=== PATIENT | male | born 1960 | race Caucasian/White ===

== ENCOUNTER 2016-03-07 23:49 | Emergency (ER) | payer MEDICAID ==
[~2016-03-07] VITALS: Ht 167.6 cm; Wt 76.2 kg
[~2016-03-07 23:49] MED LIST: ADULT LOW DOSE81 MG PO; ALPRAZOLAM1 MG PO; CARVEDILOL3.125 MG PO; IMDUR 30MG. TAB30 MG PO; INSULIN GL100 UNITS/ SC; LEVOTHYROXINE0.05 MG PO; LIPITOR40 MG PO; METFORMIN1000 MG PO; OMEPRAZOLE20 MG PO
[2016-03-08] MEDS ORDERED: RANITIDINE 150150 MG PO (00:05)
--- NOTE | 2016-03-08 00:31 | Emergency Room Report ---
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 PT HARD TO UNDERSTAND. STATES DRINKING VODKA AND BACARDI. PT NOT GOOD HISTORIAN AT THIS TIME. STATES HE SHAKES FROM THE INSIDE. STATES HE HAS BEEN SICK FOR THREE OR FOUR DAYS. DENIES NEW PAIN AT THIS TIME. HARD TO KEEP PT FOCUSED FOR ASSESSMENT. 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 N Clinical Suspician of Infection? N Mental Status: 2 - Mildly Altered Sepsis Risk:Low Sepsis Risk Have you (or family members/close friends) recently traveled outside the [place]? N If Yes, where/when: Have you had exposure to infectious disease within the past month? N TB? Other? Specify: Source patient, RN notes reviewed, EMS, old records Exam Limitations intoxication Comment pt reports drinking and not feeling well -pt w/o trauma Cardiac Chest Pain Chest pain indicative of cardiac No Timing/Duration this evening Severity moderate ALLERGIES Coded Allergies: No Known Allergies (11/21/15) Home Medications Active Scripts Carvedilol (Carvedilol 3.125MG) 6.25 MG PO BID #60 TAB Ref 2 Prov: 05/18/15 ISOSORBIDE MONONITRATE (IMDUR 30MG) 30 MG PO DAILY #30 TAB Ref 2 Prov: 05/18/15 Aspirin (Adult Low Dose Aspirin EC) 81 MG PO DAILY #30 TAB Ref 3 Prov: 05/18/15 Reported Medications Levothyroxine Sodium (Levothyroxine) 0.05 MG PO DAILY ALPRAZOLAM (Alprazolam 1MG) 1 MG PO TID Atorvastatin Calcium (Atorvastatin) 10 MG PO QHS INSULIN GLARGINE (Lantus 3ML Solostar Pen) 20 UNITS SC BID METFORMIN HCL (Metformin) 1,000 MG PO BID Omeprazole (Omeprazole 20MG) 20 MG PO DAILY RANITIDINE HCL (Ranitidine HCl) 150 MG PO BID #60 History Medical History General CAD? Yes Angina: Yes [place]: No Hypertension? No Hyperlipidemia? Yes CHF? No DVT? No PE? No COPD? No Asthma? No Anemia? No GERD? Yes Gastric ulcers? No GI Bleed? No Hernia? Yes Thyroid Problems? Yes Hypothyroidism? Yes CVA? No Seizures? No Diabetes? Yes Insulin Dependent: Yes Insulin Pump: No Home FSBS? Yes Renal Insuffiency? No End Stage Renal Disease? No UTI? No Stones? No BPH? No GB Disease: Yes Nephritic Syndrome? No Asplenia? No Hepatitis? No Sickle Cell Disease? No Arthritis? No Migraines? No Cataracts? No Glaucoma? No MRSA? No HIV? No TB? No Anxiety? Yes Depression? Yes Cancer? No More? No Immunization Hx DT/Tetanus 1-4 Years Ago Pneumonia Received In Past Surgical Hx Previous Surgery?Y OPEN HEART BYPASS GALLBLADDER Family History Family Hx Diabetes Yes CAD Yes Hypertension No Hyperlipidemia Yes Cancer No TB No Social History Smoking Hx Smoker: Current Every Day Smoker Tobacco: Yes Type Cigarettes Packs/day < 1 Pack Alcohol Alcohol: Yes Drugs none Review of Systems All Other Systems Reviewed and Negative Constitutional see HPI, denies fever, other Eyes denies foreign body sensation ENT denies: ear discharge, epistaxis, throat pain, throat swelling. Respiratory denies cough, denies shortness of breath, denies wheezing Cardiovascular denies chest pain, denies syncope Gastrointestinal denies abdominal pain, denies diarrhea, denies vomiting Genitourinary denies: dysuria, frequency, hesitancy, hematuria. Musculoskeletal denies back pain, joint pain, denies neck pain Skin denies rash Psychiatric/Neurological denies headache, denies seizure Physical Exam Vital Signs Vital Signs Date Time Temp Pulse Resp B/P Pulse O2 O2 Flow FiO2 Ox Delivery Rate 03/08 0517 71 18 103/63 97 03/08 0416 72 18 111/65 98 03/08 0318 76 18 119/73 93 03/08 0221 74 18 127/77 98 03/08 0139 77 18 133/81 98 03/07 2351 97.7 71 20 100/71 99 - WBC >12,000 or <4,000 or 10% bands? 2 or more SIRS Criteria Met? B/P:103/ MAP:80 Creatinine >2.0? UA output<0.5ml/kg/hr for 2 hrs? Platelet count >100,000? Lactate >2.0mmol/1? INR >1.2 or PTT > than 60 sec? Evidence of Organ Dysfunction? Provider documented clinical suspician of infection? N Sepsis Criteria Count: 1 Sepsis Risk: Low Sepsis Risk General Appearance no apparent distress Eye Exam - bilateral eye PERRL, bilateral eye EOMI Comment no icterus Ear, Nose, Throat normal ENT inspection Neck non-tender Respiratory Status No: respiratory distress. Lung Sounds bilateral: lungs clear. 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 No Results/Orders Laboratory Tests 03/08/16 0055: Sodium 138, Potassium 4.1, Chloride 102, Carbon Dioxide 24, BUN 7, Creatinine 0.9, Estimated Creat Clear 99, Estimated GFR (MDRD) 87, Glucose 307 H, Calcium 8.9, Total Bilirubin 0.8, AST 81 H, ALT 75, Alkaline Phosphatase 86, Creatine Kinase 79, CK-MB (CK-2) Rel Index 1.0, CK and CKMB Interp 0.8, Troponin I < 0.02 , Total Protein 7.8, Albumin 3.5, Globulin 4.3 H, Albumin/Globulin Ratio 0.8 L , WBC 4.4 L, RBC 5.32, Hgb 15.6, Hct 46.8, MCV 88.0, RDW 15.4, Plt Count 83 L, MPV 9.1, Gran % 47.2, Gran # 2.1, Lymphocytes % 44.7, Monocytes % 5.0, Eosinophils % 2.0, Basophils % 1.1, Lymphocytes # 2.0, Monocytes # 0.2, Eosinophils # 0.1, Basophils # 0.1, PUBS MCHC 33.4, MCH 29.4, Salicylates 2.3 L , Acetaminophen 0 L, Alcohols 245 H Current Medication Orders Sig/Wallace Start time Last Medication Dose Route Stop Time Status Admin Sodium Chloride 1,000 ML .STK-MED ONE 03/08 0053 DC IV Sodium Chloride 1,000 ML .Q1H1M 03/08 0045 DC 03/08 IV 03/08 0145 0055 Sodium Chloride 10 ML PRN PRN 03/08 0045 AC IV 03/09 0039 Sodium Chloride 10 ML PRN PRN 03/07 2345 AC IV 03/08 2356 Orders Procedure Date/time Status 12 LEAD EKG-VIJAY (INITIAL) 03/08 UNK Active ELECTROCARDIOGRAM REQUEST 03/07 2355 Active IV SALINE LOCK 03/07 2355 Active URINALYSIS/COMPLETE 03/07 235 Active SALICYLATE 03/07 235 Complete DRUG ABUSE SCREEN (TRIAGE) 03/07 235 Active COMPLETE METABOLIC PANEL 03/07 235 Complete CBC WITH AUTO DIFF 03/07 2355 Complete CARDIAC ENZYMES 03/07 2355 Complete ALCOHOL 03/07 2355 Complete Acetaminophen 03/07 2355 Complete 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 ST/Twave chgs Progress ED Progress Notes Date 03/08/16 Time 0558 Comment doing better awake/ambulatory Departure Departure Time of Disposition 0202 Disposition DC Home or Self Care(routine) Clinical Impression Primary Impression: Alcohol intoxication Qualifiers: Complication of substance-induced condition: uncomplicated Qualified Code: F10.120 - Alcohol abuse with intoxication, uncomplicated Secondary Impressions: Diabetes mellitus Qualifiers: Diabetes mellitus type: type 1 Diabetes mellitus complication status: with unspecified complications Qualified Code: E10.8 - Type 1 diabetes mellitus with unspecified complications Condition STABLE Referrals Duncan Bauer (Family) Patient Instructions DI for Alcohol Abuse Additional Instructions see your pcp today and discuss diabetes and etoh abuse Discharge Counseling Counseled pt/family regarding diagnosis, test results, follow up needs ED Critical Care Critical Care No at 0602
[2016-03-08 01:09] LABS: LYMPH % 44.7 % (10-50)
[2016-03-08 01:13] LABS: HEMOGLOBIN 15.6 g/dL (14.1-18.0)
[2016-03-08 01:33] LABS: BUN 7 mg/dL (7-18); GFR (ESTIMATED) 87 ML/MIN (>60)
[2016-03-08 06:09] LABS: URINE BILIRUBIN - DIPSTICK NEGATIVE (NEG); URINE BLOOD TRACE-INTACT (NEG)
[2016-03-08 06:17] LABS: AMPHETAMINES/METAMPHETAMINES NEGATIVE ng/mL (<1000)
[2016-03-08 06:36] VITALS: BP 103/63
== END 2016-03-08 06:36 | disposition home or self-care (01) ==
LOC: ER 23:49
PROVIDERS: Emergency Medicine
DX: F10.120 Alcohol abuse with intoxication, uncomplicated (principal); E10.8 Type 1 diabetes mellitus with unspecified complications; F41.8 Other specified anxiety disorders; I25.10 Atherosclerotic heart disease of native coronary artery without angina pectoris; K21.9 Gastro-esophageal reflux disease without esophagitis; Z72.0 Tobacco use
CPT/HCPCS: G6040

== ENCOUNTER 2016-06-08 16:30 | Emergency (ER) | payer MEDICAID ==
[~2016-06-08] VITALS: Ht 167.6 cm; Wt 74.8 kg
[~2016-06-08 16:30] MED LIST changes: +RANITIDINE 150150 MG PO
[2016-06-08] MEDS ORDERED: COLY-MYCIN S OT10 ML OT (17:25)
--- NOTE | 2016-06-08 17:26 | Emergency Room Report ---
History of Present Illness Time Seen by [id number] Presenting Problem in Triage Pt arrived:Walked Presenting Problem:PT REPORTS SUAD EAR ACHES THAT BEGAN YESTERDAY. 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 N Clinical Suspician of Infection? N Mental Status: 1 - Regular (Normal Baseline) Sepsis Risk:Low Sepsis Risk Have you (or family members/close friends) recently traveled outside the [place]? N If Yes, where/when: Have you had exposure to infectious disease within the past month? N TB? Other? Specify: Source patient, RN notes reviewed Exam Limitations no limitations Comment Pt comes to the ED with pain in both ears on and off for over a year and concerned about some lumps on back of throat and above right ear and behind ears as well Cardiac Chest Pain Chest pain indicative of cardiac No ALLERGIES Coded Allergies: No Known Allergies (11/21/15) Home Medications Active Scripts Carvedilol (Carvedilol 3.125MG) 6.25 MG PO BID #60 TAB Ref 2 Prov: 05/18/15 ISOSORBIDE MONONITRATE (IMDUR 30MG) 30 MG PO DAILY #30 TAB Ref 2 Prov: 05/18/15 Aspirin (Adult Low Dose Aspirin EC) 81 MG PO DAILY #30 TAB Ref 3 Prov: 05/18/15 Reported Medications Levothyroxine Sodium (Levothyroxine) 0.05 MG PO DAILY ALPRAZOLAM (Alprazolam 1MG) 1 MG PO TID Atorvastatin Calcium (Atorvastatin) 10 MG PO QHS INSULIN GLARGINE (Lantus 3ML Solostar Pen) 20 UNITS SC BID METFORMIN HCL (Metformin) 1,000 MG PO BID Omeprazole (Omeprazole 20MG) 20 MG PO DAILY History Medical History General CAD? Yes Angina: Yes [place]: No Hypertension? No Hyperlipidemia? Yes CHF? No DVT? No PE? No COPD? No Asthma? No Anemia? No GERD? Yes Gastric ulcers? No GI Bleed? No Hernia? Yes Thyroid Problems? Yes Hypothyroidism? Yes CVA? No Seizures? No Diabetes? Yes Insulin Dependent: Yes Insulin Pump: No Home FSBS? Yes Renal Insuffiency? No End Stage Renal Disease? No UTI? No Stones? No BPH? No GB Disease: Yes Nephritic Syndrome? No Asplenia? No Hepatitis? No Sickle Cell Disease? No Arthritis? No Migraines? No Cataracts? No Glaucoma? No MRSA? No HIV? No TB? No Anxiety? Yes Depression? Yes Cancer? No More? No Immunization Hx DT/Tetanus Unknown Pneumonia Received In Past Surgical Hx Previous Surgery?Y OPEN HEART BYPASS GALLBLADDER Family History Family Hx Diabetes Yes CAD Yes Hypertension No Hyperlipidemia Yes Cancer No TB No Social History Smoking Hx Smoker: Current Every Day Smoker Tobacco: Yes Type Cigarettes Packs/day < 1 Pack Alcohol Alcohol: Yes Review of Systems All Other Systems Reviewed and Negative Constitutional see HPI ENT see HPI. Physical Exam Vital Signs Vital Signs Date Time Temp Pulse Resp B/P Pulse O2 O2 Flow FiO2 Ox Delivery Rate 06/08 1638 97.7 74 18 122/52 95 General Appearance normal appearance, WD/WN, no apparent distress Ear, Nose, Throat bilat. external ears are excoriated and mildly inflamed He has a sebaceous cyst above the right ear Respiratory Status No: respiratory distress. 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 No Departure Departure Time of Disposition 1718 Disposition DC Home or Self Care(routine) Clinical Impression Primary Impression: Sebaceous cyst of ear Secondary Impressions: External otitis of both ears due to fungus Condition STABLE Patient Instructions DI for Epidermal Cyst, DI for Otitis Externa, Epidermal Cyst, Otitis Externa Additional Instructions Use medicines as directed and followup with PCP as needed. Discharge Counseling Counseled pt/family regarding diagnosis, test results, medications/RX, home care, follow up needs Prescriptions Current Visit Scripts Neomycin Sandy/Colist/Hc/Thonzon (Coly-Mycin S Otic Susp Drop) 5 DROP OT QID #1 BOT ED Critical Care Critical Care No If Critical Care minutes are documented, the time involved in the performance of seperately reportable procedures was not counted toward critical care time documented. I directly delivered medical care to this critically ill and/or injured patient. Timely evaluation and treatment was necessary to address the significant organ system(s) dysfunction present in this patient. at [id number]
[2016-06-08 17:55] VITALS: BP 106/66
--- OUTSIDE RECORDS SUMMARY | 2016-06-10 | External Medical Summary Rpt ---
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 .7 NT MM HI X3 AN 0G A IN C RA 53 02 03 60 30 00 EA Ac NI 74 -2 -[address] ti TI 60 2- 4- 00 00 SI ve DI 25 20 20 47 DE NE 31 17 17 00 0 81 PH 15 AR 0 MA MG CY TA OF BL CY ET NT HI AN A IN C CA 00 02 03 60 30 00 EA Ac RV 09 -2 -[address] ti ED 30 2- 4- 00 00 SI ve IL 13 20 20 47 DE OL 50 17 17 33 1 88 PH 6. AR 25 MA CY MG OF TA CY BL NT ET HI AN A IN C ME 68 02 03 60 30 00 EA Ac TF 38 -2 -[address] ti OR 20 2- 4- [address] 76 20 20 47 DE N 01 17 17 33 HC 0 86 PH L AR 1, MA 00 CY 0 MG OF CY TA NT BL HI ET AN A IN C LE 00 02 03 30 30 00 EA Ac VO 37 -2 -[address] ti TH 81 2- 4- 00 00 SI ve YR 80 20 20 46 DE OX 37 17 17 65 IN 7 50 PH E AR 50 MA CY MC G OF TA CY BL NT ET HI AN A IN C IS 13 02 03 30 30 00 EA Ac OS 66 -2 -[address] ti OR 80 2- 4- 00 00 SI ve BI 10 20 20 47 DE DE 40 17 17 33 1 87 PH MN AR MA ER CY 30 OF CY MG NT HI TA AN BL A ET IN C AL 00 02 03 90 30 00 EA Ac VA 78 -2 -[address] ti AZ 11 2- 4- 00 00 SI ve OL 07 20 20 47 DE AM 91 17 17 00 1 0 82 PH AR MG MA CY TA BL OF ET CY NT HI AN A IN C ON 02 10 30 00 EA Ac ET 88 -2 -[address] ti OU 50 3- 4- 00 00 SI ve CH 59 20 20 0 47 DE 50 17 17 34 DE 1 09 PH LI AR CA MA CY 30 G OF LA CY NC NT ET HI S AN A IN C ON 02 50 25 00 EA Ac ET 88 -2 -[address] ti OU 50 3- 4- 00 00 SI ve CH 24 20 20 47 DE 45 17 17 34 UL 0 08 PH TR AR A MA TE CY ST OF ST CY RI NT PS HI AN A IN C ON 02 1. 1 00 EA Ac ET 88 -2 -[address] ti OU 50 3- 4- 0 00 SI ve CH 44 20 20 47 DE 80 17 17 34 UL 1 07 PH TR AR A2 MA CY GL UC OF OS CY E NT SY HI ST AN A IN C HM 62 01 02 30 30 00 EA Ac 01 -2 -[address] ti OM 10 3- 4- 00 00 SI ve EP 15 20 20 45 DE RA 70 17 17 25 ZO 2 05 PH LE AR MA [address] CY 20 OF CY MG NT HI TA AN BL A ET IN C LA 00 01 02 10 24 00 EA Ac NT 08 -2 -[address] ti US 82 3- 4- 00 00 SI ve 22 20 20 47 DE 10 03 17 17 34 0 3 03 PH UN AR IT MA S/ CY ML OF CY AL NT HI AN A IN C HU 00 01 02 10 30 00 EA Ac MA 00 -2 -[address] ti LO 27 3- 4- 00 00 SI ve G 51 20 20 43 DE 10 00 17 17 28 0 1 99 PH UN AR IT MA S/ CY ML OF CY AL NT HI AN A IN C AL 00 01 02 90 30 00 EA Ac VA 78 -2 -[address] ti AZ 11 3- 4- 00 00 SI ve OL 07 20 20 47 DE AM 91 17 17 00 1 0 82 PH AR MG MA CY TA BL OF ET CY NT HI AN A IN C CA 00 02 60 30 00 EA Ac RV 09 -2 -[address] ti ED 30 3- 4- 00 00 SI ve IL 13 20 20 47 DE OL 50 17 17 33 1 88 PH 6. AR 25 MA CY MG OF TA CY BL NT ET HI AN A IN C IS 13 01 02 30 30 00 EA Ac OS 66 -2 -[address] ti OR 80 3- 4- 00 00 SI ve BI 10 20 20 47 DE DE 40 17 17 33 1 87 PH MN AR MA ER CY 30 OF CY MG NT HI TA AN BL A ET IN C LE 00 01 02 30 30 00 EA Ac VO 37 -2 -[address] ti TH 81 3- 4- 00 00 SI ve YR 80 20 20 46 DE OX 37 17 17 65 IN 7 50 PH E AR 50 MA CY MC G OF TA CY BL NT ET HI AN A IN C RA 53 01 02 60 30 00 EA Ac NI 74 -2 -[address] ti TI 60 3- 4- 00 00 SI ve DI 25 20 20 47 DE NE 31 17 17 00 0 81 PH 15 AR 0 MA MG CY TA OF BL CY ET NT HI AN A IN C ME 68 01 02 60 30 00 EA Ac TF 38 -2 -[address] ti OR 20 3- 4- [address] 76 20 20 47 DE N 01 17 17 33 HC 0 86 PH L AR 1, MA 00 CY 0 MG OF CY TA NT BL HI ET AN A IN C 00 02 30 30 00 EA Ac PI 60 -2 -[address] ti RI 30 3- 4- 00 00 SI ve N 02 20 20 45 DE EC 62 17 17 25 2 07 PH 81 AR MA MG CY TA OF BL CY ET NT HI AN A IN C BD 08 01 02 10 25 00 EA Ac 29 -2 -[address] ti IN 03 3- 4- 00 00 SI ve CARTER 28 20 20 0 46 DE LI 41 17 17 98 N 1 54 PH SY AR R MA 1 CY ML OF 12 CY .7 NT MM HI X3 AN 0G A IN C AL 00 12 90 30 00 EA Ac VA 78 -2 -[address] ti AZ 11 3- 7- 00 SI ve OL 07 20 20 47 DE AM 91 16 17 00 1 0 82 PH AR MG MA CY TA BL OF ET CY NT HI AN A IN C RA 53 12 01 60 30 00 EA Ac NI 74 -2 -[address] ti TI 60 3- 7- 00 00 SI ve DI 25 20 20 47 DE NE 31 16 17 00 0 81 PH 15 AR 0 MA MG CY TA OF BL CY ET NT HI AN A IN C IS 13 12 30 30 00 EA Ac OS 66 -2 -[address] ti OR 80 2- 7- 00 00 SI ve BI 10 20 20 45 DE DE 40 16 17 25 1 01 PH MN AR MA ER CY 30 OF CY MG NT HI TA AN BL A ET IN C 00 12 30 30 00 EA Ac PI 60 -2 -[address] ti RI 30 2- 7- 00 00 SI ve N 02 20 20 45 DE EC 62 16 17 25 2 07 PH 81 AR MA MG CY TA OF BL CY ET NT HI AN A IN C ME 68 12 01 60 30 00 EA Ac TF 38 -2 -[address] ti OR 20 2- 7- [address] 76 20 20 45 DE N 01 16 17 25 HC 0 04 PH L AR 1, MA 00 CY 0 MG OF CY TA NT BL HI ET AN A IN C CA 00 12 01 60 30 00 EA Ac RV 09 -2 -[address] ti ED 30 2- 7- 00 00 SI ve IL 13 20 20 45 DE OL 50 16 17 25 1 02 PH 6. AR 25 MA CY MG OF TA CY BL NT ET HI AN A IN C BD 08 12 01 10 25 00 EA Ac 29 -2 -[address] ti IN 03 2- 7- 00 00 SI ve CARTER 28 20 20 0 46 DE LI 41 16 17 98 N 1 54 PH SY AR R MA 1 CY ML OF 12 CY .7 NT MM HI X3 AN 0G A IN C LE 00 12 01 30 30 00 EA Ac VO 37 -2 -[address] ti TH 81 2- 7- 00 00 SI ve YR 80 20 20 46 DE OX 37 16 17 65 IN 7 50 PH E AR 50 MA CY MC G OF TA CY BL NT ET HI AN A IN C LA 00 12 01 10 24 00 EA Ac NT 08 -1 -[address] ti US 82 9- 0- 00 00 SI ve 22 20 20 43 DE 10 03 16 17 29 0 3 03 PH UN AR IT MA S/ CY ML OF CY AL NT HI AN A IN C HM 62 12 01 30 30 00 EA Ac 01 -1 -[address] ti OM 10 9- 0- 00 00 SI ve EP 15 20 20 45 DE RA 70 16 17 25 ZO 2 05 PH LE AR MA [address] CY 20 OF CY MG NT HI TA AN BL A ET IN C CY 00 07 07 0 15 5 CV 30 WO Ac CL 37 -2 -2 .0 S 94 NG ti OB 80 3- 4- 00 PH 81 ve EN 75 20 20 AR BR ZA 11 11 11 MA EN VA 0 CY DA IN # L E 10 06 11 MG 9 TA BL ET IB 55 07 07 0 20 7 CV 30 WO Ac UP 11 -2 -2 .0 S 94 NG ti RO 10 3- 4- 00 PH 82 ve FE 68 20 20 AR BR N 40 11 11 MA EN 80 5 CY DA 0 # L MG 06 TA 11 BL 9 ET 00 04 04 0 10 3 CV 30 MU Ac 40 -2 -2 .0 S 20 KH ti 60 2- 2- 00 PH 93 ER ve 35 20 20 AR JE 70 11 11 MA E 5 CY SA # NJ OY 06 DE 11 B 9 NA 00 04 04 0 20 10 CV 30 MU Ac VA 09 -2 -2 .0 S 20 KH ti OX 30 2- 2- 00 PH 94 ER ve EN 14 20 20 AR JE 90 11 11 MA E 50 5 CY SA 0 # NJ MG OY 06 DE TA 11 B BL 9 ET 49 11 12 0 20 7 BL 65 DO Ac 88 -0 -0 .0 AN 89 ZI ti 40 3- 6- 00 K' 72 ER ve 77 20 20 S 4 80 10 10 PH EM 5 AR IL MA Y CY J 00 11 11 0 [address] Ac 59 -0 -0 .0 LG 87 AN ti 10 1- 1- 00 RE 32 FO ve 34 20 20 EN 1 RT 90 10 10 S H 5 #1 DA 30 55 D # 13 05 5 65 10 10 0 10 50 BL 65 ZI Ac 70 -2 -2 0. AN 85 NE ti 20 0- 0- 00 K' 91 DD ve 10 20 20 0 S 5 IN 31 10 10 PH 0 AR MO MA ALBERT CY ME D GN 38 10 10 0 10 50 BL 65 ZI Ac P 39 -2 -2 0. AN 85 NE ti UN 60 0- 0- 00 K' 91 DD ve IV 54 20 20 0 S 6 IN ER 76 10 10 PH SA 4 AR MO L MA ALBERT 1 CY ME CARTER D PE R TH IN 30 G TR 65 10 10 0 15 2 BL 41 BE Ac AM 16 -1 -1 .0 AN 24 RN ti AD 20 5- 5- 00 K' 28 AR ve OL 62 20 20 S 6 DO 71 10 10 PH N HC [address] L MA EP 50 CY HE N MG D TA BL ET 00 10 10 0 30 5 BL 65 BE Ac 14 -1 -1 .0 AN 85 RN ti 31 5- 5- 00 K' 53 AR ve 47 20 20 S 5 DO 31 10 10 PH [address] MA EP CY HE N D 00 10 10 0 8. 3 CV 28 EV Ac 40 -1 -1 00 S 63 AN ti 60 4- 4- 0 PH 87 S ve 35 20 20 AR JA 70 10 10 MA ME 5 CY S # L 06 11 9 LI 68 10 10 0 30 30 BL 65 FA Ac SI 18 -0 -1 .0 AN 85 TT ti NO 00 8- 1- 00 K' 10 AL ve VA 51 20 20 S 7 IL 90 10 10 PH MO -H [address] MA MM Z CY AD 20 -1 2. 5 MG TA B GL 64 10 10 0 60 30 BL 65 FA Ac YB 72 -0 -1 .0 AN 85 TT ti UR 00 8- 1- 00 K' 10 AL ve ID 12 20 20 S 8 E 51 10 10 PH MO 5 1 AR ALBERT MG MA MM CY AD TA BL ET HY 00 10 10 0 40 14 BL [address] 18 -0 -1 .0 AN 85 TT ti OX 50 8- 1- 00 K' 10 AL ve YZ 61 20 20 S 9 IN 30 10 10 PH MO E 5 AR ALBERT PA MA MM M CY AD 25 MG CA P 00 07 07 0 18 2 CV 28 EV Ac 40 -2 -2 .0 S 00 AN ti 60 6- 6- 00 PH 06 S ve 35 20 20 AR JA 70 10 10 MA ME 5 CY S # L 06 11 9 00 05 05 6. 1 CV 27 CU Ac 40 -2 -2 00 S 47 LB ti 60 3- 3- 0 PH 99 ER ve 35 20 20 AR TS 70 10 10 MA ON 5 CY # RO BE 06 RT 11 9 CE 42 01 01 00 40 10 KR 61 CU Ac PH 04 -1 -2 .0 OG 18 LB ti AL 30 3- 8- 00 ER 17 ER ve EX 14 20 20 1 TS IN 10 10 10 CO ON 5 MP 50 AN AD 0 Y AM MG 38 D 1 CA PS UL E 00 01 01 00 12 2 KR 46 CU Ac 40 -1 -2 .0 OG 04 LB ti 60 3- 8- 00 ER 04 ER ve 35 20 20 5 TS 70 10 10 CO ON 1 MP AN AD Y AM 38 D 1 CE 68 12 01 00 40 10 WA 29 CU Ac PH 18 -2 -1 .0 LG 43 LB ti AL 00 5- 4- 00 RE 39 ER ve EX 12 20 20 EN 0 TS IN 20 09 10 # ON 2 50 07 AD 0 34 AM MG 6 D CA PS UL E TR 00 09 12 03 30 30 CV 25 WY Ac IC 07 -0 -3 .0 S 34 EN ti OR 46 1- 1- 00 PH 56 AN ve 12 20 20 AR DT 14 39 09 09 MA 5 0 CY JR MG #6 RO TA 11 BE BL [address] 24 12 12 00 12 30 BL 65 ZI Ac OO 38 -1 -3 0. AN 61 NE ti L 50 7- 1- 00 KS 56 DD ve SO 49 20 20 0 4 IN FT 57 09 09 PH EN 8 AR MO ER MA ALBERT -L CY ME AX D AT IV E TA BL ET BU 00 12 12 00 90 30 BL 65 ZI Ac SP 59 -1 -3 .0 AN 61 NE ti IR 10 4- 1- 00 KS 56 DD ve ON 65 20 20 2 IN E 80 09 09 PH HC 1 AR MO L MA ALBERT 10 CY ME D MG TA BL ET 00 09 12 03 60 30 CV 25 WY Ac 09 -0 -3 .0 S 34 EN ti 37 1- 1- PH 05 AN ve 23 20 20 AR DT 10 09 09 MA 6 CY JR #6 RO 11 BE 9 RT LI 00 12 12 00 90 90 BL 65 ZI Ac SI 18 -1 -3 .0 AN 61 NE ti NO 50 4- 1- 00 KS 56 DD ve VA 10 20 20 7 IN IL 10 09 09 PH 1 AR MO 10 MA ALBERT CY ME MG D TA BL ET AV 00 12 12 00 10 10 CV 26 WY Ac EL 08 -1 -3 .0 S 26 EN ti OX 51 9- 1- PH 72 AN ve 73 20 20 AR DT 40 30 09 09 MA 0 1 CY JR MG #6 RO TA 11 BE BL 9 RT ET 00 09 12 03 60 30 CV 25 WY Ac 14 -0 -3 .0 S 34 EN ti 31 1- 1- PH 55 AN ve 77 20 20 AR DT 21 09 09 MA 0 CY JR #6 RO 11 BE 9 RT CI 13 09 12 01 30 30 CV 25 WY Ac TA 66 -2 -3 .0 S 50 EN ti LO 80 2- 1- 00 PH 75 AN ve VA 01 20 20 AR DT AM 10 09 09 MA 5 CY JR HB R #6 RO 40 11 BE 9 RT MG TA BL ET GL 00 09 12 02 30 30 CV 25 WY Ac IP 59 -0 -3 .0 S 34 EN ti IZ 10 1- - PH 04 AN ve ID 84 20 20 AR DT E 40 09 09 MA ER 1 CY JR 5 #6 RO MG 11 BE 9 RT TA BL ET LE 00 12 12 00 30 30 CV 26 WY Ac VO 37 -1 -3 .0 S 25 EN ti TH 81 7- 1- PH 42 AN ve YR 80 20 20 AR DT OX 00 09 09 MA IN 1 CY JR E 25 #6 RO 11 BE MC 9 RT G TA BL ET SE 59 12 12 00 30 30 BL 65 ZI Ac RT 76 -1 -3 .0 AN 61 NE ti RA 24 4- 1- 00 KS 56 DD ve LI 91 20 20 3 IN NE 00 09 09 PH 5 AR MO HC MA ALBERT L CY ME 10 D 0 MG TA BL ET AT 68 09 12 03 60 30 CV 25 WY Ac EN 38 -0 -3 .0 S 34 EN ti OL 20 1- 1- 00 PH 53 AN ve OL 02 20 20 AR DT 21 09 09 MA 25 0 CY JR MG #6 RO 11 BE TA 9 RT BL ET PO 00 12 12 00 25 14 BL 65 SO Ac LY 57 -1 -1 5. AN 61 WE ti ET 40 1 7- KS 11 R ve HY 41 20 20 0 5 DA LE 20 09 09 PH NE 2 AR D MA GL CY YC OL 33 50 PO WD GA 00 12 12 00 90 30 CV 26 WY Ac BA 09 -0 -1 .0 S 12 EN ti PE 34 2- 7- 00 PH 39 AN ve NT 44 20 20 AR DT IN 30 09 09 MA 1 CY JR 60 0 #6 RO MG 11 BE 9 RT TA BL ET AT 68 09 12 02 60 30 CV 25 WY Ac EN 38 -0 -0 .0 S 34 EN ti OL 20 1- 3- 00 PH 53 AN ve OL 02 20 20 AR DT 21 09 09 MA 25 0 CY JR MG #6 RO 11 BE TA 9 RT BL ET 00 09 12 02 60 30 CV 25 WY Ac 14 -0 -0 .0 S 34 EN ti 31 1- 3- 00 PH 55 AN ve 77 20 20 AR DT 21 09 09 MA 0 CY JR #6 RO 11 BE 9 RT GL 00 09 12 01 30 30 CV 25 WY Ac IP 59 -0 -0 .0 S 34 EN ti IZ 10 1- 3- 00 PH 04 AN ve ID 84 20 20 AR DT E 40 09 09 MA ER 1 CY JR 5 #6 RO MG 11 BE 9 RT TA BL ET CI 13 09 12 00 30 30 CV 25 WY Ac TA 66 -2 -0 .0 S 50 EN ti LO 80 2- 3- 00 PH 75 AN ve VA 01 20 20 AR DT AM 10 09 09 MA 5 CY JR HB R #6 RO 40 11 BE 9 RT MG TA BL ET LI 68 09 12 01 30 30 CV 25 WY Ac SI 18 -0 -0 .0 S 34 EN ti NO 00 1- 3- 00 PH 54 AN ve VA 51 20 20 AR DT IL 30 09 09 MA 5 3 CY JR MG #6 RO 11 BE TA 9 RT BL ET 00 09 12 02 60 30 CV 25 WY Ac 09 -0 -0 .0 S 34 EN ti 37 1- 3- 00 PH 05 AN ve 23 20 20 AR DT 10 09 09 MA 6 CY JR #6 RO 11 BE 9 RT TR 00 09 12 02 30 30 CV 25 WY Ac IC 07 -0 -0 .0 S 34 EN ti OR 46 1- 3- 00 PH 56 AN ve 12 20 20 AR DT 14 39 09 09 MA 5 0 CY JR MG #6 RO TA 11 BE BL 9 RT ET 00 11 11 00 6. 1 WA 29 SC Ac 60 -1 -1 00 LG 21 HO ti 35 1- 9- 0 RE 93 TT ve 46 20 20 EN 7 72 09 09 # BLU 8 N 07 J 34 6 LE 00 05 11 05 30 30 CV 24 WY Ac VO 37 -2 -1 .0 S 45 EN ti TH 81 0- 9- 00 PH 52 AN ve YR 80 20 20 AR DT OX 00 09 09 MA IN 1 CY JR E 25 #6 RO 11 BE MC 9 RT G TA BL ET AT 68 09 10 01 60 30 CV 25 WY Ac EN 38 -0 -2 .0 S 34 EN ti OL 20 1- 2- 00 PH 53 AN ve OL 02 20 20 AR DT 21 09 09 MA 25 0 CY JR MG #6 RO 11 BE TA 9 RT BL ET 00 09 10 01 60 30 CV 25 WY Ac 09 -0 -2 .0 S 34 EN ti 37 1- 2- 00 PH 05 AN ve 23 20 20 AR DT 10 09 09 MA 6 CY JR #6 RO 11 BE 9 RT GA 59 02 10 05 90 30 CV 23 WY Ac BA 76 -2 -2 .0 S 66 EN ti PE 25 4- 2- 00 PH 86 AN ve NT 02 20 20 AR DT IN 30 09 09 MA 1 CY JR 60 0 #6 RO MG 11 BE 9 RT TA BL ET 00 09 10 01 60 30 CV 25 WY Ac 14 -0 -2 .0 S 34 EN ti 31 1- 2- 00 PH 55 AN ve 77 20 20 AR DT 21 09 09 MA 0 CY JR #6 RO 11 BE 9 RT TR 00 09 10 01 30 30 CV 25 WY Ac IC 07 -0 -2 .0 S 34 EN ti OR 46 1- 2- 00 PH 56 AN ve 12 20 20 AR DT 14 39 09 09 MA 5 0 CY JR MG #6 RO TA 11 BE BL 9 RT ET LE 00 05 10 04 30 30 CV 24 WY Ac VO 37 -2 -0 .0 S 45 EN ti TH 81 0- 8- 00 PH 52 AN ve YR 80 20 20 AR DT OX 00 09 09 MA IN 1 CY JR E 25 #6 RO 11 BE MC 9 RT G TA BL ET LI 68 09 09 00 30 30 WA 11 ZI Ac SI 18 -1 -2 .0 LG 06 NE ti NO 00 7- 4- 00 RE 93 DD ve VA 51 20 20 EN 6 IN IL 40 09 09 S 3 (0 MO 10 29 ALBERT 91 ME MG ) D TA BL ET TR 50 09 09 00 30 30 WA 11 ZI Ac AZ 11 -1 -2 .0 LG 06 NE ti OD 10 7- 4- 00 RE 93 DD ve ON 43 20 20 EN 7 IN E 30 09 09 S 50 2 (0 MO 29 ALBERT MG 91 ME ) D TA BL ET 00 09 09 00 60 30 WA 11 ZI Ac 78 -1 -2 .0 LG 06 NE ti 11 7- 4- 00 RE 93 DD ve 19 20 20 EN 5 IN 11 09 09 S 0 (0 MO 29 ALBERT 91 ME ) D 00 09 09 00 60 30 CV 25 WY Ac 09 -0 -1 .0 S 34 EN ti 37 1- 0- 00 PH 05 AN ve 23 20 20 AR DT 10 09 09 MA 6 CY JR #6 RO 11 BE 9 RT 00 09 09 00 60 30 CV 25 WY Ac 14 -0 -1 .0 S 34 EN ti 31 1- 0- 00 PH 55 AN ve 77 20 20 AR DT 21 09 09 MA 0 CY JR #6 RO 11 BE 9 RT AT 68 09 09 00 60 30 CV 25 WY Ac EN 38 -0 -1 .0 S 34 EN ti OL 20 1- 0- 00 PH 53 AN ve OL 02 20 20 AR DT 21 09 09 MA 25 0 CY JR MG #6 RO 11 BE TA 9 RT BL ET GL 00 09 09 00 30 30 CV 25 WY Ac IP 59 -0 -1 .0 S 34 EN ti IZ 10 1- 0- 00 PH 04 AN ve ID 84 20 20 AR DT E 40 09 09 MA ER 1 CY JR 5 #6 RO MG 11 BE 9 RT TA BL ET LE 00 05 09 03 30 30 CV 24 WY Ac VO 37 -2 -1 .0 S 45 EN ti TH 81 0- 0- 00 PH 52 AN ve YR 80 20 20 AR DT OX 00 09 09 MA IN 1 CY JR E 25 #6 RO 11 BE MC 9 RT G TA BL ET TR 00 09 09 00 30 30 CV 25 WY Ac IC 07 -0 -1 .0 S 34 EN ti OR 46 1- 0- 00 PH 56 AN ve 12 20 20 AR DT 14 39 09 09 MA 5 0 CY JR MG #6 RO TA 11 BE BL 9 RT ET LI 68 09 09 00 30 30 CV 25 WY Ac SI 18 -0 -1 .0 S 34 EN ti NO 00 1- 0- 00 PH 54 AN ve VA 51 20 20 AR DT IL 30 09 09 MA 5 3 CY JR MG #6 RO 11 BE TA 9 RT BL ET CI 13 02 08 05 30 30 CV 23 WY Ac TA 66 -2 -2 .0 S 66 EN ti LO 80 4- 7- 00 PH 87 AN ve VA 01 20 20 AR DT AM 10 09 09 MA 5 CY JR HB R #6 RO 40 11 BE 9 RT MG TA BL ET GA 59 02 08 04 90 30 CV 23 WY Ac BA 76 -2 -2 .0 S 66 EN ti PE 25 4- 7- 00 PH 86 AN ve NT 02 20 20 AR DT IN 30 09 09 MA 1 CY JR 60 0 #6 RO MG 11 BE 9 RT TA BL ET 00 08 08 00 12 30 CV 25 WY Ac 59 -1 -2 0. S 21 EN ti 10 8- 7- 00 PH 82 AN ve 82 20 20 0 AR DT 50 09 09 MA 1 CY JR #6 RO 11 BE 9 RT 00 07 08 00 60 30 CV 25 WY Ac 14 -2 -1 .0 S 02 EN ti 31 8- 3- 00 PH 52 AN ve 77 20 20 AR DT 21 09 09 MA 0 CY JR #6 RO 11 BE 9 RT 00 02 08 05 60 30 CV 23 WY Ac 40 -0 -1 .0 S 49 EN ti 62 5- 3- 00 PH 75 AN ve 02 20 20 AR DT 21 09 09 MA 0 CY JR #6 RO 11 BE 9 RT GL 00 07 08 00 30 30 CV 25 WY Ac IP 59 -2 -1 .0 S 02 EN ti IZ 10 8- 3- 00 PH 53 AN ve ID 84 20 20 AR DT E 40 09 09 MA ER 1 CY JR 5 #6 RO MG 11 BE 9 RT TA BL ET LE 00 05 08 02 30 30 CV 24 WY Ac VO 37 -2 -1 .0 S 45 EN ti TH 81 0- 3- 00 PH 52 AN ve YR 80 20 20 AR DT OX 00 09 09 MA IN 1 CY JR E 25 #6 RO 11 BE MC 9 RT G TA BL ET 00 07 08 00 60 30 CV 25 WY Ac 09 -2 -1 .0 S 02 EN ti 37 8- 3- 00 PH 51 AN ve 23 20 20 AR DT 10 09 09 MA 6 CY JR #6 RO 11 BE 9 RT TR 00 07 08 00 30 30 CV 25 WY Ac IC 07 -2 -1 .0 S 02 EN ti OR 46 8- 3- 00 PH 54 AN ve 12 20 20 AR DT 14 39 09 09 MA 5 0 CY JR MG #6 RO TA 11 BE BL 9 RT ET LI 68 12 07 06 30 30 CV 22 WY Ac SI 18 -0 -3 .0 S 93 EN ti NO 00 2- 0- 00 PH 96 AN ve VA 51 20 20 AR DT IL 30 08 09 MA 5 3 CY JR MG #6 RO 11 BE TA 9 RT BL ET CI 13 02 07 04 30 30 CV 23 WY Ac TA 66 -2 -1 .0 S 66 EN ti LO 80 4- 6- 00 PH 87 AN ve VA 01 20 20 AR DT AM 10 09 09 MA 5 CY JR HB R #6 RO 40 11 BE 9 RT MG TA BL ET LE 00 05 07 01 30 30 CV 24 WY Ac VO 37 -2 -0 .0 S 45 EN ti TH 81 0- 2- 00 PH 52 AN ve YR 80 20 20 AR DT OX 00 09 09 MA IN 1 CY JR E 25 #6 RO 11 BE MC 9 RT G TA BL ET 00 02 07 04 60 30 CV 23 WY Ac 40 -0 -0 .0 S 49 EN ti 62 5- 2- 00 PH 75 AN ve 02 20 20 AR DT 21 09 09 MA 0 CY JR #6 RO 11 BE 9 RT GA 59 02 07 03 90 30 CV 23 WY Ac BA 76 -2 -0 .0 S 66 EN ti PE 25 4- 2- 00 PH 86 AN ve NT 02 20 20 AR DT IN 30 09 09 MA 1 CY JR 60 0 #6 RO MG 11 BE 9 RT TA BL ET 00 12 07 06 60 30 CV 22 WY Ac 09 -0 -0 .0 S 93 EN ti 37 1- 2- 00 PH 09 AN ve 23 20 20 AR DT 10 08 09 MA 6 CY JR #6 RO 11 BE 9 RT GL 00 12 07 05 30 30 CV 22 WY Ac IP 59 -0 -0 .0 S 93 EN ti IZ 10 2- 2- 00 PH 95 AN ve ID 84 20 20 AR DT E 40 08 09 MA ER 1 CY JR 5 #6 RO MG 11 BE 9 RT TA BL ET TR 00 12 07 04 30 30 CV 22 WY Ac IC 07 -0 -0 .0 S 93 EN ti OR 46 2- 2- 00 PH 93 AN ve 12 20 20 AR DT 14 39 08 09 MA 5 0 CY JR MG #6 RO TA 11 BE BL 9 RT ET CI 13 02 06 03 30 30 CV 23 WY Ac TA 66 -2 -1 .0 S 66 EN ti LO 80 4- 8- 00 PH 87 AN ve VA 01 20 20 AR DT AM 10 09 09 MA 5 CY JR HB R #6 RO 40 11 BE 9 RT MG TA BL ET CY 59 06 06 00 15 5 BL 65 WO Ac CL 74 -0 -1 .0 AN 46 LF ti OB 60 9- 8- 00 KS 48 F ve EN 17 20 20 9 EM ZA 71 09 09 PH IL VA 0 AR Y IN MA L E CY 10 MG TA BL ET TR 65 06 06 00 15 3 BL 41 WO Ac AM 16 -0 -1 .0 AN 12 LF ti AD 20 9- 8- 00 KS 96 F ve OL 62 20 20 4 EM 71 09 09 PH IL HC 1 AR Y L MA L 50 CY MG TA BL ET LE 00 05 06 00 30 30 CV 24 WY Ac VO 37 -2 -0 .0 S 45 EN ti TH 81 0- 4- 00 PH 52 AN ve YR 80 20 20 AR DT OX 00 09 09 MA IN 1 CY JR E 25 #6 RO 11 BE MC 9 RT G TA BL ET FL 00 05 06 00 12 30 CV 24 WY Ac OV 17 -2 -0 .0 S 45 EN ti EN 30 0- 4- 00 PH 53 AN ve T 72 20 20 AR DT HF 02 09 09 MA A 0 CY JR 22 0 #6 RO MC 11 BE G 9 RT IN ALBERT LE R CE 68 05 06 00 40 10 BL 65 No Ac PH 18 -2 -0 .0 AN 45 t ti AL 00 8- 4- 00 KS 52 Av ve EX 12 20 20 8 ai IN 20 09 09 PH la 2 AR bl 50 MA e 0 CY MG CA PS UL E GL 00 12 06 04 30 30 CV 22 WY Ac IP 59 -0 -0 .0 S 93 EN ti IZ 10 2- 4- 00 PH 95 AN ve ID 84 20 20 AR DT E 40 08 09 MA ER 1 CY JR 5 #6 RO MG 11 BE 9 RT TA BL ET 00 12 06 05 60 30 CV 22 WY Ac 09 -0 -0 .0 S 93 EN ti 37 1- 4- 00 PH 09 AN ve 23 20 20 AR DT 10 08 09 MA 6 CY JR #6 RO 11 BE 9 RT 00 01 06 03 60 30 CV 23 WY Ac 14 -0 -0 .0 S 21 EN ti 31 5- 4- 00 PH 22 AN ve 77 20 20 AR DT 21 09 09 MA 0 CY JR #6 RO 11 BE 9 RT LI 68 12 06 05 30 30 CV 22 WY Ac SI 18 -0 -0 .0 S 93 EN ti NO 00 2- 4- 00 PH 96 AN ve VA 51 20 20 AR DT IL 30 08 09 MA 5 3 CY JR MG #6 RO 11 BE TA 9 RT BL ET TR 00 12 06 03 30 30 CV 22 WY Ac IC 07 -0 -0 .0 S 93 EN ti OR 46 2- 4- 00 PH 93 AN ve 12 20 20 AR DT 14 39 08 09 MA 5 0 CY JR MG #6 RO TA 11 BE BL 9 RT ET 00 02 06 03 60 30 CV 23 WY Ac 40 -0 -0 .0 S 49 EN ti 62 5- 4- 00 PH 75 AN ve 02 20 20 AR DT 21 09 09 MA 0 CY JR #6 RO 11 BE 9 RT 60 05 05 00 20 10 CV 24 WY Ac 50 -0 -2 .0 S 33 EN ti 51 7- 1- 00 PH 49 AN ve 30 20 20 AR DT 90 09 09 MA 1 CY JR #6 RO 11 BE 9 RT CI 13 02 05 02 30 30 CV 23 WY Ac TA 66 -2 -2 .0 S 66 EN ti LO 80 4- 1- 00 PH 87 AN ve VA 01 20 20 AR DT AM 10 09 09 MA 5 CY JR HB R #6 RO 40 11 BE 9 RT MG TA BL ET GA 00 02 05 02 90 30 CV 23 WY Ac BA 09 -2 -2 .0 S 66 EN ti PE 34 4- 1- 00 PH 86 AN ve NT 44 20 20 AR DT IN 30 09 09 MA 1 CY JR 60 0 #6 RO MG 11 BE 9 RT TA BL ET 59 05 05 00 8. 15 CV 24 WY Ac 31 -0 -2 50 S 33 EN ti 00 7- 1- 0 PH 47 AN ve 57 20 20 AR DT 92 09 09 MA 0 CY JR #6 RO 11 BE 9 RT GL 00 12 04 03 30 30 CV 22 WY Ac IP 59 -0 -2 .0 S 93 EN ti IZ 10 2- 3- 00 PH 95 AN ve ID 84 20 20 AR DT E 40 08 09 MA ER 1 CY JR 5 #6 RO MG 11 BE 9 RT TA BL ET LI 68 12 04 04 30 30 CV 22 WY Ac SI 18 -0 -2 .0 S 93 EN ti NO 00 2- 3- 00 PH 96 AN ve VA 51 20 20 AR DT IL 30 08 09 MA 5 3 CY JR MG #6 RO 11 BE TA 9 RT BL ET TR 00 12 04 02 30 30 CV 22 WY Ac IC 07 -0 -2 .0 S 93 EN ti OR 46 2- 3- 00 PH 93 AN ve 12 20 20 AR DT 14 39 08 09 MA 5 0 CY JR MG #6 RO TA 11 BE BL 9 RT ET 00 12 04 04 60 30 CV 22 WY Ac 09 -0 -2 .0 S 93 EN ti 37 1- 3- 00 PH 09 AN ve 23 20 20 AR DT 10 08 09 MA 6 CY JR #6 RO 11 BE 9 RT 00 02 04 02 60 30 CV 23 WY Ac 40 -0 -2 .0 S 49 EN ti 62 5- 3- 00 PH 75 AN ve 02 20 20 AR DT 21 09 09 MA 0 CY JR #6 RO 11 BE 9 RT HY 68 04 04 00 60 30 WA [address] 46 -1 -2 .0 LG 60 NE ti OX 20 0- 3- 00 RE 28 DD ve YZ 36 20 20 EN 7 IN IN 20 09 09 S E 1 57 MO HC 63 ALBERT L ME 50 D MG TA BL ET 00 03 04 00 10 2 WA 28 BE Ac 59 -2 -0 .0 LG 09 RN ti 10 1- 9- 00 RE 81 AR ve 34 20 20 EN 3 DO 90 09 09 # N 5 ST 07 EP 34 HE 6 N D IB 53 03 04 00 21 5 WA 28 BE Ac UP 74 -2 -0 .0 LG 09 RN ti RO 60 1- 9- 00 RE 81 AR ve FE 46 20 20 EN 4 DO N 50 09 09 # N [address] 0 07 EP MG 34 HE 6 N TA D BL ET GA 00 02 04 01 90 30 CV 23 WY Ac BA 09 -2 -0 .0 S 66 EN ti PE 34 4- 9- 00 PH 86 AN ve NT 44 20 20 AR DT IN 30 09 09 MA 1 CY JR 60 0 #6 RO MG 11 BE 9 RT TA BL ET CI 13 02 04 01 30 30 CV 23 WY Ac TA 66 -2 -0 .0 S 66 EN ti LO 80 4- 9- 00 PH 87 AN ve VA 01 20 20 AR DT AM 10 09 09 MA 5 CY JR HB R #6 RO 40 11 BE 9 RT MG TA BL ET LI 68 12 03 03 30 30 CV 22 WY Ac SI 18 -0 -2 .0 S 93 EN ti NO 00 2- 6- 00 PH 96 AN ve VA 51 20 20 AR DT [place] 30 08 09 MA 5 3 CY JR MG #6 RO 11 BE TA 9 RT BL ET 00 12 03 03 60 30 CV 22 WY Ac 09 -0 -2 .0 S 93 EN ti 37 1- 6- 00 PH 09 AN ve 23 20 20 AR DT 10 08 09 MA 6 CY JR #6 RO 11 BE 9 RT 00 02 03 01 60 30 CV 23 WY Ac 40 -0 -2 .0 S 49 EN ti 62 5- 6- 00 PH 75 AN ve 02 20 20 AR DT 21 09 09 MA 0 CY JR #6 RO 11 BE 9 RT TR 00 12 03 01 30 30 CV 22 WY Ac IC 07 -0 -2 .0 S 93 EN ti OR 46 2- 6- 00 PH 93 AN ve 12 20 20 AR DT 14 39 08 09 MA 5 0 CY JR MG #6 RO TA 11 BE BL 9 RT ET 00 01 03 02 60 30 CV 23 WY Ac 14 -0 -2 .0 S 21 EN ti 31 5- 6- 00 PH 22 AN ve 77 20 20 AR DT 21 09 09 MA 0 CY JR #6 RO 11 BE 9 RT GA 00 02 03 00 90 30 CV 23 WY Ac BA 09 -2 -1 .0 S 66 EN ti PE 34 4- 2- 00 PH 86 AN ve NT 44 20 20 AR DT IN 30 09 09 MA 1 CY JR 60 0 #6 RO MG 11 BE 9 RT TA BL ET CI 13 02 03 00 30 30 CV 23 WY Ac TA 66 -2 -1 .0 S 66 EN ti LO 80 4- 2- 00 PH 87 AN ve VA 01 20 20 AR DT AM 10 09 09 MA 5 CY JR HB R #6 RO 40 11 BE 9 RT MG TA BL ET GL 00 12 02 02 30 30 CV 22 WY Ac IP 59 -0 -1 .0 S 93 EN ti IZ 10 2- 2- 00 PH 95 AN ve ID 84 20 20 AR DT E 40 08 09 MA ER 1 CY JR 5 #6 RO MG 11 BE 9 RT TA BL ET LI 68 12 02 02 30 30 CV 22 WY Ac SI 18 -0 -1 .0 S 93 EN ti NO 00 2- 2- 00 PH 96 AN ve VA 51 20 20 AR DT [place] 30 08 09 MA 5 3 CY JR MG #6 RO 11 BE TA 9 RT BL ET HY 00 01 02 00 14 14 CV [address] 18 -3 -1 .0 S 44 RA ti OX 50 1- 2- 00 PH 90 ve YZ 61 20 20 AR AU IN 50 09 09 MA RO E 1 CY RA PA M M #6 50 11 9 MG CA P CL 00 01 02 00 30 30 CV 23 LI Ac ON 37 -3 -1 .0 S 44 RA ti ID 80 1- 2- 00 PH 89 ve IN 15 20 20 AR AU E 21 09 09 MA RO HC 0 CY RA L M 0. #6 1 11 MG 9 TA BL ET CI 13 10 02 01 30 15 CV 22 WY Ac TA 66 -2 -1 .0 S 56 EN ti LO 80 1- 2- 00 PH 59 AN ve VA 01 20 20 AR DT AM 10 08 09 MA 5 CY JR HB R #6 RO 40 11 BE 9 RT MG TA BL ET ZE 66 12 02 02 30 30 CV 22 WY Ac TI 58 -0 -1 .0 S 93 EN ti A 20 1- 2- 00 PH 10 AN ve 10 41 20 20 AR DT 43 08 09 MA MG 1 CY JR TA #6 RO BL 11 BE ET 9 RT 00 01 02 01 60 30 CV 23 WY Ac 14 -0 -1 .0 S 21 EN ti 31 5- 2- 00 PH 22 AN ve 77 20 20 AR DT 21 09 09 MA 0 CY JR #6 RO 11 BE 9 RT 00 12 02 02 60 30 CV 22 WY Ac 09 -0 -1 .0 S 93 EN ti 37 1- 2- 00 PH 09 AN ve 23 20 20 AR DT 10 08 09 MA 6 CY JR #6 RO 11 BE 9 RT 00 02 02 00 60 30 CV 23 WY Ac 40 -0 -1 .0 S 49 EN ti 62 5- 2- 00 PH 75 AN ve 02 20 20 AR DT 21 09 09 MA 0 CY JR #6 RO 11 BE 9 RT CL 00 01 01 01 42 14 CV 23 LI Ac ON 09 -0 -3 .0 S 19 RA ti AZ 30 2- 0- 00 PH 35 ve EP 83 20 20 AR AU AM 40 09 09 MA RO 2 1 CY RA M MG #6 11 TA 9 BL ET ZE 66 12 01 01 30 30 CV 22 WY Ac TI 58 -0 -1 .0 S 93 EN ti A 20 1- 5- 00 PH 10 AN ve 10 41 20 20 AR DT 43 08 09 MA MG 1 CY JR TA #6 RO BL 11 BE ET 9 RT AC 64 01 01 00 30 30 CV 23 LI Ac TO 76 -0 -1 .0 S 19 RA ti S 40 2- 5- 00 PH 31 ve 30 30 20 20 AR AU 11 09 09 MA RO MG 4 CY RA M TA #6 BL 11 ET 9 58 12 01 01 30 30 CV 22 WY Ac 17 -0 -1 .0 S 93 EN ti 70 2- 5- 00 PH 94 AN ve 29 20 20 AR DT 30 08 09 MA 4 CY JR #6 RO 11 BE 9 RT ME 68 01 01 00 60 30 CV 23 LI Ac TF 38 -0 -1 .0 S 19 RA ti OR 20 2- 5- [address] 02 20 20 AR AU N 81 09 09 MA RO HC 0 CY RA L M 50 #6 0 11 MG 9 TA BL ET GL 00 12 01 01 30 30 CV 22 WY Ac IP 59 -0 -1 .0 S 93 EN ti IZ 10 2- 5- 00 PH 95 AN ve ID 84 20 20 AR DT E 40 08 09 MA ER 1 CY JR 5 #6 RO MG 11 BE 9 RT TA BL ET CR 00 01 01 00 30 30 CV 23 LI Ac ES 31 -0 -1 .0 S 19 RA ti TO 00 2- 5- 00 PH 30 ve R 75 20 20 AR AU 5 59 09 09 MA RO MG 0 CY RA M TA #6 BL 11 ET 9 00 12 01 01 60 30 CV 22 WY Ac 09 -0 -1 .0 S 93 EN ti 37 1- 5- 00 PH 09 AN ve 23 20 20 AR DT 10 08 09 MA 6 CY JR #6 RO 11 BE 9 RT LE 00 01 01 00 30 30 CV 23 LI Ac VO 37 -0 -1 .0 S 19 RA ti TH 81 2- 5- 00 PH 33 ve YR 80 20 20 AR AU OX 50 09 09 MA RO IN 1 CY RA E M 75 #6 11 MC 9 G TA BL ET LI 68 12 01 01 30 30 CV 22 WY Ac SI 18 -0 -1 .0 S 93 EN ti NO 00 2- 5- 00 PH 96 AN ve VA 51 20 20 AR DT IL 30 08 09 MA 5 3 CY JR MG #6 RO 11 BE TA 9 RT BL ET CL 00 01 01 00 42 14 CV 23 LI Ac ON 09 -0 -1 .0 S 19 RA ti AZ 30 2- 5- 00 PH 35 ve EP 83 20 20 AR AU AM 40 09 09 MA RO 2 1 CY RA M MG #6 11 TA 9 BL ET 00 01 01 00 60 30 CV 23 WY Ac 14 -0 -1 .0 S 21 EN ti 31 5- 5- 00 PH 22 AN ve 77 20 20 AR DT 21 09 09 MA 0 CY JR #6 RO 11 BE 9 RT CL 00 01 01 00 30 30 CV 23 LI Ac ON 37 -0 -1 .0 S 19 RA ti ID 80 2- 5- 00 PH 32 ve IN 15 20 20 AR AU E 21 09 09 MA RO HC 0 CY RA L M 0. #6 1 11 MG 9 TA BL ET CL 00 12 01 00 42 14 CV 23 LI Ac ON 09 -1 -0 .0 S 09 RA ti AZ 30 8- 1- 00 PH 11 ve EP 83 20 20 AR AU AM 40 08 09 MA RO 2 1 CY RA M MG #6 11 TA 9 BL ET 00 12 01 00 15 15 CV 23 LI Ac 18 -1 -0 0. S 09 RA ti 26 8- 1- 00 PH 10 ve 06 20 20 0 AR AU 44 08 09 MA RO 0 CY RA M #6 11 9 AM 00 12 01 00 14 7 CV 23 LI Ac OX 09 -1 -0 .0 S 09 RA ti IC 33 8- 1- 00 PH 09 ve IL 10 20 20 AR AU LI 90 08 09 MA RO N 5 CY RA 50 M 0 #6 MG 11 9 CA PS UL E LI 68 12 12 00 30 30 CV 22 WY Ac SI 18 -0 -1 .0 S 93 EN ti NO 00 2- 8- 00 PH 96 AN ve VA 51 20 20 AR DT IL 30 08 08 MA 5 3 CY JR MG #6 RO 11 BE TA 9 RT BL ET 00 12 12 00 60 30 CV 22 WY Ac 09 -0 -1 .0 S 93 EN ti 37 1- 8- 00 PH 09 AN ve 23 20 20 AR DT 10 08 08 MA 6 CY JR #6 RO 11 BE 9 RT GL 00 12 12 00 30 30 CV 22 WY Ac IP 59 -0 -1 .0 S 93 EN ti IZ 10 2- 8- 00 PH 95 AN ve ID 84 20 20 AR DT E 40 08 08 MA ER 1 CY JR 5 #6 RO MG 11 BE 9 RT TA BL ET 58 12 12 00 30 30 CV 22 WY Ac 17 -0 -1 .0 S 93 EN ti 70 2- 8- 00 PH 94 AN ve 29 20 20 AR DT 30 08 08 MA 4 CY JR #6 RO 11 BE 9 RT AM 00 12 12 00 14 7 CV 22 LI Ac OX 09 -0 -1 .0 S 97 RA ti IC 33 5- 8- 00 PH 05 ve IL 10 20 20 AR AU LI 90 08 08 MA RO N 5 CY RA 50 M 0 #6 MG 11 9 CA PS UL E 00 12 12 00 12 10 CV 22 LI Ac 53 -0 -1 0. S 97 RA ti 61 5- 8- 00 PH 08 ve 36 20 20 0 AR AU 09 08 08 MA RO 7 CY RA M #6 11 9 TR 00 12 12 00 30 30 CV 22 WY Ac IC 07 -0 -1 .0 S 93 EN ti OR 46 2- 8- 00 PH 93 AN ve 12 20 20 AR DT 14 39 08 08 MA 5 0 CY JR MG #6 RO TA 11 BE BL 9 RT ET 00 08 12 02 60 30 CV 22 WY Ac 14 -2 -1 .0 S 02 EN ti 31 2- 8- 00 PH 78 AN ve 77 20 20 AR DT 21 08 08 MA 0 CY JR #6 RO 11 BE 9 RT ZE 66 12 12 00 30 30 CV 22 WY Ac TI 58 -0 -1 .0 S 93 EN ti A 20 1- 8- 00 PH 10 AN ve 10 41 20 20 AR DT 43 08 08 MA MG 1 CY JR TA #6 RO BL 11 BE ET 9 RT CL 00 12 12 00 42 14 CV 22 LI Ac ON 09 -0 -1 .0 S 97 RA ti AZ 30 5- 8- 00 PH 07 ve EP 83 20 20 AR AU AM 40 08 08 MA RO 2 1 CY RA M MG #6 11 TA 9 BL ET CL 00 11 12 00 42 14 CV 22 LI Ac ON 09 -1 -0 .0 S 83 RA ti AZ 30 9- 4- 00 PH 55 ve EP 83 20 20 AR AU AM 40 08 08 MA RO 2 1 CY RA M MG #6 11 TA 9 BL ET 00 11 12 00 15 7 CV 22 LI Ac 18 -1 -0 0. S 83 RA ti 26 9- 4- 00 PH 57 ve 06 20 20 0 AR AU 44 08 08 MA RO 0 CY RA M #6 11 9 LO 00 11 12 00 20 20 CV 22 LI Ac RA 78 -1 -0 .0 S 83 RA ti TA 15 9- 4- 00 PH 54 ve DI 07 20 20 AR AU NE 70 08 08 MA RO 1 CY RA 10 M #6 MG 11 9 TA BL ET AV 00 11 12 00 7. 7 CV 22 LI Ac EL 08 -1 -0 00 S 83 RA ti OX 51 9- 4- 0 PH 53 ve 73 20 20 AR AU 40 30 08 08 MA RO 0 1 CY RA MG M #6 TA 11 BL 9 ET CL 00 11 11 00 42 14 CV 22 LI Ac ON 09 -0 -2 .0 S 72 RA ti AZ 30 7- 0- 00 PH 61 ve EP 83 20 20 AR AU AM 40 08 08 MA RO 2 1 CY RA M MG #6 11 TA 9 BL ET TR 00 09 11 01 30 30 CV 22 WY Ac IC 07 -2 -0 .0 S 34 EN ti OR 46 5- 7- 00 PH 37 AN ve 12 20 20 AR DT 14 39 08 08 MA 5 0 CY JR MG #6 RO TA 11 BE BL 9 RT ET CI 13 10 11 00 15 30 CV 22 WY Ac TA 66 -2 -0 .0 S 56 EN ti LO 80 1- 7- 00 PH 59 AN ve VA 01 20 20 AR DT AM 10 08 08 MA 5 CY JR HB R #6 RO 40 11 BE 9 RT MG TA BL ET 58 07 11 02 30 30 CV 21 WY Ac 17 -1 -0 .0 S 70 EN ti 70 5- 7- 00 PH 96 AN ve 29 20 20 AR DT 30 08 08 MA 4 CY JR #6 RO 11 BE 9 RT 00 07 11 03 60 30 CV 21 WY Ac 09 -1 -0 .0 S 70 EN ti 37 5- 7- 00 PH 95 AN ve 23 20 20 AR DT 10 08 08 MA 6 CY JR #6 RO 11 BE 9 RT LI 68 09 11 01 30 30 CV 22 WY Ac SI 18 -2 -0 .0 S 34 EN ti NO 00 7 PH 36 AN ve VA 51 20 20 AR DT IL 30 08 08 MA 5 3 CY JR MG #6 RO 11 BE TA 9 RT BL ET GL 00 09 11 01 30 30 CV 22 WY Ac IP 59 -2 -0 .0 S 34 EN ti IZ 10 7 PH 38 AN ve ID 84 20 20 AR DT E 40 08 08 MA ER 1 CY JR 5 #6 RO MG 11 BE 9 RT TA BL ET CL 00 10 11 00 42 14 CV 22 LI Ac ON 09 -2 -0 .0 S 60 RA ti AZ 30 4 7 00 PH 12 ve EP 83 20 20 AR AU AM 30 08 08 MA RO 1 1 CY RA M MG #6 11 TA 9 BL ET CL 00 10 10 00 21 14 CV 22 LI Ac ON 09 -1 -2 .0 S 52 RA ti AZ 30 6 3 PH 98 ve EP 83 20 20 AR AU AM 30 08 08 MA RO 1 1 CY RA M MG #6 11 TA 9 BL ET LI 68 09 10 00 30 30 CV 22 WY Ac SI 18 -2 -0 .0 S 34 EN ti NO 00 PH 36 AN ve VA 51 20 20 AR DT IL 30 08 08 MA 5 3 CY JR MG #6 RO 11 BE TA 9 RT BL ET CL 00 09 10 00 90 30 CV 22 LI Ac ON 37 -2 -0 .0 S 32 RA ti ID 80 9 PH 49 ve IN 15 20 20 AR AU E 21 08 08 MA RO HC 0 CY RA L M 0. #6 1 11 MG 9 TA BL ET 00 08 10 01 60 30 CV 22 WY Ac 14 -2 -0 .0 S 02 EN ti 31 2- 9- 00 PH 78 AN ve 77 20 20 AR DT 21 08 08 MA 0 CY JR #6 RO 11 BE 9 RT 58 07 10 01 30 30 CV 21 WY Ac 17 -1 -0 .0 S 70 EN ti 70 5- 9- 00 PH 96 AN ve 29 20 20 AR DT 30 08 08 MA 4 CY JR #6 RO 11 BE 9 RT CL 00 09 10 00 90 30 CV 22 LI Ac ON 09 -2 -0 .0 S 32 RA ti AZ 30 4 00 PH 50 ve EP 83 20 20 AR AU AM 30 08 08 MA RO 1 1 CY RA M MG #6 11 TA 9 BL ET GL 00 09 10 00 30 30 CV 22 WY Ac IP 59 -2 -0 .0 S 34 EN ti IZ 10 PH 38 AN ve ID 84 20 20 AR DT E 40 08 08 MA ER 1 CY JR 5 #6 RO MG 11 BE 9 RT TA BL ET TR 00 09 10 00 30 30 CV 22 WY Ac IC 07 -2 -0 .0 S 34 EN ti OR 46 PH 37 AN ve 12 20 20 AR DT 14 39 08 08 MA 5 0 CY JR MG #6 RO TA 11 BE BL 9 RT ET 00 10 10 00 20 3 WA 27 No Ac 59 -0 -0 .0 LG 29 t ti 10 3 RE 76 Av ve 34 20 20 EN 8 ai 90 08 08 # la 5 bl 07 e 34 6 00 07 10 02 60 30 CV 21 WY Ac 09 -1 -0 .0 S 70 EN ti 37 PH 95 AN ve 23 20 20 AR DT 10 08 08 MA 6 CY JR #6 RO 11 BE 9 RT LI 00 06 10 01 30 30 CV 21 WY Ac PI 07 -1 -0 .0 S 48 EN ti TO 10 PH 40 AN ve R 15 20 20 AR DT 40 72 08 08 MA 3 CY JR MG #6 RO TA 11 BE BL 9 RT ET ZE 66 09 10 00 30 30 CV 22 WY Ac TI 58 -2 -0 .0 S 32 EN ti A 20 PH 72 AN ve 10 41 20 20 AR DT 43 08 08 MA MG 1 CY JR TA #6 RO BL 11 BE ET 9 RT LE 00 08 09 00 30 30 CV 22 LI Ac VO 37 -2 -1 .0 S 07 RA ti TH 81 7- 00 PH 94 ve YR 80 20 20 AR AU OX 50 08 08 MA RO IN 1 CY RA E M 75 #6 11 MC 9 G TA BL ET FL 00 08 09 00 30 10 CV 22 No Ac UO 16 -2 -1 .0 S 05 t ti CI 80 5- 1- 00 PH 83 Av ve NO 14 20 20 AR ai NI 03 08 08 MA la DE 0 CY bl e 0. #6 05 11 % 9 OI NT ME NT ME 68 08 09 00 12 30 CV 22 LI Ac TF 38 -2 -1 0. S 07 RA ti OR 20 7- 1- [address] 02 20 20 0 AR AU N 81 08 08 MA RO HC 0 CY RA L M 50 #6 0 11 MG 9 TA BL ET CL 00 08 09 00 90 30 CV 22 LI Ac ON 09 -2 -1 .0 S 07 RA ti AZ 30 7- 1- 00 PH 71 ve EP 83 20 20 AR AU AM 30 08 08 MA RO 1 1 CY RA M MG #6 11 TA 9 BL ET 00 08 09 00 12 2 WA 10 No Ac 59 -2 -1 .0 LG 37 t ti 10 8- 1- 00 RE 60 Av ve 34 20 20 EN 5 ai 90 08 08 S la 5 (0 bl 29 e 91 ) AC 64 08 09 00 30 30 CV 22 LI Ac TO 76 -2 -1 .0 S 07 RA ti S 40 7- 1- 00 PH 93 ve 30 30 20 20 AR AU 11 08 08 MA RO MG 4 CY RA M TA #6 BL 11 ET 9 LI 00 06 08 00 30 30 CV 21 WY Ac PI 07 -1 -2 .0 S 48 EN ti TO 10 6- 8- 00 PH 40 AN ve R 15 20 20 AR DT 40 72 08 08 MA 3 CY JR MG #6 RO TA 11 BE BL 9 RT ET 00 08 08 00 60 30 CV 22 WY Ac 14 -2 -2 .0 S 02 EN ti 31 2- 8- 00 PH 78 AN ve 77 20 20 AR DT 21 08 08 MA 0 CY JR #6 RO 11 BE 9 RT 58 07 08 00 30 30 CV 21 WY Ac 17 -1 -2 .0 S 70 EN ti 70 5- 8- 00 PH 96 AN ve 29 20 20 AR DT 30 08 08 MA 4 CY JR #6 RO 11 BE 9 RT GL 00 01 08 00 30 30 CV 20 WY Ac IP 59 -2 -2 .0 S 69 EN ti IZ 10 5- 8- 00 PH 24 AN ve ID 84 20 20 AR DT E 40 08 08 MA ER 1 CY JR 5 #6 RO MG 11 BE 9 RT TA BL ET 00 07 08 01 60 30 CV 21 WY Ac 09 -1 -2 .0 S 70 EN ti 37 5- 8- 00 PH 95 AN ve 23 20 20 AR DT 10 08 08 MA 6 CY JR #6 RO 11 BE 9 RT CL 00 05 08 02 90 30 CV 21 LI Ac ON 37 -3 -2 .0 S 35 RA ti ID 80 0- 8- 00 PH 67 ve IN 15 20 20 AR AU E 21 08 08 MA RO HC 0 CY RA L M 0. #6 1 11 MG 9 TA BL ET TR 00 07 08 01 30 30 CV 21 WY Ac IC 07 -1 -2 .0 S 71 EN ti OR 46 5- 8- 00 PH 37 AN ve 12 20 20 AR DT 14 39 08 08 MA 5 0 CY JR MG #6 RO TA 11 BE BL 9 RT ET LI 68 07 08 01 30 30 CV 21 WY Ac SI 18 -1 -2 .0 S 71 EN ti NO 00 5- 8- 00 PH 24 AN ve VA 51 20 20 AR DT IL 30 08 08 MA 5 3 CY JR MG #6 RO 11 BE TA 9 RT BL ET CL 00 05 08 02 90 30 CV 21 LI Ac ON 09 -3 -1 .0 S 36 RA ti AZ 30 1- 4- 00 PH 26 ve EP 83 20 20 AR AU AM 30 08 08 MA RO 1 1 CY RA M MG #6 11 TA 9 BL ET LI 68 07 08 00 30 30 CV 21 WY Ac SI 18 -1 -0 .0 S 71 EN ti NO 00 5- 1- 00 PH 24 AN ve VA 51 20 20 AR DT IL 30 08 08 MA 5 3 CY JR MG #6 RO 11 BE TA 9 RT BL ET 00 07 08 00 12 30 CV 21 WY Ac 59 -2 -0 0. S 76 EN ti 10 1- 1- 00 PH 36 AN ve 82 20 20 0 AR DT 50 08 08 MA 1 CY JR #6 RO 11 BE 9 RT 00 07 08 00 60 30 CV 21 WY Ac 09 -1 -0 .0 S 70 EN ti 37 5- 1- 00 PH 95 AN ve 23 20 20 AR DT 10 08 08 MA 6 CY JR #6 RO 11 BE 9 RT TR 00 07 08 00 30 30 CV 21 WY Ac IC 07 -1 -0 .0 S 71 EN ti OR 46 5- 1- 00 PH 37 AN ve 12 20 20 AR DT 14 39 08 08 MA 5 0 CY JR MG #6 RO TA 11 BE BL 9 RT ET LO 00 07 07 00 10 2 CV 21 FR Ac RA 37 -1 -1 .0 S 68 AN ti ZE 82 0- 7- 00 PH 32 CE ve PA 45 20 20 AR M 71 08 08 MA AN 1 0 CY TH MG ON #6 Y TA 11 BL 9 ET CL 00 05 07 01 90 30 CV 21 LI Ac ON 09 -3 -1 .0 S 36 RA ti AZ 30 1- 7- 00 PH 26 ve EP 83 20 20 AR AU AM 30 08 08 MA RO 1 1 CY RA M MG #6 11 TA 9 BL ET AC 64 05 07 01 30 30 CV 21 LI Ac TO 76 -3 -1 .0 S 35 RA ti S 40 0- 7- 00 PH 70 ve 30 30 20 20 AR AU 11 08 08 MA RO MG 4 CY RA M TA #6 BL 11 ET 9 CL 00 05 07 01 90 30 CV 21 LI Ac ON 37 -3 -1 .0 S 35 RA ti ID 80 0- 7- 00 PH 67 ve IN 15 20 20 AR AU E 21 08 08 MA RO HC 0 CY RA L M 0. #6 1 11 MG 9 TA BL ET ME 68 05 07 01 12 31 CV 21 LI Ac TF 38 -3 -1 4. S 35 RA ti OR 20 0- 7- [address] 02 20 20 0 AR AU N 81 08 08 MA RO HC 0 CY RA L M 50 #6 0 11 MG 9 TA BL ET 00 07 07 00 15 3 CV 21 FR Ac 09 -1 -1 .0 S 68 AN ti 30 0- 7- 00 PH 33 CE ve 89 20 20 AR 00 08 08 MA AN 5 CY TH ON #6 Y 11 9 LE 00 05 07 01 90 90 CV 21 LI Ac VO 37 -3 -1 .0 S 35 RA ti TH 81 0- 7- 00 PH 69 ve YR 80 20 20 AR AU OX 50 08 08 MA RO IN 1 CY RA E M 75 #6 11 MC 9 G TA BL ET DI 00 05 07 01 90 30 CV 21 LI Ac CY 37 -3 -1 .0 S 35 RA ti CL 81 0- 7- 00 PH 65 ve OM 61 20 20 AR AU IN 00 08 08 MA RO E 1 CY RA 10 M #6 MG 11 9 CA PS UL E 00 06 06 00 15 1 WA 10 No Ac 60 -0 -1 .0 LG 22 t ti 35 3- 2- 00 RE 74 Av ve 46 20 20 EN 1 ai 72 08 08 S la 8 (0 bl 29 e 91 ) 63 06 06 00 14 7 BL 65 No Ac 30 -0 -1 .0 AN 15 t ti 40 4- 2- 00 KS 62 Av ve 65 20 20 5 ai 50 08 08 PH la 5 AR bl MA e CY NA 68 06 06 00 20 10 WA 10 No Ac VA 46 -0 -1 .0 LG 22 t ti OX 20 3- 2- 00 RE 74 Av ve EN 19 20 20 EN 0 ai 00 08 08 S la 50 5 (0 bl 0 29 e MG 91 ) TA BL ET CL 00 05 06 00 90 30 CV 21 LI Ac ON 09 -3 -1 .0 S 36 RA ti AZ 30 1- 2- 00 PH 26 ve EP 83 20 20 AR AU AM 30 08 08 MA RO 1 1 CY RA M MG #6 11 TA 9 BL ET CL 00 05 06 00 90 30 CV 21 LI Ac ON 37 -3 -0 .0 S 35 RA ti ID 80 0- 5- 00 PH 67 ve IN 15 20 20 AR AU E 21 08 08 MA RO HC 0 CY RA L M 0. #6 1 11 MG 9 TA BL ET LE 00 05 06 00 90 90 CV 21 LI Ac VO 37 -3 -0 .0 S 35 RA ti TH 81 0- 5- 00 PH 69 ve YR 80 20 20 AR AU OX 50 08 08 MA RO IN 1 CY RA E M 75 #6 11 MC 9 G TA BL ET AC 64 05 06 00 30 30 CV 21 LI Ac TO 76 -3 -0 .0 S 35 RA ti S 40 0- 5- 00 PH 70 ve 30 30 20 20 AR AU 11 08 08 MA RO MG 4 CY RA M TA #6 BL 11 ET 9 DI 00 05 06 00 90 30 CV 21 LI Ac CY 37 -3 -0 .0 S 35 RA ti CL 81 0- 5- 00 PH 65 ve OM 61 20 20 AR AU IN 00 08 08 MA RO E 1 CY RA 10 M #6 MG 11 9 CA PS UL E ME 68 05 06 00 12 31 CV 21 LI Ac TF 38 -3 -0 4. S 35 RA ti OR 20 0- 5- [address] 02 20 20 0 AR AU N 81 08 08 MA RO HC 0 CY RA L M 50 #6 0 11 MG 9 TA BL ET CL 00 05 05 00 90 30 BL 41 No Ac ON 18 -0 -2 .0 AN 03 t ti AZ 50 2- 2- 00 KS 39 Av ve EP 06 20 20 9 ai AM 41 08 08 PH la 1 0 AR bl MA e MG CY TA BL ET 00 05 05 00 90 90 BL 65 No Ac 78 -0 -0 .0 AN 13 t ti 15 2- 8- 00 KS 05 Av ve 18 20 20 1 ai 20 08 08 PH la 1 AR bl MA e CY ME 68 04 04 00 12 31 BL 65 No Ac TF 38 -1 -2 4. AN 11 t ti OR 20 0- 4- 00 KS [address] 02 20 20 0 9 ai N 81 08 08 PH la HC 0 AR bl L MA e 50 CY 0 MG TA BL ET CL 00 04 04 00 90 30 BL 41 No Ac ON 18 -1 -2 .0 AN 02 t ti AZ 50 1- 4- 00 KS 89 Av ve EP 06 20 20 7 ai AM 41 08 08 PH la 1 0 AR bl MA e MG CY TA BL ET AC 64 04 04 00 30 30 BL 65 No Ac TO 76 -1 -2 .0 AN 11 t ti S 40 0- 4- 00 KS 41 Av ve 30 30 20 20 0 ai 11 08 08 PH la MG 5 AR bl MA e TA CY BL ET LI 00 04 04 00 30 30 BL 65 No Ac SI 18 -1 -2 .0 AN 11 t ti NO 55 1- 4- 00 KS 41 Av ve VA 40 20 20 1 ai IL 00 08 08 PH la 5 1 AR bl MA e MG CY TA BL ET LE 00 03 04 00 30 30 CV 20 No Ac VO 37 -1 -1 .0 S 76 t ti TH 81 7- 7- 00 PH 91 Av ve YR 80 20 20 AR ai OX 50 08 08 MA la IN 1 CY bl E e 75 #6 11 MC 9 G TA BL ET ME 68 11 04 02 12 30 CV 19 No Ac TF 38 -0 -1 0. S 63 t ti OR 20 1- 7- 00 PH [address] 02 20 20 0 AR ai N 81 07 08 MA la HC 0 CY bl L e 50 #6 0 11 MG 9 TA BL ET CL 57 03 04 00 30 15 WA 10 No Ac ON 66 -2 -1 .0 LG 10 t ti AZ 40 8- 0- 00 RE 64 Av ve EP 27 20 20 EN 0 ai AM 41 08 08 S la 1 3 (0 bl 29 e MG 91 ) TA BL ET AC 64 12 04 01 30 30 CV 20 No Ac TO 76 -2 -0 .0 S 31 t ti S 40 6- 7- 00 PH 62 Av ve 30 30 20 20 AR ai 11 07 08 MA la MG 4 CY bl e TA #6 BL 11 ET 9 CL 00 02 03 00 90 30 CV 20 No Ac ON 09 -1 -2 .0 S 50 t ti AZ 30 3- 6- 00 PH 31 Av ve EP 83 20 20 AR ai AM 30 08 08 MA la 1 1 CY bl e MG #6 11 TA 9 BL ET 00 01 03 00 90 30 CV 20 No Ac 59 -2 -2 .0 S 31 t ti 15 2- 5- 00 PH 64 Av ve 52 20 20 AR ai 30 08 08 MA la 1 CY bl e #6 11 9 CL 00 01 03 00 90 30 CV 20 No Ac ON 09 -1 -2 .0 S 25 t ti AZ 30 4- 5- 00 PH 09 Av ve EP 83 20 20 AR ai AM 30 08 08 MA la 1 1 CY bl e MG #6 11 TA 9 BL ET LE 00 01 03 00 10 10 CV 20 No Ac VO 37 -2 -2 0. 0 S 31 t ti TH 81 2- 5- 00 PH 66 Av ve YR 80 20 20 0 AR ai OX 50 08 08 MA la IN 1 CY bl E e 75 #6 11 MC 9 G TA BL ET AC 64 12 03 00 30 30 CV 20 No Ac TO 76 -2 -2 .0 S 31 t ti S 40 6- 5- 00 PH 62 Av ve 30 30 20 20 AR ai 11 07 08 MA la MG 4 CY bl e TA #6 BL 11 ET 9 ME 68 11 03 01 12 30 CV 19 No Ac TF 38 -0 -2 0. S 63 t ti OR 20 1- 5- 00 PH [address] 02 20 20 0 AR ai N 81 07 08 MA la HC 0 CY bl L e 50 #6 0 11 MG 9 TA BL ET CL 00 01 03 00 60 30 CV 20 No Ac ON 37 -2 -2 .0 S 31 t ti ID 80 2- 5- 00 PH 65 Av ve IN 15 20 20 AR ai E 21 08 08 MA la HC 0 CY bl L e 0. #6 1 11 MG 9 TA BL ET Procedures Procedure DOS Code Location Performer Comment AMB [id number] [facility] SERVICE 7 [facility] AM[facility] ALS SERVICE SERVICE EMERGENCY TRANSPORT LEVEL 1 [facility] STATUTE MILE ECG 27723 [facility]OUTINE 7 [facility] ECG INC INC W/LEAST 12 LDS TRCG ONLY W/O I&R DRUG TST [id number] COMBINED COMBINED PRESUMP;C 6 PHYSICIAN PHYSICIAN PBL BEING S LA S LA READ DC OPT OBV ONLY RADEX 13223 [place] [facility] ALL RIBS 6 MEDICAL UNILATERA IMAGING L 2 VIEWS ASS COLLECTIO 35455 COMBINED COMBINED N VENOUS 6 PHYSICIAN PHYSICIAN BLOOD S LA S LA VENIPUNCT URE COMPREHEN 37457 COMBINED COMBINED SIVE 6 PHYSICIAN PHYSICIAN METABOLIC S LA S LA PANEL HEMOGLOBI 07169 COMBINED COMBINED N 6 PHYSICIAN PHYSICIAN GLYCOSYLA S LA S LA BELLA A1C LIPID 27842 COMBINED COMBINED PANEL 6 [place] [address] COMBINED COMBINED THYROID 6 PHYSICIAN PHYSICIAN STIMULATI S LA S LA NG HORMONE TSH SBSQ 11064 [facility] 6 [facility] FACILITY CARE/DAY E/M STABLE 10 MIN COMPREHEN 34098 COMBINED COMBINED SIVE 6 PHYSICIAN PHYSICIAN METABOLIC S LA S LA PANEL COLLECTIO 05540 COMBINED COMBINED N VENOUS 6 PHYSICIAN PHYSICIAN [place] [address] COMBINED COMBINED THYROID 6 PHYSICIAN PHYSICIAN STIMULATI S LA S LA NG HORMONE TSH LIPID 44150 COMBINED COMBINED PANEL 6 PHYSICIAN PHYSICIAN S LA S LA BLOOD 84998 COMBINED COMBINED COUNT 6 PHYSICIAN PHYSICIAN COMPLETE S LA S LA AUTO&AUTO DIFRNTL WBC HEMOGLOBI 50992 COMBINED COMBINED N 6 PHYSICIAN PHYSICIAN GLYCOSYLA S LA S LA BELLA A1C SBSQ 32818 [facility]NKUSH[facility] REALOLD NURSING 6 [facility] FACILITY CARE/DAY E/M STABLE 10 MIN ECG [id number] GRACIELA OWENS ROUTINE 6 [facility] ECG INC INC W/LEAST 12 LDS TRCG ONLY W/O I&R INITIAL 52186 [facility] ARNOLD NURSING 6 [facility] FACILITY CARE/DAY 25 MINUTES HOSPITAL 35364 [facility] DISCHARGE 6 INTERNAL MANAGEMEN MED T 30 MIN/< CATH PLMT 86826 [facility] KELI L HRT & 6 PHYSICIAN MAT ARTS S GROUP W/NJX & ANGIO IMG S&I FLUORO [id number] [facility] MULTI 6 [facility] CORONARY INC INC ARTERIES LOW OSMOLAR CONT FLUORO LT [id number] GR[facility]ENS INTRL 6 [facility] MAMM INC INC BYPASS GRAFT LOW OSMLR CONT MEASUREME [id number] GRACIELA OWENS NT 6 [facility] CARDIAC INC INC SAMPLING PRESS LT HEART PERQ FLUOROSCO [id number] GR[facility] OWENS PY 6 [facility] MULTIPLE INC INC CABG LOW OSMOLAR CONTRAST FLUOROSCO [id number] GRACIELA OWENS PY LEFT 6 [facility] HEART LOW INC INC OSMOLAR CONTRAST CV STRS 37495 [facility] 6 PHYSICIAN SUBHASH XERS&/OR S GROUP RX CONT ECG W/O I&R SBSQ [id number] [place] CARE/DAY INTERNAL 25 MED MINUTES SBSQ [address] [place] CARE/DAY INTERNAL 25 MED MINUTES DUPLEX 00614 [facility] DELBERT SCAN 6 MEDICAL JUVE EXTRACRAN IMAGING IAL ART ASS COMPL BI STUDY ECHO 69089 [place] [facility] DE[facility] TTHRC R-T 6 MEDICAL 2D SERV W/WOM-MOD FOUNDATIO E COMPL N SPEC&COLR D MYOCARDIA 73132 [facility] ALL L SPECT 6 MEDICAL MULTIPLE IMAGING STUDIES ASS ECG 01172 GRACIELA SOTELO JR ROUTINE 6 [facility] W/LEAST P 12 LDS I&R ONLY RADIOLOGI 83095 [facility] ALL C 6 MEDICAL EXAMINATI IMAGING ON CHEST ASS SINGLE VIEW FRONTAL GROUND A0425 [facility] PER SERVICE SERVICE STATUTE MILE INITIAL 87742 [facility] 6 PHYSICIAN MAT CARE/DAY S GROUP 50 MINUTES AMB A0427 [facility] SERVICE 6 AMBULANCE AMBULANCE ALS SERVICE SERVICE EMERGENCY TRANSPORT LEVEL 1 INITIAL 17189 [facility] 6 [facility] FACILITY CARE/DAY 25 MINUTES DRUG TST G0477 COMBINED COMBINED PRESUMP;C 6 PHYSICIAN PHYSICIAN PBL BEING S LA S LA READ DC OPT OBV ONLY OPHTH 50823 SCIFRES SCIFRES MEDICAL 5 ANG ANG XM&EVAL COMPRE NEW PT 1/> VST RADEX 86758 [facility] HOBLITZEL WRIST 5 LTH [facility] COMPLETE ORTHOPAE MINIMUM 3 VIEWS WRIST L3908 [facility] GEETHALIKARENEL HAND 5 LTH EM[facility] ORTHOSIS ORTHOPAE EXT CONTROL COCK-UP PREFAB RADEX 81833 [facility] MICHEL JAM WRIST 5 LTH COMPLETE ORTHOPAE MINIMUM 3 [place] [address] [facility] MICHEL JAM CARPAL 5 LTH SCAPHOID ORTHOPAE FRACTURE W/O MANJ CLTX DSTL 49813 [facility] PEARSON JAM RADIAL 5 LTH FX/EPIPHY ORTHOPAE SL SEP W/O MANJ RADEX 99527 RADIOLOGY KLEIMEYER WRIST 5 ANJEL COMPLETE ASSOCIATE MINIMUM 3 S OF NOTH VIEWS SHOULDER L3650 [facility] 5 TECHNOLOG TECHNOLOG FIG 8 IES INC IES INC ABDUCT RESTRAINE R PREFAB ESOPHAGOG 12303 ST ANUSIONWU ASTRODUOD 4 LOIS CHI ENOSCOPY [place] [address] RADIOLOGY DOERGER ABDOMINAL 4 KIR REAL ASSOCIATE TIME S OF NOTH W/IMAGE LIMITED ECHO [address] ST MICO TTHRC R-T 4 LOIS MAR 2D W/WOM-MOD PHYSICIAN E COMPL S SPEC&COLR D INITIAL 80059 ST SCHUSSLER INPATIENT 4 LOIS THO CONSULT NEW/ESTAB PHYSICIAN PT 80 S MIN INJECTION J2060 ST ST 4 LOIS LOIS [facility] [address] ECG [address] ST HEYDI BAR ROUTINE 4 LOIS ECG MED CTR W/LEAST 12 LDS I&R ONLY RADIOLOGI 78947 RADIOLOGY SCHMITTER C EXAM 4 LUNA CHEST 2 ASSOCIATE VIEWS S OF NOTH FRONTAL&[place] [address] RADIOLOGY DIRECTOR MEDICAL ECONOMICS/BRAI 4 BRA N W/O ASSOCIATE CONTRAST S OF NOT MATERIAL AMBULANCE A0429 [facility] SERVICE 4 FIRE FIRE BLS DEPT DEPT EMERGENCY TRANSPORT GROUND A0425 [facility] 4 FIRE FIRE PER DEPT DEPT STATUTE MILE AMB A0427 [facility] SERVICE 4 FIRE FIRE ALS DE[place] [address] RADIOLOGY GARCIA BYR ANGIOGRAP 4 HY CHEST ASSOCIATE W/CONTRAS S OF NOTH T/NONCONT RAST GROUND A0425 [facility] 4 FIRE FIRE PER DEPT DEPT STATUTE MILE AMBULANCE A0429 [facility] SERVICE 4 FIRE FIRE BLS DEPT DEPT EMERGENCY TRANSPORT ECG [address] ST YECENIA FORTINO ROUTINE 4 LOIS ECG MED CTR W/LEAST 12 LDS I&R ONLY ECG [address] ROUTINE 4 LOIS LOIS ECG MED CTR MED CTR W/LEAST MAGAZINE WORKER ST MAGAZINE WORKER ST 12 LDS TRCG ONLY W/O I&R RADIOLOGI 98299 RADIOLOGY BRANDSER C 4 KIRAN EXAMINATI ASSOCIATE ON CHEST S OF NOTH SINGLE VIEW FRONTAL GROUND A0425 [facility] 4 FIRE FIRE PER DEPT DEPT STATUTE MILE RADIOLOGI 86657 RADIOLOGY BRANDSER C EXAM 4 KIRAN KNEE ASSOCIATE COMPLETE S OF NOTH 4/MORE VIEWS AMB A0427 [facility] SERVICE 4 FIRE FIRE ALS DEPT DEPT EMERGENCY TRANSPORT LEVEL 1 AMB A0427 [facility] SERVICE 4 FIRE FIRE ALS DEPT DEPT EMERGENCY TRANSPORT LEVEL 1 GROUND A0425 [facility] 4 FIRE FIRE PER DEPT DEPT STATUTE MILE SBSQ 18969 [facility] 4 LUNA LUNA CARE/DAY 15 MINUTES INITIAL 00976 GUILLAUME VANDERWAGEN INPATIENT 4 DERIK DERIK CONSULT NEW/ESTAB PT 55 MIN ECG 71187 HEYDI BAR HEYDI BAR ROUTINE 4 ECG W/LEAST 12 LDS I&R ONLY GROUND A0425 [facility] 3 FIRE FIRE PER DEPT DEPT STATUTE MILE AMB A0427 [facility] SERVICE 3 FIRE FIRE ALS DEPT DEPT EMERGENCY TRANSPORT LEVEL 1 COMPREHEN 91163 [facility] QUEST SIVE 3 DIAGNOSTI DIAGNOSTI METABOLIC CS CS PANEL ECG 41532 RADHA ARL RADHA ARL ROUTINE 3 ECG W/LEAST 12 LDS W/I&[place] [address] QUEST QUEST FREE 3 DIAGNOSTI DIAG[place] [address] QUEST QUEST THYROID 3 DIAGNOSTI DIAGNOSTI STIMULATI CS CS NG HORMONE TSH LIPID 24557 QUEST QUEST PANEL 3 DIAGNOSTI DIAGNOSTI CS CS HEMOGLOBI 11912 QUEST QUEST N 3 DIAGNOSTI DIAGNOSTI GLYCOSYLA CS CS BELLA A1C ECG 27847 MONIE LOMAX CHR ROUTINE 3 ECG W/LEAST 12 LDS I&R ONLY RADEX 28718 WELLS SEA WELLS SEA SPINE 3 THORACIC 3 VIEWS RADEX 00440 WELL[facility] SEA WELLS SEA SPINE 3 LUMBOSACR AL 2/[address] [place] [address] WELLS SEA WELLS SEA CERVICAL 3 SPINE W/O CONTRAST MATERIAL AMB A0427 [facility] SERVICE 3 FIRE FIRE ALS DEPT DEPT EMERGENCY TRANSPORT LEVEL 1 GROUND A0425 [facility] MILEAGE 3 FIRE [place] [address] WELLS SEA WELLS SEA HEAD/BRAI 3 N W/O CONTRAST MATERIAL ECG 96164 MONIE LOMAX CHR ROUTINE 3 ECG W/LEAST 12 LDS I&R ONLY GROUND A0425 [facility] MILEAGE 3 FIRE FIRE PER DEPT DEPT STATUTE MILE AMB A0427 [facility] SERVICE 3 FIRE FIRE ALS DEPT DEPT EMERGENCY TRANSPORT LEVEL 1 COMPREHEN 38715 [facility] SIVE 3 DIAGNOSTI DIAGNOST[place] [address] [facility] THYROID 3 DIAGNOSTI DIAGNOSTI STIMULATI [place] [address] [facility] FREE 3 DIAGNOSTI DIAGNOSTI THYROXINE CS CS HEMOGLOBI 88412 [facility] N 3 DIAGNOSTI DIAGNOSTI GLYCOSYLA CS CS BELLA A1C LIPID 12819 [facility] PANEL 3 DIAGNOSTI DIAGNOSTI CS CS ALBUMIN 64912 [facility] URINE 3 POINT MICROALBU FAMILY [facility] SEMIQUANT ITATIVE RADIOLOGI 23215 WILDA Castillo 3 CYRUS CYRUS EXAMINATI ON CHEST SINGLE VIEW FRONTAL LIPID 05550 [facility] PANEL 2 DIAGNOSTI DIAGNOSTI CS CS HEMOGLOBI 17917 [facility] N 2 DIAGNOSTI DIAGNOSTI GLYCOSY[place] [address] [facility] THYROID 2 DIAGNOSTI DIAGNOSTI STIMULATI CS CS NG HORMONE TSH COMPREHEN 81184 [facility] SIVE 2 DIAGNOSTI DIAGNOSTI METABOLIC CS CS PANEL RADIOLOGI 97202 RADIOLOGY DARDINGER C EXAM 2 LUNA CHEST 2 ASSOCIATE VIEWS S OF NOTH FRONTAL&L ATERAL AMB A0427 [facility] SERVICE 2 FIRE FIRE ALS DEPT DEPT EMERGENCY TRANSPORT LEVEL 1 GROUND A0425 [facility]PT DEPT STATUTE MILE GROUND A0425 [facility] 2 FIRE FIRE PER DEPT DEPT STATUTE MILE AMB A0422 [facility] OXYGEN&O2 2 FIRE FIRE SUPPLIES DEPT DEPT LIFE SUSTAININ G SITUATION AMB A0427 [facility] SERVICE 2 FIRE FIRE ALS DEPT DEPT EMERGENCY TRANSPORT LEVEL 1 GROUND A0425 [facility] FIRE PER DEPT DEPT STATUTE MILE AMB A0427 [facility] SERVICE 2 FIRE FIRE ALS DEPT DEPT EMERGENCY TRANSPORT LEVEL [address] C 2 LOIS ABREU EXAMINATI ON CHEST MEDICALCE MEDICALCE SINGLE NTER NTER VIEW FRONTAL ECG 38370 CARMELO RHODES ROUTINE 2 RAL RAL ECG W/LEAST 12 LDS I&R ONLY RADIOLOGI 87206 RADIOLOGY DOERGER C 2 KIR EXAMINATI ASSOCIATE ON CHEST S OF NOTH SINGLE VIEW FRONTAL GROUND A0425 [facility] NE[facility] MILEAGE 2 FIRE FIRE PER DEPT DEPT STATUTE MILE AMB A0427 [facility] SERVICE 2 FIRE FIRE ALS DEPT DEPT EMERGENCY TRANSPORT LEVEL 1 RADIOLOGI 25030 RADIOLOGY ROSALVA KIRAN C 2 EXAMINATI ASSOCIATE ON CHEST S OF NOTH [place] FRONTAL SBSQ 07489 [facility] 2 CARE/DAY 25 MINUTES SBSQ [address] SYDNEE CARE/DAY MEDICAL 25 SPEC MINUTES RADIOLOGI 61568 RADIOLOGY ROXANAER C 2 LUNA EXAMINATI ASSOCIATE ON CHEST S OF NOTH [place] FRONTAL RADIOLOGI 93522 RADIOLOGY ROXANAER C 2 LUNA EXAMINATI ASSOCIATE ON CHEST S OF NOTH [place] FRONTAL RADIOLOGI 74569 RADIOLOGY DUARTE C EXAM 2 BRA CHEST 2 ASSOCIATE VIEWS S OF NOTH FRONTAL&L ATERAL ECG 63732 GAYLE MAR GAYLE MAR ROUTINE 2 ECG W/LEAST 12 LDS I&R ONLY RADIOLOGI 75580 RADIOLOGY WILEY C 2 BRA EXAMINATI ASSOCIATE ON CHEST S OF NOTH [place] FRONTAL INITIAL 41356 [facility] INPATIENT 2 CONSULT NEW/ESTAB PT 80 MIN SBSQ 30760 [place] [address] [facility] MAN CARE/DAY MEDICAL 35 SPEC MINUTES SBSQ [address] MAN CARE/DAY MEDICAL 35 SPEC MINUTES RADIOLOGI 99982 RADIOLOGY BREANA C 2 JAM EXAMINATI ASSOCIATE ON CHEST S OF NOTH [place] FRONTAL ECG 06704 MARCO LARA ROUTINE [address] ECG W/LEAST 12 LDS I&R ONLY ARTL 52535 INDEPENDE CRISPEN CATHJ/CAN 2 NT GIANA NULJ ANESTHESI MNTR/MAN OLOGIST SFUSION SPX PRQ CABG 60671 ULICNY ULICNY W/ARTERIA 2 FORTINO FORTINO L GRAFT TWO ARTERIAL GRAFTS CORONARY 54816 ULICNY ULICNY ARTERY 2 FORTINO FORTINO BYP W/VEIN & ARTERY GRAFT 3 VEIN ANES 76146 INDEPENDE CRISPEN DIRECT 2 NT GIANA CABG ANESTHESI W/PUMP OLOGIST OXYGENATO R INSERTION 32616 INDEPENDE CRISPEN FLOW 2 NT GIANA DIRECTED ANESTHESI CATHETER OLOGIST FOR MONITORIN G RADIOLOGI 97319 RADIOLOGY TOUSSAINT C 2 CAITLYN JANSENINAJAX ASSOCIATE ON CHEST S OF [facility] SINGLE VIEW FRONTAL SBSQ [address] SYDNEE CARE/DAY MEDICAL 35 SPEC MINUTES SBSQ [address] LL REG CARE/DAY 25 PHYSICIAN MINUTES S (AORTO)CO [address] RONARY 2 LOIS LOIS BYPASS THREE MEDICALCE MEDICALCE CORONARY NTER NTER ARTERIES SINGLE [address] INTERNAL 2 LOIS LOIS MAMMARY-C ORONARY MEDICALCE MEDICALCE ARTERY NTER NTER BYPASS SBSQ 52833 [facility] 2 CARE/DAY 35 MINUTES INITIAL [address] SYDNEE CARE/DAY MEDICAL 70 SPEC MINUTES SBSQ 09767 [facility] 2 CARE/DAY 35 MINUTES SBSQ 08358 [facility] 2 CHAY CHAY CARE/DAY 25 MINUTES SBSQ 39773 [facility] 2 [place]AY CHAY CARE/DAY 25 MINUTES SBSQ 12038 [facility] 2 [place]AY CHAY CARE/DAY 25 MINUTES SBSQ 55378 [facility] 2 CHAY CHAY CARE/DAY 25 MINUTES ECG 79155 HUMARIO HULLER ROUTINE 2 RAL RAL ECG W/LEAST 12 LDS I&R ONLY ECG 76052 HEEB CHR HEEB CHR ROUTINE 2 ECG W/LEAST 12 LDS I&R ONLY RADIOLOGI 79817 RADIOLOGY AMANDEEP SHORT C EXAM 2 CHEST 2 ASSOCIATE VIEWS S OF NOTH FRONTAL&L ATERAL INITIAL [address] FORTINO CARE/DAY 70 MINUTES ECHO 97855 [facility] TTHRC R-T 2 [place]AY CHAY 2D W/WOM-MOD E COMPL SPEC&COLR D CATH PLMT 27153 CHARLY Sampson HRT & 2 [place] ARTS W/NJX & ANGIO IMG S&I ANGIOCARD [address] IOGRAPHY 2 LOIS SERVINBETH OF LEFT HEART MEDICALCE MEDICALCE STRUCTURE NTER NTER S CORONARY [address] ARTERIOGR 2 LOIS LOIS APHY USING TWO MEDICALCE MEDICALCE NTER NTER CATHETERS LEFT [address] HEART 2 LOIS LOIS CARDIAC CATHETERI MEDICALCE MEDICALCE ZATION NTER NTER GROUND A0425 [facility] 2 FIRE FIRE PER DEPT DEPT STATUTE MILE AMB A0427 [facility] SERVICE 2 FIRE FIRE ALS DEPT DEPT EMERGENCY TRANSPORT LEVEL 1 ECG 05163 HEEB CHR HEEB CHR ROUTINE 2 ECG W/LEAST 12 LDS I&R ONLY RADIOLOGI 22978 RADIOLOGY SCHMITTER C 2 LUNA EXAMINATI ASSOCIATE ON CHEST S OF NOTH [place] FRONTAL REMOVAL 21071 [facility] FOREIGN 2 ANT ANT BODY FOOT SUBCUTANE OUS AMB A0427 [facility] 2 FIRE FIRE ALS DEPT DEPT EMERGENCY TRANSPORT LEVEL 1 RADEX 34896 RADIOLOGY GARCIA BYR FOOT 2 COMPLETE ASSOCIATE MINIMUM 3 S OF NOTH VIEWS GROUND A0425 [facility] 2 FIRE FIRE PER DEPT DEPT STATUTE MILE GROUND A0425 [facility] 2 FIRE FIRE PER DEPT DEPT STATUTE MILE AMB A0427 [facility] SERVICE 2 FIRE FIRE ALS DEPT DEPT EMERGENCY TRANSPORT LEVEL 1 ECG 91874 HULLER HULLER ROUTINE 2 RAL RAL ECG W/LEAST 12 LDS I&R ONLY ECG 90668 HULLER HULLER ROUTINE 2 RAL RAL ECG W/LEAST 12 LDS I&R ONLY AMB A0427 [facility] SERVICE 2 FIRE FIRE ALS DEPT DEPT EMERGENCY TRANSPORT LEVEL 1 GROUND A0425 [facility] MILEAGE 2 FIRE FIRE PER DEPT DEPT STATUTE MILE GROUND A0425 [facility]RE FIRE PER DEPT DEPT STATUTE MILE AMB A0427 [facility] SERVICE 1 FIRE FIRE ALS DEPT DEPT EMERGENCY TRANSPORT LEVEL [address] SOWER RETA REPAIR 1 LOIS SCALP/NEC FAMILY K/AX/ROSITA PRACTICE T/TRUNK 2.6-7.5CM AMB A0427 [facility] SERVICE 1 FIRE FIRE ALS DEPT DEPT EMERGENCY TRANSPORT LEVEL 1 GROUND A0425 RURAL/MET RURAL/MET MILEAGE 1 RO RO PER AMBULANCE AMBULANCE STATUTE MILE AMBULANCE A0428 RURAL/MET RURAL/MET SERVICE 1 RO RO BLS AMBULANCE AMBULANCE NONEMERGE NCY TRANSPORT GROUND A0425 [facility] MILEAGE 1 FIRE FIRE PER DEPT DEPT STATUTE MILE AMB A0427 [facility] SERVICE 1 FIRE FIRE ALS DEPT DEPT EMERGENCY TRANSPORT LEVEL [address] [facility] ROUTINE 1 LOIS MOREAU ECG W/LEAST PHYSICIAN 12 LDS S I&R ONLY RADIOLOGI 07038 RADIOLOGY JOSE CRUZ C EXAM 1 TUS CHEST 2 ASSOCIATE VIEWS S PSC FRONTAL&[place] [address] RADIOLOGY JOSE CRUZ HEAD/BRAI 1 TUS N W/O ASSOCIATE CONTRAST S PSC MATERIAL RADEX [address] ABDOMEN 1 1 LOIS GONZALEZTH ANTEROPOS MEDICALCE [place] [address] ABDOMEN & 1 LOIS LOIS PELVIS W/O MEDICALCE MEDICALCE CONTRAST NTER NTER MATERIAL THERAPEUT [address] IC 1 LOIS LOIS PROPHYLAC TIC/DX MEDICALCE MEDICALCE INJECTION NTER NTER SUBQ/IM URNLS DIP [address] 1 LOIS LOIS STICK/TAB LET RGNT MEDICALCE MEDICALCE NON-AUTO NTER NTER W/O MICRSCP AMB A0427 [facility] SERVICE 1 FIRE FIRE ALS DEPT DEPT EMERGENCY TRANSPORT LEVEL 1 GROUND A0425 [facility] 1 FIRE FIRE PER DEPT DEPT STATUTE MILE RADIOLOGI 85077 RADIOLOGY DUARTE C EXAM 1 BRA CHEST 2 ASSOCIATE VIEWS S PSC FRONTAL&L ATERAL CRTCHS E0114 [facility]VANCED UNDARM 1 TECHNOLOG TECHNOLOG OTH THAN IES INC IES INC WOOD PAIR PAD TIP&HNDGR IP GROUND A0425 [facility] 1 FIRE FIRE PER DEPT DEPT STATUTE MILE AMBULANCE A0429 [facility] 1 FIRE FIRE BLS DEPT DEPT EMERGENCY TRANSPORT RADEX [address] FOOT 1 LOIS LOIS COMPLETE MINIMUM 3 MEDICALCE MEDICALCE VIEWS NTER NTER RADEX [address] HAND 1 LOIS LOIS MINIMUM 3 VIEWS MEDICALCE MEDICALCE NTER NTER AMB A0427 [facility] SERVICE 0 FIRE FIRE ALS DEPT DEPT EMERGENCY TRANSPORT LEVEL 1 GROUND A0425 [facility] 0 FIRE FIRE PER DEPT DEPT STATUTE MILE RADEX 19545 RADIOLOGY DARDINGER FOOT 0 LUNA COMPLETE ASSOCIATE MINIMUM 3 S PSC VIEWS RADIOLOGI 67631 RADIOLOGY DARDINGER C EXAM 0 LUNA CHEST 2 ASSOCIATE VIEWS S PSC FRONTAL&L ATERAL RADEX 53117 RADIOLOGY ROEBKER ELBOW 0 JAM COMPLETE ASSOCIATE MINIMUM 3 S PSC VIEWS NONEMERG A0120 LKLP LKLP TRNSPRT: 0 COMMUNITY COMMUNITY MINI-BUS ACTION N MTN AREA/OTH SYS GROUND A0425 [facility] 0 FIRE FIRE PER DEPT DEPT STATUTE MILE AMB A0427 [facility] SERVICE 0 FIRE FIRE ALS DEPT DEPT EMERGENCY TRANSPORT LEVEL 1 AMBULANCE A0429 [facility] SERVICE 0 FIRE FIRE BLS DEPT DEPT EMERGENCY TRANSPORT GROUND A0425 NELLIE NELLIE MILEAGE 0 FIRE FIRE PER DEPT DEPT STATUTE MILE RADEX 32417 RADIOLOGY MANDA HUMERUS 0 SRUTHI MINIMUM 2 ASSOCIATE VIEWS S PSC RADEX 90672 RADIOLOGY MANDA SHOULDER 0 SRUTHI COMPLETE ASSOCIATE MINIMUM [address] [place] [address] RADIOLOGY DUARTE ABDOMEN 0 BRA W/CONTRAS ASSOCIATE T S PSC MATERIAL CT PELVIS 91265 RADIOLOGY DUARTE 0 BRA W/CONTRAS ASSOCIATE T S PSC MATERIAL LEVEL III [address]7929 ST FINA SHAMIKA SURG 0 LOIS PATHOLOGY MED CTR GROSS&MELVA ROSCOPIC EXAM LAPAROSCO 21491 ST YADI, PY SURG 0 LOIS SONAL W CHOLECYST ECTOMY PHYSICIAN S ANES 35279 INDEPENDE JORDAN, INTRAPERI 0 NT GODWIN P TONEAL ANESTHESI UPPER OLOGIST ABDOMEN W/LAPS NOS NONEMERG A0120 LKLP LKLP TRNSPRT: 0 COMMUNITY COMMUNITY MINI-BUS ACTION N MTN AREA/OTH SYS 99100 RADIOLOGY WILDA, ABDOMINAL 0 SHAHID R REAL ASSOCIATE TIME S PSC W/IMAGE LIMITED COMPREHEN [address] SIVE 0 LOIS LOIS METABOLIC PANEL MEDICALCE MEDICALCE NTER NTER ECG [address] ROUTINE 0 LOIS LOIS ECG W/LEAST MEDICALCE MEDICALCE 12 LDS NTER NTER TRCG ONLY W/O I&R BLOOD [address] COUNT 0 LOIS LOIS COMPLETE AUTO&AUTO MEDICALCE MEDICALCE [place] [address] LIPASE 0 LOIS LOIS MEDICALCE MEDICALCE NTER NTER ECG [address] ST HULLER, ROUTINE 0 LOIS AG F ECG MED CTR W/LEAST 12 LDS I&R ONLY COLLECTIO [address] N VENOUS 0 LOIS LOIS BLOOD VENIPUNCT MEDICALCE MEDICALCE URE NTER NTER URNLS DIP [address] 0 LOIS LOIS STICK/TAB LET RGNT MEDICALCE MEDICALCE NON-AUTO NTER NTER W/O MICRSCP RADIOLOGI [address] C EXAM 0 LOIS ABREU CHEST 2 VIEWS MEDICALCE MEDICALCE FRONTAL&[place] [address] RADIOLOGY LEW, HEAD/BRAI 0 SHAHID G N W/O ASSOCIATE CONTRAST S PSC MATERIAL AMB A0427 [facility] SERVICE 0 FIRE FIRE ALS DEPT DEPT EMERGENCY TRANSPORT LEVEL 1 GROUND A0425 [facility] FIRE FIRE PER DEPT DEPT STATUTE MILE RADEX ABD 77279 RADIOLOGY FROYLAN, COMPL 9 AQT ABD ASSOCIATE ABREU W/S/E/D S PSC A VIEWS 1 VIEW CH COMPREHEN 57819 [facility] SIVE 9 [facility] [place] [address] [facility] THYROID 9 [facility] [place] [address] [facility] FREE 9 [facility] THYROXINE HEMOGLOBI 63427 [facility] N 9 [facility] GLYCOSYLA BELLA A1C AMBULANCE A0429 [facility] 9 FIRE FIRE BLS DEPT DEPT EMERGENCY TRANSPORT GROUND A0425 [facility] 9 FIRE FIRE PER DEPT DEPT STATUTE MILE RADEX 73763 RADIOLOGY LEW, ELBOW 9 SHAHID G COMPLETE ASSOCIATE MINIMUM 3 S PSC VIEWS RADEX 56606 RADIOLOGY DUARTE, ANKLE 9 SAKINA L COMPLETE ASSOCIATE MINIMUM 3 S PSC VIEWS SBSQ [address] CARE/DAY 15 MINUTES SBSQ [address] CARE/DAY 15 MINUTES SBSQ [address] CARE/DAY 15 MINUTES SBSQ [address] CARE/DAY 15 MINUTES SBSQ [address] CARE/DAY 15 MINUTES SBSQ 38316 [facility] [address] [facility] CARE/DAY 15 MINUTES SBSQ 55333 JULIETA WELLSA, [facility] 9 [facility] CARE/DAY 15 MINUTES INITIAL 15069 RUSSELL WELLS, INPATIENT 9 [facility] Shelley CONSULT NEW/ESTAB PT [address] HULLER, ROUTINE 9 LOIS LUONG F ECG MED CTR W/LEAST 12 LDS I&[place] [address] RADIOLOGY MANDA, HEAD/BRAI 8 ZACKERY M N W/O ASSOCIATE CONTRAST S PSC MATERIAL AMBULANCE A0429 [facility] 8 FIRE FIRE BLS DEPT DEPT EMERGENCY TRANSPORT GROUND A0425 [facility] 8 FIRE FIRE PER DEPT DEPT STATUTE MILE RADEX 53359 RADIOLOGY MANDA, HAND 8 ZACKERY M MINIMUM 3 ASSOCIATE VIEWS S PSC RADEX 72658 RADIOLOGY DESTINY, SPINE 8 SONIA LUMBOSACR ASSOCIATE H AL 2/3 S PSC VIEWS AMB A0427 [facility] 8 FIRE FIRE ALS DEPT DEPT EMERGENCY TRANSPORT LEVEL 1 GROUND A0425 [facility] 8 FIRE FIRE PER DEPT DEPT STATUTE MILE RADEX 87660 RADIOLOGY DESTINY, WRIST 8 SONIA COMPLETE ASSOCIATE H MINIMUM 3 S PSC VIEWS RADEX 65616 RADIOLOGY DESTINY, SPINE 8 SONIA THORACIC ASSOCIATE H 3 VIEWS S PSC AMBULANCE A0429 [facility] 8 FIRE FIRE BLS DEPT DEPT EMERGENCY TRANSPORT GROUND A0425 [facility] 8 FIRE FIRE PER DEPT DEPT STATUTE MILE GROUND A0425 [facility] 8 FIRE FIRE PER DEPT DEPT STATUTE MILE AMB A0427 [facility] 8 FIRE FIRE ALS DEPT DEPT EMERGENCY TRANSPORT LEVEL [address] YECENIA, ROUTINE 8 LOIS Junior ECG MED CTR W/LEAST 12 LDS I&R ONLY GROUND A0425 [facility] 8 FIRE FIRE PER DEPT DEPT STATUTE MILE AMBULANCE A0429 [place] [address] FIRE FIRE BLS DEPT DEPT EMERGENCY TRANSPORT RADEX 58154 RADIOLOGY DUARTE, HAND 8 ZAC MINIMUM 3 ASSOCIATE VIEWS S PSC RADEX [address]128 ST WRIST 8 LOIS ABREU COMPLETE MINIMUM 3 MEDICALCE MEDICALCE VIEWS NTER NTER RADIOLOGI 32157 RADIOLOGY DUARTE, C EXAM 8 ZAC CHEST 2 ASSOCIATE VIEWS S PSC FRONTAL&L ATERAL INJECTION 07456 ST DAMASO, ANES 8 LOIS HOPKINS OTHER MED CTR PERIPHERA L NERVE/BRA NCH REPAIR 02255 ST DAMASO, INTERMEDI 8 LOIS HOPKINS ATE MED CTR F/E/E/N/L &/MUC 2.6-5.0 CM RADEX 14688 RADIOLOGY HURST, FACIAL 8 FERNIE R BONES ASSOCIATE COMPLETE S PSC MINIMUM 3 VIEWS AMBULANCE A0429 [facility] 8 FIRE FIRE BLS DEPT DEPT EMERGENCY TRANSPORT GROUND A0425 [facility] 8 FIRE [place] [address] [facility] ABDOMINAL 8 LIOS ABREU REAL TIME MEDICALCE MEDICALCE W/IMAGE NTER NTER LIMITED IADNA 04514 [facility] HEPATITIS 8 LOIS ABREU C QUANT & REVERSE MEDICALCE MEDICAL[place] [address] PATIENT SNEDEGAR, THYROID 8 FIRST SPARKLE STIMULAT[place] [address] PATIENT SNEDEGAR, FERRITIN 8 FIRST SPARKLE PHYS IMMUNOASS 57914 [facility] AY 8 LOIS ABREU ANALYTE QUAL/SEMI MEDICALCE MEDICALCE QUAL NTER NTER MULTIPLE STEP IRON 69427 PATIENT SNEDEGAR, BINDING 8 [place] [address] [facility] HEPATITIS 8 LOIS ABREU B SURFACE MEDICALCE MEDICALCE ANTIGEN NTER NTER NFCT AGNT 96069 [facility] GENOTYP 8 LOIS LOIS NUCLEIC ACID MEDICALCE MEDICALCE HEPATITIS NTER NTER C VIRUS ANTINUCLE 16586 [facility] AR [facility] ANTIBODIE S EMIGDIO MEDICALCE MEDICALCE NTER NTER BLOOD 10544 PATIENT SNEDEGAR, COUNT 8 FIRST SPARKLE COMPLETE PHYS AUTOMATED FLUORESCE 62356 [facility] NT 8 LOIS LOIS NONNFCT AGT ANTB MEDICALCE MEDICALCE TITER EA NTER NTER ANTIBODY ALPHA-1-A 71331 [facility] NTITRYPSI 8 [facility] N TOTAL MEDICALCE MEDICALCE NTER NTER COMPREHEN 32115 PATIENT SNEDEGAR, SIVE 8 FIRST SPARKLE METABOLIC PHYS PANEL ALPHA-FET 93633 [facility] O[facility]OTEIN 8 [facility] SERUM MEDICALCE MEDICALCE NTER NTER CERULOPLA 51175 [facility] SMIN 8 [facility] [place] [address] PATIENT SNEDEGAR, IRON 8 FIRST SPARKLE PHYS COLLECTIO 69894 [facility] N VENOUS 8 [facility] BLOOD VENIPUNCT MEDICALCE MEDICALCE URE NTER NTER ACUTE 27380 [facility] HEPATITIS 8 [facility] PANEL MEDICALCE MEDICALCE NTER NTER URNLS DIP 41463 [facility] STICK/TAB LET RGNT MEDICALCE MEDICALCE AUTO W/O NTER NTER MICROSCOP Y COLLECTIO 26410 [facility] N VENOUS 8 LOIS LOIS BLOOD VENIPUNCT MEDICALCE MEDICALCE URE NTER NTER HEPATIC 94297 [facility] FUNCTION 8 LOIS LOIS PANEL MEDICALCE MEDICALCE NTER NTER LIPID 78808 [facility] PANEL 8 LOIS LOIS MEDICALCE MEDICALCE NTER NTER BLOOD 72945 [facility] COUNT [facility] COMPLETE AUTO&AUTO MEDICALCE MEDICALCE DIFRNTL NTER NTER WBC BASIC [address] METABOLIC 8 LOIS LOIS PANEL CALCIUM MEDICALCE MEDICALCE TOTAL NTER NTER RADIOLOGI [address] C EXAM 8 LOIS LOIS CHEST 2 VIEWS MEDICALCE MEDICALCE FRONTAL&L NTER NTER ATERAL HEMOGLOBI [address] N 8 LOIS LOIS GLYCOSYLA BELLA A1C [place] [address] THYROID 8 LOIS LOIS STIMULATI NG MEDICALCE MEDICAL[place] [address] FREE 8 LOIS LOIS THYROXINE MEDICALCE MEDICALCE NTER NTER ECG [address] ROUTINE 8 LOIS LOIS ECG W/LEAST MEDICALCE MEDICALCE 12 LDS NTER NTER TRCG ONLY W/O I&R ECG 70872 ST HULLER, ROUTINE 8 LOIS AG F ECG MED CTR W/LEAST 12 LDS I&R ONLY RADEX 25146 RADIOLOGY DUARTE, HAND 8 ZAC MINIMUM 3 ASSOCIATE VIEWS S PSC AMB A0427 [facility] 8 FIRE FIRE ALS DEPT DEPT EMERGENCY TRANSPORT LEVEL 1 GROUND A0425 [facility] MILEAGE 8 FIRE FIRE PER DEPT DEPT STATUTE MILE RHYTHM 81449 ST ZACK, ECG 1-3 8 LOIS LAROY LEADS MED CTR INTERPRET ATION & REPRT [place] ECG [address] ST ZACK, ROUTINE 8 LOIS LAROY ECG MED CTR W/LEAST 12 LDS I&R ONLY SYRINGE A4206 [facility] WITH 8 PHARMACY PHARMACY NEEDLE #6119 #6119 STERILE 1 CC OR LESS EACH BLD GLU A4253 [facility] TEST/REAG 8 PHARMACY PHARMACY T STRIPS #6119 #[id number] HOME BLD GLU MON-50 Encounters Encounter Start End Date Code Location Performer Type Date [facility] T EMERGENCY 03025 KYLE DENNEY 6 6 PHYSICIAN MELVA DEPARTMEN S, [facility] T VISIT MODERATE SEVERITY [facility] - [facility] T OFFICE 49605 [facility] KELI OUTPATIEN 6 6 PHYSICIAN MAT T VISIT S GROUP 25 MINUTES EMERGENCY 97688 KYLE PRITCHETT DEPT 6 6 PHYSICIAN U JOAN VISIT S, [facility] HIGH SEVERITY& THREAT [facility] - 6 6 [facility] INPATIENT INC OFFICE 17585 [facility] OUTPATIEN 5 5 EMILIANO EMILIANO T VISIT 15 MINUTES OFFICE 81013 REALK[facility]AL RED OUTPATIEN 5 5 EMILIANO EMILIANO T NEW 30 MINUTES OFFICE 26173 [facility] MICHEL BRADY OUTPATIEN 5 5 LTH T NEW 20 ORTHOPAE MINUTES EMERGENCY 74420 [facility] 5 5 EMERGENCY JOHN DEPARTMEN T VISIT PHYSICIAN HIGH/URGE S NT SEVERITY EMERGENCY 02830 [facility] DEPT 4 4 LOIS ANT VISIT MED CTR HIGH SEVERITY& THREAT FUN [facility] - 4 4 LOIS OUTPATIEN MED CTR T MAGAZINE WORKER EMERGENCY [address] ST 4 4 LOIS DEPARTMEN MED CTR T VISIT MAGAZINE WORKER MODERATE SEVERITY EMERGENCY 94422 [facility] 4 4 LOIS ANT DEPARTMEN MED CTR T VISIT HIGH/URGE NT SEVERITY HOSPITAL ST - 4 4 LOIS OUTPATIEN MED CTR T MAGAZINE WORKER EMERGENCY 25582 [facility] 4 4 LOIS RETA DEPARTMEN MED CTR T VISIT HIGH/URGE NT SEVERITY OFFICE 24557 [facility] OUTPATIEN 3 3 T VISIT 25 MINUTES EMERGENCY 07168 [facility] DEPT 3 3 LOIS GRE VISIT MED CTR HIGH SEVERITY& THREAT FUNCJ OFFICE 70626 [facility] OUTPATIEN 3 3 POINT T VISIT FAMILY 25 CARE, IN MINUTES OFFICE 62712 [facility] OUTPATI[facility] 2 2 POINT T VISIT FAMILY 15 CARE, IN MINUTES [facility] - 2 2 LOIS OUTPATIEN T MEDICALCE NTER EMERGENCY 05192 ST 2 2 LOIS DEPARTMEN T VISIT MEDICALCE MODERATE NTER SEVERITY EMERGENCY 18590 [facility] DEPT 2 2 LOIS MAR VISIT MED CTR HIGH SEVERITY& THREAT FUNCJ [facility] ST - 2 2 LOIS INPATIENT MEDICALCE NTER EMERGENCY 83951 [facility] DEPT 2 2 LOIS VISIT FAMILY HIGH PRACTICE SEVERITY& THREAT FUNCJ EMERGENCY 30128 [facility] 2 2 LOIS SUS DEPARTMEN FAMILY T VISIT PRACTICE HIGH/URGE NT SEVERITY EMERGENCY 01441 ST 1 1 LOIS DEPARTMEN T VISIT MEDICALCE MODERATE NTER SEVERITY [facility]PITAL ST - 1 1 [facility] OUTPATIEN T MEDICALCE NTER [facility] - 1 1 [facility]IS OUTPATIEN T MEDICALCE NTER EMERGENCY 41111 ST 1 1 LOIS DEPARTMEN T VISIT MEDICALCE HIGH/URGE NTER NT SEVERITY EMERGENCY 66189 [facility] 1 1 LOIS JOHN DEPARTMEN MED CTR T VISIT HIGH/URGE NT SEVERITY [facility]OSPITAL ST - 1 1 LOIS OUTPATIEN T MEDICALCE NTER EMERGENCY 04451 ST 1 1 LOIS DEPARTMEN T VISIT MEDICALCE MODERATE NTER SEVERITY EMERGENCY 90873 [facility] [place] 1 1 LOIS ACUÑA DEPARTMEN MED CTR T VISIT HIGH/URGE NT SEVERITY EMERGENCY 26101 [facility] [place] 0 0 LOISDAVID MORALES DEPARTMEN MED CTR T VISIT HIGH/URGE NT SEVERITY EMERGENCY 84294 [facility] 0 0 LOISDAVID BRIDGES DEPARTMEN MED CTR T VISIT MODERATE SEVERITY EMERGENCY 140[address] [facility] [place] 0 0 LOIS ROMERO DEPARTMEN T VISIT PHYSICIAN MODERATE S SEVERITY EMERGENCY 85740 [facility], 0 0 LOIS Briggs DEPARTMEN MED CTR T VISIT MODERATE SEVERITY EMERGENCY 13154 [facility], 0 0 LOIS KILLIAN DEPARTMEN MED CTR T VISIT HIGH/URGE NT SEVERITY EMERGENCY 23333 [facility], DEPT 0 0 CARE JONA L VISIT PHYS HIGH [facility] SEVERITY& [place] THREAT FUNCJ EMERGENCY 70923 [facility], 0 0 LOIS Meléndez DEPARTMEN MED CTR T VISIT HIGH/URGE NT SEVERITY [facility] 03052 [facility] 0 0 LOIS RODRIGUEZ/OBED PHYSICIAN PATIENT S 40 MIN EMERGENCY 62604 [facility], 0 0 LOIS DANG DEPARTMEN MED CTR T VISIT MODERATE SEVERITY [facility] ST - 0 0 LOIS [place] Meléndez MEDICALCE NTER EMERGENCY 08320 [facility] ROBB ABREU DEPARTMEN MED CTR T VISIT HIGH/URGE NT SEVERITY EMERGENCY 06048 ST 0 0 LO[facility] DEPARTMEN T VISIT MEDICALCE MODERATE NTER SEVERITY EMERGENCY 05874 [facility], 0 0 LOIS Anderson DEPARTMEN MED CTR T VISIT HIGH/URGE NT SEVERITY HOSPITAL ST - 0 0 LOIS SIMINPATIEN T MEDICALCE NTER EMERGENCY 45533 [facility], 0 0 LOIS VICTOR DEPARTMEN MED CTR T VISIT MODERATE SEVERITY EMERGENCY 18228 [facility], DEPT 0 0 LOIS CONSTANTIN VISIT MED CTR HIGH SEVERITY& THREAT FUNC [facility] - 0 0 LOIS OUTPATIEN T MEDICALCE NT HOSPITAL ST - 9 9 LOIS OUTPATIEN T MEDICALCE NTER EMERGENCY 67153 [facility] 9 9 ROBB ABREU DEPARTMEN MED CTR T VISIT HIGH/URGE NT SEVERITY EMERGENCY 18979 [facility], 9 9 LOIS Sampson DEPARTMEN MED CTR T VISIT HIGH/URGE NT SEVERITY EMERGENCY 112[address] [facility], 9 9 LOIS Quarles DEPARTMEN MED CTR T VISIT HIGH/URGE NT SEVERITY EMERGENCY 21692 [facility] 9 9 SHAHID ABREU DEPARTMEN MED CTR D T VISIT HIGH/URGE NT SEVERITY OFFICE 02726 JULIETA WE[facility]SA OUTPATIEN 9 9 CHRISTINE M CHRISTINE M T VISIT 15 MINUTES OFFICE 20173 [facility] OUTPATIEN 9 9 CHRISTINE M CHRISTINE M T VISIT [address] [facility], 8 8 LOIS [facility] DEPARTMEN MED CTR T VISIT HIGH/URGE NT SEVERITY OFFICE 00067 JULIETA WELLSA, OUTPATIEN 8 8 CHRISTINE M CHRISTINE M T VISIT 15 MINUTES OFFICE [id number] [facility]LL WELLS OUTPATIKOTA 8 8 CHRISTINE M CHRISTINE M T VISIT 15 MINUTES EMERGENCY 46671 [facility], DEPT 8 8 LOIS Quarles VISIT MED CTR HIGH SEVERITY& THREAT FUNCJ OFFICE 69361 RUSSELL WELLS OUTPATIEN 8 8 CHRISTINE M CHRISTINE M T VISIT 15 MINUTES EMERGENCY 78134 [facility], DEPT 8 8 LOIS FRANK VISIT MED CTR HIGH SEVERITY& THREAT FUNCJ EMERGENCY 75358 [facility], 8 8 LOIS [facility] MED CTR T VISIT HIGH/URGE NT SEVERITY EMERGENCY 70907 ST 8 8 LOIS [facility] T VISIT MEDICALCE MODERATE NTER SEVERITY EMERGENCY 18025 [facility], 8 8 LOIS [facility] MED CTR T VISIT HIGH/URGE NT SEVERITY HOSPITAL ST - 8 8 LOIS OUTPATIEN T MEDICALCE NTER OFFICE [id number] PATIENT SNEDEGAR, OUTPATIEN 8 8 FIRST SPARKLE T VISIT PHYS 15 MINUTES OFFICE 15721 RUSSELL WELLS OUTPATIEN 8 8 CHRISTINE M CHRISTINE M T VISIT [address] [facility] [place], 8 8 [facility] T VISIT HIGH/URGE NT SEVERITY OFFICE 92871 [facility]LL WELLS OUTPATIK[facility] 8 8 CHRISTINE M CHRISTINE M T VISIT [address] - 8 8 LOIS OUTPATIEN T MEDICALCE NTER OFFICE 83095 PATIENT SNEDEGAR, CONSULTAT 8 8 FIRST SPARKLE ION PHYS NEW/ESTAB PATIENT [address] - 8 8 LOIS OUTPATIEN T MEDICALCE NTER OFFICE 82676 RUSSELL WELLS OUTPATIEN 8 8 CHRISTINE Shelley T VISIT [address] - 8 8 LOIS OUTPATIEN T MEDICALCE NTER OFFICE 19070 RUSSELL WELLS OUTPATIEN 8 8 CHRISTINE Shelley T VISIT [address] - 8 8 LOIS OUTPATIEN T MEDICALCE NTER EMERGENCY 15966 [facility], DEPT 8 8 LOIS ROD VISIT MED CTR HIGH SEVERITY& THREAT FUNCJ OFFICE 64780 RUSSELL WELLS OUTPATIEN 8 8 CHRISTINE Shelley T NEW [address] [facility] 8 8 LOIS [facility] MED CTR T VISIT MODERATE SEVERITY OFFICE 56376 [facility] 8 8 MEDICAL ANGELA P T VISIT GROUP 15 MINUTES OFFICE 60679 [facility] 8 8 MEDICAL LUNA B T VISIT GROUP 10 MINUTES OFFICE 33146 [facility] 8 8 MEDICAL MIYA T VISIT GROUP 15 MINUTES
--- OUTSIDE RECORDS SUMMARY | 2016-06-10 | External Medical Summary Rpt ---
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 INPATIENT 4 LOIS THO CONSULT NEW/ESTAB PHYSICIAN PT 80 S MIN INJECTION J2060 ST ST 4 LOIS LOIS [facility] MED CTR [address] [employer]IVE [facility] MASTER POLICE DETECTIVE ST ECG [address] ST HEYDI BAR ROUTINE 4 LOIS ECG MED CTR W/LEAST 12 LDS I&R ONLY RADIOLOGI 13025 RADIOLOGY SCHMITTER C EXAM 4 LUNA CHEST 2 ASSOCIATE VIEWS S OF NOTH FRONTAL&[place] [address] RADIOLOGY HOT WORT SETTLER/BRAI 4 BRA N W/O ASSOCIATE CONTRAST S OF NOT MATERIAL AMBULANCE A0429 [facility] SERVICE 4 FIRE FIRE BLS DEPT DEPT EMERGENCY TRANSPORT GROUND A0425 [facility] 4 FIRE FIRE PER DEPT DEPT STATUTE MILE AMB A0427 [facility] SERVICE 4 FIRE FIRE ALS DEPT DEPT [place] [address] RADIOLOGY GARCIA BYR ANGIOGRAP 4 HY CHEST ASSOCIATE W/CONTRAS S OF NOTH T/NONCONT RAST GROUND A0425 [facility] 4 FIRE FIRE PER DEPT DEPT STATUTE MILE AMBULANCE A0429 [facility] SERVICE 4 FIRE FIRE BLS DEPT DEPT EMERGENCY TRANSPORT ECG [address] ST YECENIA FORTINO ROUTINE 4 LOIS ECG MED CTR W/LEAST 12 LDS I&R ONLY ECG [address] ROUTINE 4 LOIS LOIS ECG MED CTR MED CTR W/LEAST MASTER POLICE DETECTIVE ST MASTER POLICE DETECTIVE ST 12 LDS TRCG ONLY W/O I&R RADIOLOGI 96770 RADIOLOGY BRANDSER C 4 KIRAN EXAMINATI ASSOCIATE ON CHEST S OF NOTH SINGLE VIEW FRONTAL GROUND A0425 [facility] 4 FIRE FIRE PER DEPT DEPT STATUTE MILE RADIOLOGI 78840 RADIOLOGY BRANDSER C EXAM 4 KIRAN KNEE ASSOCIATE COMPLETE S OF NOTH 4/MORE VIEWS AMB A0427 [facility] SERVICE 4 FIRE FIRE ALS DEPT DEPT EMERGENCY TRANSPORT LEVEL 1 AMB A0427 [facility] 4 FIRE FIRE ALS DEPT DEPT EMERGENCY TRANSPORT LEVEL 1 GROUND A0425 [facility] 4 FIRE FIRE PER DEPT DEPT STATUTE MILE SBSQ 00736 [facility] 4 LUNA LUNA CARE/DAY 15 MINUTES INITIAL 22277 GUILLUAME BOERNE INPATIENT 4 DERIK DERIK CONSULT NEW/ESTAB PT 55 MIN ECG 52150 HEYDI BAR HEYDI BAR ROUTINE 4 ECG W/LEAST 12 LDS I&R ONLY GROUND A0425 [facility] 3 FIRE FIRE PER DEPT DEPT STATUTE MILE AMB A0427 [facility] 3 FIRE FIRE ALS DEPT DEPT EMERGENCY TRANSPORT LEVEL 1 COMPREHEN 76302 [facility] SIVE 3 DIAGNOSTI DIAGNOSTI METABOLIC CS CS PANEL ECG 36762 RADHA ARL RADHA ARL ROUTINE 3 ECG W/LEAST 12 LDS W/I&[place] [address] [facility] QUEST FREE 3 DIAGNOSTI [place] [address] [facility] THYROID 3 DIAGNOSTI DIAGNOSTI STIMULATI CS CS NG HORMONE TSH LIPID 97048 [facility] QUEST PANEL 3 DIAGNOSTI DIAGNOSTI CS CS HEMOGLOBI 88843 [facility] QUEST N 3 DIAGNOSTI DIAGNOSTI GLYCOSYLA CS CS BELLA A1C ECG 96376 MONIE LOMAX CHR ROUTINE 3 ECG W/LEAST 12 LDS I&R ONLY RADEX 15689 WELLS SEA WELLS SEA SPINE 3 THORACIC 3 VIEWS RADEX 86153 WELLS SEA WELLS SEA SPINE 3 LUMBOSACR AL 2/[address] [place] [address] WELLS SEA WELLS SEA CERVICAL 3 SPINE W/O CONTRAST MATERIAL AMB A0427 [facility] SERVICE 3 FIRE FIRE ALS DEPT DEPT EMERGENCY TRANSPORT LEVEL 1 GROUND A0425 [facility] MILEAGE 3 FIRE [place] [address] WELLS SEA WELLS SEA HEAD/BRAI 3 N W/O CONTRAST MATERIAL ECG 85942 MONIE LOMAX CHR ROUTINE 3 ECG W/LEAST 12 LDS I&R ONLY GROUND A0425 [facility] MILEAGE 3 FIRE FIRE PER DEPT DEPT STATUTE MILE AMB A0427 [facility] 3 FIRE FIRE ALS DEPT DEPT EMERGENCY TRANSPORT LEVEL 1 COMPREHEN 47328 [facility] QUEST SIVE 3 DIAGNOSTI DIAGNOST[place] [address] QUEST QUEST THYROID 3 DIAGNOSTI DIAGNOSTI STIMULATI [place] [address] QUEST QUEST FREE 3 DIAGNOSTI DIAGNOSTI THYROXINE CS CS HEMOGLOBI 11869 QUEST QUEST N 3 DIAGNOSTI DIAGNOSTI GLYCOSYLA CS CS BELLA A1C LIPID 84014 [facility] QUEST PANEL 3 DIAGNOSTI DIAGNOSTI CS CS ALBUMIN 68472 [facility]ALTH RADHA ARL URINE 3 POINT MICROALBU [facility] SEMIQUANT ITATIVE RADIOLOGI 70598 WILDA Castillo 3 CYRUS CYRUS EXAMINATI ON CHEST SINGLE VIEW FRONTAL LIPID 71202 [facility]ST QUEST PANEL 2 DIAGNOSTI DIAGNOSTI CS CS HEMOGLOBI 73621 QUEST QUEST N 2 DIAGNOSTI DIAGNOSTI GLYCOS[place] [address] [facility] QUEST THYROID 2 DIAGNOSTI DIAGNOSTI STIMULATI CS CS NG HORMONE TSH COMPREHEN 35103 [facility] QUEST SIVE 2 DIAGNOSTI DIAGNOSTI METABOLIC CS CS PANEL RADIOLOGI 30452 RADIOLOGY DARDINGER C EXAM 2 LUNA CHEST 2 ASSOCIATE VIEWS S OF NOTH FRONTAL&L ATERAL AMB A0427 [facility] SERVICE 2 FIRE FIRE ALS DEPT DEPT EMERGENCY TRANSPORT LEVEL 1 GROUND A0425 [facility] PER DEPT DEPT STATUTE MILE GROUND A0425 [facility] 2 FIRE FIRE PER DEPT DEPT STATUTE MILE AMB A0422 [facility] OXYGEN&O2 2 FIRE FIRE SUPPLIES DEPT DEPT LIFE SUSTAININ G SITUATION AMB A0427 [facility] SERV[facility] 2 FIRE FIRE ALS DEPT DEPT EMERGENCY TRANSPORT LEVEL 1 GROUND A0425 [facility]RE FIRE PER DEPT DEPT STATUTE MILE AMB A0427 [facility] 2 FIRE FIRE ALS DEPT DEPT EMERGENCY TRANSPORT LEVEL [address] C 2 LOIS ABREU EXAMINATI ON CHEST MEDICALCE MEDICALCE SINGLE NTER NTER VIEW FRONTAL ECG 45481 CARMELO RHODES ROUTINE 2 RAL RAL ECG W/LEAST 12 LDS I&R ONLY RADIOLOGI 27327 RADIOLOGY DOERGER C 2 KIR EXAMINATI ASSOCIATE ON CHEST S OF NOTH SINGLE VIEW FRONTAL GROUND A0425 NELLIE NELLIE MILEAGE 2 FIRE FIRE PER DEPT DEPT STATUTE MILE AMB A0427 [facility] SERVICE 2 FIRE FIRE ALS DEPT DEPT EMERGENCY TRANSPORT LEVEL 1 RADIOLOGI 55126 RADIOLOGY ROSALVA KIRAN C 2 EXAMINATI ASSOCIATE ON CHEST S OF NOTH [place] FRONTAL SBSQ 40118 [facility] 2 CARE/DAY 25 MINUTES SBSQ [address] [place] CARE/DAY MEDICAL 25 SPEC MINUTES RADIOLOGI 80238 RADIOLOGY ROXANAER C 2 LUNA EXAMINATI ASSOCIATE ON CHEST S OF NOTH SINGLE VIEW FRONTAL RADIOLOGI 22417 RADIOLOGY ROXANAER C 2 LUNA EXAMINATI ASSOCIATE ON CHEST S OF NOTH [place] FRONTAL RADIOLOGI 90007 RADIOLOGY DUARTE C EXAM 2 BRA CHEST 2 ASSOCIATE VIEWS S OF NOTH FRONTAL&L ATERAL ECG 09616 GAYLE MAR GAYLE MAR ROUTINE 2 ECG W/LEAST 12 LDS I&R ONLY RADIOLOGI 20314 RADIOLOGY [place] C 2 BRA EXAMINATI ASSOCIATE ON CHEST S OF NOTH [place] FRONTAL INITIAL 95443 [facility] INPATIENT 2 CONSULT NEW/ESTAB PT 80 MIN SBSQ 09447 [place] [address] [facility] MAN CARE/DAY MEDICAL 35 SPEC MINUTES SBSQ [address] MAN CARE/DAY MEDICAL 35 SPEC MINUTES RADIOLOGI 34391 RADIOLOGY BREANA C 2 JAM EXAMINATI ASSOCIATE ON CHEST S OF NOTH [place] FRONTAL ECG 28242 MARCO LARA ROUTINE [address] ECG W/LEAST 12 LDS I&R ONLY ARTL 72572 INDEPENDE CRISPEN CATHJ/CAN 2 NT GIANA NULJ ANESTHESI MNTR/MAN OLOGIST SFUSION SPX PRQ CABG 55748 ULICNY ULICNY W/ARTERIA 2 FORTINO FORTINO L GRAFT TWO ARTERIAL GRAFTS CORONARY 48103 ULICNY ULICNY ARTERY 2 FORTINO FORTINO BYP W/VEIN & ARTERY GRAFT 3 VEIN ANES 86077 INDEPENDE CRISPEN DIRECT 2 NT GIANA CABG ANESTHESI W/PUMP OLOGIST OXYGENATO R INSERTION 80009 INDEPENDE CRISPEN FLOW 2 NT GIANA DIRECTED ANESTHESI CATHETER OLOGIST FOR MONITORIN G RADIOLOGI 79564 RADIOLOGY TOUSSAINT C 2 CAITLYN JANSENINAJAX ASSOCIATE ON CHEST S OF [facility] SINGLE [place] FRONTAL SBSQ [address] [place] CARE/DAY MEDICAL 35 SPEC MINUTES SBSQ [address] [facility] REG CARE/DAY 25 PHYSICIAN MINUTES S (AORTO)CO [address] RONARY 2 LOIS LOIS BYPASS THREE MEDICALCE MEDICALCE CORONARY NTER NTER ARTERIES SINGLE [address] INTERNAL 2 LOIS LOIS MAMMARY-C ORONARY MEDICALCE MEDICALCE ARTERY NTER NTER BYPASS SBSQ 55368 [facility] 2 CARE/DAY 35 MINUTES INITIAL [address] [place] CARE/DAY MEDICAL 70 SPEC MINUTES SBSQ 59264 [facility] 2 CARE/DAY 35 MINUTES SBSQ 21632 [facility] 2 [place]AY CARE/DAY 25 MINUTES SBSQ 58687 [facility] 2 [place] CARE/DAY 25 MINUTES SBSQ 45063 [facility] 2 [place] CARE/DAY 25 MINUTES SBSQ 83709 [facility] 2 [place]AY [place]AY CARE/DAY 25 MINUTES ECG 45047 HUMARIO HULLER ROUTINE 2 RAL RAL ECG W/LEAST 12 LDS I&R ONLY ECG 37169 HEEB CHR HEEB CHR ROUTINE 2 ECG W/LEAST 12 LDS I&R ONLY RADIOLOGI 93172 RADIOLOGY AMANDEEP SHORT C EXAM 2 CHEST 2 ASSOCIATE VIEWS S OF NOTH FRONTAL&L ATERAL INITIAL [address] FORTINO CARE/DAY 70 MINUTES ECHO 78491 [facility] TTHRC R-T 2 [place] 2D W/WOM-MOD E COMPL SPEC&COLR D CATH PLMT 90884 CHARLY Sampson HRT & 2 [place] ARTS W/NJX & ANGIO IMG S&I ANGIOCARD [address] IOGRAPHY 2 LOIS SERVINBETH OF LEFT HEART MEDICALCE MEDICALCE STRUCTURE NTER NTER S CORONARY [address] ARTERIOGR 2 LOIS LOIS APHY USING TWO MEDICALCE MEDICALCE NTER NTER CATHETERS LEFT [address] HEART 2 LOIS LOIS CARDIAC CATHETERI MEDICALCE MEDICALCE ZATION NTER NTER GROUND A0425 [facility] 2 FIRE FIRE PER DEPT DEPT STATUTE MILE AMB A0427 [facility] SERVICE 2 FIRE FIRE ALS DEPT DEPT EMERGENCY TRANSPORT LEVEL 1 ECG 94081 HEEB CHR HEEB CHR ROUTINE 2 ECG W/LEAST 12 LDS I&R ONLY RADIOLOGI 16214 RADIOLOGY SCHMITTER C 2 LUNA EXAMINATI ASSOCIATE ON CHEST S OF NOTH [place] FRONTAL REMOVAL 15516 [facility] FOREIGN 2 ANT ANT BODY FOOT SUBCUTANE OUS AMB A0427 [facility] 2 FIRE FIRE ALS DEPT DEPT EMERGENCY TRANSPORT LEVEL 1 RADEX 91117 RADIOLOGY GARCIA BYR FOOT 2 COMPLETE ASSOCIATE MINIMUM 3 S OF NOTH VIEWS GROUND A0425 [facility] 2 FIRE FIRE PER DEPT DEPT STATUTE MILE GROUND A0425 [facility] 2 FIRE FIRE PER DEPT DEPT STATUTE MILE AMB A0427 [facility] SERVICE 2 FIRE FIRE ALS DEPT DEPT EMERGENCY TRANSPORT LEVEL 1 ECG 02237 HULL[facility] HULLER ROUTINE 2 RAL RAL ECG W/LEAST 12 LDS I&R ONLY ECG 13543 HULLER HULLER ROUTINE 2 RAL RAL ECG W/LEAST 12 LDS I&R ONLY AMB A0427 [facility] SERVICE 2 FIRE FIRE ALS DEPT DEPT EMERGENCY TRANSPORT LEVEL 1 GROUND A0425 [facility] MILEAGE 2 FIRE FIRE PER DEPT DEPT STATUTE [facility]0425 [facility] PER DEPT DEPT STATUTE MILE AMB A0427 [facility] SERVICE 1 FIRE FIRE ALS DEPT DEPT EMERGENCY TRANSPORT LEVEL [address] SOWER RETA REPAIR 1 LOIS SCALP/NEC FAMILY K/AX/ROSITA PRACTICE T/TRUNK 2.6-7.5CM AMB A0427 [facility] SERVICE 1 FIRE FIRE ALS DEPT DEPT EMERGENCY TRANSPORT LEVEL 1 GROUND A0425 RURAL/MET RURAL/MET MILEAGE 1 RO RO PER AMBULANCE AMBULANCE STATUTE MILE AMBULANCE A0428 RURAL/MET RURAL/MET SERVICE 1 RO RO BLS AMBULANCE AMBULANCE NONEMERGE NCY TRANSPORT GROUND A0425 [facility] MILEAGE 1 FIRE FIRE PER DEPT DEPT STATUTE MILE AMB A0427 [facility] SERVICE 1 FIRE FIRE ALS DEPT DEPT EMERGENCY TRANSPORT LEVEL [address] [facility] ROUTINE 1 LOIS MOREAU ECG W/LEAST PHYSICIAN 12 LDS S I&R ONLY RADIOLOGI 93834 RADIOLOGY JOSE CRUZ C EXAM 1 TUS CHEST 2 ASSOCIATE VIEWS S PSC FRONTAL&[place] [address] RADIOLOGY JOSE CRUZ HEAD/BRAI 1 TUS N W/O ASSOCIATE CONTRAST S PSC MATERIAL RADEX [address] ABDOMEN 1 1 LOIS GONZALEZTH ANTEROPOS MEDICALCE [place] [address] ABDOMEN & 1 LOIS LOIS PELVIS W/O MEDICALCE MEDICALCE CONTRAST NTER NTER MATERIAL THERAPEUT [address] IC 1 LOIS LOIS PROPHYLAC TIC/DX MEDICALCE MEDICALCE INJECTION NTER NTER SUBQ/IM URNLS DIP [address] 1 LOIS LOIS STICK/TAB LET RGNT MEDICALCE MEDICALCE NON-AUTO NTER NTER W/O MICRSCP AMB A0427 [facility] SERVICE 1 FIRE FIRE ALS DEPT DEPT EMERGENCY TRANSPORT LEVEL 1 GROUND A0425 [facility] 1 FIRE FIRE PER DEPT DEPT STATUTE MILE RADIOLOGI 86983 RADIOLOGY DUARTE C EXAM 1 BRA CHEST 2 ASSOCIATE VIEWS S PSC FRONTAL&L ATERAL CRTCHS E0114 [facility] ADVANCED UNDARM 1 TECHNOLOG TECHNOLOG OTH THAN IES INC IES INC WOOD PAIR PAD TIP&HNDGR IP GROUND A0425 [facility] 1 FIRE FIRE PER DEPT DEPT STATUTE MILE AMBULANCE A0429 [facility] 1 FIRE FIRE BLS DEPT DEPT EMERGENCY TRANSPORT RADEX [address] FOOT 1 LOIS LOIS COMPLETE MINIMUM 3 MEDICALCE MEDICALCE VIEWS NTER NTER RADEX [address] HAND 1 LOIS LOIS MINIMUM 3 VIEWS MEDICALCE MEDICALCE NTER NTER AMB A0427 [facility] SERVICE 0 FIRE FIRE ALS DEPT DEPT EMERGENCY TRANSPORT LEVEL 1 GROUND A0425 [facility] 0 FIRE FIRE PER DEPT DEPT STATUTE MILE RADEX 48941 RADIOLOGY DARDINGER FOOT 0 LUNA COMPLETE ASSOCIATE MINIMUM 3 S PSC VIEWS RADIOLOGI 38887 RADIOLOGY DARDINGER C EXAM 0 LUNA CHEST 2 ASSOCIATE VIEWS S PSC FRONTAL&L ATERAL RADEX 83805 RADIOLOGY ROEBKER ELBOW 0 JAM COMPLETE ASSOCIATE MINIMUM 3 S PSC VIEWS NONEMERG A0120 LKLP LKLP TRNSPRT: 0 COMMUNITY COMMUNITY MINI-BUS ACTION N MTN AREA/OTH SYS GROUND A0425 [facility] 0 FIRE FIRE PER DEPT DEPT STATUTE MILE AMB A0427 [facility] SERVICE 0 FIRE FIRE ALS DEPT DEPT EMERGENCY TRANSPORT LEVEL 1 AMBULANCE A0429 [facility] 0 FIRE FIRE BLS DEPT DEPT EMERGENCY TRANSPORT GROUND A0425 NELLIE NELLIE MILEAGE 0 FIRE FIRE PER DEPT DEPT STATUTE MILE RADEX 50862 RADIOLOGY MANDA HUMERUS 0 SRUTHI MINIMUM 2 ASSOCIATE VIEWS S PSC RADEX 46682 RADIOLOGY MANDA SHOULDER 0 SRUTHI COMPLETE ASSOCIATE MINIMUM [address] [place] [address] RADIOLOGY DUARTE ABDOMEN 0 BRA W/CONTRAS ASSOCIATE T S PSC MATERIAL CT PELVIS 15965 RADIOLOGY DUARTE 0 BRA W/CONTRAS ASSOCIATE T S PSC MATERIAL LEVEL III [address]1723 ST FINA SHAMIKA SURG 0 LOIS PATHOLOGY MED CTR GROSS&MELVA ROSCOPIC EXAM LAPAROSCO [address] ST YADI, PY SURG 0 LOIS SONAL W CHOLECYST ECTOMY PHYSICIAN S ANES 55966 INDEPENDE JORDAN, INTRAPERI 0 NT GODWIN P TONEAL ANESTHESI UPPER OLOGIST ABDOMEN W/LAPS NOS NONEMERG A0120 LKLP LKLP TRNSPRT: 0 COMMUNITY COMMUNITY MINI-BUS ACTION N MTN AREA/OTH SYS 83621 RADIOLOGY WILDA, ABDOMINAL 0 SHAHID R REAL ASSOCIATE TIME S PSC W/IMAGE LIMITED COMPREHEN [address] SIVE 0 LOIS LOIS METABOLIC PANEL MEDICALCE MEDICALCE NTER NTER ECG [address] ROUTINE 0 LOIS LOIS ECG W/LEAST MEDICALCE MEDICALCE 12 LDS NTER NTER TRCG ONLY W/O I&R BLOOD [address] COUNT 0 LOIS LOIS COMPLETE AUTO&AUTO MEDICALCE MEDICALCE [place] [address] LIPASE 0 LOIS LOIS MEDICALCE MEDICALCE NTER NTER ECG [address] ST HULLER, ROUTINE 0 LOIS AG F ECG MED CTR W/LEAST 12 LDS I&R ONLY COLLECTIO [address] N VENOUS 0 LOIS LOIS BLOOD VENIPUNCT MEDICALCE MEDICALCE URE NTER NTER URNLS DIP [address] 0 LOIS LOIS STICK/TAB LET RGNT MEDICALCE MEDICALCE NON-AUTO NTER NTER W/O MICRSCP RADIOLOGI [address] C EXAM 0 LOIS ABREU CHEST 2 VIEWS MEDICALCE MEDICALCE FRONTAL&[place] [address] RADIOLOGY LEW, HEAD/BRAI 0 SHAHID G N W/O ASSOCIATE CONTRAST S PSC MATERIAL AMB A0427 [facility] SERVICE 0 FIRE FIRE ALS DEPT DEPT EMERGENCY TRANSPORT LEVEL 1 GROUND A0425 [facility] PER DEPT DEPT STATUTE MILE RADEX ABD 77402 RADIOLOGY FROYLAN, COMPL 9 AQT ABD ASSOCIATE ABREU W/S/E/D S PSC A VIEWS 1 VIEW CH COMPREHEN 67468 [facility] [place] [address] [facility] [place] [address] [facility] FREE [facility] THYROXINE HEMOGLOBI 52122 [facility] N [facility] GLYCOSYLA BELLA A1C AMBULANCE A0429 [facility] SERVICE 9 FIRE FIRE BLS DEPT DEPT EMERGENCY TRANSPORT GROUND A0425 [facility] 9 FIRE FIRE PER DEPT DEPT STATUTE MILE RADEX 42354 RADIOLOGY LEW, ELBOW 9 SHAHID G COMPLETE ASSOCIATE MINIMUM 3 S PSC VIEWS RADEX 00581 RADIOLOGY DUARTE, ANKLE 9 SAKINA L COMPLETE ASSOCIATE MINIMUM 3 S PSC VIEWS SBSQ [address] CARE/DAY 15 MINUTES SBSQ [address] CARE/DAY 15 MINUTES SBSQ [address] CARE/DAY 15 MINUTES SBSQ [address] CARE/DAY 15 MINUTES SBSQ [address] CARE/DAY 15 MINUTES SBSQ 62624 [facility] 9 [facility] CARE/DAY 15 MINUTES SBSQ 71717 JULIETA WELLSA, [facility] 9 [facility] CARE/DAY 15 MINUTES INITIAL 93393 RUSSELL WELLS, INPATIENT 9 [facility] CH[facility]STINE Shelley CONSULT NEW/ESTAB PT [address] HULLER, ROUTINE 9 LOIS LUONG F ECG MED CTR W/LEAST 12 LDS I&[place] [address] RADIOLOGY MANDA, HEAD/BRAI 8 ZACKERY M N W/O ASSOCIATE CONTRAST S PSC MATERIAL AMBULANCE A0429 [facility] 8 FIRE FIRE BLS DEPT DEPT EMERGENCY TRANSPORT GROUND A0425 [facility] 8 FIRE FIRE PER DEPT DEPT STATUTE MILE RADEX 14737 RADIOLOGY MANDA, HAND 8 ZACKERY M MINIMUM 3 ASSOCIATE VIEWS S PSC RADEX 84157 RADIOLOGY DESTINY, SPINE 8 SONIA LUMBOSACR ASSOCIATE H AL 2/3 S PSC VIEWS AMB A0427 [facility] 8 FIRE FIRE ALS DEPT DEPT EMERGENCY TRANSPORT LEVEL 1 GROUND A0425 [facility] 8 FIRE FIRE PER DEPT DEPT STATUTE MILE RADEX 26652 RADIOLOGY DESTINY, WRIST 8 SONIA COMPLETE ASSOCIATE H MINIMUM 3 S PSC VIEWS RADEX 87226 RADIOLOGY DESTINY, SPINE 8 SONIA THORACIC ASSOCIATE H 3 VIEWS S PSC AMBULANCE A0429 [facility] 8 FIRE FIRE BLS DEPT DEPT EMERGENCY TRANSPORT GROUND A0425 [facility] 8 FIRE FIRE PER DEPT DEPT STATUTE MILE GROUND A0425 [facility] 8 FIRE FIRE PER DEPT DEPT STATUTE MILE AMB A0427 [facility] 8 FIRE FIRE ALS DEPT DEPT EMERGENCY TRANSPORT LEVEL [address] YECENIA, ROUTINE 8 LOIS Junior ECG MED CTR W/LEAST 12 LDS I&R ONLY GROUND A0425 [facility] 8 FIRE FIRE PER DEPT DEPT STATUTE MILE AMBULANCE A0429 [place] [address] FIRE FIRE BLS DEPT DEPT EMERGENCY TRANSPORT RADEX 63330 RADIOLOGY [facility], HAND 8 ZAC MINIMUM 3 ASSOCIATE VIEWS S PSC RADEX [address] ST WRIST 8 LOIS ABREU COMPLETE MINIMUM 3 MEDICALCE MEDICALCE VIEWS NTER NTER RADIOLOGI 32852 RADIOLOGY [facility], C EXAM 8 ZAC CHEST 2 ASSOCIATE VIEWS S PSC FRONTAL&L ATERAL INJECTION [address]40 [facility], ANES 8 LOIS HOPKINS OTHER MED CTR PERIPHERA L NERVE/BRA NCH REPAIR 24065 [facility], INTERMEDI 8 LOIS [facility]OP[facility] ATE MED CTR F/E/E/N/L &/MUC 2.6-5.0 CM RADEX 66664 RADIOLOGY HURST, FACIAL 8 FERNIE R BONES ASSOCIATE COMPLETE S PSC MINIMUM 3 VIEWS AMBULANCE A0429 [facility] 8 FIRE FIRE BLS DEPT DEPT EMERGENCY TRANSPORT GROUND A0425 [facility] 8 [place]RE [place] [address] [facility] ABDOMINAL 8 LOIS ABREU REAL TIME MEDICALCE MEDICALCE W/IMAGE NTER NTER LIMITED IADNA 35162 [facility] HEPATITIS 8 LOIS ABREU C QUANT & REVERSE MEDICALCE MEDICAL[place] [address] PATIENT SNEDEGAR, THYROID 8 FIRST SPARKLE ST[place]UL[place] [address] PATIENT SNEDEGAR, FERRITIN 8 FIRST SPARK[facility] PHYS IMMUNOASS 20848 [facility] AY 8 LOIS ABREU ANALYTE QUAL/SEMI MEDICALCE MEDICALCE QUAL NTER NTER MULTIPLE STEP IRON 52299 PATIENT SNEDEGAR, BINDING 8 [place] [address] [facility] HEPATITIS 8 LOIS ABREU B SURFACE MEDICALCE MEDICALCE ANTIGEN NTER NTER NFCT AGNT 71802 [facility] GENOTYP 8 LOIS LOIS NUCLEIC ACID MEDICALCE MEDICALCE HEPATITIS NTER NTER C VIRUS ANTINUCLE 72588 [facility] AR 8 [facility] ANTIBODIE S EMIGDIO MEDICALCE MEDICALCE NTER NTER BLOOD 05413 PATIENT SNEDEGAR, COUNT 8 FIRST [facility]ARK[facility] COMPLETE PHYS AUTOMATED FLUORESCE 14740 [facility] NT 8 LOIS LOIS NONNFCT AGT ANTB MEDICALCE MEDICALCE TITER EA NTER NTER ANTIBODY ALPHA-1-A 56703 [facility] NTITRYPSI 8 [facility] N TOTAL MEDICALCE MEDICALCE NTER NTER COMPREHEN 03774 PATIENT SNEDEGAR, SIVE 8 FIRST SP[facility] METABOLIC PHYS PANEL ALPHA-FET 05003 [facility] OPROTEIN 8 [facility] SERUM MEDICALCE MEDICALCE NTER NTER CERULOPLA 27156 [facility] SMIN 8 [facility] [place] [address] PATIENT SNEDEGAR, IRON 8 FIRST SPARKLE PHYS COLLECTIO 37663 [facility] N VENOUS 8 [facility] BLOOD VENIPUNCT MEDICALCE MEDICALCE URE NTER NTER ACUTE 61078 [facility] HEPATITIS 8 [facility] PANEL MEDICALCE MEDICALCE NTER NTER URNLS DIP 15618 [facility] 8 [facility] STICK/TAB LET RGNT MEDICALCE MEDICALCE AUTO W/O NTER NTER MICROSCOP Y COLLECTIO 35479 [facility] N VENOUS 8 LOIS LOIS BLOOD VENIPUNCT MEDICALCE MEDICALCE URE NTER NTER HEPATIC 94688 [facility] FUNCTION 8 [facility] PANEL MEDICALCE MEDICALCE NTER NTER LIPID 17410 [facility] PANEL 8 [facility] MEDICALCE MEDICALCE NTER NTER BLOOD 89819 [facility] COUNT 8 [facility] COMPLETE AUTO&AUTO MEDICALCE MEDICALCE DIFRNTL NTER NTER WBC BASIC [address] METABOLIC 8 LOIS LOIS PANEL CALCIUM MEDICALCE MEDICALCE TOTAL NTER NTER RADIOLOGI [address] C EXAM 8 LOIS LOIS CHEST 2 VIEWS MEDICALCE MEDICALCE FRONTAL&L NTER NTER ATERAL HEMOGLOBI [address] N 8 LOIS LOIS GLYCOSYLA BELLA A1C [place] [address] THYROID 8 LOIS LOIS STIMULATI NG MEDICALCE MEDICAL[place] [address] FREE 8 LOIS LOIS THYROXINE MEDICALCE MEDICALCE NTER NTER ECG [address] ROUTINE 8 LOIS LOIS ECG W/LEAST MEDICALCE MEDICALCE 12 LDS NTER NTER TRCG ONLY W/O I&R ECG [address] ST HULLER, ROUTINE 8 LOIS AG F ECG MED CTR W/LEAST 12 LDS I&R ONLY RADEX 59521 RADIOLOGY DUARTE, HAND 8 ZAC MINIMUM 3 ASSOCIATE VIEWS S PSC AMB [id number] [facility] SERVICE 8 FIRE FIRE ALS DEPT DEPT EMERGENCY TRANSPORT LEVEL 1 GROUND A0425 [facility] MILEAGE 8 FIRE FIRE PER DEPT DEPT STATUTE MILE RHYTHM [address]2472 ST ZACK, ECG 1-3 8 LOIS LAROY LEADS MED CTR INTERPRET ATION & REPRT [place] ECG [address] [facility] ZACK, ROUTINE 8 LOIS LAROY ECG MED CTR W/LEAST 12 LDS I&R ONLY SYRINGE [id number] [facility] WITH 8 PHARMACY PHARMACY NEEDLE #6119 #[id number] STERILE 1 CC OR LESS EACH BLD GLU A4253 [facility] TEST/REAG 8 PHARMACY PHARMACY T STRIPS #6119 #[id number] HOME BLD GLU MON-50 Encounters Encounter Start End Date Code Location Performer Type Date [facility] - 7 7 [facility] T EMERGENCY 71836 KYLE DENNEY 6 6 PHYSICIAN MELVA DEPARTMEN S, [facility] T VISIT MODERATE SEVERITY [facility]OSP[facility] - 6 6 [facility] T OFFICE 30132 [facility] KELI OUTPATIEN 6 6 PHYSICIAN MAT T VISIT S GROUP 25 MINUTES EMERGENCY 70167 KYLE PRITCHETT DEPT 6 6 PHYSICIAN U JOAN VISIT S, [facility] HIGH SEVERITY& THREAT [facility] - 6 6 [facility] OFFICE 86660 [facility] OUT[facility]EN 5 5 EMILIANO EMILIANO T VISIT 15 MINUTES OFFICE 21189 [facility] OUTPATIEN 5 5 EMILIANO EMILIANO T NEW 30 MINUTES OFFICE 01100 [facility] MICHEL BRADY OUTPATIEN 5 5 LTH T NEW 20 ORTHOPAE MINUTES EMERGENCY 30672 [facility] BETO 5 5 EMERGENCY JOHN DEPARTMEN T VISIT PHYSICIAN HIGH/URGE S NT SEVERITY EMERGENCY 19733 [facility] DEPT 4 4 LOIS ANT VISIT MED CTR HIGH SEVERITY& THREAT FUN [facility] - 4 4 LOIS OUTPATIEN MED CTR T MASTER POLICE DETECTIVE EMERGENCY 83048 ST 4 4 LOIS DEPARTMEN MED CTR T VISIT MASTER POLICE DETECTIVE MODERATE SEVERITY EMERGENCY 79271 [facility] 4 4 LOIS ANT DEPARTMEN MED CTR T VISIT HIGH/URGE NT SEVERITY HOSPITAL ST - 4 4 LOIS OUTPATIEN MED CTR T MASTER POLICE DETECTIVE EMERGENCY 52503 [facility] 4 4 LOIS RETA DEPARTMEN MED CTR T VISIT HIGH/URGE NT SEVERITY OFFICE 61426 [facility] ARL RADHA ARL OUTPATIEN 3 3 T VISIT 25 MINUTES EMERGENCY 61607 [facility] DEPT 3 3 LOIS GRE VISIT MED CTR HIGH SEVERITY& THREAT FUNCJ OFFICE 98522 [facility] A[facility] OUTPATIEN 3 3 POINT T VISIT FAMILY 25 CARE, IN MINUTES OFFICE 68272 [facility] ARL OUTPATIEN 2 2 POINT T VISIT FAMILY 15 CARE, IN MINUTES [facility]OSPITAL ST - 2 2 LOIS OUTPATIEN T MEDICALCE NTER EMERGENCY 90087 ST 2 2 LOIS DEPARTMEN T VISIT MEDICALCE MODERATE NTER SEVERITY EMERGENCY 93417 [facility] DEPT 2 2 LOIS MAR VISIT MED CTR HIGH SEVERITY& THREAT [facility]J [facility] ST - 2 2 LOIS INPATIENT MEDICALCE NTER EMERGENCY 96828 [facility] DEPT 2 2 LOIS VISIT FAMILY HIGH PRACTICE SEVERITY& THREAT FUNCJ EMERGENCY 52156 [facility] 2 2 LOIS SUS DEPARTMEN FAMILY T VISIT PRACTICE HIGH/URGE NT SEVERITY EMERGENCY 51923 ST 1 1 LOIS DEPARTMEN T VISIT MEDICALCE MODERATE NTER SEVERITY [facility]OSPITAL ST - 1 1 LOIS OUTPATIEN T MEDICALCE NTER [facility]OSPITAL ST - 1 1 LOIS OUTPATIEN T MEDICALCE NTER EMERGENCY 08234 ST 1 1 LOIS DEPARTMEN T VISIT MEDICALCE HIGH/URGE NTER NT SEVERITY EMERGENCY 98941 [facility] 1 1 LOIS JOHN DEPARTMEN MED CTR T VISIT HIGH/URGE NT SEVERITY HOSPITAL ST - 1 1 LOIS OUTPATIEN T MEDICALCE NTER EMERGENCY 76008 ST 1 1 LOIS DEPARTMEN T VISIT MEDICALCE MODERATE NTER SEVERITY EMERGENCY 37960 [facility] [place] 1 1 LOIS ACUÑA DEPARTMEN MED CTR T VISIT HIGH/URGE NT SEVERITY EMERGENCY 48552 ST [facility] 0 0 LOISDAVID MORALES DEPARTMEN MED CTR T VISIT HIGH/URGE NT SEVERITY EMERGENCY 13231 [facility] 0 0 LOISDAVID BRIDGES DEPARTMEN MED CTR T VISIT MODERATE SEVERITY EMERGENCY 36[address] [facility] [place] 0 0 LOIS ROMERO DEPARTMEN T VISIT PHYSICIAN MODERATE S SEVERITY EMERGENCY 53531 [facility], 0 0 LOIS Briggs DEPARTMEN MED CTR T VISIT MODERATE SEVERITY EMERGENCY 43537 [facility], 0 0 LOIS KILLIAN DEPARTMEN MED CTR T VISIT HIGH/URGE NT SEVERITY EMERGENCY 22885 [facility], DEPT 0 0 CARE JONA L VISIT PHYS HIGH [facility] SEVERITY& [place] THREAT FUNCJ EMERGENCY 74835 [facility], 0 0 LOIS Meléndez DEPARTMEN MED CTR T VISIT HIGH/URGE NT SEVERITY HOSPITAL [facility] - 0 0 [facility] T OFFICE 26753 [facility] 0 0 LOIS RODRIGUEZ/OBED PHYSICIAN PATIENT S 40 MIN EMERGENCY 03313 [facility], 0 0 LOIS DANG DEPARTMEN MED CTR T VISIT MODERATE SEVERITY [facility] ST - 0 0 LOIS [place] Meléndez MEDICALCE NTER EMERGENCY 09094 [facility] ROBB ABREU DEPARTMEN MED CTR T VISIT HIGH/URGE NT SEVERITY EMERGENCY 66520 ST 0 0 LOIS DEPARTMEN T VISIT MEDICALCE MODERATE NTER SEVERITY EMERGENCY 29153 [facility], 0 0 LOIS Anderson DEPARTMEN MED CTR T VISIT HIGH/URGE NT SEVERITY HOSPITAL ST - 0 0 LOIS SIMINPATIEN T MEDICALCE NTER EMERGENCY 20895 [facility], 0 0 LOIS VICTOR DEPARTMEN MED CTR T VISIT MODERATE SEVERITY EMERGENCY 22592 [facility], DEPT 0 0 LOIS CONSTANTIN VISIT MED CTR HIGH SEVERITY& THREAT FUNC [facility] ST - 0 0 LOIS OUTPATIEN T MEDICALCE NT HOSPITAL ST - 9 9 LOIS OUTPATIEN T MEDICALCE NTER EMERGENCY 32568 [facility] 9 9 ROBB ABREU DEPARTMEN MED CTR T VISIT HIGH/URGE NT SEVERITY EMERGENCY 20705 [facility], 9 9 LOIS Sampson DEPARTMEN MED CTR T VISIT HIGH/URGE NT SEVERITY EMERGENCY 50873 [facility], 9 9 LOIS Quarles DEPARTMEN MED CTR T VISIT HIGH/URGE NT SEVERITY EMERGENCY 62753 [facility] 9 9 SHAHID ABREU DEPARTMEN MED CTR D T VISIT HIGH/URGE NT SEVERITY OFFICE 54413 JULIETA WELLSA OUTPATIEN 9 9 CHRISTINE M CHRISTINE M T VISIT 15 MINUTES OFFICE 91014 WELLSJULIETAA OUTPATIEN 9 9 CHRISTINE M CHRISTINE M T VISIT [address] [facility], 8 8 LOIS Quarles DEPARTMEN MED CTR T VISIT HIGH/URGE NT SEVERITY OFFICE 55797 JULIETA WELLSA, OUTPATIEN 8 8 CHRISTINE M CHRISTINE M T VISIT 15 MINUTES OFFICE 70712 [facility] 8 8 CHRISTINE M CHRISTINE M T VISIT 15 MINUTES EMERGENCY 35003 [facility], DEPT 8 8 LOIS Quarles VISIT MED CTR HIGH SEVERITY& THREAT FUNCJ OFFICE 03326 [facility] OUTPATIEN 8 8 CHRISTINE M CHRISTINE M T VISIT 15 MINUTES EMERGENCY 18018 [facility], DEPT 8 8 LOIS FRANK VISIT MED CTR HIGH SEVERITY& THREAT FUNCJ EMERGENCY 54792 [facility], 8 8 LOIS [facility] MED CTR T VISIT HIGH/URGE NT SEVERITY EMERGENCY 35219 ST 8 8 LOIS [facility] T VISIT MEDICALCE MODERATE NTER SEVERITY EMERGENCY 64762 [facility], 8 8 LOIS KILLIAN [facility] MED CTR T VISIT HIGH/URGE NT SEVERITY HOSPITAL ST - 8 8 LOIS OUTPATIEN T MEDICALCE NTER OFFICE 26315 PATIENT SNEDEGAR, OUTPATIEN 8 8 FIRST SPARKLE T VISIT PHYS 15 MINUTES OFFICE 00940 [facility] OUT[facility] 8 8 CHRISTINE M CHRISTINE M T VISIT [address] [facility], 8 8 [facility] VISIT HIGH/URGE NT SEVERITY OFFICE 86834 [facility] 8 8 CHRISTINE M CHRISTINE M T VISIT [address] - 8 8 LOIS OUTPATIEN T MEDICALCE NTER OFFICE 72951 PATIENT SNEDEGAR, CONSULTAT 8 8 FIRST SPARKLE ION PHYS NEW/ESTAB PATIENT [address] - 8 8 LOIS OUTPATIEN T MEDICALCE NTER OFFICE 39780 [facility] 8 8 CHRISTINE Shelley T VISIT [address] - 8 8 LOIS OUTPATIEN T MEDICALCE NTER OFFICE 06293 [facility] 8 8 CHRISTINE Shelley T VISIT [address] - 8 8 LOIS OUTPATIEN T MEDICALCE NTER EMERGENCY 44813 [facility], DEPT 8 8 LOIS ROD VISIT MED CTR HIGH SEVERITY& THREAT FUNCJ OFFICE 95010 [facility] OUTPATIEN 8 8 CHRISTINE Shelley T NEW [address] [facility] 8 8 LOIS [facility] MED CTR T VISIT MODERATE SEVERITY OFFICE 73267 [facility] 8 8 MEDICAL ANGELA P T VISIT GROUP 15 MINUTES OFFICE 93856 [facility] 8 8 MEDICAL LUNA B T VISIT GROUP 10 MINUTES OFFICE 72825 [facility] 8 8 MEDICAL MIYA T VISIT GROUP 15 MINUTES
--- OUTSIDE RECORDS SUMMARY | 2016-06-10 00:19 | External Medical Summary Rpt ---
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 ET NT HI AN A IN C IS 13 12 01 30 30 00 EA Ac OS 66 -2 -[address] ti OR 80 2- 7- 00 00 SI ve BI 10 20 20 45 DE DE 40 16 17 25 1 01 PH MN AR MA ER CY 30 OF CY MG NT HI TA AN BL A ET IN C RA 53 12 01 60 30 00 EA Ac NI 74 -2 -[address] ti TI 60 3- 7- 00 00 SI ve DI 25 20 20 47 DE NE 31 16 17 00 0 81 PH 15 AR 0 MA MG CY TA OF BL CY ET NT HI AN A IN C AL 00 12 01 90 30 00 EA Ac OK 78 -2 -[address] ti AZ 11 3- 7- 00 00 SI ve OL 07 20 20 47 DE AM 91 16 17 00 1 0 82 PH AR MG MA CY TA BL OF ET CY NT HI AN A IN C HM [...] BL A ET IN C LA 00 12 01 10 24 00 EA Ac NT 08 -1 -[address] ti US 82 9- 0- 00 00 SI ve 22 20 20 43 DE 10 03 16 17 29 0 3 03 PH UN AR IT MA S/ CY ML OF CY AL NT HI AN A IN C CY 00 07 07 0 15 5 CV 30 WO Ac CL 37 -2 -2 .0 S 94 NG ti OB 80 3- 4- 00 PH 81 ve EN 75 20 20 AR BR ZA 11 11 11 MA EN OK 0 CY DA IN # L E [...] 0 20 10 CV 30 MU Ac OK 09 -2 -2 .0 S 20 KH [...] 8- 1- 00 K' 10 AL ve OK 51 20 20 S 7 IL 90 [...] # RO BE 06 RT 11 9 00 01 01 00 12 2 KR 46 CU Ac 40 -1 -2 .0 OG 04 LB ti 60 3- 8- 00 ER 04 ER ve 35 20 20 5 TS 70 10 10 CO ON 1 MP AN AD Y AM 38 D 1 CE 42 01 01 00 40 10 KR 61 CU Ac PH 04 -1 -2 .0 OG 18 LB ti AL 30 3- 8- 00 ER 17 ER ve EX 14 20 20 1 TS IN 10 10 10 CO ON 5 MP 50 AN AD 0 Y AM MG 38 D 1 CA PS UL E CE 68 12 01 00 40 10 WA 29 CU Ac PH 18 -2 -1 .0 LG 43 LB ti AL 00 5- 4- 00 RE 39 ER ve EX 12 20 20 EN 0 TS IN 20 09 10 # ON 2 50 07 AD 0 34 AM MG 6 D CA PS UL E AT 68 09 12 03 60 30 CV 25 WY Ac EN 38 -0 -3 .0 S 34 EN ti OL 20 1- 1- 00 PH 53 AN ve OL 02 20 20 AR DT 21 09 09 MA 25 0 CY JR MG #6 RO 11 BE TA 9 RT BL ET SE 59 12 12 00 30 30 BL 65 ZI Ac RT 76 -1 -3 .0 AN 61 NE ti RA 24 4- 1- 00 KS 56 DD ve LI 91 20 20 3 IN NE 00 09 09 PH 5 AR MO HC MA ALBERT L CY ME 10 D 0 MG TA BL ET TR 00 09 12 03 30 30 CV 25 WY Ac IC 07 -0 -3 .0 S 34 EN ti OR 46 1- 1- 00 PH 56 AN ve 12 20 20 AR DT 14 39 09 09 MA 5 0 CY JR MG #6 RO TA 11 BE BL 9 RT ET LE 00 12 12 00 30 30 CV 26 WY Ac VO 37 -1 -3 .0 S 25 EN ti TH 81 7- 1- 00 PH 42 AN ve YR 80 20 20 AR DT OX 00 09 09 MA IN 1 CY JR E 25 #6 RO 11 BE MC 9 RT G TA BL ET GL 00 09 12 02 30 30 CV 25 WY Ac IP 59 -0 -3 .0 S 34 EN ti IZ 10 1- 1- 00 PH 04 AN ve ID 84 20 20 AR DT E 40 09 09 MA ER 1 CY JR 5 #6 RO MG 11 BE 9 RT TA BL ET CI 13 09 12 01 30 30 CV 25 WY Ac TA 66 -2 -3 .0 S 50 EN ti LO 80 2- 1- 00 PH 75 AN ve OK 01 20 20 AR DT AM 10 09 09 MA 5 CY JR HB R #6 RO 40 11 BE 9 RT MG TA BL ET 00 09 12 03 60 30 CV 25 WY Ac 14 -0 -3 .0 S 34 EN ti 31 1- 1- 00 PH 55 AN ve 77 20 20 AR DT 21 09 09 MA 0 CY JR #6 RO 11 BE 9 RT 00 09 12 03 60 30 CV 25 WY Ac 09 -0 -3 .0 S 34 EN ti 37 1- - PH 05 AN ve 23 20 20 AR DT 10 09 09 MA 6 CY JR #6 RO 11 BE 9 RT BU 00 12 12 00 90 30 BL 65 ZI Ac SP 59 -1 -3 .0 AN 61 NE ti IR 10 4- 1- 00 KS 56 DD ve ON 65 20 20 2 IN E 80 09 09 PH HC 1 AR MO L MA ALBERT 10 CY ME D MG TA BL ET ST 24 12 12 00 12 30 BL 65 ZI Ac OO 38 -1 -3 0. AN 61 NE ti L 50 7- 1- 00 KS 56 DD ve SO 49 20 20 0 4 IN FT 57 09 09 PH EN 8 AR MO ER MA ALBERT -L CY ME AX D AT IV E TA BL ET AV 00 12 12 00 10 10 CV 26 WY Ac EL 08 -1 -3 .0 S 26 EN ti OX 51 9- 1- 00 PH 72 AN ve 73 20 20 AR DT 40 30 09 09 MA 0 1 CY JR MG #6 RO TA 11 BE BL 9 RT ET LI 00 12 12 00 90 90 BL 65 ZI Ac SI 18 -1 -3 .0 AN 61 NE ti NO 50 4- 1- 00 KS 56 DD ve OK 10 20 20 7 IN IL 10 09 09 PH 1 AR MO 10 MA ALBERT CY ME MG D TA BL ET GA 00 12 12 00 90 30 CV 26 WY Ac BA 09 -0 -1 .0 S 12 EN ti PE 34 2- 7- 00 PH 39 AN ve NT 44 20 20 AR DT IN 30 09 09 MA 1 CY JR 60 0 #6 RO MG 11 BE 9 RT TA BL ET PO 00 12 12 00 25 14 BL 65 SO Ac LY 57 -1 -1 5. AN 61 WE ti ET 40 7- 00 KS 11 R ve HY 41 20 20 0 5 DA LE 20 09 09 PH NE 2 AR D MA GL CY YC OL 33 50 PO WD 00 09 12 02 60 30 CV [...] TA 11 BE BL 9 RT ET AT 68 09 12 02 60 30 CV 25 WY Ac EN 38 -0 -0 .0 S 34 EN ti OL 20 1- 3- 00 PH 53 AN ve OL 02 20 20 AR DT 21 09 09 MA 25 0 CY JR MG #6 RO 11 BE TA 9 RT BL ET CI 13 09 12 00 30 30 CV 25 WY Ac TA 66 -2 -0 .0 S 50 EN ti LO 80 2- 3- 00 PH 75 AN ve OK 01 20 20 AR DT AM 10 09 09 MA 5 CY JR HB R #6 RO 40 11 BE 9 RT MG TA BL ET LI 68 09 12 01 30 30 CV 25 WY Ac SI 18 -0 -0 .0 S 34 EN ti NO 00 1- 3- 00 PH 54 AN ve OK 51 20 20 AR DT IL 30 09 09 MA 5 3 CY JR MG #6 RO 11 BE TA 9 RT BL ET GL 00 09 12 01 30 30 CV 25 WY Ac IP 59 -0 -0 .0 S 34 EN ti IZ 10 1- 3- 00 PH 04 AN ve ID 84 20 20 AR DT E 40 09 09 MA ER 1 CY JR 5 #6 RO MG 11 BE 9 RT TA BL ET 00 09 12 02 60 30 CV 25 WY Ac 14 -0 -0 .0 S 34 EN ti 31 1- 3- 00 PH 55 AN ve 77 20 20 AR DT 21 09 09 MA 0 CY JR #6 RO 11 BE 9 RT 00 11 11 00 6. 1 WA [...] 9 RT G TA BL ET 00 09 10 01 [...] TA 11 BE BL 9 RT ET GA 59 02 10 05 90 30 [...] 11 BE 9 RT AT 68 09 10 01 60 30 CV 25 WY Ac EN 38 -0 -2 .0 S 34 EN ti OL 20 1- 2- 00 PH 53 AN ve OL 02 20 20 AR DT 21 09 09 MA 25 0 CY JR MG #6 RO 11 BE TA 9 RT BL ET LE 00 05 10 04 30 [...] 7- 4- 00 RE 93 DD ve OK 51 20 20 EN 6 IN IL [...] 11 BE 9 RT TR 00 09 09 00 30 30 CV 25 WY Ac IC 07 -0 -1 .0 S 34 EN ti OR 46 1- 0- 00 PH 56 AN ve 12 20 20 AR DT 14 39 09 09 MA 5 0 CY JR MG #6 RO TA 11 BE BL 9 RT ET LE 00 05 09 03 30 30 CV 24 WY Ac VO 37 -2 -1 .0 S 45 EN ti TH 81 0- 0- 00 PH 52 AN ve YR 80 20 20 AR DT OX 00 09 09 MA IN 1 CY JR E 25 #6 RO 11 BE MC 9 RT G TA BL ET GL 00 09 09 00 30 30 CV 25 WY Ac IP 59 -0 -1 .0 S 34 EN ti IZ 10 1- 0- 00 PH 04 AN ve ID 84 20 20 AR DT E 40 09 09 MA ER 1 CY JR 5 #6 RO MG 11 BE 9 RT TA BL ET AT 68 09 09 00 60 30 CV 25 WY Ac EN 38 -0 -1 .0 S 34 EN ti OL 20 1- 0- 00 PH 53 AN ve OL 02 20 20 AR DT 21 09 09 MA 25 0 CY JR MG #6 RO 11 BE TA 9 RT BL ET 00 09 09 00 60 30 CV 25 WY Ac 14 -0 -1 .0 S 34 EN ti 31 1- 0- 00 PH 55 AN ve 77 20 20 AR DT 21 09 09 MA 0 CY JR #6 RO 11 BE 9 RT LI 68 09 09 00 30 30 CV 25 WY Ac SI 18 -0 -1 .0 S 34 EN ti NO 00 1- 0- 00 PH 54 AN ve OK 51 20 20 AR DT IL 30 09 09 MA 5 3 CY JR MG #6 RO 11 BE TA 9 RT BL ET GA 59 02 08 04 90 30 CV 23 WY Ac BA 76 -2 -2 .0 S 66 EN ti PE 25 4- 7- 00 PH 86 AN ve NT 02 20 20 AR DT IN 30 09 09 MA 1 CY JR 60 0 #6 RO MG 11 BE 9 RT TA BL ET CI 13 02 08 05 30 30 CV 23 WY Ac TA 66 -2 -2 .0 S 66 EN ti LO 80 4- 7- 00 PH 87 AN ve OK 01 20 20 AR DT AM 10 09 09 MA 5 CY JR HB R #6 RO 40 11 BE 9 RT MG TA BL ET 00 08 08 00 12 30 CV 25 WY Ac 59 -1 -2 0. S 21 EN ti 10 8- 7- 00 PH 82 AN ve 82 20 20 0 AR DT 50 09 09 MA 1 CY JR #6 RO 11 BE 9 RT LE 00 05 08 02 30 30 CV 24 WY Ac VO 37 -2 -1 .0 S 45 EN ti TH 81 0- 3- 00 PH 52 AN ve YR 80 20 20 AR DT OX 00 09 09 MA IN 1 CY JR E 25 #6 RO 11 BE MC 9 RT G TA BL ET TR 00 07 08 00 30 30 CV 25 WY Ac IC 07 -2 -1 .0 S 02 EN ti OR 46 8- 3- 00 PH 54 AN ve 12 20 20 AR DT 14 39 09 09 MA 5 0 CY JR MG #6 RO TA 11 BE BL 9 RT ET GL 00 07 08 00 30 30 CV 25 WY Ac IP 59 -2 -1 .0 S 02 EN ti IZ 10 8- 3- 00 PH 53 AN ve ID 84 20 20 AR DT E 40 09 09 MA ER 1 CY JR 5 #6 RO MG 11 BE 9 RT TA BL ET 00 07 08 00 [...] 11 BE 9 RT LI 68 12 07 06 30 30 CV 22 WY Ac SI 18 -0 -3 .0 S 93 EN ti NO 00 2- 0- 00 PH 96 AN ve OK 51 20 20 AR DT IL 30 08 09 MA 5 3 CY JR MG #6 RO 11 BE TA 9 RT BL ET CI 13 02 07 04 30 30 CV 23 WY Ac TA 66 -2 -1 .0 S 66 EN ti LO 80 4- 6- 00 PH 87 AN ve OK 01 20 20 AR DT AM 10 [...] RT G TA BL ET TR 00 12 07 04 30 30 CV 22 WY Ac IC 07 -0 -0 .0 S 93 EN ti OR 46 2- 2- 00 PH 93 AN ve 12 20 20 AR DT 14 39 08 09 MA 5 0 CY JR MG #6 RO TA 11 BE BL 9 RT ET GL 00 12 07 05 30 30 [...] BE 9 RT TA BL ET 00 02 07 04 60 30 CV 23 WY Ac 40 -0 -0 .0 S 49 EN ti 62 5- 2- 00 PH 75 AN ve 02 20 20 AR DT 21 09 09 MA 0 CY JR #6 RO 11 BE 9 RT CY 59 06 06 00 15 5 BL 65 WO Ac CL 74 -0 -1 .0 AN 46 LF ti OB 60 9- 8- 00 KS 48 F ve EN 17 20 20 9 EM ZA 71 09 09 PH IL OK 0 AR Y IN MA L E CY 10 MG TA BL ET CI 13 02 06 03 30 30 CV 23 WY Ac TA 66 -2 -1 .0 S 66 EN ti LO 80 4- 8- 00 PH 87 AN ve OK 01 20 20 AR DT AM 10 09 09 MA 5 CY JR HB R #6 RO 40 11 BE 9 RT MG TA BL ET TR 65 06 [...] 9 RT G TA BL ET 00 12 06 05 60 30 CV 22 WY Ac 09 -0 -0 .0 S 93 EN ti 37 1- 4- 00 PH 09 AN ve 23 20 20 AR DT 10 08 09 MA 6 CY JR #6 RO 11 BE 9 RT GL 00 12 06 04 30 30 CV 22 WY Ac IP 59 -0 -0 .0 S 93 EN ti IZ 10 2- 4- 00 PH 95 AN ve ID 84 20 20 AR DT E 40 08 09 MA ER 1 CY JR 5 #6 RO MG 11 BE 9 RT TA BL ET CE 68 05 06 00 40 10 BL 65 No Ac PH 18 -2 -0 .0 AN 45 t ti AL 00 8- 4- 00 KS 52 Av ve EX 12 20 20 8 ai IN 20 09 09 PH la 2 AR bl 50 MA e 0 CY MG CA PS UL E FL 00 05 06 00 12 30 CV 24 WY Ac OV 17 -2 -0 .0 S 45 EN ti EN 30 0- 4- 00 PH 53 AN ve T 72 20 20 AR DT HF 02 09 09 MA A 0 CY JR 22 0 #6 RO MC 11 BE G 9 RT IN ALBERT LE R 00 02 06 03 60 30 CV 23 WY Ac 40 -0 -0 .0 S 49 EN ti 62 5- 4- 00 PH 75 AN ve 02 20 20 AR DT 21 09 09 MA 0 CY JR #6 RO 11 BE 9 RT TR 00 12 06 03 30 30 CV 22 WY Ac IC 07 -0 -0 .0 S 93 EN ti OR 46 2- 4- 00 PH 93 AN ve 12 20 20 AR DT 14 39 08 09 MA 5 0 CY JR MG #6 RO TA 11 BE BL 9 RT ET LI 68 12 06 05 30 30 CV 22 WY Ac SI 18 -0 -0 .0 S 93 EN ti NO 00 2- 4- 00 PH 96 AN ve OK 51 20 20 AR DT IL 30 08 09 MA 5 3 CY JR MG #6 RO 11 BE TA 9 RT BL ET 00 01 06 03 60 30 CV [...] 4- 1- 00 PH 87 AN ve OK 01 20 20 AR DT AM 10 [...] RO 11 BE 9 RT 00 12 04 04 60 30 CV 22 WY Ac 09 -0 -2 .0 S 93 EN ti 37 1- 3- 00 PH 09 AN ve 23 20 20 AR DT 10 08 09 MA 6 CY JR #6 RO 11 BE 9 RT TR 00 12 04 02 30 30 CV 22 WY Ac IC 07 -0 -2 .0 S 93 EN ti OR 46 2- 3- 00 PH 93 AN ve 12 20 20 AR DT 14 39 08 09 MA 5 0 CY JR MG #6 RO TA 11 BE BL 9 RT ET LI 68 12 04 04 30 30 CV 22 WY Ac SI 18 -0 -2 .0 S 93 EN ti NO 00 2- 3- 00 PH 96 AN ve OK 51 20 20 AR DT IL 30 08 09 MA 5 3 CY JR MG #6 RO 11 BE TA 9 RT BL ET GL 00 12 04 03 30 30 CV 22 WY Ac IP 59 -0 -2 .0 S 93 EN ti IZ 10 2- 3- 00 PH 95 AN ve ID 84 20 20 AR DT E 40 08 09 MA ER 1 CY JR 5 #6 RO MG 11 BE 9 RT TA BL ET 00 02 04 02 60 30 CV [...] ME 50 D MG TA BL ET IB 53 03 04 00 21 5 WA 28 BE Ac UP 74 -2 -0 .0 LG 09 RN ti RO 60 1- 9- 00 RE 81 AR ve FE 46 20 20 EN 4 DO N 50 09 09 # N [address] 0 07 EP MG 34 HE 6 N TA D BL ET 00 03 04 00 10 2 WA 28 BE Ac 59 -2 -0 .0 LG 09 RN ti 10 1- 9- 00 RE 81 AR ve 34 20 20 EN 3 DO 90 09 09 # N 5 ST 07 EP 34 HE 6 N D CI 13 02 04 01 30 30 CV 23 WY Ac TA 66 -2 -0 .0 S 66 EN ti LO 80 4- 9- 00 PH 87 AN ve OK 01 20 20 AR DT AM 10 09 09 MA 5 CY JR HB R #6 RO 40 11 BE 9 RT MG TA BL ET GA 00 02 04 01 90 30 CV 23 WY Ac BA 09 -2 -0 .0 S 66 EN ti PE 34 4- 9- 00 PH 86 AN ve NT 44 20 20 AR DT IN 30 09 09 MA 1 CY JR 60 0 #6 RO MG 11 BE 9 RT TA BL ET 00 02 03 01 60 30 CV 23 WY Ac 40 -0 -2 .0 S 49 EN ti 62 5- 6- 00 PH 75 AN ve 02 20 20 AR DT 21 09 09 MA 0 CY JR #6 RO 11 BE 9 RT LI 68 12 03 03 30 30 CV 22 WY Ac SI 18 -0 -2 .0 S 93 EN ti NO 00 2- 6- 00 PH 96 AN ve OK 51 20 20 AR DT IL 30 [...] RO 11 BE 9 RT 00 01 03 02 60 30 CV [...] BL 9 RT ET CI 13 02 03 00 30 30 CV 23 WY Ac TA 66 -2 -1 .0 S 66 EN ti LO 80 4- 2- 00 PH 87 AN ve OK 01 20 20 AR DT AM 10 09 09 MA 5 CY JR HB R #6 RO 40 11 BE 9 RT MG TA BL ET GA 00 02 03 00 90 30 CV 23 WY Ac BA 09 -2 -1 .0 S 66 EN ti PE 34 4- 2- 00 PH 86 AN ve NT 44 20 20 AR DT IN 30 09 09 MA 1 CY JR 60 0 #6 RO MG 11 BE 9 RT TA BL ET GL 00 12 02 02 30 30 CV 22 WY Ac IP 59 -0 -1 .0 S 93 EN ti IZ 10 2- 2- 00 PH 95 AN ve ID 84 20 20 AR DT E 40 08 09 MA ER 1 CY JR 5 #6 RO MG 11 BE 9 RT TA BL ET HY 00 01 02 00 [...] 11 MG 9 TA BL ET 00 02 02 00 60 30 CV 23 WY Ac 40 -0 -1 .0 S 49 EN ti 62 5- 2- 00 PH 75 AN ve 02 20 20 AR DT 21 09 09 MA 0 CY JR #6 RO 11 BE 9 RT ZE 66 12 02 02 30 30 CV 22 WY Ac TI 58 -0 -1 .0 S 93 EN ti A 20 1- 2- 00 PH 10 AN ve 10 41 20 20 AR DT 43 08 09 MA MG 1 CY JR TA #6 RO BL 11 BE ET 9 RT CI 13 10 02 01 30 15 CV 22 WY Ac TA 66 -2 -1 .0 S 56 EN ti LO 80 1- 2- 00 PH 59 AN ve OK 01 20 20 AR DT AM 10 08 09 MA 5 CY JR HB R #6 RO 40 11 BE 9 RT MG TA BL ET 00 12 02 02 60 30 CV 22 WY Ac 09 -0 -1 .0 S 93 EN ti 37 1- 2- 00 PH 09 AN ve 23 20 20 AR DT 10 08 09 MA 6 CY JR #6 RO 11 BE 9 RT 00 01 02 01 60 30 CV 23 WY Ac 14 -0 -1 .0 S 21 EN ti 31 5- 2- 00 PH 22 AN ve 77 20 20 AR DT 21 09 09 MA 0 CY JR #6 RO 11 BE 9 RT LI 68 12 02 02 30 30 CV 22 WY Ac SI 18 -0 -1 .0 S 93 EN ti NO 00 2- 2- 00 PH 96 AN ve OK 51 20 20 AR DT IL 30 08 09 MA 5 3 CY JR MG #6 RO 11 BE TA 9 RT BL ET CL 00 01 01 01 42 14 CV 23 LI Ac ON 09 -0 -3 .0 S 19 RA ti AZ 30 2- 0- 00 PH 35 ve EP 83 20 20 AR AU AM 40 09 09 MA RO 2 1 CY RA M MG #6 11 TA 9 BL ET LE 00 01 01 00 30 30 CV 23 LI Ac VO 37 -0 -1 .0 S 19 RA ti TH 81 2- 5- 00 PH 33 ve YR 80 20 20 AR AU OX 50 09 09 MA RO IN 1 CY RA E M 75 #6 11 MC 9 G TA BL ET 00 12 01 01 60 30 CV 22 WY Ac 09 -0 -1 .0 S 93 EN ti 37 1- 5- 00 PH 09 AN ve 23 20 20 AR DT 10 08 09 MA 6 CY JR #6 RO 11 BE 9 RT LI 68 12 01 01 30 30 CV 22 WY Ac SI 18 -0 -1 .0 S 93 EN ti NO 00 2- 5- 00 PH 96 AN ve OK 51 20 20 AR DT IL 30 08 09 MA 5 3 CY JR MG #6 RO 11 BE TA 9 RT BL ET 58 12 01 01 30 30 CV 22 WY Ac 17 -0 -1 .0 S 93 EN ti 70 2- 5- 00 PH 94 AN ve 29 20 20 AR DT 30 08 09 MA 4 CY JR #6 RO 11 BE 9 RT AC 64 01 01 00 30 30 CV 23 LI Ac TO 76 -0 -1 .0 S 19 RA ti S 40 2- 5- 00 PH 31 ve 30 30 20 20 AR AU 11 09 09 MA RO MG 4 CY RA M TA #6 BL 11 ET 9 ZE 66 12 01 01 30 30 CV 22 WY Ac TI 58 -0 -1 .0 S 93 EN ti A 20 1- 5- 00 PH 10 AN ve 10 41 20 20 AR DT 43 08 09 MA MG 1 CY JR TA #6 RO BL 11 BE ET 9 RT CL 00 01 01 00 30 30 CV 23 LI Ac ON 37 -0 -1 .0 S 19 RA ti ID 80 2- 5- 00 PH 32 ve IN 15 20 20 AR AU E 21 09 09 MA RO HC 0 CY RA L M 0. #6 1 11 MG 9 TA BL ET 00 01 01 00 60 [...] 20 2- 5- 00 PH 34 ve ND 02 20 20 AR AU N 81 [...] 9 RT TA BL ET CL 00 01 01 00 42 14 CV 23 LI Ac ON 09 -0 -1 .0 S 19 RA ti AZ 30 2- 5- 00 PH 35 ve EP 83 20 20 AR AU AM 40 09 09 MA RO 2 1 CY RA M MG #6 11 TA 9 BL ET CR 00 01 01 00 30 30 CV 23 LI Ac ES 31 -0 -1 .0 S 19 RA ti TO 00 2- 5- 00 PH 30 ve R 75 20 20 AR AU 5 59 09 09 MA RO MG 0 CY RA M TA #6 BL 11 ET 9 00 12 01 00 15 15 CV 23 LI Ac 18 -1 -0 0. S 09 RA ti 26 8- 1- 00 PH 10 ve 06 20 20 0 AR AU 44 08 09 MA RO 0 CY RA M #6 11 9 CL 00 12 01 00 42 14 CV 23 LI Ac ON 09 -1 -0 .0 S 09 RA ti AZ 30 8- 1- 00 PH 11 ve EP 83 20 20 AR AU AM 40 08 09 MA RO 2 1 CY RA M MG #6 11 TA 9 BL ET AM 00 12 01 00 14 7 CV 23 LI Ac OX 09 -1 -0 .0 S 09 RA ti IC 33 8- 1- 00 PH 09 ve IL 10 20 20 AR AU LI 90 08 09 MA RO N 5 CY RA 50 M 0 #6 MG 11 9 CA PS UL E TR 00 12 12 00 30 30 CV 22 WY Ac IC 07 -0 -1 .0 S 93 EN ti OR 46 2- 8- 00 PH 93 AN ve 12 20 20 AR DT 14 39 08 08 MA 5 0 CY JR MG #6 RO TA 11 BE BL 9 RT ET LI 68 12 12 00 30 30 CV 22 WY Ac SI 18 -0 -1 .0 S 93 EN ti NO 00 2- 8- 00 PH 96 AN ve OK 51 20 20 AR DT IL 30 08 08 MA 5 3 CY JR MG #6 RO 11 BE TA 9 RT BL ET 00 12 12 00 12 10 CV 22 LI Ac 53 -0 -1 0. S 97 RA ti 61 5- 8- 00 PH 08 ve 36 20 20 0 AR AU 09 08 08 MA RO 7 CY RA M #6 11 9 AM 00 12 12 00 14 7 CV 22 LI Ac OX 09 -0 -1 .0 S 97 RA ti IC 33 5- 8- 00 PH 05 ve IL 10 20 20 AR AU LI 90 08 08 MA RO N 5 CY RA 50 M 0 #6 MG 11 9 CA PS UL E 00 12 12 00 60 30 CV 22 WY Ac 09 -0 -1 .0 S 93 EN ti 37 1- 8- 00 PH 09 AN ve 23 20 20 AR DT 10 08 08 MA 6 CY JR #6 RO 11 BE 9 RT 58 12 12 00 30 30 CV [...] RO BL 11 BE ET 9 RT GL 00 12 12 00 30 30 CV 22 WY Ac IP 59 -0 -1 .0 S 93 EN ti IZ 10 2- 8- 00 PH 95 AN ve ID 84 20 20 AR DT E 40 08 08 MA ER 1 CY JR 5 #6 RO MG 11 BE 9 RT TA BL ET 00 08 12 02 60 30 CV 22 WY Ac 14 -2 -1 .0 S 02 EN ti 31 2- 8- 00 PH 78 AN ve 77 20 20 AR DT 21 08 08 MA 0 CY JR #6 RO 11 BE 9 RT CL 00 12 12 00 42 14 CV 22 LI Ac ON 09 -0 -1 .0 S 97 RA ti AZ 30 5- 8- 00 PH 07 ve EP 83 20 20 AR AU AM 40 08 08 MA RO 2 1 CY RA M MG #6 11 TA 9 BL ET AV 00 11 12 00 7. 7 CV 22 LI Ac EL 08 -1 -0 00 S 83 RA ti OX 51 9- 4- 0 PH 53 ve 73 20 20 AR AU 40 30 08 08 MA RO 0 1 CY RA MG M #6 TA 11 BL 9 ET CL 00 11 12 00 42 [...] #6 MG 11 9 TA BL ET CL 00 11 11 00 42 14 CV 22 LI Ac ON 09 -0 -2 .0 S 72 RA ti AZ 30 7- 0- 00 PH 61 ve EP 83 20 20 AR AU AM 40 08 08 MA RO 2 1 CY RA M MG #6 11 TA 9 BL ET CL 00 10 11 00 42 14 CV 22 LI Ac ON 09 -2 -0 .0 S 60 RA ti AZ 30 4- 7- 00 PH 12 ve EP 83 20 20 AR AU AM 30 08 08 MA RO 1 1 CY RA M MG #6 11 TA 9 BL ET GL 00 09 11 01 30 30 CV 22 WY Ac IP 59 -2 -0 .0 S 34 EN ti IZ 10 5- 7- 00 PH 38 AN ve ID 84 20 20 AR DT E 40 08 08 MA ER 1 CY JR 5 #6 RO MG 11 BE 9 RT TA BL ET 00 07 11 03 60 30 CV 21 WY Ac 09 -1 -0 .0 S 70 EN ti 37 5- 7- 00 PH 95 AN ve 23 20 20 AR DT 10 08 08 MA 6 CY JR #6 RO 11 BE 9 RT 58 07 11 02 30 30 CV [...] .0 S 34 EN ti NO 00 5- 7- 00 PH 36 AN ve OK 51 20 20 AR DT IL 30 08 08 MA 5 3 CY JR MG #6 RO 11 BE TA 9 RT BL ET TR 00 09 11 01 [...] 1- 7- 00 PH 59 AN ve OK 01 20 20 AR DT AM 10 08 08 MA 5 CY JR HB R #6 RO 40 11 BE 9 RT MG TA BL ET CL 00 10 10 00 21 14 CV 22 LI Ac ON 09 -1 -2 .0 S 52 RA ti AZ 30 6- 3- 00 PH 98 ve EP 83 20 20 AR AU AM 30 08 08 MA RO 1 1 CY RA M MG #6 11 TA 9 BL ET CL 00 09 10 00 90 30 CV 22 LI Ac ON 09 -2 -0 .0 S 32 RA ti AZ 30 4- 9- 00 PH 50 ve EP 83 20 20 AR AU AM 30 08 08 MA RO 1 1 CY RA M MG #6 11 TA 9 BL ET 58 07 10 01 30 30 CV 21 WY Ac 17 -1 -0 .0 S 70 EN ti 70 5- 9- 00 PH 96 AN ve 29 20 20 AR DT 30 08 08 MA 4 CY JR #6 RO 11 BE 9 RT LI 68 09 10 00 30 30 CV 22 WY Ac SI 18 -2 -0 .0 S 34 EN ti NO 00 9 PH 36 AN ve OK 51 20 20 AR DT IL 30 08 08 MA 5 3 CY JR MG #6 RO 11 BE TA 9 RT BL ET 00 10 10 00 20 3 WA 27 No Ac 59 -0 -0 .0 LG 29 t ti 10 3- 9- 00 RE 76 Av ve 34 20 20 EN 8 ai 90 08 08 # la 5 bl 07 e 34 6 LI 00 06 10 01 30 30 CV 21 WY Ac PI 07 -1 -0 .0 S 48 EN ti TO 10 PH 40 AN ve R 15 20 20 AR DT 40 72 08 08 MA 3 CY JR MG #6 RO TA 11 BE BL 9 RT ET 00 07 10 02 60 30 CV 21 WY Ac 09 -1 -0 .0 S 70 EN ti 37 5- 9- 00 PH 95 AN ve 23 20 20 AR DT 10 08 08 MA 6 CY JR #6 RO 11 BE 9 RT TR 00 09 10 00 30 30 CV 22 WY Ac IC 07 -2 -0 .0 S 34 EN ti OR 46 5- 9- 00 PH 37 AN ve 12 20 20 AR DT 14 39 08 08 MA 5 0 CY JR MG #6 RO TA 11 BE BL 9 RT ET GL 00 09 10 00 30 30 CV 22 WY Ac IP 59 -2 -0 .0 S 34 EN ti IZ 10 5- 9- 00 PH 38 AN ve ID 84 20 20 AR DT E 40 08 08 MA ER 1 CY JR 5 #6 RO MG 11 BE 9 RT TA BL ET ZE 66 09 10 00 30 30 CV 22 WY Ac TI 58 -2 -0 .0 S 32 EN ti A 20 4- 9- 00 PH 72 AN ve 10 41 20 20 AR DT 43 08 08 MA MG 1 CY JR TA #6 RO BL 11 BE ET 9 RT 00 08 10 01 60 30 CV [...] .0 S 32 RA ti ID 80 4 9 PH 49 ve IN 15 20 20 AR AU E 21 08 08 MA RO HC 0 CY RA L M 0. #6 1 11 MG 9 TA BL ET AC 64 08 09 00 30 30 CV 22 LI Ac TO 76 -2 -1 .0 S 07 RA ti S 40 7- - PH 93 ve 30 30 20 20 AR AU 11 08 08 MA RO MG 4 CY RA M TA #6 BL 11 ET 9 CL 00 08 09 00 90 30 CV 22 LI Ac ON 09 -2 -1 .0 S 07 RA ti AZ 30 7- - PH 71 ve EP 83 20 20 AR AU AM 30 08 08 MA RO 1 1 CY RA M MG #6 11 TA 9 BL ET FL 00 08 09 00 30 10 CV 22 No Ac UO 16 -2 -1 .0 S 05 t ti CI 80 5- 1- 00 PH 83 Av ve NO 14 20 20 AR ai NI 03 08 08 MA la DE 0 CY bl e 0. #6 05 11 % 9 OI NT ME NT LE 00 08 09 00 30 30 CV 22 LI Ac VO 37 -2 -1 .0 S 07 RA ti TH 81 7- 1- 00 PH 94 ve YR 80 20 20 AR AU OX 50 08 08 MA RO IN 1 CY RA E M 75 #6 11 MC 9 G TA BL ET ME 68 08 09 00 12 30 CV 22 LI Ac TF 38 -2 -1 0. S 07 RA ti OR 20 7- 1- 00 PH 95 ve ND 02 20 20 0 AR AU N 81 08 08 MA RO HC 0 CY RA L M 50 #6 0 11 MG 9 TA BL ET 00 08 09 00 12 2 WA 10 No Ac 59 -2 -1 .0 LG 37 t ti 10 8- 1- 00 RE 60 Av ve 34 20 20 EN 5 ai 90 08 08 S la 5 (0 bl 29 e 91 ) LI 68 07 08 01 30 30 CV 21 WY Ac SI 18 -1 -2 .0 S 71 EN ti NO 00 5- 8- 00 PH 24 AN ve OK 51 20 20 AR DT IL 30 08 08 MA 5 3 CY JR MG #6 RO 11 BE TA 9 RT BL ET TR 00 07 08 01 30 30 CV 21 WY Ac IC 07 -1 -2 .0 S 71 EN ti OR 46 5- 8- 00 PH 37 AN ve 12 20 20 AR DT 14 39 08 08 MA 5 0 CY JR MG #6 RO TA 11 BE BL 9 RT ET GL 00 01 08 00 30 30 CV 20 WY Ac IP 59 -2 -2 .0 S 69 EN ti IZ 10 5- 8- PH 24 AN ve ID 84 20 20 AR DT E 40 08 08 MA ER 1 CY JR 5 #6 RO MG 11 BE 9 RT TA BL ET CL 00 05 08 02 90 30 CV 21 LI Ac ON 37 -3 -2 .0 S 35 RA ti ID 80 0- 8- 00 PH 67 ve IN 15 20 20 AR AU E 21 08 08 MA RO HC 0 CY RA L M 0. #6 1 11 MG 9 TA BL ET 00 07 08 01 [...] #6 RO 11 BE 9 RT 00 08 08 00 60 30 CV 22 WY Ac 14 -2 -2 .0 S 02 EN ti 31 2- 8- 00 PH 78 AN ve 77 20 20 AR DT 21 08 08 MA 0 CY JR #6 RO 11 BE 9 RT LI 00 06 08 00 30 30 CV 21 W[place] Ac PI 07 -1 -2 .0 S 48 EN ti TO 10 6- 8- 00 PH 40 AN ve R 15 20 20 AR DT 40 72 08 08 MA 3 CY JR MG #6 RO TA 11 BE BL 9 RT ET CL 00 05 08 02 90 [...] 5- 1- 00 PH 24 AN ve OK 51 20 20 AR DT IL 30 08 08 MA 5 3 CY JR MG #6 RO 11 BE TA 9 RT BL ET 00 07 08 00 60 30 CV 21 W[place] Ac 09 -1 -0 .0 S 70 EN ti 37 5- 1- 00 PH 95 AN ve 23 20 20 AR DT 10 08 08 MA 6 CY JR #6 RO 11 BE 9 RT 00 07 08 00 12 30 CV [...] TA 11 BE BL 9 RT ET CL 00 05 07 01 90 30 CV 21 LI Ac ON 09 -3 -1 .0 S 36 RA ti AZ 30 1- 7- 00 PH 26 ve EP 83 20 20 AR AU AM 30 08 08 MA RO 1 1 CY RA M MG #6 11 TA 9 BL ET LO 00 07 07 00 10 2 CV 21 FR Ac RA 37 -1 -1 .0 S 68 AN ti ZE 82 0- 7- 00 PH 32 CE ve PA 45 20 20 AR M 71 08 08 MA AN 1 0 CY TH MG ON #6 Y TA 11 BL 9 ET AC 64 05 07 01 30 30 CV 21 LI Ac TO 76 -3 -1 .0 S 35 RA ti S 40 0- 7- 00 PH 70 ve 30 30 20 20 AR AU 11 08 08 MA RO MG 4 CY RA M TA #6 BL 11 ET 9 DI 00 05 07 01 90 30 CV 21 LI Ac CY 37 -3 -1 .0 S 35 RA ti CL 81 0- 7- 00 PH 65 ve OM 61 20 20 AR AU IN 00 08 08 MA RO E 1 CY RA 10 M #6 MG 11 9 CA PS UL E ME 68 05 07 01 12 31 CV 21 LI Ac TF 38 -3 -1 4. S 35 RA ti OR 20 0- 7- 00 PH 66 ve ND 02 20 20 0 AR AU N 81 08 08 MA RO HC 0 CY RA L M 50 #6 0 11 MG 9 TA BL ET CL 00 05 07 01 90 30 CV 21 LI Ac ON 37 -3 -1 .0 S 35 RA ti ID 80 0- 7- 00 PH 67 ve IN 15 20 20 AR AU E 21 08 08 MA RO HC 0 CY RA L M 0. #6 1 11 MG 9 TA BL ET LE 00 05 07 01 90 90 CV 21 LI Ac VO 37 -3 -1 .0 S 35 RA ti TH 81 0- 7- 00 PH 69 ve YR 80 20 20 AR AU OX 50 08 08 MA RO IN 1 CY RA E M 75 #6 11 MC 9 G TA BL ET 00 07 07 00 15 3 CV 21 FR Ac 09 -1 -1 .0 S 68 AN ti 30 0- 7- 00 PH 33 CE ve 89 20 20 AR 00 08 08 MA AN 5 CY TH ON #6 Y 11 9 NA 68 06 06 00 20 10 WA 10 No Ac OK 46 -0 -1 .0 LG 22 t ti OX 20 3- 2- 00 RE 74 Av ve EN 19 20 20 EN 0 ai 00 08 08 S la 50 5 (0 bl 0 29 e MG 91 ) TA BL ET 00 06 06 00 15 1 WA 10 No Ac 60 -0 -1 .0 LG 22 t ti 35 3- 2- 00 RE 74 Av ve 46 20 20 EN 1 ai 72 08 08 S la 8 (0 bl 29 e 91 ) CL 00 05 06 00 90 30 CV 21 LI Ac ON 09 -3 -1 .0 S 36 RA ti AZ 30 1- 2- 00 PH 26 ve EP 83 20 20 AR AU AM 30 08 08 MA RO 1 1 CY RA M MG #6 11 TA 9 BL ET 63 06 06 00 14 7 BL 65 No Ac 30 -0 -1 .0 AN 15 t ti 40 4- 2- 00 KS 62 Av ve 65 20 20 5 ai 50 08 08 PH la 5 AR bl MA e CY ME 68 05 06 00 12 31 CV 21 LI Ac TF 38 -3 -0 4. S 35 RA ti OR 20 0- 5- 00 PH 66 ve ND 02 20 20 0 AR AU N 81 08 08 MA RO HC 0 CY RA L M 50 #6 0 11 MG 9 TA BL ET DI 00 05 06 00 90 30 CV 21 LI Ac CY 37 -3 -0 .0 S 35 RA ti CL 81 0- 5- 00 PH 65 ve OM 61 20 20 AR AU IN 00 08 08 MA RO E 1 CY RA 10 M #6 MG 11 9 CA PS UL E AC 64 05 06 00 30 30 CV 21 LI Ac TO 76 -3 -0 .0 S 35 RA ti S 40 0- 5- 00 PH 70 ve 30 30 20 20 AR AU 11 08 08 MA RO MG 4 CY RA M TA #6 BL 11 ET 9 LE 00 05 06 00 90 90 CV 21 LI Ac VO 37 -3 -0 .0 S 35 RA ti TH 81 0- 5- 00 PH 69 ve YR 80 20 20 AR AU OX 50 08 08 MA RO IN 1 CY RA E M 75 #6 11 MC 9 G TA BL ET CL 00 05 06 [...] la 1 AR bl MA e CY LI 00 04 04 00 30 30 BL 65 No Ac SI 18 -1 -2 .0 AN 11 t ti NO 55 1- 4- 00 KS 41 Av ve OK 40 20 20 1 ai IL 00 08 08 PH la 5 1 AR bl MA e MG CY TA BL ET CL 00 04 04 [...] bl MA e TA CY BL ET ME 68 04 04 00 12 31 BL 65 No Ac TF 38 -1 -2 4. AN 11 t ti OR 20 0- 4- 00 KS 40 Av ve ND 02 20 20 0 9 ai N 81 08 08 PH la HC 0 AR bl L MA e 50 CY 0 MG TA BL ET LE 00 03 04 [...] 1- 7- 00 PH 38 Av ve ND 02 20 20 0 AR ai N [...] 11 TA 9 BL ET AC 64 12 03 00 30 30 CV 20 No Ac TO 76 -2 -2 .0 S 31 t ti S 40 6- 5- 00 PH 62 Av ve 30 30 20 20 AR ai 11 07 08 MA la MG 4 CY bl e TA #6 BL 11 ET 9 LE 00 01 03 00 10 10 CV 20 No Ac VO 37 -2 -2 0. 0 S 31 t ti TH 81 2- 5- 00 PH 66 Av ve YR 80 20 20 0 AR ai OX 50 08 08 MA la IN 1 CY bl E e 75 #6 11 MC 9 G TA BL ET CL 00 01 03 00 90 30 CV 20 No Ac ON 09 -1 -2 .0 S 25 t ti AZ 30 4- 5- 00 PH 09 Av ve EP 83 20 20 AR ai AM 30 08 08 MA la 1 1 CY bl e MG #6 11 TA 9 BL ET CL 00 01 03 00 60 30 CV 20 No Ac ON 37 -2 -2 .0 S 31 t ti ID 80 2- 5- 00 PH 65 Av ve IN 15 20 20 AR ai E 21 08 08 MA la HC 0 CY bl L e 0. #6 1 11 MG 9 TA BL ET ME 68 11 03 01 12 30 CV 19 No Ac TF 38 -0 -2 0. S 63 t ti OR 20 1- 5- 00 PH 38 Av ve ND 02 20 20 0 AR ai N 81 07 08 MA la HC 0 CY bl L e 50 #6 0 11 MG 9 TA BL ET 00 01 03 00 90 30 CV 20 No Ac 59 -2 -2 .0 S 31 t ti 15 2- 5- 00 PH 64 Av ve 52 20 20 AR ai 30 08 08 MA la 1 CY bl e #6 11 9 Procedures Procedure DOS Code Location Performer Comment GROUND A0425 [facility] MILEAGE 7 AMBULANCE AMBULANCE PER SERVICE SERVICE STATUTE MILE [facility] A0427 [facility] SERVICE 7 AMBULANCE AMBULANCE ALS SERVICE SERVICE EMERGENCY TRANSPORT LEVEL 1 ECG 20242 GRACIELA OWENS ROUTINE 7 [facility] ECG INC INC W/LEAST 12 LDS TRCG ONLY W/O I&R DRUG TST G0477 COMBINED COMBINED PRESUMP;C 6 PHYSICIAN PHYSICIAN PBL BEING S LA S LA READ DC OPT OBV ONLY RADEX 11038 [place] BE[place] ALL RIBS 6 MEDICAL UNILATERA IMAGING L 2 VIEWS ASS COLLECTIO 03621 COMBINED COMBINED N VENOUS 6 PHYSICIAN PHYSICIAN BLOOD S LA S LA VENIPUNCT URE COMPREHEN 50715 COMBINED COMBINED SIVE 6 PHYSICIAN PHYSICIAN METABOLIC S LA S LA PANEL HEMOGLOBI 38706 COMBINED COMBINED N 6 PHYSICIAN PHYSICIAN GLYCOSYLA S LA S LA BELLA A1C LIPID 12400 COMBINED COMBINED PANEL 6 [place] [address] COMBINED COMBINED THYROID 6 PHYSICIAN PHYSICIAN STIMULATI S LA S LA NG HORMONE TSH SBSQ 67862 ARNKUSHAL RED NURSING 6 [facility] FACILITY CARE/DAY E/M STABLE 10 MIN BLOOD 55930 COMBINED COMBINED COUNT 6 PHYSICIAN PHYSICIAN COMPLETE S LA S LA AUTO&AUTO DIFRNTL WBC LIPID 36178 COMBINED COMBINED PANEL 6 PHYSICIAN PHYSICIAN S LA S LA HEMOGLOBI 97003 COMBINED COMBINED N 6 PHYSICIAN PHYSICIAN GLYCOSYLA [place] [address] COMBINED COMBINED THYROID 6 PHYSICIAN PHYSICIAN STIMULATI S LA S LA NG HORMONE TSH COMPREHEN 71127 COMBINED COMBINED SIVE 6 PHYSICIAN PHYSICIAN METABOLIC S LA S LA PANEL COLLECTIO 05148 COMBINED COMBINED N VENOUS 6 PHYSICIAN PHYSICIAN BLOOD S LA S LA VENIPUNCT URE SBSQ 56704 ARNKUSHAL ARNOLD NURSING 6 [facility] FACILITY CARE/DAY E/M STABLE 10 MIN ECG 91925 GRACIELA OWENS ROUTINE 6 [facility] ECG INC INC W/LEAST 12 LDS TRCG ONLY W/O I&R INITIAL 05757 ARNKUSHAL RED NURSING 6 [facility] FACILITY CARE/DAY 25 MINUTES CATH PLMT 87079 [facility] KELI L HRT & 6 PHYSICIAN MAT ARTS S GROUP W/NJX & ANGIO IMG S&I HOSPITAL 15177 [place] [facility] DISCHARGE 6 INTERNAL MANAGEMEN MED T 30 MIN/< MEASUREME [id number] GRACIELA OWENS NT 6 [facility] CARDIAC INC INC SAMPLING PRESS LT HEART PERQ FLUOROSCO [id number] GRACIELA OWENS PY 6 [facility] MULTIPLE INC INC CABG LOW OSMOLAR CONTRAST FLUOROSCO [id number] GRACIELA OWENS PY LEFT 6 [facility] HEART LOW INC INC OSMOLAR CONTRAST FLUORO [id number] GRACIELA OWENS MULTI 6 [facility] CORONARY INC INC ARTERIES LOW OSMOLAR CONT FLUORO LT [id number] GRACIELA OWENS INTRL 6 [facility] MAMM INC INC BYPASS GRAFT LOW OSMLR CONT SBSQ [address] CYRUS CARE/DAY INTERNAL 25 MED MINUTES CV STRS 49044 [facility] FALLU TST 6 PHYSICIAN SUBHASH XERS&/OR S GROUP RX CONT ECG W/O I&R DUPLEX 50736 [facility] ALFORDDELBERT SCAN 6 MEDICAL JUVE EXTRACRAN IMAGING IAL ART ASS COMPL BI STUDY ECHO 07396 [facility] TTHRC R-T 6 MEDICAL 2D SERV W/WOM-MOD FOUNDATIO E COMPL N SPEC&COLR D SBSQ [address] [place] CARE/DAY INTERNAL 25 MED MINUTES MYOCARDIA 72731 [facility]ROW[facility]al BEASLEY ALL L SPECT 6 MEDICAL MULTIPLE IMAGING STUDIES ASS INITIAL 17891 [facility] 6 PHYSICIAN MAT CARE/DAY S GROUP 50 MINUTES GROUND A0425 [facility] MILEAGE 6 AMBULANCE AMBULANCE PER SERVICE SERVICE STATUTE MILE RADIOLOGI 16514 [facility] BEASLEY ALL C 6 MEDICAL EXAMINATI IMAGING ON CHEST ASS SING[place] VIEW FRONTAL AMB A0427 [facility] SERVICE 6 AMBULANCE AMBULANCE ALS SERVICE SERVICE EMERGENCY TRANSPORT LEVEL 1 ECG 64165 GRACIELA SOTELO JR ROUTINE [address] [facility] W/LEAST P 12 LDS I&R ONLY INITIAL 78493 [facility] 6 EMILIANO EMILIANO FACILITY CARE/DAY 25 MINUTES DRUG TST G0477 COMBINED COMBINED PRESUMP;C 6 PHYSICIAN PHYSICIAN PBL BEING S LA S LA READ DC OPT OBV ONLY OPHTH 07822 SCIFRES SCIFRES MEDICAL 5 ANG ANG XM&EVAL COMPRE NEW PT 1/> VST RADEX 50766 [facility] HOBLITZEL WRIST 5 LTH EMILIANO COMPLETE ORTHOPAE MINIMUM 3 VIEWS WRIST L3908 [facility] HOBLIT[facility] HAND 5 LTH EMILIANO ORTHOSIS ORTHOPAE EXT CONTROL COCK-UP PREFAB RADEX 11191 [facility] PE[facility] JAM WRIST 5 LTH COMPLETE ORTHOPAE MINIMUM 3 VIEWS CLTX DSTL 64041 [facility] J[facility] RADIAL 5 LTH FX/EPIPHY ORTHOPAE [place] SEP W/[place] [address] [facility] PEARSON JAM CARPAL 5 LTH SCAPHOID ORTHOPAE FRACTURE W/O MANJ SHOULDER L3650 [facility]OSIS 5 TECHNOLOG TECHNOLOG FIG 8 IES INC IES INC ABDUCT RESTRAINE R PREFAB RADEX 02487 RADIOLOGY KLEIMEYER WRIST 5 ANJEL COMPLETE ASSOCIATE MINIMUM 3 S OF NOTH VIEWS ESOPHAGOG 75060 ST ANUSIONWU ASTRODUOD 4 LOIS CHI ENOSCOPY [place] [address] RADIOLOGY DOERGER ABDOMINAL 4 KIR REAL ASSOCIATE TIME S OF NOTH W/IMAGE LIMITED INITIAL [address]70 ST SCHUSSLER INPATIENT 4 LOIS THO CONSULT NEW/ESTAB PHYSICIAN PT 80 S MIN ECHO [address] SHALINI TTHRC R-T 4 LOIS MAR 2D W/WOM-MOD PHYSICIAN E COMPL S SPEC&COLR D INJECTION J2060 ST ST 4 LOIS LOIS [facility] MED [facility] [address] FLAKER OPERATOR ST ECG [address] ST HEYDI BAR ROUTINE 4 LOIS ECG MED CTR W/LEAST 12 LDS I&R ONLY RADIOLOGI 56928 RADIOLOGY SCHMITTER C EXAM 4 LUNA CHEST 2 ASSOCIATE VIEWS S OF NOTH FRONTAL&[place] [address] RADIOLOGY GARCIA BYR ANGIOGRAP 4 HY CHEST ASSOCIATE W/CONTRAS S OF NOTH T/NONCONT RAST AMB A0427 [facility] SERVICE 4 FIRE FIRE ALS DEPT DEPT EMERGENCY TRANSPORT LEVEL 1 AMBULANCE A0429 [facility] SERVICE 4 FIRE FIRE BLS DEPT DEPT EMERGENCY TRANSPORT GROUND A0425 [facility] 4 FIRE [place] [address] RADIOLOGY AIRLINE PILOT/FIRST OFFICER/BRAI 4 BRA N W/O ASSOCIATE CONTRAST S OF NOTH MATERIAL GROUND A0425 [facility] 4 FIRE FIRE PER DEPT DEPT STATUTE MILE AMBULANCE A0429 [facility] SERVICE 4 FIRE FIRE BLS DEPT DEPT EMERGENCY TRANSPORT ECG [address] ROUTINE 4 LOIS LOIS ECG MED CTR MED CTR W/LEAST FLAKER OPERATOR ST FLAKER OPERATOR ST 12 LDS TRCG ONLY W/O I&R ECG [address] ST YECENIA FORTINO ROUTINE 4 LOIS ECG MED CTR W/LEAST 12 LDS I&R ONLY RADIOLOGI 04941 RADIOLOGY BRANDSER C EXAM 4 KIRAN KNEE ASSOCIATE COMPLETE S OF NOTH 4/MORE VIEWS GROUND A0425 [facility] 4 FIRE FIRE PER DEPT DEPT STATUTE MILE RADIOLOGI 19700 RADIOLOGY BRANDSER C 4 KIRAN EXAMINATI ASSOCIATE ON CHEST S OF NOTH [place] FRONTAL AMB A0427 [facility] SERVICE 4 FIRE FIRE ALS DEPT DEPT EMERGENCY TRANSPORT LEVEL 1 GROUND A0425 [facility] 4 FIRE FIRE PER DEPT DEPT STATUTE MILE AMB A0427 [facility] SERVICE 4 FIRE FIRE ALS DEPT DEPT EMERGENCY TRANSPORT LEVEL 1 SBSQ 54211 [facility] 4 LUNA LUNA CARE/DAY 15 MINUTES INITIAL 98787 [facility] INPATIENT 4 DERIK DERIK CONSULT NEW/ESTAB PT 55 MIN ECG 54958 HEYDI BAR HEYDI BAR ROUTINE 4 ECG W/LEAST 12 LDS I&R ONLY AMB A0427 [facility] SERVICE 3 FIRE FIRE ALS DEPT DEPT EMERGENCY TRANSPORT LEVEL 1 GROUND A0425 [facility] 3 FIRE FIRE PER DEPT DEPT STATUTE MILE LIPID 93362 [facility] PANEL 3 DIAGNOSTI DIAGNOSTI CS CS ECG 19781 RADHA ARL RADHA ARL ROUTINE 3 ECG W/LEAST 12 LDS W/I&R COMPREHEN 73677 [facility] SIVE 3 DIAGNOSTI DIAGNOSTI METABOLIC CS CS PANEL HEMOGLOBI 92269 [facility] N 3 DIAGNOSTI DIAGNOSTI GLYCOSY[place] [address] [facility] THYROID 3 DIAGNOSTI DIAGNOSTI STIMULATI [place] [address] [facility] FREE 3 DIAGNOSTI DIAGNOSTI THYROXINE CS CS RADEX 48811 [facility] SPINE 3 LUMBOSACR AL 2/3 VIEWS ECG 81398 MONIE LOMAX CHR ROUTINE 3 ECG W/LEAST 12 LDS I&R ONLY RADEX 11382 [facility] SPINE 3 THORACIC 3 VIEWS AMB A0427 [facility] SERVICE 3 FIRE FIRE ALS DEPT DEPT EMERGENCY TRANSPORT LEVEL 1 GROUND A0425 [facility] MILEAGE 3 FIRE [place] [address] DELL SEA DELL SEA HEAD/BRAI 3 N W/[place] [address] [facility] WELL[facility] SEA CERVICAL 3 SPINE W/O CONTRAST MATERIAL ECG 86172 MONIE LOMAX CHR ROUTINE 3 ECG W/LEAST 12 LDS I&R ONLY GROUND A0425 [facility] MILEAGE 3 FIRE FIRE PER DEPT DEPT STATUTE MILE AMB A0427 [facility] SERVICE 3 FIRE FIRE ALS DEPT DEPT EMERGENCY TRANSPORT LEVEL 1 ALBUMIN 15880 [facility] RADHA ARL URINE 3 [facility], IN SEMIQUANT ITATIVE LIPID 35977 [facility] PANEL 3 DIAGNOSTI DIAGNOSTI CS CS COMPREHEN 99024 [facility] SIVE 3 DIAGNOSTI DIAGNOST[place] [address] [facility] QUEST FREE 3 DIAGNOSTI [place]AG[place] [address] [facility] THYROID 3 DIAGNOSTI DIAGNOSTI STIMULATI CS CS NG HORMONE TSH HEMOGLOBI 55844 [facility] QUEST N 3 DIAGNOSTI DIAGNOSTI GLYCOSYLA CS CS BELLA A1C RADIOLOGI 07011 WILDA Castillo 3 CYRUS CYRUS EXAMINATI [place] [address] [facility] THYROID 2 DIAGNOSTI DIAGNOSTI STIMULATI CS CS NG HORMONE TSH COMPREHEN 89275 [facility] SIVE 2 DIAGNOSTI DIAGNOSTI METABOLIC CS CS PANEL LIPID 83052 [facility] PANEL 2 DIAGNOSTI DIAGNOSTI CS CS HEMOGLOBI 70055 [facility] QUEST N 2 DIAGNOSTI DIAGNOSTI GLYCOSYLA CS CS BELLA A1C RADIOLOGI 82596 RADIOLOGY DARDINGER C EXAM 2 LUNA CHEST 2 ASSOCIATE VIEWS S OF NOTH FRONTAL&L ATERAL GROUND A0425 [facility] DEPT STATUTE MILE AMB A0427 [facility] 2 FIRE FIRE ALS DEPT DEPT EMERGENCY TRANSPORT LEVEL 1 AMB A0427 [facility] SERVICE 2 FIRE FIRE ALS DEPT DEPT EMERGENCY TRANSPORT LEVEL 1 [facility]0425 [facility] PER [facility]PT DEPT STATUTE MILE AMB A0422 [facility] OXYGEN&O2 2 FIRE FIRE SUPPLIES DEPT DEPT LIFE SUSTAININ G SITUATION AMB A0427 [facility] SERVICE 2 FIRE FIRE ALS DEPT DEPT EMERGENCY TRANSPORT LEVEL [address] C 2 LOISDAVID ABREU EXAMINATI ON CHEST MEDICALCE MEDICALCE SINGLE NTER NTER VIEW FRONTAL GROUND A0425 [facility] 2 FIRE FIRE PER DEPT DEPT STATUTE MILE GROUND A0425 [facility] 2 FIRE FIRE PER DEPT DEPT STATUTE MILE RADIOLOGI 54193 RADIOLOGY DOERGER C 2 KIR EXAMINATI ASSOCIATE ON CHEST S OF NOTH [place] FRONTAL ECG 82752 CARMELO RHODES ROUTINE 2 RAL RAL ECG W/LEAST 12 LDS I&R ONLY AMB A0427 [facility] SERVICE 2 FIRE FIRE ALS DEPT DEPT EMERGENCY TRANSPORT LEVEL 1 RADIOLOGI 82195 RADIOLOGY NEILS KIRAN C 2 EXAMINATI ASSOCIATE ON CHEST S OF NOTH [place] FRONTAL SBSQ 21124 [facility] 2 CARE/DAY 25 MINUTES SBSQ 64338 [place] [address] [facility] CARE/DAY MEDICAL 25 SPEC MINUTES RADIOLOGI 67114 RADIOLOGY DARDINGER C 2 LUNA EXAMINATI ASSOCIATE ON CHEST S OF NOTH [place] FRONTAL RADIOLOGI 67528 RADIOLOGY DUYEN C 2 LUNA EXAMINATI ASSOCIATE ON CHEST S OF NOT SING[place]IEW FRONTAL ECG 39254 GAYLE MAR GAYLE MAR ROUTINE 2 ECG W/LEAST 12 LDS I&R ONLY RADIOLOGI 50107 RADIOLOGY DUARTE C EXAM 2 BRA CHEST 2 ASSOCIATE VIEWS S OF NOTH FRONTAL&L ATERAL RADIOLOGI 77602 RADIOLOGY [facility] 2 BRA EXAMINATI ASSOCIATE ON CHEST S OF NOTH [place] FRONTAL INITIAL 75681 [facility] INPATIENT 2 CONSULT NEW/ESTAB PT 80 MIN SBSQ [address] MAN CARE/DAY MEDICAL 35 SPEC MINUTES SBSQ [address] MAN CARE/DAY MEDICAL 35 SPEC MINUTES RADIOLOGI 25467 [facility] C 2 JAM EXAMINATI ASSOCIATE ON CHEST S OF NOT [place] FRONTAL ECG 40056 MARCO LARA ROUTINE [address] TER ECG W/LEAST 12 LDS I&R ONLY CORONARY 65077 ULICNY ULICNY ARTERY 2 FORTINO FORTINO BYP W/VEIN & ARTERY GRAFT 3 VEIN ARTL 28407 INDEPENDE CRISPEN CATHJ/CAN 2 NT GIANA NULJ ANESTHESI MNTR/MAN OLOGIST SFUSION SPX PRQ ANES 96303 INDEPENDE CRISPEN DIRECT 2 NT GIAAN CABG ANESTHESI W/PUMP OLOGIST OXYGENATO R CABG 74054 ULICNY ULICNY W/ARTERIA 2 FORTINO FORTINO L GRAFT TWO ARTERIAL GRAFTS RADIOLOGI 54778 [facility]Y [facility] C 2 JAM EXAMINATI ASSOCIATE ON CHEST S OF NOT S[place] FRONTAL SBSQ [address] SYDNEE CARE/DAY MEDICAL 35 SPEC MINUTES SBSQ [address] REG CARE/DAY 25 PHYSICIAN MINUTES S INSERTION 19856 INDEPENDE CRISPEN FLOW 2 NT GIANA DIRECTED ANESTHESI CATHETER OLOGIST FOR MONITORIN G (AORTO)CO 3613 [facility] 2 [facility] BYPASS THREE MEDICALCE MEDICALCE CORONARY NTER NTER ARTERIES SINGLE [address] INTERNAL 2 LOISENID ABREU MAMMARY-C ORONARY MEDICALCE MEDICALCE ARTERY NTER NTER BYPASS SBSQ 13656 [facility] 2 CARE/DAY 35 MINUTES INITIAL [address] SYDNEE CARE/DAY MEDICAL 70 SPEC MINUTES SBSQ 68761 [facility] 2 CARE/DAY 35 MINUTES SBSQ 39194 [facility] 2 [place] CARE/DAY 25 MINUTES SBSQ 89307 [facility] 2 [place] CARE/DAY 25 MINUTES SBSQ 87156 [facility] 2 [place] CARE/DAY 25 MINUTES SBSQ 74045 [facility] 2 [place]AY CHAY CARE/DAY 25 MINUTES ECG 83236 CARMELO RHODES ROUTINE 2 RAL RAL ECG W/LEAST 12 LDS I&R ONLY ECG 12343 HEEB CHR HEEB CHR ROUTINE 2 ECG W/LEAST 12 LDS I&R ONLY ECHO 65952 CHARLY PARKS TTHRC R-T 2 [place]AY [place]AY 2D W/WOM-MOD E COMPL SPEC&COLR D RADIOLOGI 84009 RADIOLOGY [facility] C EXAM 2 CHEST 2 ASSOCIATE VIEWS S OF [facility] FRONTAL&L ATERAL CATH PLMT 43841 CHARLY Sampson HRT & 2 [place] ARTS W/NJX & ANGIO IMG S&I INITIAL 16450 [facility] 2 FORTINO FORTINO CARE/DAY [address] ARTERIOGR 2 LOIS ABREU APHY USING TWO MEDICALCE MEDICALCE NTER NTER CATHETERS ANGIOCARD [address] IOGRAPHY 2 LOIS ABREU OF LEFT HEART MEDICALCE MEDICALCE STRUCTURE NTER NTER S LEFT [address] HEART 2 LOIS LOIS CARDIAC CATHETERI MEDICALCE MEDICALCE ZATION NTER NTER AMB A0427 [facility] SERVICE 2 FIRE FIRE ALS DEPT DEPT EMERGENCY TRANSPORT LEVEL 1 RADIOLOGI 27677 RADIOLOGY SCHMITTER C 2 LUNA INDERJITINAJAX ASSOCIATE ON CHEST S OF NOTH SING[place]IEW FRONTAL GROUND A0425 [facility] 2 FIRE FIRE PER DEPT DEPT STATUTE MILE ECG 48420 HEEB CHR HEEB CHR ROUTINE 2 ECG W/LEAST 12 LDS I&R ONLY REMOVAL 62485 [facility] LORI FOREIGN 2 ANT ANT BODY FOOT SUBCUTANE OUS RADEX 93473 RADIOLOGY GARCIA BYR FOOT 2 COMPLETE ASSOCIATE MINIMUM 3 S OF NOTH VIEWS GROUND A0425 [facility] 2 FIRE FIRE PER DEPT DEPT STATUTE MILE AMB A0427 [facility] SERVICE 2 FIRE FIRE ALS DEPT DEPT EMERGENCY TRANSPORT LEVEL 1 AMB A0427 [facility] SERVICE 2 FIRE FIRE ALS DEPT DEPT EMERGENCY TRANSPORT LEVEL 1 GROUND A0425 [facility] 2 FIRE FIRE PER DEPT DEPT STATUTE MILE ECG 29574 [facility] H[facility]ER ROUTINE 2 RAL RAL ECG W/LEAST 12 LDS I&R ONLY ECG 81269 [facility] H[facility]ER ROUTINE 2 RAL RAL ECG W/LEAST 12 LDS I&R ONLY GROUND A0425 [facility] 2 FIRE FIRE PER DEPT DEPT STATUTE MILE AMB A0427 [facility] SERVICE 2 FIRE FIRE ALS DEPT DEPT EMERGENCY TRANSPORT LEVEL 1 GROUND A0425 [facility] 1 FIRE FIRE PER DEPT DEPT STATUTE MILE AMB A0427 [facility] SERVICE 1 FIRE FIRE ALS DEPT DEPT EMERGENCY TRANSPORT LEVEL 1 [facility] 24874 [facility] RETA REPAIR 1 LOIS SCALP/NEC FAMILY K/AX/ROSITA PRACTICE T/TRUNK 2.6-7.5CM AMBULANCE A0428 RURAL/MET RURAL/MET SERVICE 1 RO RO BLS AMBULANCE AMBULANCE NONEMERGE NCY TRANSPORT GROUND A0425 [facility] 1 FIRE FIRE PER DEPT DEPT STATUTE MILE AMB A0427 [facility] SERVICE 1 FIRE FIRE ALS DEPT DEPT EMERGENCY TRANSPORT LEVEL 1 AMB A0427 [facility] SERVICE 1 FIRE FIRE ALS DEPT DEPT EMERGENCY TRANSPORT LEVEL 1 GROUND A0425 [facility] 1 FIRE FIRE PER DEPT DEPT STATUTE MILE ECG 45503 [facility] ROUTINE 1 LOIS DEL ECG W/LEAST PHYSICIAN 12 LDS S I&R ONLY RADIOLOGI 02624 RADIOLOGY JOSE CRUZ C EXAM 1 TUS CHEST 2 ASSOCIATE VIEWS S PSC FRONTAL&[place] [address] RADIOLOGY JOSE CRUZ HEAD/BRAI 1 TUS N W/O ASSOCIATE CONTRAST S PSC MATERIAL GROUND A0425 [facility] 1 FIRE FIRE PER DEPT DEPT STATUTE MILE RADEX 37762 RADIOLOGY NEILS KIRAN ABDOMEN 1 1 ASSOCIATE ANTEROPOS S PSC TERIOR VIEW URNLS DIP [address] 1 LOIS LOIS STICK/TAB LET RGNT MEDICALCE MEDICALCE NON-AUTO NTER NTER W/[place] [address] RADIOLOGY NEILS KIRAN ABDOMEN & 1 PELVIS ASSOCIATE W/O S PSC CONTRAST MATERIAL THERAPEUT [address] IC 1 LOIS LOIS PROPHYLAC TIC/DX MEDICALCE MEDICALCE INJECTION NTER NTER SUBQ/IM AMB A0427 [facility] SERVICE 1 FIRE FIRE ALS DEPT DEPT EMERGENCY TRANSPORT LEVEL 1 RADIOLOGI 92450 RADIOLOGY DUARTE C EXAM 1 BRA CHEST 2 ASSOCIATE VIEWS S PSC FRONTAL&L ATERAL CRTCHS E0114 [facility]VANCED UNDARM 1 TECHNOLOG TECHNOLOG OTH THAN IES INC IES INC WOOD PAIR PAD TIP&HNDGR IP RADEX 44224 RADIOLOGY BRANDSER FOOT 1 KIRAN COMPLETE ASSOCIATE MINIMUM 3 S PSC VIEWS RADEX 58639 RADIOLOGY BRANDSER HAND 1 KIRAN MINIMUM 3 ASSOCIATE VIEWS S PSC GROUND A0425 [facility] 1 FIRE FIRE PER DEPT DEPT STATUTE MILE AMBULANCE A0429 [facility] SERVICE 1 FIRE FIRE BLS DEPT DEPT EMERGENCY TRANSPORT GROUND A0425 [facility] PER [facility]PT DEPT STATUTE MILE AMB A0427 [facility] SERVICE 0 FIRE FIRE ALS DEPT DEPT EMERGENCY TRANSPORT LEVEL 1 RADEX 21252 RADIOLOGY DARDINGER FOOT 0 LUNA COMPLETE ASSOCIATE MINIMUM 3 S PSC VIEWS RADIOLOGI 19224 RADIOLOGY DARDINGER C EXAM 0 LUNA CHEST 2 ASSOCIATE VIEWS S PSC FRONTAL&L ATERAL RADEX 00588 RADIOLOGY ROEBKER ELBOW 0 JAM COMPLETE ASSOCIATE MINIMUM 3 S PSC VIEWS NONEMERG A0120 LKLP LKLP TRNSPRT: 0 COMMUNITY COMMUNITY MINI-BUS ACTION N MTN AREA/OTH SYS AMB A0427 [facility] SERVICE 0 FIRE FIRE ALS DEPT DEPT EMERGENCY TRANSPORT LEVEL 1 GROUND A0425 [facility] 0 FIRE FIRE PER DEPT DEPT STATUTE MILE GROUND A0425 [facility] 0 FIRE FIRE PER DEPT DEPT STATUTE MILE AMBULANCE A0429 [facility] SERVICE 0 FIRE FIRE BLS DEPT DEPT EMERGENCY TRANSPORT RADEX 54927 RADIOLOGY MANDA SHOULDER 0 SRUTHI COMPLETE ASSOCIATE MINIMUM 2 S PSC VIEWS RADEX 41255 RADIOLOGY MANDA HUMERUS 0 SRUTHI MINIMUM [address] [place] [address] RADIOLOGY DUARTE ABDOMEN 0 BRA W/CONTRAS ASSOCIATE T S PSC MATERIAL CT PELVIS 92918 RADIOLOGY DUARTE 0 BRA W/CONTRAS ASSOCIATE T S PSC MATERIAL LEVEL III [address] [facility] SURG 0 LOIS PATHOLOGY MED CTR GROSS&MELVA ROSCOPIC EXAM ANES 49512 INDEPENDE JORDAN, INTRAPERI 0 NT GODWIN P TONEAL ANESTHESI UPPER OLOGIST ABDOMEN W/LAPS NOS LAPAROSCO 49673 YADI SURG 0 LOIS SONAL W CHOLECYST ECTOMY PHYSICIAN S NONEMERG A0120 LKLP LKLP TRNSPRT: 0 COMMUNITY COMMUNITY MINI-BUS ACTION N MTN AREA/OTH SYS [address] EAST TIME W/IMAGE LIMITED ECG [address] ST HULLER, ROUTINE 0 LOIS AG F ECG MED CTR W/LEAST 12 LDS I&R ONLY ECG [address] ROUTINE 0 LOIS LOIS ECG W/LEAST MEDICALCE MEDICALCE 12 LDS NTER NTER TRCG ONLY W/O I&R COLLECTIO [address] N VENOUS 0 LOIS LOIS BLOOD VENIPUNCT MEDICALCE MEDICALCE URE NTER NTER COMPREHEN [address] SIVE 0 LOIS LOIS METABOLIC PANEL MEDICALCE MEDICALCE NTER NTER BLOOD [address] COUNT 0 LOIS LOIS COMPLETE AUTO&AUTO MEDICALCE MEDICAL[place] [address] LIPASE 0 LOIS LOIS MEDICALCE MEDICALCE NTER NTER URNLS DIP [address] 0 LOIS LOIS STICK/TAB LET RGNT MEDICALCE MEDICALCE NON-AUTO NTER NTER W/O MICRSCP RADIOLOGI 65364 RADIOLOGY DEANNA C EXAM 0 EULALIO M CHEST 2 ASSOCIATE VIEWS S PSC FRONTAL&[place] [address] RADIOLOGY LEW, HEAD/BRAI 0 SHAHID G N W/O ASSOCIATE CONTRAST S PSC MATERIAL AMB A0427 [facility] SERVICE 0 FIRE FIRE ALS DEPT DEPT EMERGENCY TRANSPORT LEVEL 1 GROUND A0425 [facility] MILEAGE 0 FIRE FIRE PER DEPT DEPT STATUTE [place] ABD [address] RADIOLOGY FROYLAN, COMPL 9 AQT ABD ASSOCIATE ABREU W/S/E/D S PSC A VIEWS 1 VIEW CH HEMOGLOBI 77912 [facility] N 9 [facility] [place] [address] [facility] FREE 9 [facility] [place] [address] [facility] THYROID 9 [facility] STIMULATI NG HORMONE TSH COMPREHEN 14199 [facility] SIVE 9 [facility] METABOLIC PANEL AMBULANCE A0429 [facility] 9 FIRE FIRE BLS DEPT DEPT EMERGENCY TRANSPORT GROUND A0425 [facility] FIRE PER DEPT DEPT STATUTE MILE RADEX 52718 RADIOLOGY DUARTE, ANKLE 9 SAKINA L COMPLETE ASSOCIATE MINIMUM 3 S PSC VIEWS RADEX 12824 RADIOLOGY LEW, ELBOW 9 SHAHID G COMPLETE ASSOCIATE MINIMUM 3 S PSC VIEWS SBSQ 95446 [facility] 9 CHRISTINE M CHRISTINE M CARE/DAY 15 MINUTES SBSQ 16111 [facility] [address] [facility] CHRISTINE M CARE/DAY 15 MINUTES SBSQ [id number] CHRISTINE M CARE/DAY 15 MINUTES SBSQ 21575 [facility] [address] [facility] CHRISTINE M CARE/DAY 15 MINUTES SBSQ 68633 [facility] 9 CHRISTINE M CHRISTINE M CARE/DAY 15 MINUTES SBSQ 26999 [facility] 9 CHRISTINE M CHRISTINE M CARE/DAY 15 MINUTES SBSQ 48415 [facility] 9 CHRISTINE M CHRISTINE M CARE/DAY 15 MINUTES INITIAL 16829 [facility], INPATIENT 9 CHRISTINE M CHRISTINE M CONSULT NEW/ESTAB PT [address] [facility], ROUTINE 9 LOIS LUONG F ECG MED CTR W/LEAST 12 LDS I&R ONLY RADEX 48579 RADIOLOGY MANDA, HAND 8 ZACKERY M MINIMUM 3 ASSOCIATE VIEWS S PSC GROUND A0425 [facility] 8 FIRE FIRE PER DEPT DEPT STATUTE MILE AMBULANCE A0429 [facility] 8 FIRE FIRE [place] [address] RADIOLOGY MANDA, HEAD/BRAI 8 ZACKERY M N W/O ASSOCIATE CONTRAST S PSC MATERIAL RADEX 06413 RADIOLOGY DESTINY, SPINE 8 SONIA THORACIC ASSOCIATE H 3 VIEWS S PSC GROUND A0425 [facility] 8 FIRE FIRE PER DEPT DEPT STATUTE MILE AMB A0427 [facility] 8 FIRE FIRE ALS DEPT DEPT EMERGENCY TRANSPORT LEVEL 1 RADEX 23304 RADIOLOGY DESTINY, SPINE 8 SONIA LUMBOSACR ASSOCIATE H AL 2/3 S PSC VIEWS RADEX 97818 RADIOLOGY DESTINY, WRIST 8 SONIA COMPLETE ASSOCIATE H MINIMUM 3 S PSC VIEWS AMBULANCE A0429 [facility] 8 FIRE FIRE BLS DEPT DEPT EMERGENCY TRANSPORT GROUND A0425 [facility] 8 FIRE FIRE PER DEPT DEPT STATUTE MILE GROUND A0425 [facility] 8 FIRE FIRE PER DEPT DEPT STATUTE MILE AMB A0427 [facility] 8 FIRE FIRE ALS DEPT DEPT EMERGENCY TRANSPORT LEVEL [address] YECENIA, ROUTINE 8 LOIS CARLOS R ECG MED CTR W/LEAST 12 LDS I&R ONLY AMBULANCE A0429 [facility] 8 FIRE FIRE BLS DEPT DEPT EMERGENCY TRANSPORT GROUND A0425 [facility] 8 FIRE FIRE PER DEPT DEPT STATUTE MILE RADEX [address] WRIST 8 LOISROSALIA ABREU COMPLETE MINIMUM 3 MEDICALCE MEDICALCE VIEWS NTER NTER RADIOLOGI [address] C EXAM 8 LOISROSALIA ABREU CHEST 2 VIEWS MEDICALCE MEDICALCE FRONTAL&L NTER NTER ATERAL RADEX 25723 RADIOLOGY DUARTE, HAND 8 ZAC MINIMUM 3 ASSOCIATE VIEWS S PSC INJECTION 46912 [facility], ANES 8 LOIS HOPKINS OTHER MED CTR PERIPHERA L NERVE/BRA NCH REPAIR 23028 [facility], INTERMEDI 8 [facility] HOPKINS ATE MED CTR F/E/E/N/L &/MUC 2.6-5.0 CM RADEX 84441 RADIOLOGY HURST, FACIAL 8 FERNIE R BONES ASSOCIATE COMPLETE S PSC MINIMUM 3 VIEWS GROUND A0425 [facility] PER [facility] DEPT STATUTE MILE AMBULANCE A0429 [facility] SERVICE 8 FIRE FIRE [place] [address] RADIOLOGY ROXANAER ABDOMINAL 8 , SONAL REAL ASSOCIATE T TIME S PSC W/IMAGE LIMITED BLOOD 85041 PATIENT SNEDEGAR, COUNT 8 FIRST SPARKLE COMPLETE PHYS AUTOMATED FLUORESCE 57675 [facility] NT 8 [facility] NONNFCT AGT ANTB MEDICALCE MEDICALCE TITER EA NTER NTER ANTIBODY ANTINUCLE 95977 [facility] AR 8 [facility] EMIGDIO MEDICALCE MEDICALCE NTER NTER IADNA 72707 [facility] HEPATITIS 8 [facility] C QUANT & REVERSE MEDICALCE MEDICALCE NTER NTER TRANSCRIP TION ALPHA-1-A 52335 [facility] NTITRYPSI 8 [facility] N TOTAL MEDICALCE MEDICALCE NTER NTER COMPREHEN 75720 PATIENT SNEDEGAR, SIVE 8 FIRST [place] [address] PATIENT SNEDEGAR, THYROID 8 FIRST SPARKLE STIMULAT[place] [address] PATIENT SNEDEGAR, FERRITIN 8 FIRST SPARKLE PHYS IMMUNOASS 00613 [facility] AY 8 [facility] A[facility] QUAL/SEMI MEDICALCE MEDICALCE QUAL NTER NTER MULTIPLE STEP ALPHA-FET 16422 [facility] OPROTEIN 8 [facility] SERUM MEDICALCE MEDICALCE NTER NTER CERULOPLA 56045 [facility] SMIN 8 [facility] [place] [address] PATIENT SNEDEGAR, IRON 8 [place] [address] HEPATITIS 8 LOIS LOIS B SURFACE MEDICALCE MEDICALCE ANTIGEN NTER NTER NFCT AGNT [address] GENOTYP 8 LOIS LOIS NUCLEIC ACID MEDICALCE MEDICALCE HEPATITIS NTER NTER C VIRUS IRON 67965 PATIENT SNEDEGAR, BINDING 8 FIRST SPARKLE CAPACITY PHYS ACUTE [address] HEPATITIS 8 LOIS LOIS PANEL MEDICALCE MEDICALCE NTER NTER COLLECTIO [address] N VENOUS 8 LOIS LOIS BLOOD VENIPUNCT MEDICALCE MEDICALCE URE NTER NTER BLOOD [address] COUNT 8 LOIS LOIS COMPLETE AUTO&AUTO MEDICALCE MEDICALCE DIFRNTL NTER NTER WBC URNLS DIP [address] 8 LOIS LOIS STICK/TAB LET RGNT MEDICALCE MEDICALCE AUTO W/[place] [address] FREE 8 LOIS LOIS THYROXINE [place] [address] THYROID 8 LOIS LOIS STIMULATI NG MEDICALCE MEDICALCE HORMONE NTER NTER TSH RADIOLOGI 80659 RADIOLOGY LEW, C EXAM 8 SHAHID G CHEST 2 ASSOCIATE VIEWS S PSC FRONTAL&L ATERAL ECG [address] ST LLER, ROUTINE 8 LOIS AG F ECG MED CTR W/LEAST 12 LDS I&R ONLY ECG [address] ROUTINE 8 LOIS LOIS ECG W/LEAST MEDICALCE MEDICALCE 12 LDS NTER NTER TRCG ONLY W/O I&R HEMOGLOBI [address] N 8 LOIS LOIS GLYCOSYLA BELLA A1C MEDICALCE MEDICALCE NTER NTER COLLECTIO [address] N VENOUS 8 LOIS LOIS BLOOD VENIPUNCT MEDICALCE MEDICALCE URE NTER NTER HEPATIC 73245 ST ST FUNCTION 8 LOIS LOIS PANEL MEDICALCE MEDICALCE NTER NTER LIPID [address] ST [address] PANEL 8 LOIS LOIS MEDICALCE MEDICALCE NTER NTER BASIC [address] METABOLIC 8 LOIS LOIS PANEL CALCIUM MEDICALCE MEDICALCE TOTAL NTER NTER AMB A0427 [facility] SERVICE 8 FIRE FIRE ALS DEPT DEPT EMERGENCY TRANSPORT LEVEL 1 GROUND A0425 [facility] MILEAGE 8 FIRE FIRE PER DEPT DEPT STATUTE MILE RADEX 45222 RADIOLOGY DUARTE, HAND 8 ZAC MINIMUM 3 ASSOCIATE VIEWS S PSC ECG [address]9320 [facility], ROUTINE 8 LOIS LAROY ECG MED CTR W/LEAST 12 LDS I&R ONLY RHYTHM 06599 [facility], ECG 1-3 8 LOIS LAROY LEADS MED CTR INTERPRET ATION & REPRT ON SYRINGE A4206 [facility] WITH 8 PHARMACY PHARMACY NEEDLE #[id number] #[id number] STERILE 1 CC OR LESS EACH BLD GLU A4253 [facility] TEST/REAG 8 PHARMACY PHARMACY T STRIPS #[id number] #[id number] HOME BLD GLU FRI-50 Encounters Encounter Start End Date Code Location Performer Type Date [facility] T EMERGENCY 58137 KYLE DENNEY 6 6 [facility] T VISIT MODERATE SEVERITY OFFICE 13710 [facility] KELI OUTPATIEN 6 6 PHYSICIAN MAT T VISIT S GROUP 25 MINUTES [facility] - 6 6 [facility] T [facility] - 6 6 [facility] INPATIENT INC EMERGENCY 98157 K[facility] PRITC[facility]TT DEPT 6 6 PHYSICIAN U JOAN VISIT S, [facility] HIGH SEVERITY& THREAT FUNCJ OFFICE 65666 [facility] [place] 5 5 EMILIANO EMILIANO T VISIT 15 MINUTES OFFICE 74516 [facility] OUTPATIEN 5 5 EMILIANO EMILIANO T NEW 30 MINUTES OFFICE 30582 [facility] BRADY OUTPATIEN 5 5 LTH T NEW 20 ORTHOPAE MINUTES EMERGENCY 82410 [facility] GALDAMEZERJEE 5 5 EMERGENCY JOHN DEPARTMEN T VISIT PHYSICIAN HIGH/URGE S NT SEVERITY [facility]PITAL ST - 4 4 LOIS OUTPATIEN MED CTR T FLAKER OPERATOR EMERGENCY 96855 [facility] DEPT 4 4 LOIS ANT VISIT MED CTR HIGH SEVERITY& THREAT FUNCJ EMERGENCY 57502 4 4 LOIS DEPARTMEN MED CTR T VISIT FLAKER OPERATOR MODERATE SEVERITY EMERGENCY 20005 [facility] 4 4 LOIS ANT DEPARTMEN MED CTR T VISIT HIGH/URGE NT SEVERITY HOSPITAL ST - 4 4 LOIS OUTPATIEN MED CTR T FLAKER OPERATOR EMERGENCY 69397 [facility] 4 4 LOIS RETA DEPARTMEN MED CTR T VISIT HIGH/URGE NT SEVERITY OFFICE 23559 [facility]RL OUTPATIEN 3 3 T VISIT 25 MINUTES EMERGENCY 80925 [facility] DEPT 3 3 LOIS GRE VISIT MED CTR HIGH SEVERITY& THREAT FUNCJ OFFICE 42029 [facility] OUTPATIEN 3 3 POINT T VISIT FAMILY 25 CARE, IN MINUTES OFFICE 81893 [facility] OUTPATIEN 2 2 POINT T VISIT FAMILY 15 CARE, IN MINUTES HOSPITAL ST - 2 2 LOIS DUVALPATIEN T MEDICALCE NTER EMERGENCY 86245 [facility] 2 2 LOIS RETA DEPARTMEN MED CTR T VISIT MODERATE SEVERITY EMERGENCY 68802 [facility] DEPT 2 2 LOIS MAR VISIT MED CTR HIGH SEVERITY& THREAT FUNCJ HOSPITAL ST - 2 2 LOIS INPATIENT MEDICALCE NTER EMERGENCY 47498 [facility] DEPT 2 2 LOIS VISIT FAMILY HIGH PRACTICE SEVERITY& THREAT FUNCJ EMERGENCY 25054 [facility] 2 2 LOIS JANNET DEPARTMEN FAMILY T VISIT PRACTICE HIGH/URGE NT SEVERITY EMERGENCY 42230 ST 1 1 LOIS DEPARTMEN T VISIT MEDICALCE MODERATE NTER SEVERITY [facility]OSPITAL ST - 1 1 LOIS OUTPATIEN T MEDICALCE NTER EMERGENCY 24957 [facility] 1 1 LOISDAVID MCDUFFIE DEPARTMEN MED CTR T VISIT HIGH/URGE NT SEVERITY HOSPITAL ST - 1 1 LOIS OUTPATIEN T MEDICALCE NTER EMERGENCY 12703 [facility] 1 1 LOISDAVID JOHN DEPARTMEN MED CTR T VISIT HIGH/URGE NT SEVERITY HOSPITAL ST - 1 1 LOIS OUTPATIEN T MEDICALCE NTER EMERGENCY 06765 [facility] 1 1 LOIS ARIANNE DEPARTMEN MED CTR T VISIT HIGH/URGE NT SEVERITY EMERGENCY 10904 ST 1 1 LOIS DEPARTMEN T VISIT MEDICALCE MODERATE NTER SEVERITY EMERGENCY 39287 [facility] 0 0 LOIS CARMEN DEPARTMEN MED CTR T VISIT HIGH/URGE NT SEVERITY EMERGENCY 28063 [facility] 0 0 LOIS CYRUS DEPARTMEN MED CTR T VISIT MODERATE SEVERITY EMERGENCY 23747 [facility] 0 0 LOIS HEATHER DEPARTMEN T VISIT PHYSICIAN MODERATE S SEVERITY EMERGENCY 62837 ST [facility], 0 0 LOISENID Briggs DEPARTMEN MED CTR T VISIT MODERATE SEVERITY EMERGENCY 83541 [facility], 0 0 LOIS KILLIAN DEPARTMEN MED CTR T VISIT HIGH/URGE NT SEVERITY EMERGENCY 90105 [facility] [place], DEPT 0 0 AMANDA Sampson VISIT PHYS HIGH [facility] SEVER[facility]& [place] THREAT FUNCJ EMERGENCY 25065 [facility], 0 0 LOIS Meléndez DEPARTMEN MED CTR T VISIT HIGH/URGE NT SEVERITY HOSPITAL [facility] - 0 0 HOSPITAL OUTPATI EAST T OFFICE 59660 [facility], CONSULTAT 0 0 LOIS RODRIGUEZ/OBED PHYSICIAN PATIENT S 40 MIN EMERGENCY 60396 [facility], 0 0 LOIS DANG DEPARTMEN MED CTR T VISIT MODERATE SEVERITY HOSPITAL ST - 0 0 LOIS OUTPATIEN T MEDICALCE NTER EMERGENCY 55829 ST 0 0 LOIS DEPARTMEN T VISIT MEDICALCE HIGH/URGE NTER NT SEVERITY EMERGENCY 48604 [facility], 0 0 LOIS Anderson DEPARTMEN MED CTR T VISIT HIGH/URGE NT SEVERITY HOSPITAL ST - 0 0 LOIS OUTPATIEN T MEDICALCE NTER EMERGENCY 31819 0 0 LOIS DEPARTMEN T VISIT MEDICALCE MODERATE NTER SEVERITY EMERGENCY 79821 [facility], 0 0 LOIS VICTOR DEPARTMEN MED CTR T VISIT MODERATE SEVERITY EMERGENCY 97288 [facility], DEPT 0 0 LOIS KILLIAN VISIT MED CTR HIGH SEVERITY& THREAT [facility] - 0 0 LOIS OUTPATIEN T MEDICALCE NT HOSPITAL ST - 9 9 OLIS OUTPATIEN T MEDICALCE NTER EMERGENCY 97092 [facility] 9 9 ROBB ABREU [facility] MED CTR T VISIT HIGH/URGE NT SEVERITY EMERGENCY 44987 [facility], 9 9 LOIS Sampson [facility] T VISIT HIGH/URGE NT SEVERITY EMERGENCY 97390 [facility], 9 9 LOIS Quarles [facility] MED CTR T VISIT HIGH/URGE NT SEVERITY EMERGENCY 41167 [facility] 9 9 SHAHID ABREU [facility] MED CTR D T VISIT HIGH/URGE NT SEVERITY OFFICE 30803 [facility], OUT[facility]IEN 9 9 CHRISTINE M CHRISTINE M T VISIT 15 MINUTES OFFICE 18929 [facility], EWLLS, OUTPATIEN 9 9 CHRISTINE M CHRISTINE M T VISIT [address] [facility], 8 8 LOIS Quarles [facility] MED CTR T VISIT HIGH/URGE NT SEVERITY OFFICE 26406 [facility], OUTPATIEN 8 8 CHRISTINE M CHRISTINE M T VISIT 15 MINUTES OFFICE 61543 [facility] WELLS, OUTPATIEN 8 8 CHRISTINE M CHRISTINE M T VISIT 15 MINUTES EMERGENCY 95013 [facility], DEPT 8 8 LOIS Quarles VISIT MED CTR HIGH SEVERITY& THREAT FUNCJ OFFICE 04332 [facility], OUTPATIEN 8 8 CHRISTINE M CHRISTINE M T VISIT 15 MINUTES EMERGENCY 85701 [facility], DEPT 8 8 LOIS FRANK VISIT MED CTR HIGH SEVERITY& THREAT FUNCJ EMERGENCY 59969 [facility], 8 8 LOIS JESSICA [facility] MED CTR T VISIT HIGH/URGE NT SEVERITY HOSPITAL ST - 8 8 LOIS Meléndez MEDICALCE NTER EMERGENCY 27854 ST 8 8 [facility]PITAL T VISIT MEDICALCE MODERATE NTER SEVERITY EMERGENCY 77158 [facility], 8 8 LOIS MOLINAEN DEPARTMEN MED CTR T VISIT HIGH/URGE NT SEVERITY OFFICE 13981 PATIENT SNEDEGAR, OUTPATIEN 8 8 FIRST SPARKLE T VISIT PHYS 15 MINUTES OFFICE 87707 [facility] 8 8 CHRISTINE M CHRISTINE M T VISIT 15 MINUTES EMERGENCY 51409 [facility], 8 8 LOIS HOPKINS DEPARTMEN MED CTR T VISIT HIGH/URGE NT SEVERITY OFFICE 65609 [facility] 8 8 CHRISTINE M CHRISTINE M T VISIT [address] - 8 8 LOIS OUTPATIEN T MEDICALCE NTER HOSPITAL ST - 8 8 LOIS OUTPATIEN T MEDICALCE NTER OFFICE 39896 PATIENT SNEDEGAR, CONSULTAT 8 8 FIRST SPARKLE ION PHYS NEW/ESTAB PATIENT 60 MIN OFFICE 30771 [facility] 8 8 CHRISTINE M CHRISTINE M T VISIT [address] - 8 8 LOIS OUTPATIEN T MEDICALCE NTER OFFICE 00333 [facility] 8 8 CHRISTINE M CHRISTINE M T VISIT [address] - 8 8 LOIS OUTPATIEN T MEDICALCE NTER [facility]ERGENCY 27830 [facility] Quar[facility] VISIT MED CTR HIGH SEVERITY& THREAT FUNCJ OFFICE 18584 [facility] 8 8 CHRISTINE M CHRISTINE M T NEW 60 MINUTES EMERGENCY 28233 [facility], 8 8 LOIS LAROY DEPARTMEN MED CTR T VISIT MODERATE SEVERITY OFFICE 03034 [facility] 8 8 MEDICAL ANGELA P T VISIT GROUP 15 MINUTES OFFICE 46892 [facility] 8 8 MEDICAL LUNA B T VISIT GROUP 10 MINUTES OFFICE 97462 [facility] 8 8 MEDICAL MIYA T VISIT GROUP 15 MINUTES
--- OUTSIDE RECORDS SUMMARY | 2016-06-10 00:19 | External Medical Summary Rpt ---
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 C 4 KIRAN EXAMINATI ASSOCIATE ON CHEST S OF NOTH SINGLE VIEW FRONTAL AMB A0427 [facility] SERVICE 4 FIRE FIRE ALS DEPT DEPT EMERGENCY TRANSPORT LEVEL 1 GROUND A0425 [facility] 4 FIRE FIRE PER DEPT DEPT STATUTE MILE AMB A0427 [facility] SERVICE 4 FIRE FIRE ALS DEPT DEPT EMERGENCY TRANSPORT LEVEL 1 SBSQ 26808 [facility] 4 LUNA LUNA CARE/DAY 15 MINUTES INITIAL 63683 [facility] INPATIENT 4 DERIK DERIK CONSULT NEW/ESTAB PT 55 MIN ECG 88882 HEYDI BAR HEYDI BAR ROUTINE 4 ECG W/LEAST 12 LDS I&R ONLY AMB A0427 [facility] SERVICE 3 FIRE FIRE ALS DEPT DEPT EMERGENCY TRANSPORT LEVEL 1 GROUND A0425 [facility] 3 FIRE FIRE PER DEPT DEPT STATUTE MILE LIPID 27007 [facility] PANEL 3 DIAGNOSTI DIAGNOSTI CS CS ECG 80364 RADHA ARL RADHA ARL ROUTINE 3 ECG W/LEAST 12 LDS W/I&R COMPREHEN 92562 [facility] SIVE 3 DIAGNOSTI DIAGNOSTI METABOLIC CS CS PANEL HEMOGLOBI 09876 [facility] N 3 DIAGNOSTI DIAGNOSTI GLYCOSY[place] [address] [facility] THYROID 3 DIAGNOSTI DIAGNOSTI STIMULATI [place] [address] [facility] FREE 3 DIAGNOSTI DIAGNOSTI THYROXINE CS CS RADEX 55843 [facility] SPINE 3 LUMBOSACR AL 2/3 VIEWS ECG 00025 MONIE LOMAX CHR ROUTINE 3 ECG W/LEAST 12 LDS I&R ONLY RADEX 69563 [facility] SPINE 3 THORACIC 3 VIEWS AMB A0427 [facility] SERVICE 3 FIRE FIRE ALS DEPT DEPT EMERGENCY TRANSPORT LEVEL 1 GROUND A0425 [facility] MILEAGE 3 FIRE [place] [address] [facility] HEAD/BRAI 3 N W/[place] [address] [facility] WELLS SEA CERVICAL 3 SPINE W/O CONTRAST MATERIAL ECG 96592 MONIE LOMAX CHR ROUTINE 3 ECG W/LEAST 12 LDS I&R ONLY GROUND A0425 [facility] MILEAGE 3 FIRE FIRE PER DEPT DEPT STATUTE MILE AMB A0427 [facility] SERVICE 3 FIRE FIRE ALS DEPT DEPT EMERGENCY TRANSPORT LEVEL 1 ALBUMIN 80547 [facility] RADHA ARL URINE 3 [facility], IN SEMIQUANT ITATIVE LIPID 88572 [facility]ST PANEL 3 DIAGNOSTI DIAGNOSTI CS CS COMPREHEN 31774 [facility] SIVE 3 DIAGNOSTI DIAGNOST[place] [address] [facility] QUEST FREE 3 DIAGNOSTI [place]AG[place] [address] [facility] THYROID 3 DIAGNOSTI DIAGNOSTI STIMULATI CS CS NG HORMONE TSH HEMOGLOBI 08266 [facility] QUEST N 3 DIAGNOSTI DIAGNOSTI GLYCOSYLA CS CS BELLA A1C RADIOLOGI 74752 WILDA Castillo 3 CYRUS CYRUS EXAMINATI [place] [address] [facility] THYROID 2 DIAGNOSTI DIAGNOSTI STIMULATI CS CS NG HORMONE TSH COMPREHEN 72171 [facility] SIVE 2 DIAGNOSTI DIAGNOSTI METABOLIC CS CS PANEL LIPID 11411 [facility] PANEL 2 DIAGNOSTI DIAGNOSTI CS CS HEMOGLOBI 38134 [facility] QUEST N 2 DIAGNOSTI DIAGNOSTI GLYCOSYLA CS CS BELLA A1C RADIOLOGI 62637 RADIOLOGY DARDINGER C EXAM 2 LUNA CHEST 2 ASSOCIATE VIEWS S OF NOTH FRONTAL&L ATERAL GROUND A0425 [facility] FIRE PER DEPT DEPT STATUTE MILE AMB A0427 [facility] SERVICE 2 FIRE FIRE ALS DEPT DEPT EMERGENCY TRANSPORT LEVEL 1 AMB A0427 [facility] SERVICE 2 FIRE FIRE ALS DEPT DEPT EMERGENCY TRANSPORT LEVEL 1 GROUND A0425 [facility]RE FIRE PER DEPT DEPT STATUTE MILE AMB A0422 [facility] OXYGEN&O2 2 FIRE FIRE SUPPLIES DEPT DEPT LIFE SUSTAININ G SITUATION AMB A0427 [facility] SERVICE 2 FIRE FIRE ALS DEPT DEPT EMERGENCY TRANSPORT LEVEL [address] C 2 LOISDAVID ABREU EXAMINATI ON CHEST MEDICALCE MEDICALCE SINGLE NTER NTER VIEW FRONTAL GROUND A0425 [facility] 2 FIRE FIRE PER DEPT DEPT STATUTE MILE GROUND A0425 [facility] 2 FIRE FIRE PER DEPT DEPT STATUTE MILE RADIOLOGI 66818 RADIOLOGY DOERGER C 2 KIR EXAMINATI ASSOCIATE ON CHEST S OF NOTH SING[place]IEW FRONTAL ECG 88782 CARMELO RHODES ROUTINE 2 RAL RAL ECG W/LEAST 12 LDS I&R ONLY AMB A0427 [facility] SERVICE 2 FIRE FIRE ALS DEPT DEPT EMERGENCY TRANSPORT LEVEL 1 RADIOLOGI 80490 RADIOLOGY NEILS KIRAN C 2 EXAMINATI ASSOCIATE ON CHEST S OF NOTH SINGLE VIEW FRONTAL SBSQ 61261 [facility] 2 CARE/DAY 25 MINUTES SBSQ 84830 [place] [address] [facility] SY[facility] CARE/DAY MEDICAL 25 SPEC MINUTES RADIOLOGI 18214 RADIOLOGY DARDINGER C 2 LUNA EXAMINATI ASSOCIATE ON CHEST S OF NOTH [place]ING[place]IEW FRONTAL RADIOLOGI 99102 RADIOLOGY DUYEN C 2 LUNA EXAMINATI ASSOCIATE ON CHEST S OF NOT SINGLE VIEW FRONTAL ECG 59233 GAYLE MAR GAYLE MAR ROUTINE 2 ECG W/LEAST 12 LDS I&R ONLY RADIOLOGI 04852 RADIOLOGY DUARTE C EXAM 2 BRA CHEST 2 ASSOCIATE VIEWS S OF NOTH FRONTAL&L ATERAL RADIOLOGI [address] [facility] 2 BRA EXAMINATI ASSOCIATE ON CHEST S OF NOTH SINGLE [place]IEW FRONTAL INITIAL 81163 [facility] INPATIENT 2 CONSULT NEW/ESTAB PT 80 MIN SBSQ [address] MAN CARE/DAY MEDICAL 35 SPEC MINUTES SBSQ [address] MAN CARE/DAY MEDICAL 35 SPEC MINUTES RADIOLOGI 72051 RADIOLOGY [facility] C 2 JAM EXAMINATI ASSOCIATE ON CHEST S OF NOT SINGLE VIEW FRONTAL ECG 21462 MACRO LARA ROUTINE [address] ECG W/LEAST 12 LDS I&R ONLY CORONARY 48848 ULICNY ULICNY ARTERY 2 FORTINO FORTINO BYP W/VEIN & ARTERY GRAFT 3 VEIN ARTL 99920 INDEPENDE CRISPEN CATHJ/CAN 2 NT GIANA NULJ ANESTHESI MNTR/MAN OLOGIST SFUSION SPX PRQ ANES 52410 INDEPENDE CRISPEN DIRECT 2 NT GIANA CABG ANESTHESI W/PUMP OLOGIST OXYGENATO R CABG 86345 ULICNY ULICNY W/ARTERIA 2 FORTINO FORTINO L GRAFT TWO ARTERIAL GRAFTS RADIOLOGI 00873 [facility]OLOGY [facility] C 2 JAM EXAMINATI ASSOCIATE ON CHEST S OF NOT SINGLE VIEW FRONTAL SBSQ [address] SYDNEE CARE/DAY MEDICAL 35 SPEC MINUTES SBSQ [address] REG CARE/DAY 25 PHYSICIAN MINUTES S INSERTION 71999 INDEPENDE CRISPEN FLOW 2 NT GIANA DIRECTED ANESTHESI CATHETER OLOGIST FOR MONITORIN G (AORTO)CO 3613 [facility] 2 [facility] BYPASS THREE MEDICALCE MEDICALCE CORONARY NTER NTER ARTERIES SINGLE [address] INTERNAL 2 LOISENID ABREU MAMMARY-C ORONARY MEDICALCE MEDICALCE ARTERY NTER NTER BYPASS SBSQ 31899 [facility] 2 CARE/DAY 35 MINUTES INITIAL [address] SYDNEE CARE/DAY MEDICAL 70 SPEC MINUTES SBSQ 75126 [facility] 2 CARE/DAY 35 MINUTES SBSQ 25721 [facility] 2 [place]AY CHAY CARE/DAY 25 MINUTES SBSQ 62724 [facility] 2 [place] CARE/DAY 25 MINUTES SBSQ 98503 [facility] 2 [place]AY CARE/DAY 25 MINUTES SBSQ 65604 [facility] 2 [place]AY CHAY CARE/DAY 25 MINUTES ECG 39986 CARMELO RHODES ROUTINE 2 RAL RAL ECG W/LEAST 12 LDS I&R ONLY ECG 83873 HEEB CHR HEEB CHR ROUTINE 2 ECG W/LEAST 12 LDS I&R ONLY ECHO 22540 CHARLY PARKS TTHRC R-T 2 [place]AY [place]AY 2D W/WOM-MOD E COMPL SPEC&COLR D RADIOLOGI 24907 RADIOLOGY [facility] C EXAM 2 CHEST 2 ASSOCIATE VIEWS S OF [facility] FRONTAL&L ATERAL CATH PLMT 10639 CHARLY Sampson HRT & 2 [place] ARTS W/NJX & ANGIO IMG S&I INITIAL 26897 [facility] 2 FORTINO FORTINO CARE/DAY [address]ON[address] ARTERIOGR 2 LOIS ABREU APHY USING TWO MEDICALCE MEDICALCE NTER NTER CATHETERS ANGIOCARD [address] IOGRAPHY 2 LOIS ABREU OF LEFT HEART MEDICALCE MEDICALCE STRUCTURE NTER NTER S LEFT [address] HEART 2 LOIS LOIS CARDIAC CATHETERI MEDICALCE MEDICALCE ZATION NTER NTER AMB A0427 [facility] SERVICE 2 FIRE FIRE ALS DEPT DEPT EMERGENCY TRANSPORT LEVEL 1 RADIOLOGI 66576 RADIOLOGY SCHMITTER C 2 LUNA INDERJITINAJAX ASSOCIATE ON CHEST S OF NOTH SINGLE VIEW FRONTAL GROUND A0425 [facility] 2 FIRE FIRE PER DEPT DEPT STATUTE MILE ECG 87630 HEEB CHR HEEB CHR ROUTINE 2 ECG W/LEAST 12 LDS I&R ONLY REMOVAL 52182 [facility] LORI FOREIGN 2 ANT ANT BODY FOOT SUBCUTANE OUS RADEX 75670 RADIOLOGY GARCIA BYR FOOT 2 COMPLETE ASSOCIATE MINIMUM 3 S OF NOTH VIEWS GROUND A0425 [facility] 2 FIRE FIRE PER DEPT DEPT STATUTE MILE AMB A0427 [facility] SERVICE 2 FIRE FIRE ALS DEPT DEPT EMERGENCY TRANSPORT LEVEL 1 AMB A0427 [facility] SERVICE 2 FIRE FIRE ALS DEPT DEPT EMERGENCY TRANSPORT LEVEL 1 GROUND A0425 [facility] 2 FIRE FIRE PER DEPT DEPT STATUTE MILE ECG 30917 [facility] ROUTINE 2 RAL RAL ECG W/LEAST 12 LDS I&R ONLY ECG 28671 [facility] ROUTINE 2 RAL RAL ECG W/LEAST 12 LDS I&R ONLY GROUND A0425 [facility] 2 FIRE FIRE PER DEPT DEPT STATUTE MILE AMB A0427 [facility] SERVICE 2 FIRE FIRE ALS DEPT DEPT EMERGENCY TRANSPORT LEVEL 1 GROUND A0425 [facility] 1 FIRE FIRE PER DEPT DEPT STATUTE MILE AMB A0427 [facility] SERVICE 1 FIRE FIRE ALS DEPT DEPT EMERGENCY TRANSPORT LEVEL 1 [facility] [address] [facility] RETA REPAIR 1 LOIS SCALP/NEC FAMILY K/AX/ROSITA PRACTICE T/TRUNK 2.6-7.5CM AMBULANCE A0428 RURAL/MET RURAL/MET SERVICE 1 RO RO BLS AMBULANCE AMBULANCE NONEMERGE NCY TRANSPORT GROUND A0425 [facility] 1 FIRE FIRE PER DEPT DEPT STATUTE MILE AMB A0427 [facility] SERVICE 1 FIRE FIRE ALS DEPT DEPT EMERGENCY TRANSPORT LEVEL 1 AMB A0427 [facility] SERVICE 1 FIRE FIRE ALS DEPT DEPT EMERGENCY TRANSPORT LEVEL 1 GROUND A0425 [facility] 1 FIRE FIRE PER DEPT DEPT STATUTE MILE ECG 55167 [facility] ROUTINE 1 LOIS DEL ECG W/LEAST PHYSICIAN 12 LDS S I&R ONLY RADIOLOGI 32877 RADIOLOGY JOSE CRUZ C EXAM 1 TUS CHEST 2 ASSOCIATE VIEWS S PSC FRONTAL&[place] [address] RADIOLOGY JOSE CRUZ HEAD/BRAI 1 TUS N W/O ASSOCIATE CONTRAST S PSC MATERIAL GROUND A0425 [facility] 1 FIRE FIRE PER DEPT DEPT STATUTE MILE RADEX 86384 RADIOLOGY NEILS KIRAN ABDOMEN 1 1 ASSOCIATE ANTEROPOS S PSC TERIOR VIEW URNLS DIP [address] 1 LOIS LOIS STICK/TAB LET RGNT MEDICALCE MEDICALCE NON-AUTO NTER NTER W/[place] [address] RADIOLOGY NEILS KIRAN ABDOMEN & 1 PELVIS ASSOCIATE W/O S PSC CONTRAST MATERIAL THERAPEUT [address] IC 1 LOIS LOIS PROPHYLAC TIC/DX MEDICALCE MEDICALCE INJECTION NTER NTER SUBQ/IM AMB A0427 [facility] SERVICE 1 FIRE FIRE ALS DEPT DEPT EMERGENCY TRANSPORT LEVEL 1 RADIOLOGI 84432 RADIOLOGY DUARTE C EXAM 1 BRA CHEST 2 ASSOCIATE VIEWS S PSC FRONTAL&L ATERAL CRTCHS E0114 [facility] UNDARM 1 TECHNOLOG TECHNOLOG OTH THAN IES INC IES INC WOOD PAIR PAD TIP&HNDGR IP RADEX 79626 RADIOLOGY BRANDSER FOOT 1 KIRAN COMPLETE ASSOCIATE MINIMUM 3 S PSC VIEWS RADEX 72812 RADIOLOGY BRANDSER HAND 1 KIRAN MINIMUM 3 ASSOCIATE VIEWS S PSC GROUND A0425 [facility] 1 FIRE FIRE PER DEPT DEPT STATUTE MILE AMBULANCE A0429 [facility] SERVICE 1 FIRE FIRE BLS DEPT DEPT EMERGENCY TRANSPORT GROUND A0425 [facility] FIRE FIRE PER DEPT DEPT STATUTE MILE AMB A0427 [facility] SERVICE 0 FIRE FIRE ALS DEPT DEPT EMERGENCY TRANSPORT LEVEL 1 RADEX 20399 RADIOLOGY DARDINGER FOOT 0 LUNA COMPLETE ASSOCIATE MINIMUM 3 S PSC VIEWS RADIOLOGI 97692 RADIOLOGY DARDINGER C EXAM 0 LUNA CHEST 2 ASSOCIATE VIEWS S PSC FRONTAL&L ATERAL RADEX 83855 RADIOLOGY ROEBKER ELBOW 0 JAM COMPLETE ASSOCIATE MINIMUM 3 S PSC VIEWS NONEMERG A0120 LKLP LKLP TRNSPRT: 0 COMMUNITY COMMUNITY MINI-BUS ACTION N MTN AREA/OTH SYS AMB A0427 [facility] SERVICE 0 FIRE FIRE ALS DEPT DEPT EMERGENCY TRANSPORT LEVEL 1 GROUND A0425 [facility] 0 FIRE FIRE PER DEPT DEPT STATUTE MILE GROUND A0425 [facility] 0 FIRE FIRE PER DEPT DEPT STATUTE MILE AMBULANCE A0429 [facility] SERVICE 0 FIRE FIRE BLS DEPT DEPT EMERGENCY TRANSPORT RADEX 22410 RADIOLOGY MANDA SHOULDER 0 SRUTHI COMPLETE ASSOCIATE MINIMUM 2 S PSC VIEWS RADEX 26524 RADIOLOGY MANDA HUMERUS 0 SRUTHI MINIMUM [address] [place] [address] RADIOLOGY DUARTE ABDOMEN 0 BRA W/CONTRAS ASSOCIATE T S PSC MATERIAL CT PELVIS 59115 RADIOLOGY DUARTE 0 BRA W/CONTRAS ASSOCIATE T S PSC MATERIAL LEVEL III [address]1252 [facility] SURG 0 LOIS PATHOLOGY MED CTR GROSS&MELVA ROSCOPIC EXAM ANES 88295 INDEPENDE JORDAN, INTRAPERI 0 NT GODWIN P TONEAL ANESTHESI UPPER OLOGIST ABDOMEN W/LAPS NOS LAPAROSCO 06516 YADI SURG 0 LOIS SONAL W CHOLECYST ECTOMY PHYSICIAN S NONEMERG A0120 LKLP LKLP TRNSPRT: 0 COMMUNITY COMMUNITY MINI-BUS ACTION N MTN AREA/OTH SYS [address] EAST TIME W/IMAGE LIMITED ECG [address] [facility]ULL[facility], ROUTINE 0 LOIS AG F ECG MED CTR W/LEAST 12 LDS I&R ONLY ECG [address] ROUTINE 0 LOIS LOIS ECG W/LEAST MEDICALCE MEDICALCE 12 LDS NTER NTER TRCG ONLY W/O I&R COLLECTIO [address] N VENOUS 0 LOIS LOIS BLOOD VENIPUNCT MEDICALCE MEDICALCE URE NTER NTER COMPREHEN [address] SIVE 0 LOIS LOIS METABOLIC PANEL MEDICALCE MEDICALCE NTER NTER BLOOD [address] COUNT 0 LOIS LOIS COMPLETE AUTO&AUTO MEDICALCE MEDICAL[place] [address] LIPASE 0 LOIS LOIS MEDICALCE MEDICALCE NTER NTER URNLS DIP [address] 0 LOIS LOIS STICK/TAB LET RGNT MEDICALCE MEDICALCE NON-AUTO NTER NTER W/O MICRSCP RADIOLOGI 30654 RADIOLOGY DEANNA C EXAM 0 EULALIO M CHEST 2 ASSOCIATE VIEWS S PSC FRONTAL&[place] [address] RADIOLOGY LEW, HEAD/BRAI 0 SHAHID G N W/O ASSOCIATE CONTRAST S PSC MATERIAL AMB A0427 [facility] SERVICE 0 FIRE FIRE ALS DEPT DEPT EMERGENCY TRANSPORT LEVEL 1 GROUND A0425 [facility] MILEAGE 0 FIRE FIRE PER DEPT DEPT STATUTE MILE RADEX ABD 35108 RADIOLOGY FROYLAN, COMPL 9 AQT ABD ASSOCIATE ABREU W/S/E/D S PSC A VIEWS 1 VIEW CH HEMOGLOBI 04731 [facility] N 9 [facility] [place] [address] [facility] FREE 9 [facility] [place] [address] [facility] THYROID 9 [facility] STIMULATI NG HORMONE TSH COMPREHEN 91556 [facility] SIVE 9 [facility] METABOLIC PANEL AMBULANCE A0429 [facility] 9 FIRE FIRE BLS DEPT DEPT EMERGENCY TRANSPORT GROUND A0425 [facility] 9 FIRE FIRE PER DEPT DEPT STATUTE MILE RADEX 01841 RADIOLOGY DUATRE, ANKLE 9 SAKINA L COMPLETE ASSOCIATE MINIMUM 3 S PSC VIEWS RADEX 59604 RADIOLOGY LEW, ELBOW 9 SHAHID G COMPLETE ASSOCIATE MINIMUM 3 S PSC VIEWS SBSQ 04495 [facility] 9 CHRISTINE M CHRISTINE M CARE/DAY 15 MINUTES SBSQ 48175 [facility] 9 [facility] CHRISTINE M CARE/DAY 15 MINUTES SBSQ [address] CHRISTINE M CARE/DAY 15 MINUTES SBSQ 03672 [facility] 9 [facility] CHRISTINE M CARE/DAY 15 MINUTES SBSQ 36805 [facility] 9 CHRISTINE M CHRISTINE M CARE/DAY 15 MINUTES SBSQ 73466 [facility] 9 CHRISTINE M CHRISTINE M CARE/DAY 15 MINUTES SBSQ 66880 [facility] 9 CHRISTINE M CHRISTINE M CARE/DAY [address] [facility], INPATIENT 9 CHRISTINE M CHRISTINE M CONSULT NEW/ESTAB PT [address] [facility], ROUTINE 9 LOIS LUONG F ECG MED CTR W/LEAST 12 LDS I&R ONLY RADEX 47914 RADIOLOGY MANDA, HAND 8 ZACKERY M MINIMUM 3 ASSOCIATE VIEWS S PSC GROUND A0425 [facility] 8 FIRE FIRE PER DEPT DEPT STATUTE MILE AMBULANCE A0429 [facility] 8 FIRE FIRE BLS [place] [address] RADIOLOGY MANDA, HEAD/BRAI 8 ZACKERY M N W/O ASSOCIATE CONTRAST S PSC MATERIAL RADEX 99623 RADIOLOGY DESTINY, SPINE 8 SONIA THORACIC ASSOCIATE H 3 VIEWS S PSC GROUND A0425 [facility] 8 FIRE FIRE PER DEPT DEPT STATUTE MILE AMB A0427 [facility] 8 FIRE FIRE ALS DEPT DEPT EMERGENCY TRANSPORT LEVEL 1 RADEX 12001 RADIOLOGY DESTINY, SPINE 8 SONIA LUMBOSACR ASSOCIATE H AL 2/3 S PSC VIEWS RADEX 70372 RADIOLOGY DESTINY, WRIST 8 SONIA COMPLETE ASSOCIATE H MINIMUM 3 S PSC VIEWS AMBULANCE A0429 [facility] 8 FIRE FIRE BLS DEPT DEPT EMERGENCY TRANSPORT GROUND A0425 [facility] 8 FIRE FIRE PER DEPT DEPT STATUTE MILE GROUND A0425 [facility] 8 FIRE FIRE PER DEPT DEPT STATUTE MILE AMB A0427 [facility] 8 FIRE FIRE ALS DEPT DEPT EMERGENCY TRANSPORT LEVEL [address] YECENIA, ROUTINE 8 LOIS CARLOS R ECG MED CTR W/LEAST 12 LDS I&R ONLY AMBULANCE A0429 [facility] 8 FIRE FIRE BLS DEPT DEPT EMERGENCY TRANSPORT GROUND A0425 [facility] 8 FIRE FIRE PER DEPT DEPT STATUTE MILE RADEX [address] WRIST 8 LOISROSALIA ABREU COMPLETE MINIMUM 3 MEDICALCE MEDICALCE VIEWS NTER NTER RADIOLOGI [address] C EXAM 8 LOISROSALIA ABREU CHEST 2 VIEWS MEDICALCE MEDICALCE FRONTAL&L NTER NTER ATERAL RADEX 23021 RADIOLOGY DUARTE, HAND 8 ZAC MINIMUM 3 ASSOCIATE VIEWS S PSC INJECTION 89860 [facility] DAMASO, ANES 8 LOIS HOPKINS OTHER MED CTR PERIPHERA L NERVE/BRA NCH REPAIR 86240 ST DAM[facility], INTERMEDI 8 LOIS HOPKINS ATE MED CTR F/E/E/N/L &/MUC 2.6-5.0 CM RADEX 13188 RADIOLOGY HURST, FACIAL 8 FERNIE R BONES ASSOCIATE COMPLETE S PSC MINIMUM 3 VIEWS GROUND A0425 [facility] FIRE FIRE PER DEPT DEPT STATUTE MILE AMBULANCE A0429 [facility] SERVICE 8 FIRE FIRE [place] [address] RADIOLOGY ROXANAER ABDOMINAL 8 , SONAL REAL ASSOCIATE T TIME S PSC W/IMAGE LIMITED BLOOD 42013 PATIENT SNEDEGAR, COUNT 8 FIRST SPARKLE COMPLETE PHYS AUTOMATED FLUORESCE 43759 [facility] NT 8 [facility] NONNFCT AGT ANTB MEDICALCE MEDICALCE TITER EA NTER NTER ANTIBODY ANTINUCLE 64183 [facility] AR 8 [facility] EMIGDIO MEDICALCE MEDICALCE NTER NTER IADNA 55268 [facility] HEPATITIS 8 [facility] C QUANT & REVERSE MEDICALCE MEDICALCE NTER NTER TRANSCRIP TION ALPHA-1-A 14757 [facility] NTITRYPSI 8 [facility] N TOTAL MEDICALCE MEDICALCE NTER NTER COMPREHEN 89870 PATIENT SNEDEGAR, SIVE 8 [facility] [place] [address] PATIENT SNEDEGAR, THYROID 8 FIRST SP[facility]LE STIMULAT[place] [address] PATIENT SNEDEGAR, FERRITIN 8 FIRST SPARKLE PHYS IMMUNOASS 56088 [facility] AY 8 [facility] ANALY[facility] QUAL/SEMI MEDICALCE MEDICALCE QUAL NTER NTER MULTIPLE STEP ALPHA-FET 09503 [facility] OPROTEIN 8 [facility] SERUM MEDICALCE MEDICALCE NTER NTER CERULOPLA 95499 [facility] SMIN 8 [facility] [place] [address] PATIENT SNEDEGAR, IRON 8 [place] [address] HEPATITIS 8 [facility] B SURFACE MEDICALCE MEDICALCE ANTIGEN NTER NTER NFCT AGNT [address] GENOTYP 8 [facility] NUCLEIC ACID MEDICALCE MEDICALCE HEPATITIS NTER NTER C VIRUS IRON 49981 PATIENT SNEDEGAR, BINDING 8 FIRST SP[facility] CAPACITY PHYS ACUTE [address] HEPATITIS 8 [facility] PANEL MEDICALCE MEDICALCE NTER NTER COLLECTIO [address] N VENOUS 8 [facility] BLOOD VENIPUNCT MEDICALCE MEDICALCE URE NTER NTER BLOOD [address] COUNT 8 [facility] COMPLETE AUTO&AUTO MEDICALCE MEDICALCE DIFRNTL NTER NTER WBC URNLS DIP [address] 8 [facility] STICK/TAB LET RGNT MEDICALCE MEDICALCE AUTO W/[place] [address] FREE 8 [facility] THYROXINE [place] [address] THYROID 8 [facility] STIMULATI NG MEDICALCE MEDICALCE HORMONE NTER NTER TSH RADIOLOGI 93538 RADIOLOGY LEW, C EXAM 8 SHAHID G CHEST 2 ASSOCIATE VIEWS S PSC FRONTAL&L ATERAL ECG [address] ST LLER, ROUTINE 8 LOIS AG F ECG MED CTR W/LEAST 12 LDS I&R ONLY ECG [address] ROUTINE 8 [facility] ECG W/LEAST MEDICALCE MEDICALCE 12 LDS NTER NTER TRCG ONLY W/O I&R HEMOGLOBI [address] N 8 [facility] GLYCOSYLA BELLA A1C MEDICALCE MEDICALCE NTER NTER COLLECTIO [address] N VENOUS 8 [facility] BLOOD VENIPUNCT MEDICALCE MEDICALCE URE NTER NTER HEPATIC [address] FUNCTION 8 [facility] PANEL MEDICALCE MEDICALCE NTER NTER LIPID [address] PANEL 8 [facility] MEDICALCE MEDICALCE NTER NTER BASIC [address] METABOLIC 8 [facility] PANEL CALCIUM MEDICALCE MEDICALCE TOTAL NTER NTER AMB A0427 [facility] SERVICE 8 FIRE FIRE ALS DEPT DEPT EMERGENCY TRANSPORT LEVEL 1 GROUND A0425 [facility] MILEAGE 8 FIRE FIRE PER DEPT DEPT STATUTE MILE RADEX 63285 RADIOLOGY DUARTE, HAND 8 ZAC MINIMUM 3 ASSOCIATE VIEWS S PSC ECG [address] [facility], ROUTINE 8 LIOS LAROY ECG MED CTR W/LEAST 12 LDS I&R ONLY RHYTHM 19977 [facility], ECG 1-3 8 LOIS LAROY [...] 7 [facility] T EMERGENCY 95501 KYLE DENNEY 6 6 [facility] T VISIT MODERATE SEVERITY OFFICE 24645 [facility] KELI OUTPATIEN 6 6 PHYSICIAN MAT T VISIT S GROUP 25 MINUTES [facility] - 6 6 [facility] IN[facility]IENT [facility] EMERGENCY 28554 KYLE PRITCHETT DEPT 6 6 PHYSICIAN U JOAN VISIT S, [facility] HIGH SEVERITY& THREAT FUNCJ OFFICE 34699 [facility] [place] 5 5 EMILIANO EMILIANO T VISIT 15 MINUTES OFFICE 42549 ARNOLD ARNOLD OUTPATIEN 5 5 EMILIANO EMILIANO T NEW 30 MINUTES OFFICE 62782 CAITY BRADY OUTPATIEN 5 5 LTH T NEW 20 ORTHOPAE MINUTES EMERGENCY 90853 HAROON GALDAMEZERJEE 5 5 EMERGENCY JOHN DEPARTMEN T VISIT PHYSICIAN HIGH/URGE S NT SEVERITY [facility]PITAL ST - 4 4 [facility] OUTPATIEN MED CTR T DATA ANALYST REPORT WRITER EMERGENCY [address] [facility] DEPT 4 4 LOIS ANT VISIT MED CTR HIGH SEVERITY& THREAT FUNCJ EMERGENCY 75935 4 4 [facility]IS DEPARTMEN MED CTR T VISIT DATA ANALYST REPORT WRITER MODERATE SEVERITY EMERGENCY [address] [facility] 4 4 LOIS ANT DEPARTMEN MED CTR T VISIT HIGH/URGE NT SEVERITY HOSPITAL ST - 4 4 LOIS OUTPATIEN MED CTR T DATA ANALYST REPORT WRITER EMERGENCY 01928 [facility] 4 4 LOIS RETA DEPARTMEN MED CTR T VISIT HIGH/URGE NT SEVERITY OFFICE 05737 RADHA ARL RADHA ARL OUTPATIEN 3 3 T VISIT 25 MINUTES EMERGENCY 97238 [facility] DEPT 3 3 LOIS GRE VISIT MED CTR HIGH SEVERITY& THREAT FUNCJ OFFICE 18998 [facility] ARL OUTPATIEN 3 3 POINT T VISIT FAMILY 25 CARE, IN MINUTES OFFICE 44892 [facility] ARL OUTPATIEN 2 2 POINT T VISIT FAMILY 15 CARE, IN MINUTES [facility] - 2 2 LOIS DUVALPATIEN T MEDICALCE NTER EMERGENCY 88144 [facility] 2 2 LOIS RETA DEPARTMEN MED CTR T VISIT MODERATE SEVERITY EMERGENCY 56109 [facility] DEPT 2 2 LOIS MAR VISIT MED CTR HIGH SEVERITY& THREAT FUNCJ [facility]PITAL ST - 2 2 LOIS INPATIENT MEDICALCE NTER EMERGENCY 68402 [facility] DEPT 2 2 LOIS VISIT FAMILY HIGH PRACTICE SEVERITY& THREAT FUNCJ EMERGENCY 53737 [facility] 2 2 LOIS JANNET DEPARTMEN FAMILY T VISIT PRACTICE HIGH/URGE NT SEVERITY EMERGENCY 22601 ST 1 1 LOIS DEPARTMEN T VISIT MEDICALCE MODERATE NTER SEVERITY HOSPITAL ST - 1 1 LOIS OUTPATIEN T MEDICALCE NTER EMERGENCY 63706 [facility] 1 1 LOISDAVID MCDUFFIE DEPARTMEN MED CTR T VISIT HIGH/URGE NT SEVERITY HOSPITAL ST - 1 1 LOIS OUTPATIEN T MEDICALCE NTER EMERGENCY 98911 [facility] 1 1 LOISDAVID JOHN DEPARTMEN MED CTR T VISIT HIGH/URGE NT SEVERITY HOSPITAL ST - 1 1 LOIS OUTPATIEN T MEDICALCE NTER EMERGENCY 32878 [facility] 1 1 LOIS ARIANNE DEPARTMEN MED CTR T VISIT HIGH/URGE NT SEVERITY EMERGENCY 80973 ST 1 1 LOIS DEPARTMEN T VISIT MEDICALCE MODERATE NTER SEVERITY EMERGENCY 80193 [facility] 0 0 LOIS CARMEN DEPARTMEN MED CTR T VISIT HIGH/URGE NT SEVERITY EMERGENCY 03334 [facility] 0 0 LOIS CYRUS DEPARTMEN MED CTR T VISIT MODERATE SEVERITY EMERGENCY 88633 [facility] 0 0 LOIS HEATHER DEPARTMEN T VISIT PHYSICIAN MODERATE S SEVERITY EMERGENCY [address] ST [facility], 0 0 LOISENID Briggs DEPARTMEN MED CTR T VISIT MODERATE SEVERITY EMERGENCY 88777 [facility], 0 0 LOIS KILLIAN DEPARTMEN MED CTR T VISIT HIGH/URGE NT SEVERITY EMERGENCY 58235 [facility] [place], DEPT 0 0 AMANDA Sampson VISIT PHYS HIGH [place] SEVERITY& [place] THREAT FUNCJ EMERGENCY 22901 [facility], 0 0 LOIS Meléndez DEPARTMEN MED CTR T VISIT HIGH/URGE NT SEVERITY HOSPITAL [facility] - 0 0 HOSPITAL OUTPATI EAST T OFFICE 40133 [facility], CONSULTAT 0 0 LOIS RODRIGUEZ/OBED PHYSICIAN PATIENT S 40 MIN EMERGENCY 11181 [facility], 0 0 LOIS DANG DEPARTMEN MED CTR T VISIT MODERATE SEVERITY HOSPITAL ST - 0 0 LOIS OUTPATIEN T MEDICALCE NTER EMERGENCY 10734 ST 0 0 LOIS DEPARTMEN T VISIT MEDICALCE HIGH/URGE NTER NT SEVERITY EMERGENCY 03876 [facility], 0 0 LOIS Anderson DEPARTMEN MED CTR T VISIT HIGH/URGE NT SEVERITY HOSPITAL ST - 0 0 LOIS OUTPATIEN T MEDICALCE NTER EMERGENCY 29339 0 0 LOIS DEPARTMEN T VISIT MEDICALCE MODERATE NTER SEVERITY EMERGENCY 29182 [facility], 0 0 LOIS VICTOR DEPARTMEN MED CTR T VISIT MODERATE SEVERITY EMERGENCY 58523 [facility], DEPT 0 0 LOIS KILLIAN VISIT MED CTR HIGH SEVERITY& THREAT FUNJ [facility] ST - 0 0 LOIS OUTPATIEN T MEDICALCE NT HOSPITAL ST - 9 9 LOIS OUTPATIEN T MEDICALCE NTER EMERGENCY 16509 [facility] 9 9 ROBB ABREU [facility] MED CTR T VISIT HIGH/URGE NT SEVERITY EMERGENCY 49799 [facility], 9 9 LOIS [facility]ISIT HIGH/URGE NT SEVERITY EMERGENCY 40459 [facility], 9 9 LOIS Quarles [facility] MED CTR T VISIT HIGH/URGE NT SEVERITY EMERGENCY 78793 [facility] 9 9 SHAHID ABREU [facility] MED CTR D T VISIT HIGH/URGE NT SEVERITY OFFICE 04045 [facility], OUTPATIEN 9 9 CHRISTINE M CHRISTINE M T VISIT 15 MINUTES OFFICE 76885 [facility] WELLS, OUTPATIEN 9 9 CHRISTINE M CHRISTINE M T VISIT 25 MINUTES EMERGENCY 53068 [facility], 8 8 LOIS Quarles [facility] MED CTR T VISIT HIGH/URGE NT SEVERITY OFFICE 45438 [facility] WELLS, OUTPATIEN 8 8 CHRISTINE M CHRISTINE M T VISIT 15 MINUTES OFFICE 79469 [facility], WELLS, OUTPATIEN 8 8 CHRISTINE M CHRISTINE M T VISIT 15 MINUTES EMERGENCY 92502 [facility], DEPT 8 8 LOIS Quarles VISIT MED CTR HIGH SEVERITY& THREAT FUNCJ OFFICE 45670 WE[facility], WELLS, OUTPATIEN 8 8 CHRISTINE M CHRISTINE M T VISIT 15 MINUTES EMERGENCY [address] [facility], DEPT 8 8 LOIS FRANK VISIT MED CTR HIGH SEVERITY& THREAT FUNCJ EMERGENCY 55617 [facility], 8 8 LOIS JESSICA [facility] MED CTR T VISIT HIGH/URGE NT SEVERITY HOSPITAL ST - 8 8 LOIS Meléndez MEDICALCE NTER EMERGENCY 19745 ST [facility] MODERATE NTER SEVERITY EMERGENCY 17553 [facility], 8 8 LOIS MOLINAEN DEPARTMEN MED CTR T VISIT HIGH/URGE NT SEVERITY OFFICE 30488 PATIENT SNEDEGAR, OUTPATIEN 8 8 FIRST SPARKLE T VISIT PHYS 15 MINUTES OFFICE 03375 [facility] 8 8 CHRISTINE M CHRISTINE M T VISIT 15 MINUTES EMERGENCY 04631 [facility], 8 8 LOIS HOPKINS DEPARTMEN MED CTR T VISIT HIGH/URGE NT SEVERITY OFFICE 97519 [facility] 8 8 CHRISTINE M CHRISTINE M T VISIT [address] - 8 8 LOIS OUTPATIEN T MEDICALCE NTER HOSPITAL ST - 8 8 LOIS OUTPATIEN T MEDICALCE NTER OFFICE 73060 PATIENT SNEDEGAR, CONSULTAT 8 8 FIRST SPARKLE ION PHYS NEW/ESTAB PATIENT 60 MIN OFFICE 21527 [facility] 8 8 CHRISTINE M CHRISTINE M T VISIT [address] - 8 8 LOIS OUTPATIEN T MEDICALCE NTER OFFICE 27011 [facility] 8 8 CHRISTINE M CHRISTINE M T VISIT [address] - 8 8 LOIS OUTPATIEN T MEDICALCE NTER [facility]GENCY 93506 [facility] LOIS Quarles VISIT MED CTR HIGH SEVERITY& THREAT FUNCJ OFFICE 94856 [facility] OUT[facility] 8 8 CHRISTINE M CHRISTINE M T NEW 60 MINUTES EMERGENCY 13272 [facility], 8 8 LOIS LAROY DEPARTMEN MED CTR T VISIT MODERATE SEVERITY OFFICE 02804 [facility] 8 8 MEDICAL ANGELA P T VISIT GROUP 15 MINUTES OFFICE 59262 [facility] 8 8 MEDICAL LUNA B T VISIT GROUP 10 MINUTES OFFICE 22135 [facility] 8 8 MEDICAL MIYA T VISIT GROUP 15 MINUTES
--- OUTSIDE RECORDS SUMMARY | 2016-06-10 00:25 | External Medical Summary Rpt ---
Author Author ISAAC Suarez, [employer] Organization [employer] Address Unknown Phone Unavailable
--- OUTSIDE RECORDS SUMMARY | 2016-06-10 00:25 | External Medical Summary Rpt ---
Author Author , Organization [employer] Address Unknown Phone Unavailable Purpose Continuity of Care Document - 05-07-2012 through 2016 Immunization Name Date Route CVX Reacti Commen Provid Is Given on t er Refuse d PPV23 Histor FQ73 No 2012 ical Inform ation - Source Unspec ified
== END 2016-06-08 17:55 | disposition home or self-care (01) ==
LOC: ER 16:30
DX: H60.503 Unspecified acute noninfective otitis externa, bilateral (principal); L72.3 Sebaceous cyst

== ENCOUNTER 2016-09-10 19:50 | Emergency (ER) | payer MEDICAID ==
[~2016-09-10] VITALS: Ht 167.6 cm; Wt 74.8 kg
[~2016-09-10 19:50] MED LIST changes: +COLY-MYCIN S OT10 ML OT
--- NOTE | 2016-09-10 22:04 | RADIOLOGY REPORT PS360 ---
CT CERVICAL SPINE W/O CONT HISTORY: FOUND LAYING IN ROAD, PAIN . Neck pain. Headache. Ordering Physician: Tristen Cook MD Patient Age: 55 years: Male TECHNIQUE: Helical CT scanning through the cervical spine with sagittal and coronal reconstructions on CT workstation FINDINGS No fracture nor subluxation . Degenerative changes are evident at the cervical spine. Coronal . Degenerative disc space narrowing and spondylosis most pronounced at C5/6.. Endplate hypertrophy posteriorly is seen most evident the left paracentral region more so than right. The disc/osteophyte features appear to flatten the anterior aspect the thecal sac. Spurring left paracentral May impinge upon the left anterior corner of the cervical cord. Spurring also yields Bilateral foraminal encroachment most evident on the left.. The other disc spaces are fairly well maintained. Early intramarginal ossified C4/5 C5 C6 C6/7. Developing Degenerative facet changes throughout the C-spine. Within the upper C-spine at C2/3 C3/4 bilateral.. Also degenerative facet changes at cervical thoracic junction. C1 1 C2 relationships normal. Prevertebral soft tissues normal. Apices the lungs are clear.. odd appearance epiglottis on sagittal reconstructions by far most likely reflects motion artifact from swallowing/&/movement of epiglottis during the scan. I do not believe this is of significance unless patient has significant swallowing difficulty clinically IMPRESSION: ......... 1. No acute findings cervical spine. No fracture nor subluxation. Normal alignment to 2. Moderate Degenerative changes cervical spine. Degenerative disc changes & spondylosis most pronounced C5-C6. Posterior disc/osteophyte features impinge upon cervical cord at this level, with bilateral foraminal encroachment As detailed in text. Mild developing Degenerative facet changes bilaterally most evident over C-spine. 3.. Motion artifact by far most likely accounts for unusual appearance region of the epiglottis. However if there is significant swallowing difficulty this may warrant further consideration & follow-up. (Addendum Additional review of the CT private watchman view further supports normal epiglottis)
--- NOTE | 2016-09-10 22:04 | RADIOLOGY REPORT PS360 ---
CT HEAD WITHOUT CONTRAST CT BONE WINDOWS included PROCEDURE: Routine axial images headwithout contrast. Brain & bone windows without contrast HISTORY: FOUND LAYING IN ROAD, PAIN headache ORDERING PHYSICIAN : Tristen Cook MD PATIENT AGE: 55 years GENDER: Male COMPARISON: None available FINDINGS: No acute intracranial findings. No hemorrhage. No mass effect or mass lesion. No subdural nor extra-axial collection. Mild diffuse cerebral atrophy. The posterior fossa appear satisfactory and unremarkable. . The skull is intact. The visualized portions of the paranasal sinuses are clear. Mastoid air cells, middle ear & IACs are unremarkable. IMPRESSION: No acute intracranial findings.
--- NOTE | 2016-09-10 22:20 | Emergency Room Report ---
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 N Clinical Suspician of Infection? N Mental Status: 2 - Mildly Altered Sepsis Risk:Low Sepsis Risk Have you (or family members/close friends) recently traveled outside the [place]? N If Yes, where/when: Have you had exposure to infectious disease within the past month? TB? Other? Specify: Comment The patient is unable to give an accurate history, he appears intoxicated. History given to me by nurse, who also obtained history from EMS, was that the patient was found in the middle of the road by neighbors, and then was moved to his porch. Details of how he ended up in the middle of the road or whether trauma was involved are unknown at this time. Reportedly, empty liquor bottles were found nearby. The patient says that he drank "this much" making a gesture of about 1 inch between his index and middle fingers. He says he has not had any water to drink her a sandwich since yesterday and is wanting something to drink and eat. He is brought in in a cervical collar, on a spine board. ALLERGIES Coded Allergies: No Known Allergies (11/21/15) Home Medications Active Scripts Carvedilol (Carvedilol 3.125MG) 6.25 MG PO BID #60 TAB Ref 2 Prov: 05/18/15 ISOSORBIDE MONONITRATE (IMDUR 30MG) 30 MG PO DAILY #30 TAB Ref 2 Prov: 05/18/15 Aspirin (Adult Low Dose Aspirin EC) 81 MG PO DAILY #30 TAB Ref 3 Prov: 05/18/15 Neomycin Sandy/Colist/Hc/Thonzon (Coly-Mycin S Otic Susp Drop) 5 DROP OT QID #1 BOT Prov: 06/08/16 Reported Medications Levothyroxine Sodium (Levothyroxine) 0.05 MG PO DAILY ALPRAZOLAM (Alprazolam 1MG) 1 MG PO TID Atorvastatin Calcium (Atorvastatin) 10 MG PO QHS INSULIN GLARGINE (Lantus 3ML Solostar Pen) 20 UNITS SC BID METFORMIN HCL (Metformin) 1,000 MG PO BID Omeprazole (Omeprazole 20MG) 20 MG PO DAILY History Medical History General CAD? Yes Angina: Yes NC: No Hypertension? No Hyperlipidemia? Yes CHF? No DVT? No PE? No COPD? No Asthma? No Anemia? No GERD? Yes Gastric ulcers? No GI Bleed? No Hernia? Yes Thyroid Problems? Yes Hypothyroidism? Yes CVA? No Seizures? No Diabetes? Yes Insulin Dependent: Yes Insulin Pump: No Home FSBS? Yes Renal Insuffiency? No End Stage Renal Disease? No UTI? No Stones? No BPH? No GB Disease: Yes Nephritic Syndrome? No Asplenia? No Hepatitis? No Sickle Cell Disease? No Arthritis? No Migraines? No Cataracts? No Glaucoma? No MRSA? No HIV? No TB? No Anxiety? Yes Depression? Yes Cancer? No More? No Immunization Hx DT/Tetanus Unknown Pneumonia Received In Past Surgical Hx Previous Surgery?Y OPEN HEART BYPASS GALLBLADDER Family History Family Hx Diabetes Yes CAD Yes Hypertension No Hyperlipidemia Yes Cancer No TB No Social History Smoking Hx Smoker: Current Every Day Smoker Tobacco: Yes Type Cigarettes Packs/day < 1 Pack Alcohol Alcohol: Yes Review of Systems All Other Systems Reviewed and Negative (unreliable) Respiratory denies shortness of breath Cardiovascular denies chest pain Gastrointestinal denies abdominal pain, denies vomiting Musculoskeletal denies back pain, denies neck pain Psychiatric/Neurological denies headache Physical Exam Vital Signs Vital Signs Date Time Temp Pulse Resp B/P Pulse O2 O2 Flow FiO2 Ox Delivery Rate 09/10 2208 80 16 124/84 100 09/10 2030 82 20. 110/40 95 09/11 1951 98.3 82 20. 112/65 95 General Appearance cervical collar, smells of alcohol, slurred speech, appears intoxicated Eye Exam - bilateral eye normal exam, bilateral eye PERRL, bilateral eye EOMI Ear, Nose, Throat hearing grossly normal, normal ENT inspection, no signs of cranial trauma Neck normal inspection, non-tender, supple, full range of motion Respiratory Status Yes: trachea midline, chest symmetrical, non tender chest. No: respiratory distress. Lung Sounds bilateral: normal breath sounds, lungs clear. 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 No Results/Orders Laboratory Tests 09/10/16 2218: Creatine Kinase Cancelled, CK-MB (CK-2) Rel Index Cancelled, CK and CKMB Interp Cancelled, Troponin I Cancelled 09/10/16 2030: Sodium 133 L, Potassium 4.0, Chloride 98, Carbon Dioxide 23, BUN 19 H, Creatinine 1.1, Estimated Creat Clear 79, Estimated GFR (MDRD) 69, Glucose 293 H, Calcium 9.4, Total Bilirubin 1.0, AST 78 H, ALT 76, Alkaline Phosphatase 71, Creatine Kinase 80, CK-MB (CK-2) Rel Index 0.6, CK and CKMB Interp < 0.5, Troponin I < 0.02, Total Protein 7.9, Albumin 3.6, Globulin 4.3 H, Albumin/ Globulin Ratio 0.8 L, WBC 6.0, RBC 4.73, Hgb 14.4, Hct 42.9, MCV 90.6, RDW 14.1 , Plt Count 192, MPV 9.4, Gran % 56.7, Gran # 3.4, Lymphocytes % 36.7, Monocytes % 4.6, Eosinophils % 1.5, Basophils % 0.4, Lymphocytes # 2.2, Monocytes # 0.3, Eosinophils # 0.1, Basophils # 0.0, PUBS MCHC 33.6, MCH 30.5, Salicylates 1.8 L , Acetaminophen 0 L, Alcohols 219 H 08/01/17 2004: POC Glucose 326 *H Current Medication Orders Sig/Wallace Start time Last Medication Dose Route Stop Time Status Admin Folic Acid 1 MG ONCE ONE 09/10 2229 DC PO 09/10 2230 Miscellaneous 1 UNIT ONCE ONE 09/10 2229 DC Medication XX 09/10 2230 Multivitamins 10 ML .[id number] 09/10 2229 AC Magnesium Sulfate 2 GM IV 09/11 510 Thiamine HCl 100 MG Lactated Ringer's 1,000 ML Sodium Chloride 10 ML PRN PRN 09/10 2029 AC IV 09/11 2020 Sodium Chloride 10 ML PRN PRN 09/10 2029 AC IV 09/11 2022 Orders Procedure Date/time Status DIET-NOTHING BY MOUTH 09/11 B Active DRUG ABUSE SCREEN (TRIAGE) 09/10 2218 Active ELECTROCARDIOGRAM REQUEST 09/10 2217 Active CBC WITH AUTO DIFF 09/10 2217 Complete CARDIAC ENZYMES 09/10 2217 Complete CHEM 12 PROFILE 09/10 2217 Complete IV SALINE LOCK 09/[address] HEAD REQ 09/[address] SCAN REQ 09/[address] ABD/PELVIS REQ 09/10 2021 Complete IV SALINE LOCK 09/10 2021 Active URINALYSIS/COMPLETE 09/10 2021 Active SALICYLATE 09/10 2021 Complete ALCOHOL 09/10 2021 Complete Acetaminophen 09/10 2021 Complete FINGERSTICK BLOOD SUGAR 09/11 2003 Complete XRAY/CT/US XRAY/CT/US CT head, C-spine, abdomen, pelvis, chest, L-spine Comment CT scan interpreted by [facility] radiologist. Faxed report received and reviewed: Head: Negative Cervical spine: Negative Chest: Negative Abdomen and pelvis: Negative Lumbar spine: Negative Progress - 11:00 PM: The patient is ambulatory around the emergency room with a steady gait. His [id number] is here. He says that the patient "does this". He says whenever he gets a few dollars he buys alcohol and drinks. The patient lives alone and I expressed my concern about this with the [id number]. He says that the patient cannot stay with him, but he says he will be fine by himself, he always is. I told him that I preferred for him to stay with somebody tonight, being diabetic and intoxicated, but his [id number] declines. I told him that we could watch him overnight in the emergency room, but he says the patient will not stay and he thinks he will be fine at home and wants to take him home. The patient refuses any more treatment in the emergency room. Refuses rally pack , refuses electrocardiogram. Departure Departure Disposition DC Home or Self Care(routine) Clinical Impression Primary Impression: Alcohol intoxication Qualifiers: Complication of substance-induced condition: uncomplicated Qualified Code: F10.920 - Alcohol use, unspecified with intoxication, uncomplicated Secondary Impressions: Hyperglycemia Condition STABLE Referrals Diana DICKERSON,Maurizio Fry (Family) Patient Instructions DI for Alcohol Abuse, DI for Hyperglycemia -- Adult Additional Instructions Use your insulin as instructed by your physician. No alcohol drinking. Call your primary care doctor tomorrow to arrange follow-up. ED Critical Care Critical Care No
[2016-09-10 22:28] LABS: HEMOGLOBIN 14.4 g/dL (14.1-18.0); LYMPH # 2.2 K/mm3 (0.7-4.5); LYMPH % 36.7 % (10-50)
--- NOTE | 2016-09-10 22:32 | RADIOLOGY REPORT PS360 ---
CT ABD PELVIS W/O CONTRAST ORDERING PHYSICIAN : Tristen Cook MD PATIENT AGE: 55 years GENDER: Male TECHNIQUE: CT abdomen and pelvis without oral nor IV contrast. Sagittal and coronal reconstruction CT workstation . Sagittal coronal reconstruction CT workstation INDICATION: FOUND LYING IN ROAD, BACK PAIN Epigastric pain. Abdominal pain. Back pain COMPARISON: No previous abdominal studies FINDINGS Lower thorax: Dependent atelectasis posterior lung bases. Abdomen and pelvis. Decreased sensitivity with lack of oral & IV contrast. Would specifically note that there is evidence of significant trauma a trauma protocol CT with contrast would be recommended., as it is more sensitive particularly to liver and splenic injury. If abnormal LFTs &/or significant abdominal tenderness postcontrast may need to be considered. Liver. Generous overall volume liver. Left lobe extends far to the left residing anterior to the spleen Would also note streak artifact from arms at patient's side degrades images here at the liver. However I see no particularly suspicious findings liver. Gallbladder been removed .No Ductal dilatation. Pancreas unremarkable. Spleen is generous in size measuring 14 cm length. There is mild streak artifact but I see no discrete acute findings at the spleen on this limited noncontrast study Kidneys. No acute findings. Right kidney: small punctate calculi at the upper pole and lower pole right kidney. Each Less than 2.5 mm size. Nonobstructive. Very low-density area 8 mm size towards lower right kidney most likely cysts. Left kidney kidney itself is intact.. There is minimal hazy stranding anterior to the left kidney following the Gerota's fascia extending towards the left There is a similar but less evident appearance anterior to the lower right kidney. With this observation important to check for hematuria this appearance as well as check amylase and lipase. The appendix is visualized and normal. But again we see some minimal stranding about the right colon and cecum. Very subtle but noted. . Normal ileum with undigested food but no wall thickening or inflammation here.. There are scattered small nodes throughout the mesentery. Unimpressive and doubt significance.. Pelvis. Bladder appears satisfactory. Moderate size prostate. No free fluid in cul-de-sac. No Free air in the abdomen or pelvis The ureters are normal in course and caliber bilaterally. No obstructive uropathy. . IMPRESSION: Subtle hazy appearance is seen anterior left kidney, along region Gerota's fascia anterior left kidney more so than right. Subtle but noted but noted. The kidneys themselves appear intact..-Warrants correlation with urinalysis as well as checking amylase/lipase. Also questionable minor stranding or about the cecum and right colon. No focal fluid collections nor discrete free fluid at the pelvis Liver. Slightly impaired evaluation here with lack of contrast and due to streak artifact.. However no focal lesion evident on this limited noncontrast study of liver or spleen.. If there has been concern regarding significant abdominal trauma and/or abnormal liver function test or significant abdominal tenderness may need consider a follow-up postcontrast.CT abdomen as it is more sensitive..
[2016-09-10 22:49] LABS: BUN 19 mg/dL (7-18)
--- NOTE | 2016-09-10 22:49 | RADIOLOGY REPORT PS360 ---
CT CHEST W/O CONTRAST Ordering Physician: Tristen Cook MD Patient Age: 55 years: Male HISTORY: FOUND LYING IN ROAD, BACK PAIN . Back pain chest pain TECHNIQUE: Helical CT scanning performed through the chest. No oral nor IV contrast FINDINGS . Lung chandler. No prominent acute findings. No pneumothorax. No pleural effusion. No focal consolidation. Appears to be mild chronic changes bilateral . Hypoventilation with deep dependent atelectasis towards bases. Along posterior lower lobes. Is also some mild atelectasis at posterior upper lobes. Suggestion mild airway thickening centrally which may reflect some chronic bronchitis type picture. The there are mild chronic changes bilaterally Mediastinum. Heart is enlarged. Cardiomegaly. Coronary artery calcification. Sternotomy. Likely CABG. No mediastinal adenopathy or mass. Cannot exclude some mild thickening of the esophagus at its mid and distal portion. No rib fractures. Mild superior endplate cavity at superior T 12 I believe old feature seen on on old rib series from 2016. Period no rib fractures identified. Images of the upper abdomen. Again we see a slight hazy appearance about the posterior the pancreas. Retroperitoneal. This kidney reflect some chronic changes but pancreatitis and chronic liver disease of may be also a consideration rather than acute process. Again partially imaged the slight very subtle hazy appearance along Gerota's fascia bilaterally. . IMPRESSION. No significant acute findings. No acute traumatic findings in the chest Mild hypoventilation with dependent atelectasis most evident at the posterior lower lobes. The mild superior endplate cavity at T12 I favor is old- as was likely seen on 2016 rib series Note Images upper abdomen again shows a very slight hazy appearance posterior to the pancreas as well along Gerota's fascia anterior to kidneys bilaterally. Nonspecific. Along with splenomegaly and the enlarged liver this could be manifestation of underlying liver disease particularly if the patient is hypoproteinemic, rather than reflection of acute trauma
[2016-09-10 22:50] LABS: GFR (ESTIMATED) 69 ML/MIN (>60)
--- NOTE | 2016-09-10 23:03 | RADIOLOGY REPORT PS360 ---
CT LUMBAR SPINE W/O CONTRAST Ordering Physician: Tristen Cook MD Patient Age: 55 years: Male HISTORY: FOUND LYING IN ROAD, BACK PAIN TECHNIQUE: Helical CT scanning performed the lumbar spine with sagittal and coronal reconstructions on the CT workstation FINDINGS No acute appearing fracture or findings. . L5/S1. Degenerative disc space narrowing. Bilateral pars defects. Grade 1 spondylolisthesis L5 on S1.. Prominent hypertrophic facet changes along with hypertrophic changes about the pars defect at L5/S1 posteriorly. This does taper and narrow the spinal canal at this level. L4/5.. Hypertrophic facet and ligament flavum. Narrow the spinal canal. Disc intact. L3/4. Disc intact mild hypertrophic facet and ligament flavum. L2/3. Degenerative disc space narrowing. Trace disc bulge. L1/2. Disc intact. T 12/L1 disc disc intact. T12. Mild superior endplate compression appears old and I believe was evident on 2016 rib series. T11. Intact. Mild kyphosis at T 11-L1 due to the mild wedge configuration of T12. Again we see the slight hazy appearance posterior to the pancreas surrounding the SMA. As well as was be hazy appearance at the anterior aspect of Gerota's fascia bilaterally. These features discussed with ER physician.. If there should be significant abdominal pain of these may warrant a follow-up CT with contrast but it sounds the patient has had minimal abdominal trauma and this may be related to either liver disease hypoproteinemia or possibly pancreatitis picture. Warrants correlation with laboratory. Splenomegaly again noted. There is a prominent splenule extending superior to the left kidney. IMPRESSION: --------- 1. Lumbar spine with no acute fracture or findings. 2. The Mild wedge compression fracture at superior endplate T12 appears old. . This appearance & Mild superior endplate concavity T12 is was seen on 2016 rib series 3. Degenerative changes lumbar spine: L5/S1. . Bilateral pars defects with grade 1 anterolisthesis L5 on S1 . Degenerative disc changes most evident this level. Prominent hypertrophic changes posteriorly narrow the spinal canal Also hypertrophic posterior element changes L4/5 narrowing the spinal canal. Other observations as in text discussed with ER physician.
[2016-09-10 23:15] VITALS: BP 98/59
--- OUTSIDE RECORDS SUMMARY | 2016-09-13 18:21 | External Medical Summary Rpt ---
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 -2 -[address] ti AZ 11 2- 6- 00 00 SI ve OL 07 20 20 47 DE AM 91 17 17 00 1 0 82 PH AR MG MA CY TA BL OF ET CY NT HI AN A IN C LE [...] 20 3- 8- [address] 76 20 [...] 03 04 90 30 00 EA Ac OR 78 -2 -[address] ti [...] HI AN A IN C BD 08 03 04 10 [...] TA AN BL A ET IN C HU 00 03 04 10 [...] 02 03 90 30 00 EA Ac OR 78 -2 -[address] ti [...] 3 35 PH UN AR IT MA /M CY L OF AL CY NT HI AN A IN C [...] 3 03 PH UN AR IT MA /M CY L OF AL CY NT HI AN A IN C [...] ET HI S AN A IN C RA 53 01 [...] AN A IN C IS 13 02 30 30 00 EA Ac OS 66 -2 -[address] ti OR 80 3- 4- 00 00 SI ve BI 10 20 20 47 DE DE 40 17 17 33 1 87 PH MN AR MA ER CY 30 OF CY MG NT HI TA AN BL A ET IN C CA 02 60 30 00 EA Ac RV 09 -2 -[address] ti ED 30 3- 4- 00 00 SI ve IL 13 20 20 47 DE OL 50 17 17 33 1 88 PH 6. AR 25 MA CY MG OF TA CY BL NT ET HI AN A IN C AL 00 01 02 90 30 00 EA Ac OR 78 -2 -[address] ti [...] 03 3- 4- 00 00 SI ve CATRER 28 20 20 0 46 DE LI 41 17 17 98 N 1 54 PH SY AR R MA 1 CY ML OF 12 CY .7 NT MM HI X3 AN 0G A IN C 02 30 30 00 EA Ac PI [...] BL HI ET AN A IN C IS 13 12 [...] 12 01 90 30 00 EA Ac OR 78 -2 -[address] ti AZ 11 3- 7- 00 00 SI ve OL 07 20 20 47 DE AM 91 16 17 00 1 0 82 PH AR MG MA CY TA BL OF ET CY NT HI AN A IN C LE 00 01 10 30 30 00 EA Ac VO 37 [...] 20 2- 7- [address] 76 20 20 45 DE N 01 16 17 25 HC 0 04 PH L AR 1, MA 00 CY 0 MG OF CY TA NT BL HI ET AN A IN C 00 12 01 30 30 00 EA Ac PI 60 [...] 3 03 PH UN AR IT MA /M CY L OF AL CY NT HI AN A IN C [...] BR ZA 11 11 11 MA EN OR 0 CY DA IN # L E [...] 0 20 10 CV 30 MU Ac OR 09 -2 -2 .0 S 20 KH [...] 30 55 D # 13 05 5 GN 38 10 10 0 10 50 BL 65 ZI Ac P 39 -2 -2 0. AN 85 NE ti UN 60 0- 0- 00 K' 91 DD ve IV 54 20 20 0 S 6 IN ER 76 10 10 PH SA 4 AR MO L MA ALBERT 1 CY ME CARTER D PE R TH IN 30 G 65 10 10 0 10 50 BL 65 ZI Ac 70 -2 -2 0. AN 85 NE ti 20 0- 0- 00 K' 91 DD ve 10 20 20 0 S 5 IN 31 10 10 PH 0 AR MO MA ALBERT CY ME D TR 65 10 10 0 15 2 [...] 8- 1- 00 K' 10 AL ve OR 51 20 20 S 7 IL 90 [...] MG 6 D CA PS UL E GL 00 09 12 02 30 30 CV 25 WY Ac IP 59 -0 -3 .0 S 34 EN ti IZ 10 1- PH 04 AN ve ID 84 20 20 AR DT E 40 09 09 MA ER 1 CY JR 5 #6 RO MG 11 BE 9 RT TA BL ET CI 13 09 12 01 30 30 CV 25 WY Ac TA 66 -2 -3 .0 S 50 EN ti LO 80 2- 1- 00 PH 75 AN ve OR 01 20 20 AR DT AM 10 09 09 MA 5 CY JR HB R #6 RO 40 11 BE 9 RT MG TA BL ET 00 09 12 03 60 30 CV 25 WY Ac 09 -0 -3 .0 S 34 EN ti 37 1- 1- 00 PH 05 AN ve 23 20 20 AR DT 10 09 09 MA 6 CY JR #6 RO 11 BE 9 RT TR 00 09 12 03 30 30 CV 25 WY Ac IC 07 -0 -3 .0 S 34 EN ti OR 46 1- 1- 00 PH 56 AN ve 12 20 20 AR DT 14 39 09 09 MA 5 0 CY JR MG #6 RO TA 11 BE BL 9 RT ET AV 00 12 12 00 10 [...] 4- 1- 00 KS 56 DD ve OR 10 20 20 7 IN IL 10 09 09 PH 1 AR MO 10 MA ALBERT CY ME MG D TA BL ET ST 24 12 12 00 12 30 BL 65 ZI Ac OO 38 -1 -3 0. AN 61 NE ti L 50 7- 1- 00 KS 56 DD ve SO 49 20 20 0 4 IN FT 57 09 09 PH EN 8 AR MO ER MA ALBERT -L CY ME AX D AT IV E TA BL ET SE 59 12 12 00 30 30 BL 65 ZI Ac RT 76 -1 -3 .0 AN 61 NE ti RA 24 4- 1- 00 KS 56 DD ve LI 91 20 20 3 IN NE 00 09 09 PH 5 AR MO HC MA ALBERT L CY ME 10 D 0 MG TA BL ET BU 00 12 12 00 90 30 BL 65 ZI Ac SP 59 -1 -3 .0 AN 61 NE ti IR 10 4- 1- 00 KS 56 DD ve ON 65 20 20 2 IN E 80 09 09 PH HC 1 AR MO L MA ALBERT 10 CY ME D MG TA BL ET LE 00 12 12 00 30 30 CV 26 WY Ac VO 37 -1 -3 .0 S 25 EN ti TH 81 7- 1- 00 PH 42 AN ve YR 80 20 20 AR DT OX 00 09 09 MA IN 1 CY JR E 25 #6 RO 11 BE MC 9 RT G TA BL ET AT 68 09 12 03 60 30 CV 25 WY Ac EN 38 -0 -3 .0 S 34 EN ti OL 20 1- 1- 00 PH 53 AN ve OL 02 20 20 AR DT 21 09 09 MA 25 0 CY JR MG #6 RO 11 BE TA 9 RT BL ET GA 00 12 12 00 [...] 5. AN 61 WE ti ET 40 1- 7- 00 KS 11 R ve HY 41 20 20 0 5 DA LE 20 09 09 PH NE 2 AR D MA GL CY YC OL 33 50 PO WD GL 00 09 12 01 30 30 [...] BL 9 RT ET 00 09 12 02 60 30 CV 25 WY Ac 09 -0 -0 .0 S 34 EN ti 37 1- 3- 00 PH 05 AN ve 23 20 20 AR DT 10 09 09 MA 6 CY JR #6 RO 11 BE 9 RT LI 68 09 12 01 30 30 CV 25 WY Ac SI 18 -0 -0 .0 S 34 EN ti NO 00 1- 3- 00 PH 54 AN ve OR 51 20 20 AR DT IL 30 09 09 MA 5 3 CY JR MG #6 RO 11 BE TA 9 RT BL ET CI 13 09 12 00 30 30 CV 25 WY Ac TA 66 -2 -0 .0 S 50 EN ti LO 80 2- 3- 00 PH 75 AN ve OR 01 20 20 AR DT AM 10 09 09 MA 5 CY JR HB R #6 RO 40 11 BE 9 RT MG TA BL ET AT 68 09 12 02 60 30 CV 25 WY Ac EN 38 -0 -0 .0 S 34 EN ti OL 20 1- 3- 00 PH 53 AN ve OL 02 20 20 AR DT 21 09 09 MA 25 0 CY JR MG #6 RO 11 BE TA 9 RT BL ET LE 00 05 11 05 30 30 CV 24 WY Ac VO 37 -2 -1 .0 S 45 EN ti TH 81 0- 9- 00 PH 52 AN ve YR 80 20 20 AR DT OX 00 09 09 MA IN 1 CY JR E 25 #6 RO 11 BE MC 9 RT G TA BL ET 00 11 11 00 6. 1 WA 29 SC Ac 60 -1 -1 00 LG 21 HO ti 35 1- 9- 0 RE 93 TT ve 46 20 20 EN 7 72 09 09 # BLU 8 N 07 J 34 6 00 09 10 01 60 30 CV 25 WY Ac 14 -0 -2 .0 S 34 EN ti 31 1- 2- 00 PH 55 AN ve 77 20 20 AR DT 21 09 09 MA 0 CY JR #6 RO 11 BE 9 RT 00 09 10 01 60 30 CV [...] 9 RT BL ET GA 59 02 10 05 90 30 CV 23 WY Ac BA 76 -2 -2 .0 S 66 EN ti PE 25 4- 2- 00 PH 86 AN ve NT 02 20 20 AR DT IN 30 09 09 MA 1 CY JR 60 0 #6 RO MG 11 BE 9 RT TA BL ET TR 00 09 10 01 30 30 [...] 9 RT G TA BL ET TR 50 09 09 00 30 30 WA 11 ZI Ac AZ 11 -1 -2 .0 LG 06 NE ti OD 10 7- 4- 00 RE 93 DD ve ON 43 20 20 EN 7 IN E 30 09 09 S 50 2 (0 MO 29 ALBERT MG 91 ME ) D TA BL ET LI 68 09 09 00 30 30 WA 11 ZI Ac SI 18 -1 -2 .0 LG 06 NE ti NO 00 7- 4- 00 RE 93 DD ve OR 51 20 20 EN 6 IN IL 40 09 09 S 3 (0 MO 10 29 ALBERT 91 ME MG ) D TA BL ET 00 09 09 00 60 30 WA 11 ZI Ac 78 -1 -2 .0 LG 06 NE ti 11 7- 4- 00 RE 93 DD ve 19 20 20 EN 5 IN 11 09 09 S 0 (0 MO 29 ALBERT 91 ME ) D LE 00 05 09 03 30 30 CV 24 WY Ac VO 37 -2 -1 .0 S 45 EN ti TH 81 0- 0- 00 PH 52 AN ve YR 80 20 20 AR DT OX 00 09 09 MA IN 1 CY JR E 25 #6 RO 11 BE MC 9 RT G TA BL ET 00 09 09 00 [...] 9 RT BL ET TR 00 09 09 00 [...] 1- 0- 00 PH 54 AN ve OR 51 20 20 AR DT IL 30 [...] 9 RT TA BL ET 00 09 09 00 60 30 CV 25 WY Ac 14 -0 -1 .0 S 34 EN ti 31 1- 0- 00 PH 55 AN ve 77 20 20 AR DT 21 09 09 MA 0 CY JR #6 RO 11 BE 9 RT 00 08 08 00 12 30 CV 25 WY Ac 59 -1 -2 0. S 21 EN ti 10 8- 7- 00 PH 82 AN ve 82 20 20 0 AR DT 50 09 09 MA 1 CY JR #6 RO 11 BE 9 RT CI 13 02 08 05 30 30 CV 23 WY Ac TA 66 -2 -2 .0 S 66 EN ti LO 80 4- 7- 00 PH 87 AN ve OR 01 20 20 AR DT AM 10 [...] 9 RT TA BL ET 00 02 08 05 60 30 CV [...] 2- 0- 00 PH 96 AN ve OR 51 20 20 AR DT IL 30 08 09 MA 5 3 CY JR MG #6 RO 11 BE TA 9 RT BL ET CI 13 02 07 04 30 30 CV 23 WY Ac TA 66 -2 -1 .0 S 66 EN ti LO 80 4- 6- 00 PH 87 AN ve OR 01 20 20 AR DT AM 10 09 09 MA 5 CY JR HB R #6 RO 40 11 BE 9 RT MG TA BL ET TR 00 12 07 [...] RT TA BL ET LE 00 05 07 [...] RO 11 BE 9 RT 00 12 07 06 60 30 CV [...] RT TA BL ET CI 13 02 06 03 30 30 CV 23 WY Ac TA 66 -2 -1 .0 S 66 EN ti LO 80 4- 8- 00 PH 87 AN ve OR 01 20 20 AR DT AM 10 [...] L 50 CY MG TA BL ET CY 59 06 06 00 15 5 BL 65 WO Ac CL 74 -0 -1 .0 AN 46 LF ti OB 60 9- 8- 00 KS 48 F ve EN 17 20 20 9 EM ZA 71 09 09 PH IL OR 0 AR Y IN MA L E CY 10 MG TA BL ET CE 68 05 06 00 40 10 BL 65 No Ac PH 18 -2 -0 .0 AN 45 t ti AL 00 8- 4- 00 KS 52 Av ve EX 12 20 20 8 ai IN 20 09 09 PH la 2 AR bl 50 MA e 0 CY MG CA PS UL E LE 00 05 06 00 30 30 [...] RO 11 BE 9 RT 00 02 06 03 60 30 CV [...] 11 BE 9 RT TA BL ET FL 00 05 06 00 12 30 CV 24 WY Ac OV 17 -2 -0 .0 S 45 EN ti EN 30 0- 4- 00 PH 53 AN ve T 72 20 20 AR DT HF 02 09 09 MA A 0 CY JR 22 0 #6 RO MC 11 BE G 9 RT IN ALBERT LE R TR 00 12 06 03 30 30 [...] 2- 4- 00 PH 96 AN ve OR 51 20 20 AR DT IL 30 [...] 11 BE 9 RT GA 00 02 05 02 90 30 [...] 4- 1- 00 PH 87 AN ve OR 01 20 20 AR DT AM 10 09 09 MA 5 CY JR HB R #6 RO 40 11 BE 9 RT MG TA BL ET TR 00 12 04 02 30 30 CV 22 WY Ac IC 07 -0 -2 .0 S 93 EN ti OR 46 2- 3- 00 PH 93 AN ve 12 20 20 AR DT 14 39 08 09 MA 5 0 CY JR MG #6 RO TA 11 BE BL 9 RT ET GL 00 12 04 03 30 [...] 2- 3- 00 PH 96 AN ve OR 51 20 20 AR DT IL 30 08 09 MA 5 3 CY JR MG #6 RO 11 BE TA 9 RT BL ET 00 12 04 04 60 30 [...] HE 6 N TA D BL ET CI 13 02 04 01 30 30 CV 23 WY Ac TA 66 -2 -0 .0 S 66 EN ti LO 80 4- 9- 00 PH 87 AN ve OR 01 20 20 AR DT AM 10 [...] BE 9 RT TA BL ET 00 01 03 02 60 30 [...] 2- 6- 00 PH 96 AN ve OR 51 20 20 AR DT IL 30 [...] 4- 2- 00 PH 87 AN ve OR 01 20 20 AR DT AM 10 [...] 9 RT TA BL ET ZE 66 12 02 [...] 2- 2- 00 PH 96 AN ve OR 51 20 20 AR DT IL 30 08 09 MA 5 3 CY JR MG #6 RO 11 BE TA 9 RT BL ET 00 02 02 00 60 30 CV 23 WY Ac 40 -0 -1 .0 S 49 EN ti 62 5- 2- 00 PH 75 AN ve 02 20 20 AR DT 21 09 09 MA 0 CY JR #6 RO 11 BE 9 RT CI 13 10 02 01 30 15 CV 22 WY Ac TA 66 -2 -1 .0 S 56 EN ti LO 80 1- 2- 00 PH 59 AN ve OR 01 20 20 AR DT AM 10 [...] 9 RT TA BL ET 00 12 02 02 60 30 CV 22 WY Ac 09 -0 -1 .0 S 93 EN ti 37 1- 2- 00 PH 09 AN ve 23 20 20 AR DT 10 08 09 MA 6 CY JR #6 RO 11 BE 9 RT HY 00 01 02 00 14 14 [...] 9 TA BL ET CL 00 01 01 01 42 14 CV 23 LI Ac ON 09 -0 -3 .0 S 19 RA ti AZ 30 2- 0- 00 PH 35 ve EP 83 20 20 AR AU AM 40 09 09 MA RO 2 1 CY RA M MG #6 11 TA 9 BL ET AC 64 01 01 00 30 30 CV 23 LI Ac TO 76 -0 -1 .0 S 19 RA ti S 40 2- 5- 00 PH 31 ve 30 30 20 20 AR AU 11 09 09 MA RO MG 4 CY RA M TA #6 BL 11 ET 9 CR 00 01 01 00 30 30 CV 23 LI Ac ES 31 -0 -1 .0 S 19 RA ti TO 00 2- 5- 00 PH 30 ve R 75 20 20 AR AU 5 59 09 09 MA RO MG 0 CY RA M TA #6 BL 11 ET 9 ME 68 01 01 00 60 30 CV 23 LI Ac TF 38 -0 -1 .0 S 19 RA ti OR 20 2- 5- [address] 02 20 20 AR AU N 81 09 09 MA RO HC 0 CY RA L M 50 #6 0 11 MG 9 TA BL ET CL 00 01 00 30 30 CV 23 LI Ac ON 37 -0 -1 .0 S 19 RA ti ID 80 2- 5- 00 PH 32 ve IN 15 20 20 AR AU E 21 09 09 MA RO HC 0 CY RA L M 0. #6 1 11 MG 9 TA BL ET LE 00 02 10 00 30 30 CV 23 LI Ac [...] 2- 5- 00 PH 96 AN ve OR 51 20 20 AR DT IL 30 08 09 MA 5 3 CY JR MG #6 RO 11 BE TA 9 RT BL ET GL 00 12 01 30 30 CV 22 WY Ac IP 59 -0 -1 .0 S 93 EN ti IZ 10 2- 5- 00 PH 95 AN ve ID 84 20 20 AR DT E 40 08 09 MA ER 1 CY JR 5 #6 RO MG 11 BE 9 RT TA BL ET 00 02 10 00 60 30 CV 23 WY Ac 14 -0 -1 .0 S 21 EN ti 31 5- 5- 00 PH 22 AN ve 77 20 20 AR DT 21 09 09 MA 0 CY JR #6 RO 11 BE 9 RT CL 00 01 01 00 42 14 CV 23 LI Ac ON 09 -0 -1 .0 S 19 RA ti AZ 30 2- 5- 00 PH 35 ve EP 83 20 20 AR AU AM 40 09 09 MA RO 2 1 CY RA M MG #6 11 TA 9 BL ET 58 12 01 30 30 CV 22 WY Ac 17 -0 -1 .0 S 93 EN ti 70 2- 5- 00 PH 94 AN ve 29 20 20 AR DT 30 08 09 MA 4 CY JR #6 RO 11 BE 9 RT 00 12 01 01 60 30 CV 22 WY Ac 09 -0 -1 .0 S 93 EN ti 37 1- 5- 00 PH 09 AN ve 23 20 20 AR DT 10 08 09 MA 6 CY JR #6 RO 11 BE 9 RT ZE 66 12 01 01 30 30 CV 22 WY Ac TI 58 -0 -1 .0 S 93 EN ti A 20 1- 5- 00 PH 10 AN ve 10 41 20 20 AR DT 43 08 09 MA MG 1 CY JR TA #6 RO BL 11 BE ET 9 RT AM 00 12 01 00 14 7 CV 23 LI Ac OX 09 -1 -0 .0 S 09 RA ti IC 33 8- 1- 00 PH 09 ve IL 10 20 20 AR AU LI 90 08 09 MA RO N 5 CY RA 50 M 0 #6 MG 11 9 CA PS UL E 00 12 01 00 15 15 CV [...] 11 TA 9 BL ET CL 00 12 12 00 42 14 CV 22 LI Ac ON 09 -0 -1 .0 S 97 RA ti AZ 30 5- 8- 00 PH 07 ve EP 83 20 20 AR AU AM 40 08 08 MA RO 2 1 CY RA M MG #6 11 TA 9 BL ET 00 12 12 00 12 10 CV 22 LI Ac 53 -0 -1 0. S 97 RA ti 61 5- 8- 00 PH 08 ve 36 20 20 0 AR AU 09 08 08 MA RO 7 CY RA M #6 11 9 00 12 12 00 60 30 CV [...] MG 11 9 CA PS UL E 58 12 12 00 30 30 CV [...] .0 S 93 EN ti IZ 10 2 8- PH 95 AN ve ID 84 20 20 AR DT E 40 08 08 MA ER 1 CY JR 5 #6 RO MG 11 BE 9 RT TA BL ET 00 08 12 02 60 30 CV 22 WY Ac 14 -2 -1 .0 S 02 EN ti 31 2 8- PH 78 AN ve 77 20 20 AR DT 21 08 08 MA 0 CY JR #6 RO 11 BE 9 RT TR 00 12 12 00 30 30 [...] .0 S 93 EN ti NO 00 2 8- PH 96 AN ve OR 51 20 20 AR DT IL 30 08 08 MA 5 3 CY JR MG #6 RO 11 BE TA 9 RT BL ET 00 11 12 00 15 7 CV 22 LI Ac 18 -1 -0 0. S 83 RA ti 26 9- 4- 00 PH 57 ve 06 20 20 0 AR AU 44 08 08 MA RO 0 CY RA M #6 11 9 CL 00 11 12 00 42 14 CV 22 LI Ac ON 09 -1 -0 .0 S 83 RA ti AZ 30 9- 4- 00 PH 55 ve EP 83 20 20 AR AU AM 40 08 08 MA RO 2 1 CY RA M MG #6 11 TA 9 BL ET LO 00 11 12 00 20 20 [...] BE 9 RT TA BL ET 58 07 11 02 [...] RO 11 BE 9 RT CI 13 10 11 00 15 30 CV 22 WY Ac TA 66 -2 -0 .0 S 56 EN ti LO 80 1- 7- 00 PH 59 AN ve OR 01 20 20 AR DT AM 10 08 08 MA 5 CY JR HB R #6 RO 40 11 BE 9 RT MG TA BL ET TR 00 09 11 01 30 30 CV 22 WY Ac IC 07 -2 -0 .0 S 34 EN ti OR 46 5- 7- 00 PH 37 AN ve 12 20 20 AR DT 14 39 08 08 MA 5 0 CY JR MG #6 RO TA 11 BE BL 9 RT ET LI 68 09 11 01 30 30 CV 22 WY Ac SI 18 -2 -0 .0 S 34 EN ti NO 00 5 7- 00 PH 36 AN ve OR 51 20 20 AR DT IL 30 08 08 MA 5 3 CY JR MG #6 RO 11 BE TA 9 RT BL ET CL 00 10 10 00 [...] 32 RA ti ID 80 4 9 00 PH 49 ve IN 15 20 20 AR AU E 21 08 08 MA RO HC 0 CY RA L M 0. #6 1 11 MG 9 TA BL ET TR 00 09 10 00 30 30 CV 22 WY Ac IC 07 -2 -0 .0 S 34 EN ti OR 46 PH 37 AN ve 12 20 20 AR DT 14 39 08 08 MA 5 0 CY JR MG #6 RO TA 11 BE BL 9 RT ET CL 00 09 10 00 90 30 CV 22 LI Ac ON 09 -2 -0 .0 S 32 RA ti AZ 30 4 PH 50 ve EP 83 20 20 AR AU AM 30 08 08 MA RO 1 1 CY RA M MG #6 11 TA 9 BL ET 00 10 10 00 20 3 WA 27 No Ac 59 -0 -0 .0 LG 29 t ti 10 3 9 00 RE 76 Av ve 34 20 20 EN 8 ai 90 08 08 # la 5 bl 07 e 34 6 00 07 10 02 60 30 CV 21 WY Ac 09 -1 -0 .0 S 70 EN ti 37 5 9- PH 95 AN ve 23 20 20 AR DT 10 08 08 MA 6 CY JR #6 RO 11 BE 9 RT 58 07 10 01 30 30 CV 21 WY Ac 17 -1 -0 .0 S 70 EN ti 70 5- 9- PH 96 AN ve 29 20 20 AR DT 30 08 08 MA 4 CY JR #6 RO 11 BE 9 RT LI 68 09 10 00 30 30 CV 22 WY Ac SI 18 -2 -0 .0 S 34 EN ti NO 00 5 PH 36 AN ve OR 51 20 20 AR DT IL 30 08 08 MA 5 3 CY JR MG #6 RO 11 BE TA 9 RT BL ET GL 00 09 10 00 [...] -0 .0 S 02 EN ti 31 2 9 PH 78 AN ve 77 20 20 AR DT 21 08 08 MA 0 CY JR #6 RO 11 BE 9 RT LI 00 06 10 01 30 30 CV 21 WY Ac PI 07 -1 -0 .0 S 48 EN ti TO 10 6 PH 40 AN ve R 15 20 20 AR DT 40 72 08 08 MA 3 CY JR MG #6 RO TA 11 BE BL 9 RT ET FL 00 08 09 00 30 10 CV 22 No Ac UO 16 -2 -1 .0 S 05 t ti CI 80 5- - PH 83 Av ve NO 14 20 20 AR ai NI 03 08 08 MA la DE 0 CY bl e 0. #6 05 11 % 9 OI NT ME NT 00 08 09 00 12 2 WA 10 No Ac 59 -2 -1 .0 LG 37 t ti 10 8- 00 RE 60 Av ve 34 20 20 EN 5 ai 90 08 08 S la 5 (0 bl 29 e 91 ) ME 68 08 09 00 12 30 CV 22 LI Ac TF 38 -2 -1 0. S 07 RA ti OR 20 7- - PH [address] 02 20 20 0 AR AU N 81 08 08 MA RO HC 0 CY RA L M 50 #6 0 11 MG 9 TA BL ET LE 00 08 09 00 30 30 CV 22 LI Ac VO 37 -2 -1 .0 S 07 RA ti TH 81 7- 1- 00 PH 94 ve YR 80 20 20 AR AU OX 50 08 08 MA RO IN 1 CY RA E M 75 #6 11 MC 9 G TA BL ET AC 64 08 09 [...] 11 TA 9 BL ET 00 08 08 00 60 30 [...] 1 11 MG 9 TA BL ET 58 07 08 00 30 30 CV [...] RO 11 BE 9 RT LI 68 07 08 01 30 30 CV 21 WY Ac SI 18 -1 -2 .0 S 71 EN ti NO 00 5- 8- 00 PH 24 AN ve OR 51 20 20 AR DT IL 30 [...] 5- 1- 00 PH 24 AN ve OR 51 20 20 AR DT IL 30 [...] TA 11 BE BL 9 RT ET DI 00 05 07 01 90 [...] 0 11 MG 9 TA BL ET LE [...] G TA BL ET CL 00 05 07 [...] M TA #6 BL 11 ET 9 LO 00 07 07 00 10 2 CV 21 FR Ac RA 37 -1 -1 .0 S 68 AN ti ZE 82 0- 7- 00 PH 32 CE ve PA 45 20 20 AR M 71 08 08 MA AN 1 0 CY TH MG ON #6 Y TA 11 BL 9 ET 00 07 07 00 15 3 CV 21 FR Ac 09 -1 -1 .0 S 68 AN ti 30 0- 7- 00 PH 33 CE ve 89 20 20 AR 00 08 08 MA AN 5 CY TH ON #6 Y 11 9 CL 00 05 07 01 90 30 CV 21 LI Ac ON 37 -3 -1 .0 S 35 RA ti ID 80 0- 7- 00 PH 67 ve IN 15 20 20 AR AU E 21 08 08 MA RO HC 0 CY RA L M 0. #6 1 11 MG 9 TA BL ET CL 00 05 06 00 90 30 CV 21 LI Ac ON 09 -3 -1 .0 S 36 RA ti AZ 30 1- 2- 00 PH 26 ve EP 83 20 20 AR AU AM 30 08 08 MA RO 1 1 CY RA M MG #6 11 TA 9 BL ET NA 68 06 06 00 20 10 WA 10 No Ac OR 46 -0 -1 .0 LG 22 t ti OX 20 3- 2- 00 RE 74 Av ve EN 19 20 20 EN 0 ai 00 08 08 S la 50 5 (0 bl 0 29 e MG 91 ) TA BL ET 63 06 06 00 14 7 BL 65 No Ac 30 -0 -1 .0 AN 15 t ti 40 4- 2- 00 KS 62 Av ve 65 20 20 5 ai 50 08 08 PH la 5 AR bl MA e CY 00 06 06 00 15 1 WA 10 No Ac 60 -0 -1 .0 LG 22 t ti 35 3- 2- 00 RE 74 Av ve 46 20 20 EN 1 ai 72 08 08 S la 8 (0 bl 29 e 91 ) DI 00 05 06 00 90 30 CV 21 LI Ac CY 37 -3 -0 .0 S 35 RA ti CL 81 0- 5- 00 PH 65 ve OM 61 20 20 AR AU IN 00 08 08 MA RO E 1 CY RA 10 M #6 MG 11 9 CA PS UL E CL 00 05 06 00 90 30 CV 21 LI Ac ON 37 -3 -0 .0 S 35 RA ti ID 80 0- 5- 00 PH 67 ve IN 15 20 20 AR AU E 21 08 08 MA RO HC 0 CY RA L M 0. #6 1 11 MG 9 TA BL ET ME 68 05 06 00 12 31 CV 21 LI Ac TF 38 -3 -0 4. S 35 RA ti OR 20 0- 5- [address] 02 20 20 0 AR AU N 81 08 08 MA RO HC 0 CY RA L M 50 #6 0 11 MG 9 TA BL ET LE [...] BL 11 ET 9 CL 00 05 05 00 90 30 [...] 1- 4- 00 KS 41 Av ve OR 40 20 20 1 ai IL 00 08 08 PH la 5 1 AR bl MA e MG CY TA BL ET ME 68 04 04 00 [...] bl MA e TA CY BL ET LE 00 03 04 00 [...] #6 BL 11 ET 9 CL 00 01 03 00 60 30 CV 20 No Ac ON 37 -2 -2 .0 S 31 t ti ID 80 2- 5- 00 PH 65 Av ve IN 15 20 20 AR ai E 21 08 08 MA la HC 0 CY bl L e 0. #6 1 11 MG 9 TA BL ET LE 00 01 03 00 [...] MG #6 11 TA 9 BL ET ME 68 11 03 01 12 30 CV 19 No Ac TF 38 -0 -2 0. S 63 t ti OR 20 1- 5 PH [address] 02 20 20 0 AR ai N 81 07 08 MA la HC 0 CY bl L e 50 #6 0 11 MG 9 TA BL ET 00 01 03 00 90 30 CV 20 No Ac 59 -2 -2 .0 S 31 t ti 15 2 5 PH 64 Av ve 52 20 20 AR ai 30 08 08 MA la 1 CY bl e #6 11 9 Procedures Procedure DOS Code Location Performer Comment [id number] [facility] PER SERVICE SERVICE STATUTE MILE [facility] A0427 [facility] SERVICE 7 AMBULANCE AMBULANCE ALS SERVICE SERVICE EMERGENCY TRANSPORT LEVEL 1 ECG 11561 [facility] ROUTINE 7 [facility] ECG INC INC W/LEAST 12 LDS TRCG ONLY W/O I&R DRUG TST [id number] COMBINED COMBINED PRESUMP;C 6 PHYSICIAN PHYSICIAN PBL BEING S LA S LA READ DC OPT OBV ONLY RADEX 57111 [facility] ALL RIBS 6 MEDICAL UNILATERA IMAGING L 2 VIEWS ASS HEMOGLOBI 47836 COMBINED COMBINED N 6 PHYSICIAN PHYSICIAN GLYCOSYLA S LA S LA BELLA A1C LIPID 80528 COMBINED COMBINED PANEL 6 PHYSICIAN PHYSICIAN S LA S LA COLLECTIO 83440 COMBINED COMBINED N VENOUS 6 PHYSICIAN PHYSICIAN BLOOD S LA S LA VENIPUNCT URE COMPREHEN 65541 COMBINED COMBINED SIVE 6 PHYSICIAN PHYSIC[place] [address] COMBINED COMBINED THYROID 6 PHYSICIAN PHYSICIAN STIMULATI S LA S LA NG HORMONE TSH SBSQ 47017 [facility] FACILITY CARE/DAY E/M STABLE 10 MIN COLLECTIO 14126 COMBINED COMBINED N VENOUS 6 PHYSICIAN PHYSICIAN BLOOD S LA S LA VENIPUNCT URE COMPREHEN 90776 COMBINED COMBINED SIVE 6 PHYSICIAN PHYSICIAN METABOLIC S LA S LA PANEL LIPID 08183 COMBINED COMBINED PANEL 6 PHYSICIAN PHYSICIAN S LA S LA HEMOGLOBI 97616 COMBINED COMBINED N 6 PHYSICIAN PHYSICIAN GLYCOSYLA S LA S LA BELLA A1C BLOOD 66349 COMBINED COMBINED COUNT 6 PHYSICIAN PHYSICIAN COMPLETE S LA S [place] AUTO&[place] [address] COMBINED COMBINED THYROID 6 PHYSICIAN PHYSICIAN STIMULATI S LA S LA NG HORMONE TSH SBSQ 97653 [facility] 6 [facility] FACILITY CARE/DAY E/M STABLE 10 MIN INITIAL 80111 [facility] 6 [facility] FACILITY CARE/DAY 25 MINUTES CATH PLMT 55211 [facility] KELI L HRT & 6 PHYSICIAN MAT ARTS S GROUP W/NJX & ANGIO IMG S&I MEASUREME [id number] [facility] NT 6 [facility] CARDIAC INC INC SAMPLING PRESS LT HEART PERQ FLUOROSCO [id number] [facility] PY 6 [facility] MULTIPLE INC INC CABG LOW [facility] 27875 [place] [facility] 6 [facility] INTERNAL MANAGEMEN MED T 30 MIN/< FLUORO [id number] GR[facility]IEL[facility] MULTI 6 [facility] CORONARY INC INC ARTERIES LOW OSMOLAR CONT FLUORO LT [id number] GRACIELA [facility] INTRL 6 [facility] MAMM INC INC BYPASS GRAFT LOW OSMLR CONT FLUOROSCO [id number] GRACIELA OWENS PY LEFT 6 [facility] HEART LOW INC INC OSMOLAR CONTRAST CV STRS 85465 [facility] FALLU[facility] TST 6 PHYSICIAN SUBHASH XERS&/OR S GROUP RX CONT ECG W/O I&R SBSQ 68632 [facility] 6 [place] CARE/DAY INTERNAL 25 MED MINUTES SBSQ 04807 [facility] 6 [place] CARE/DAY INTERNAL 25 MED MINUTES DUPLEX 83355 [facility] SCAN 6 MEDICAL JUVE EXTRACRAN IMAGING IAL ART ASS COMPL BI STUDY ECHO 74351 [facility] R-T 6 MEDICAL 2D SERV W/WOM-MOD FOUNDATIO E COMPL N SPEC&COLR D MYOCARDIA 33777 [facility] ALL L SPECT 6 MEDICAL MULTIPLE IMAGING STUDIES ASS ECG 73622 GRACIELA SOTELO JR ROUTINE 6 [facility] W/LEAST P 12 LDS I&R ONLY INITIAL 78933 [facility] 6 PHYSICIAN MAT CARE/DAY S GROUP 50 MINUTES GROUND [id number] [facility] MILEAGE 6 AMBULANCE AMBULANCE PER SERVICE SERVICE STATUTE MILE AMB [id number] [facility] SERVICE 6 AMBULANCE AMBULANCE ALS SERVICE SERVICE EMERGENCY TRANSPORT LEVEL 1 [facility]I 37705 [facility] C 6 MEDICAL EXAMINATI IMAGING ON CHEST ASS SINGLE VIEW FRONTAL INITIAL 65145 [facility] NURSING 6 [facility] FACILITY CARE/DAY 25 MINUTES DRUG TST [id number] COMBINED COMBINED PRESUMP;C 6 PHYSICIAN PHYSICIAN PBL BEING S LA S LA READ DC OPT OBV ONLY OPHTH 70531 SCIF[facility] SCIFRES MEDICAL 5 ANG ANG XM&EVAL COMPRE NEW PT 1/> VST RADEX 25112 [facility] HO[facility]IT[facility] WRIST 5 LTH EM[facility] COMPLETE ORTHOPAE MINIMUM 3 VIEWS WRIST L3908 [facility] HAND 5 LTH EMILIANO ORTHOSIS ORTHOPAE EXT CONTROL COCK-UP PREFAB RADEX 68744 [facility] JAM WRIST 5 LTH COMPLETE ORTHOPAE MINIMUM 3 [place] [address] [facility] CARPAL 5 LTH SCAPHOID ORTHOPAE FRACTURE W/O MANJ CLTX DSTL 67674 [facility] RADIAL 5 LTH FX/EPIPHY ORTHOPAE SL SEP W/O MANJ SHOULDER L3650 [facility] 5 TECHNOLOG TECHNOLOG FIG 8 IES INC IES INC ABDUCT RESTRAINE R PREFAB RADEX 82234 [facility] KLEIMEYER WRIST 5 ANJEL COMPLETE ASSOCIATE MINIMUM 3 S OF NOTH VIEWS ESOPHAGOG [address]754 ST ANUSIONWU ASTRODUOD 4 LOIS CHI ENOSCOPY [place] [address] RADIOLOGY DOERGER ABDOMINAL 4 KIR REAL ASSOCIATE TIME S OF NOTH W/IMAGE LIMITED ECHO 56508 [facility] TTHRC R-T 4 LOIS MAR 2D W/WOM-MOD PHYSICIAN E COMPL S SPEC&COLR D INITIAL [address] [facility] LOIS THO CONSULT NEW/ESTAB PHYSICIAN [address] [place] [address] RADIOLOGY AN EMPLOYEE SPONSOR OR ADVOCATE AND/BRAI 4 BRA N W/O ASSOCIATE CONTRAST S OF [facility] MATERIAL INJECTION [id number] ST ST 4 LOISDAVID ABREU [facility] MED [facility] 2 MG RENEWABLE ENERGY TRADER ST RENEWABLE ENERGY TRADER ST AMBULANCE A0429 [facility] SERVICE 4 FIRE FIRE BLS DEPT DEPT EMERGENCY TRANSPORT AMB A0427 [facility] SERVICE 4 FIRE FIRE ALS DEPT DEPT EMERGENCY TRANSPORT LEVEL [address] HEYDI BAR ROUTINE 4 LOIS ECG MED CTR W/LEAST 12 LDS I&[place] [address] RADIOLOGY GARCIA BYR ANGIOGRAP 4 HY CHEST ASSOCIATE W/CONTRAS S OF NOTH T/NONCONT RAST RADIOLOGI 05854 RADIOLOGY SCHMITTER C EXAM 4 LUNA CHEST 2 ASSOCIATE VIEWS S OF NOTH FRONTAL&L ATERAL GROUND A0425 [facility] MILEA 4 FIRE FIRE PER DEPT DEPT STATUTE MILE GROUND A0425 [facility] MILEA 4 FIRE FIRE PER DEPT DEPT STATUTE MILE AMBULANCE A0429 [facility] SERVICE 4 FIRE FIRE BLS DEPT DEPT EMERGENCY TRANSPORT ECG [address] ROUTINE 4 LOIS LOIS ECG MED CTR MED CTR W/LEAST RENEWABLE ENERGY TRADER ST RENEWABLE ENERGY TRADER ST 12 LDS TRCG ONLY W/O I&R ECG 10[address] ST KEENE FORTINO ROUTINE 4 LOIS ECG MED CTR W/LEAST 12 LDS I&R ONLY GROUND A0425 [facility]RE PER DEPT DEPT STATUTE MILE RADIOLOGI 15109 RADIOLOGY BRANDSER C EXAM 4 KIRAN KNEE ASSOCIATE COMPLETE S OF NOTH 4/MORE VIEWS AMB A0427 [facility] SERVICE 4 FIRE FIRE ALS DEPT DEPT EMERGENCY TRANSPORT LEVEL 1 RADIOLOGI 71000 RADIOLOGY BRANDSER C 4 KIRAN EXAMINATI ASSOCIATE ON CHEST S OF NOTH [place] FRONTAL AMB A0427 [facility] SERVICE 4 FIRE FIRE ALS DEPT DEPT EMERGENCY TRANSPORT LEVEL 1 GROUND A0425 [facility] 4 FIRE FIRE PER DEPT DEPT STATUTE MILE SBSQ 52407 [facility] 4 LUNA LUNA CARE/DAY 15 MINUTES INITIAL 14824 [facility] INPATIENT 4 DERIK DERIK CONSULT NEW/ESTAB PT 55 MIN ECG 27220 HEYDI BAR HEYDI BAR ROUTINE 4 ECG W/LEAST 12 LDS I&R ONLY GROUND A0425 [facility] 3 FIRE FIRE PER DEPT DEPT STATUTE MILE AMB A0427 [facility] SERVICE 3 FIRE FIRE ALS DEPT DEPT EMERGENCY TRANSPORT LEVEL 1 ECG 94895 RADHA ARL RADHA ARL ROUTINE 3 ECG W/LEAST 12 LDS W/I&[place] [address] [facility] THYROID 3 DIAGNOSTI DIAGNOSTI STIMULATI [place] [address] [facility] FREE 3 DIAGNOSTI DIAGNOSTI THYROXINE CS CS COMPREHEN 02292 [facility] SIVE 3 DIAGNOSTI DIAGNOSTI METABOLIC CS CS PANEL HEMOGLOBI 27294 [facility] N 3 DIAGNOSTI DIAGNOSTI GLYCOSYLA CS CS BELLA A1C LIPID 58512 [facility] PANEL 3 DIAGNOSTI DIAGNOSTI CS CS ECG 30054 LOMAX CHR LOMAX CHR ROUTINE 3 ECG W/LEAST 12 LDS I&R ONLY RADEX 65531 [facility] SPINE 3 LUMBOSACR AL 2/3 VIEWS RADEX 02768 [facility] SE[facility] SPINE [address] [place] [address] [facility] HEAD/BRAI 3 N W/O CONTRAST MATERIAL AMB A0427 [facility] SERVICE 3 FIRE FIRE ALS DEPT [place] [address] [facility] CERVICAL 3 SPINE W/O CONTRAST MATERIAL GROUND A0425 NE[facility]IE NELLEI MILEAGE 3 FIRE FIRE PER DEPT DEPT STATUTE MILE GROUND A0425 [facility]LEAGE 3 FIRE FIRE PER DEPT DEPT STATUTE MILE ECG 22751 LOMAX CHR LOMAX CHR ROUTINE 3 ECG W/LEAST 12 LDS I&R ONLY AMB A0427 [facility] SERVICE 3 FIRE FIRE ALS DEPT DEPT EMERGENCY TRANSPORT LEVEL 1 ALBUMIN 59879 [facility]INE 3 [facility], [place] [address] QUEST QUEST FREE 3 DIAGNOSTI [place] [address] [facility]ST THYROID 3 DIAGNOSTI DIAGNOSTI STIMULATI CS CS NG HORMONE TSH LIPID 30125 [facility] PANEL 3 DIAGNOSTI DIAGNOSTI CS CS HEMOGLOBI 15002 [facility] N 3 DIAGNOSTI DIAGNOSTI GLYCOSYLA CS CS BELLA A1C COMPREHEN 91083 [facility] SIVE 3 DIAGNOSTI DIAGNOSTI METABOLIC CS CS PANEL RADIOLOGI 43611 WILDA Castillo 3 CYRUS CYRUS EXAMINATI [place] [address] [facility] THYROID 2 DIAGNOSTI DIAGNOSTI STIMULATI CS CS NG HORMONE TSH COMPREHEN 19427 [facility] SIVE 2 DIAGNOSTI DIAGNOSTI METABOLIC CS CS PANEL HEMOGLOBI 14722 [facility] N 2 DIAGNOSTI DIAGNOSTI GLYCOSYLA CS CS BELLA A1C LIPID 35880 [facility] PANEL 2 DIAGNOSTI DIAGNOSTI CS CS RADIOLOGI 36369 RADIOLOGY DARDINGER C EXAM 2 LUNA CHEST 2 ASSOCIATE VIEWS S OF NOTH FRONTAL&L ATERAL GROUND A0425 [facility] FIRE PER DEPT DEPT STATUTE MILE AMB A0427 [facility] SERVICE 2 FIRE FIRE ALS DEPT DEPT EMERGENCY TRANSPORT LEVEL 1 AMB A0427 [facility] SERVICE 2 FIRE FIRE ALS DEPT DEPT EMERGENCY TRANSPORT LEVEL 1 GROUND A0425 [facility] FIRE PER DEPT DEPT STATUTE MILE AMB A0422 [facility] OXYGEN&O2 2 FIRE FIRE SUPPLIES DEPT DEPT LIFE SUSTAININ G SITUATION GROUND A0425 [facility] FIRE FIRE PER DEPT DEPT STATUTE MILE AMB A0427 [facility] SERVICE 2 FIRE FIRE ALS DEPT DEPT EMERGENCY TRANSPORT LEVEL 1 RADIOLOGI 09875 RADIOLOGY ROEBKER C 2 JAM EXAMINATI ASSOCIATE ON CHEST S OF NOTH [place] RADIOLOGI 99786 RADIOLOGY DOERGER C 2 KIR EXAMINATI ASSOCIATE ON CHEST S OF NOTH [place] AMB A0427 [facility] SERVICE 2 FIRE FIRE ALS DEPT DEPT EMERGENCY TRANSPORT LEVEL 1 GROUND A0425 [facility] 2 FIRE FIRE PER DEPT DEPT STATUTE MILE ECG 85698 CARMELO RHODES ROUTINE 2 RAL RAL ECG W/LEAST 12 LDS I&R ONLY SBSQ [address]98 [facility] 2 CARE/DAY 25 MINUTES RADIOLOGI 08792 RADIOLOGY NEILS KIRAN C 2 EXAMINATI ASSOCIATE ON CHEST S OF NOTH [place] RADIOLOGI 74935 RADIOLOGY DARDINGER C 2 LUNA EXAMINATI ASSOCIATE ON CHEST S OF NOTH [place] SBSQ 48552 [facility] 2 HOSPITAL SYDNEE CARE/DAY MEDICAL 25 SPEC MINUTES RADIOLOGI 58461 RADIOLOGY DARDINGER C 2 LUNA EXAMINATI ASSOCIATE ON CHEST S OF NOTH [place] FR[place] ECG 38718 GAYLE MAR GAYLE MAR ROUTINE 2 ECG W/LEAST 12 LDS I&R ONLY RADIOLOGI 77459 RADIOLOGY DUARTE C EXAM 2 BRA CHEST 2 ASSOCIATE VIEWS S OF NOTH FRONTAL&L ATERAL RADIOLOGI 69462 RADIOLOGY VIDALIA C 2 BRA EXAMINATI ASSOCIATE ON CHEST S OF NOT [place]ONTAL INITIAL 64837 [facility] INPATIENT 2 CONSULT NEW/ESTAB PT 80 MIN SBSQ [address] MAN CARE/DAY MEDICAL 35 SPEC MINUTES SBSQ [address] MAN CARE/DAY MEDICAL 35 SPEC MINUTES RADIOLOGI 50096 RADIOLOGY [facility] C 2 JAM EXAMINATI ASSOCIATE ON CHEST S OF NOT [place] FRONTAL ECG 72103 [facility]CO LARA ROUTINE [address] TER ECG W/LEAST 12 LDS I&R ONLY CORONARY 72114 ULICNY ULICNY ARTERY 2 FORTINO FORTINO BYP W/VEIN & ARTERY GRAFT 3 VEIN ARTL 06811 INDEPENDE CRISPEN CATHJ/CAN 2 NT GIANA NULJ ANESTHESI MNTR/MAN OLOGIST SFUSION SPX PRQ ANES 42873 INDEPENDE CRISPEN DIRECT 2 NT GIANA CABG ANESTHESI W/PUMP OLOGIST OXYGENATO R RADIOLOGI 21755 RADIOLOGY [facility] C 2 JAM EXAMINATI ASSOCIATE ON CHEST S OF NOT [place] FRONTAL INSERTION 64374 INDEPENDE CRISPEN FLOW 2 NT GIANA DIRECTED ANESTHESI CATHETER OLOGIST FOR MONITORIN G SBSQ [address] SYDNEE CARE/DAY MEDICAL 35 SPEC MINUTES SBSQ [address] CARE/DAY 25 PHYSICIAN MINUTES S CABG 79923 ULICNY ULICNY W/ARTERIA 2 FORTINO FORTINO L GRAFT TWO ARTERIAL GRAFTS (AORTO)[place] [address] RONARY 2 LOIS LOIS BYPASS THREE MEDICALCE MEDICALCE CORONARY NTER NTER ARTERIES SINGLE [address] INTERNAL 2 LOIS LOIS MAMMARY-C ORONARY MEDICALCE MEDICALCE ARTERY NTER NTER BYPASS INITIAL [address] SYDNEE CARE/DAY MEDICAL 70 SPEC MINUTES SBSQ 45568 [facility] 2 CARE/DAY 35 MINUTES SBSQ 27032 [facility] 2 CARE/DAY 35 MINUTES SBSQ 66401 [facility] 2 MAR MAR CARE/DAY 25 MINUTES SBSQ 34078 [facility] 2 MAR MAR CARE/DAY 25 MINUTES SBSQ 82486 [facility] 2 CHAY CHAY CARE/DAY 25 MINUTES SBSQ 22184 [facility] 2 CHAY CHAY CARE/DAY 25 MINUTES ECG 78702 HULL[facility] HULLER ROUTINE 2 RAL RAL ECG W/LEAST 12 LDS I&R ONLY ECG 36456 HEEB CHR HEEB CHR ROUTINE 2 ECG W/LEAST 12 LDS I&R ONLY RADIOLOGI 25308 RADIOLOGY YOUNG VAN C EXAM 2 CHEST 2 ASSOCIATE VIEWS S OF [facility] FRONTAL&L ATERAL ECHO 21024 [facility] TTHRC R-T 2 CHAY CHAY 2D W/WOM-MOD E COMPL SPEC&COLR D CATH PLMT 18168 CHARLY PARKS L HRT & 2 [place] ARTS W/NJX & ANGIO IMG S&I INITIAL 09426 [facility] 2 FORTINO FORTINO CARE/DAY [address] HEART 2 LOIS LOIS CARDIAC CATHETERI MEDICALCE MEDICALCE ZATION NTER NTER CORONARY [address] ARTERIOGR 2 LOIS LOIS APHY USING TWO MEDICALCE MEDICALCE NTER NTER CATHETERS ANGIOCARD [address] IOGRAPHY 2 LOIS LOIS OF LEFT HEART MEDICALCE MEDICALCE STRUCTURE NTER NTER S AMB A0427 [facility] 2 FIRE FIRE ALS DEPT DEPT EMERGENCY TRANSPORT LEVEL 1 RADIOLOGI 06271 RADIOLOGY [facility] C 2 LUNA EXAMINATI ASSOCIATE ON CHEST S OF [facility] SINGLE VIEW FRONTAL ECG 46546 HEEB CHR HEEB CHR ROUTINE 2 ECG W/LEAST 12 LDS I&R ONLY GROUND A0425 [facility] 2 FIRE FIRE PER DEPT DEPT STATUTE MILE RADEX 54432 RADIOLOGY GARCIA BYR FOOT 2 COMPLETE ASSOCIATE MINIMUM 3 S OF NOTH VIEWS GROUND A0425 [facility] 2 FIRE FIRE PER DEPT DEPT STATUTE MILE REMOVAL 86565 LORI LORI FOREIGN 2 ANT ANT BODY FOOT SUBCUTANE OUS AMB A0427 [facility] SERVICE 2 FIRE FIRE ALS DEPT DEPT EMERGENCY TRANSPORT LEVEL 1 AMB A0427 [facility] SERVICE 2 FIRE FIRE ALS DEPT DEPT EMERGENCY TRANSPORT LEVEL 1 GROUND A0425 [facility] 2 FIRE FIRE PER DEPT DEPT STATUTE MILE ECG 53863 HULLER HULLER ROUTINE 2 RAL RAL ECG W/LEAST 12 LDS I&R ONLY ECG 53688 H[facility] HULLER ROUTINE 2 RAL RAL ECG W/LEAST 12 LDS I&R ONLY GROUND A0425 [facility] 2 FIRE FIRE PER DEPT DEPT STATUTE MILE AMB A0427 [facility] SERVICE 2 FIRE FIRE ALS DEPT DEPT EMERGENCY TRANSPORT LEVEL 1 AMB A0427 [facility] SERVICE 1 FIRE FIRE ALS DEPT DEPT EMERGENCY TRANSPORT LEVEL 1 GROUND A0425 [facility] 1 FIRE FIRE PER DEPT DEPT STATUTE MILE SMPL 08691 [facility] RETA REPAIR 1 LOIS SCALP/NEC FAMILY K/AX/ROSITA PRACTICE T/TRUNK 2.6-7.5CM GROUND A0425 [facility] 1 FIRE FIRE PER DEPT DEPT STATUTE MILE AMB A0427 [facility] SERVICE 1 FIRE FIRE ALS DEPT DEPT EMERGENCY TRANSPORT LEVEL 1 AMBULANCE A0428 RURAL/MET RURAL/MET SERVICE 1 RO RO BLS AMBULANCE AMBULANCE NONEMERGE NCY TRANSPORT AMB A0427 [facility] 1 FIRE FIRE ALS DEPT DEPT EMERGENCY TRANSPORT LEVEL 1 GROUND A0425 [facility] 1 FIRE FIRE PER DEPT DEPT STATUTE MILE ECG [address] [facility] ROUTINE 1 LOIS DEL ECG W/LEAST PHYSICIAN 12 LDS S I&R ONLY RADIOLOGI 06703 RADIOLOGY JOSE CRUZ C EXAM 1 TUS CHEST 2 ASSOCIATE VIEWS S PSC FRONTAL&[place] [address] RADIOLOGY JOSE CRUZ HEAD/BRAI 1 TUS N W/O ASSOCIATE CONTRAST S PSC MATERIAL GROUND A0425 [facility] 1 FIRE FIRE PER DEPT DEPT STATUTE MILE AMB A0427 [facility] SERVICE 1 FIRE FIRE ALS DEPT DEPT EMERGENCY TRANSPORT LEVEL 1 RADEX 07916 RADIOLOGY NEILS KIRAN ABDOMEN 1 1 ASSOCIATE ANTEROPOS S PSC TERIOR VIEW THERAPEUT [address] IC 1 LOIS LOIS PROPHYLAC TIC/DX MEDICALCE MEDICALCE INJECTION NTER NTER SUBQ/[place] [address] RADIOLOGY NEILS KIRAN ABDOMEN & 1 PELVIS ASSOCIATE W/O S PSC CONTRAST MATERIAL URNLS DIP [address] 1 LOIS LOIS STICK/TAB LET RGNT MEDICALCE MEDICALCE NON-AUTO NTER NTER W/O MICRSCP RADIOLOGI 22111 RADIOLOGY VIDALIA C EXAM 1 BRA CHEST 2 ASSOCIATE VIEWS S PSC FRONTAL&L ATERAL RADEX 45866 RADIOLOGY BRANDSER FOOT 1 KIRAN COMPLETE ASSOCIATE MINIMUM 3 S PSC VIEWS RADEX 45365 RADIOLOGY BRANDSER HAND 1 KIRAN MINIMUM 3 ASSOCIATE VIEWS S PSC GROUND A0425 [facility] 1 FIRE FIRE PER DEPT DEPT STATUTE MILE AMBULANCE A0429 [facility] SERV[facility] 1 FIRE FIRE BLS DEPT DEPT EMERGENCY TRANSPORT CRTCHS E0114 [facility]ARM 1 TECHNOLOG TECHNOLOG OTH THAN IES INC IES INC WOOD PAIR PAD TIP&HNDGR IP GROUND A0425 [facility] 0 FIRE FIRE PER DEPT DEPT STATUTE MILE AMB A0427 [facility] 0 FIRE FIRE ALS DEPT DEPT EMERGENCY TRANSPORT LEVEL 1 RADEX 29401 RADIOLOGY DARDINGER FOOT 0 LUNA COMPLETE ASSOCIATE MINIMUM 3 S PSC VIEWS RADIOLOGI 10239 RADIOLOGY DARDINGER C EXAM 0 LUNA CHEST 2 ASSOCIATE VIEWS S PSC FRONTAL&L ATERAL RADEX 10550 RADIOLOGY ROEBKER ELBOW 0 JAM COMPLETE ASSOCIATE MINIMUM 3 S PSC VIEWS NONEMERG A0120 LKLP LKLP TRNSPRT: 0 [facility] MINI-BUS ACTION N MTN AREA/OTH SYS GROUND A0425 [facility] 0 FIRE FIRE PER DEPT DEPT STATUTE MILE AMB A0427 [facility] 0 FIRE FIRE ALS DEPT DEPT EMERGENCY TRANSPORT LEVEL 1 RADEX 78102 RADIOLOGY MANDA HUMERUS 0 SRUTHI MINIMUM 2 ASSOCIATE VIEWS S PSC GROUND A0425 [facility] 0 FIRE FIRE PER DEPT DEPT STATUTE MILE AMBULANCE A0429 [facility] 0 FIRE FIRE BLS DEPT DEPT EMERGENCY TRANSPORT RADEX 80243 RADIOLOGY MANDA SHOULDER 0 SRUTHI COMPLETE ASSOCIATE MINIMUM [address] PELVIS 31006 RADIOLOGY DUARTE 0 BRA W/[place] [address] RADIOLOGY VIDALIA ABDOMEN 0 BRA W/CONTRAS ASSOCIATE T S PSC MATERIAL LEVEL III 44974 [facility] SURG 0 LOIS PATHOLOGY MED CTR GROSS&MELVA ROSCOPIC EXAM ANES 93589 INDEPENDE JORDAN, INTRAPERI 0 NT GODWIN P TONEAL ANESTHESI UPPER OLOGIST ABDOMEN W/LAPS NOS LAPAROSCO 48275 [facility] SURG 0 LOIS PRUITT W CHOLECYST ECTOMY PHYSICIAN S NONEMERG A0120 LKLP LKLP TRNSPRT: 0 [facility] MIN[facility] ACTION N MTN AREA/[place] [address] RADIOLOGY WILDA, ABDOMINAL 0 SHAHID R REAL ASSOCIATE TIME S PSC W/IMAGE LIMITED ECG 44395 ST HULLER, ROUTINE 0 LOIS AG F ECG MED CTR W/LEAST 12 LDS I&R ONLY BLOOD [address] COUNT 0 LOIS LOIS COMPLETE AUTO&AUTO MEDICALCE MEDICALCE DIFRNTL NTER NTER WBC COMPREHEN [address] SIVE 0 LOIS LOIS METABOLIC PANEL MEDICALCE MEDICALCE NTER NTER COLLECTIO [address] N VENOUS 0 LOIS LOIS BLOOD VENIPUNCT MEDICALCE MEDICALCE URE NTER NTER URNLS DIP [address] 0 LOIS LOIS STICK/TAB LET RGNT MEDICALCE MEDICALCE NON-AUTO NTER NTER W/O MICRSCP ECG [address] ROUTINE 0 LOIS LOIS ECG W/LEAST MEDICALCE MEDICALCE 12 LDS NTER NTER TRCG ONLY W/O I&[place] [address] LIPASE 0 LOIS LOIS MEDICALCE MEDICALCE NTER NTER RADIOLOGI [address] C EXAM 0 LOIS LOIS CHEST 2 VIEWS MEDICALCE MEDICALCE FRONTAL&L NTER NTER ATERAL GROUND A0425 [facility] MILEAGE 0 FIRE FIRE PER DEPT DEPT STATUTE MILE AMB A0427 [facility]ICE 0 FIRE FIRE ALS DEPT DEPT [place]ERGENC[place] [address] RADIOLOGY LEW, HEAD/BRAI 0 SHAHID G N W/O ASSOCIATE CONTRAST S PSC MATERIAL RADEX ABD 29688 RADIOLOGY FROYLAN, COMPL 9 AQT ABD ASSOCIATE LOIS W/S/E/D S PSC A VIEWS 1 [place] [address] [facility] THYROID 9 [facility] STIMULATI NG HORMONE TSH COMPREHEN 51554 [facility] SIVE 9 [facility] [place] [address] [facility] FREE 9 [facility] THYROXINE HEMOGLOBI 51130 [facility] N 9 [place] [facility] [place] [facility] GLYCOSYLA BELLA A1C GROUND A0425 [facility] 9 FIRE FIRE PER DEPT DEPT STATUTE MILE AMBULANCE A0429 [facility] 9 FIRE FIRE BLS DEPT DEPT EMERGENCY TRANSPORT RADEX 24347 RADIOLOGY LEW, ELBOW 9 SHAHID G COMPLETE ASSOCIATE MINIMUM 3 S PSC VIEWS RADEX 30580 RADIOLOGY DUARTE, ANKLE 9 SAKNIA L COMPLETE ASSOCIATE MINIMUM 3 S PSC VIEWS SBSQ 35045 [facility] 9 [facility] CARE/DAY 15 MINUTES SBSQ 72278 [facility] 9 [facility] M CARE/DAY 15 MINUTES SBSQ [address] M CARE/DAY 15 MINUTES SBSQ 61492 [facility] 9 [facility] M CARE/DAY 15 MINUTES SBSQ 19761 [facility] 9 CHRISTINE M CARE/DAY 15 MINUTES SBSQ 89954 [facility] 9 CHRISTINE M CARE/DAY 15 MINUTES SBSQ 70863 [facility] 9 CHRISTINE M CARE/DAY 15 MINUTES INITIAL 86264 [facility], INPATIENT 9 CHRISTINE M CHRISTINE M CONSULT NEW/ESTAB PT [address] [facility], ROUTINE 9 LOIS AG F ECG MED CTR W/LEAST 12 LDS I&R ONLY RADEX 99051 RADIOLOGY MANDA, HAND 8 ZACKERY M MINIMUM 3 ASSOCIATE VIEWS S PSC GROUND A0425 [facility] 8 FIRE FIRE PER DEPT DEPT STATUTE MILE AMBULANCE A0429 [facility] 8 FIRE FIRE [place]LS [place] [address] RADIOLOGY MANDA, HEAD/BRAI 8 ZACKERY M N W/O ASSOCIATE CONTRAST S PSC MATERIAL RADEX 31534 RADIOLOGY DESTINY, SPINE 8 SONIA THORACIC ASSOCIATE H 3 VIEWS S PSC RADEX 01639 RADIOLOGY DESTINY, WRIST 8 SONIA COMPLETE ASSOCIATE H MINIMUM 3 S PSC VIEWS AMB A0427 [facility] 8 FIRE FIRE ALS DEPT DEPT EMERGENCY TRANSPORT LEVEL 1 GROUND A0425 [facility] 8 FIRE FIRE PER DEPT DEPT STATUTE MILE RADEX 65734 RADIOLOGY DESTINY, SPINE 8 SONIA LUMBOSACR ASSOCIATE H AL 2/3 S PSC VIEWS GROUND A0425 [facility] 8 FIRE FIRE PER DEPT DEPT STATUTE MILE AMBULANCE A0429 [facility] 8 FIRE FIRE BLS DEPT DEPT EMERGENCY TRANSPORT AMB A0427 [facility] 8 FIRE FIRE ALS DEPT DEPT EMERGENCY TRANSPORT LEVEL 1 GROUND A0425 [facility] 8 FIRE FIRE PER DEPT DEPT STATUTE MILE ECG [address] ST YECENIA, ROUTINE 8 LOIS FREITASA R ECG MED CTR W/LEAST 12 LDS I&R ONLY GROUND A0425 [facility] 8 FIRE FIRE PER DEPT DEPT STATUTE MILE AMBULANCE A0429 [facility] 8 FIRE FIRE BLS DEPT DEPT EMERGENCY TRANSPORT RADEX 50480 RADIOLOGY DUARTE, WRIST 8 ZAC COMPLETE ASSOCIATE MINIMUM 3 S PSC VIEWS RADEX [address] HAND 8 LOIS ABREU MINIMUM 3 VIEWS MEDICALCE MEDICALCE NTER NTER RADIOLOGI 60609 RADIOLOGY DUARTE, C EXAM 8 ZAC CHEST 2 ASSOCIATE VIEWS S PSC FRONTAL&L ATERAL GROUND A0425 [facility] 8 FIRE FIRE PER DEPT DEPT STATUTE MILE REPAIR 18900 ST DAMASO, INTERMEDI 8 LOIS [facility] AT[facility] MED [facility] F/E/E/N/L &/MUC 2.6-5.0 CM RADEX 73428 RADIOLOGY HURST, FACIAL 8 FERNIE R BONES ASSOCIATE COMPLETE S PSC MINIMUM 3 VIEWS AMBULANCE A0429 [facility] 8 FIRE FIRE BLS DEPT DEPT EMERGENCY TRANSPORT INJECTION 04260 ONEL PETIT 8 LOIS HOP[facility]INS OTHER MED CTR PERIPHERA L NERVE/BRA [facility] [address]1160 [facility] ABDOMINAL 8 [facility] REAL TIME MEDICALCE MEDICALCE W/IMAGE NTER NTER LIMITED FLUORESCE 39743 [facility] NT 8 [facility] NONNFCT AGT ANTB MEDICALCE MEDICALCE TITER EA NTER NTER ANTIBODY ALPHA-1-A 07430 [facility] NTITRYPSI 8 [facility] N TOTAL MEDICALCE MEDICALCE NTER NTER BLOOD 64819 PATIENT SNEDEGAR, COUNT 8 FIRST SPARKLE COMPLETE PHYS AUTOMATED IRON 25338 PATIENT SNEDEGAR, BINDING 8 FIRST SPARKLE CAPACITY PHYS ALPHA-FET 51318 [facility] OPROTEIN 8 [facility] SERUM MEDICALCE MEDICALCE NTER NTER CERULOPLA 63481 [facility] SMIN 8 [facility] [place] [address] PATIENT SNEDEGAR, IRON 8 FIRST SPARKLE PHYS COMPREHEN 42044 PATIENT SNEDEGAR, SIVE 8 FIRST SPARKLE METABOLIC PHYS PANEL IADNA 89591 [facility] HEPATITIS 8 [place] LOIS C QUANT & REVERSE MEDICALCE MEDICALCE NTER NTER TRANSCRIP TION ANTINUCLE 25275 [facility] AR 8 [facility] ANTIBODIE S EMIGDIO [place] [address] PATIENT SNEDEGAR, THYROID 8 FIRST SPARKLE STIMULAT[place] [address] PATIENT SNEDEGAR, FERRITIN 8 FIRST SPARKLE PHYS IMMUNOASS 20999 [facility] AY 8 [facility] ANALYTE QUAL/SEMI MEDICALCE MEDICALCE [place] [address] [facility] HEPATITIS 8 [facility] B SURFACE MEDICALCE MEDICALCE ANTIGEN NTER NTER NFCT AGNT [address] GENOTYP 8 [facility] NUCLEIC ACID MEDICALCE MEDICALCE HEPATITIS NTER NTER C VIRUS COLLECTIO [address] N VENOUS 8 [facility] BLOOD VENIPUNCT MEDICALCE MEDICALCE URE NTER NTER ACUTE [address] HEPATITIS 8 [facility] PANEL [place] [address] FREE 8 [facility] THYROXINE MEDICALCE MEDICALCE NTER NTER URNLS DIP [address] 8 LOIS LOIS STICK/TAB LET RGNT MEDICALCE MEDICALCE AUTO W/O NTER NTER MICROSCOP Y COLLECTIO [address] N VENOUS 8 [facility] BLOOD VENIPUNCT MEDICALCE MEDICALCE URE NTER NTER BLOOD [address] COUNT 8 [facility] COMPLETE AUTO&AUTO MEDICALCE MEDICALCE DIFRNTL NTER NTER WBC HEMOGLOBI [address] N 8 [facility] GLYCOSYLA BELLA A1C MEDICALCE MEDICALCE NTER NTER ECG [address] ST HULLER, ROUTINE 8 LOIS AG F ECG MED CTR W/LEAST 12 LDS I&R ONLY RADIOLOGI [address] C EXAM 8 [facility]IS LO[facility] CHEST 2 VIEWS MEDICALCE MEDICALCE FRONTAL&L NTER NTER ATERAL HEPATIC [address] FUNCTION 8 [facility] PANEL MEDICALCE MEDICALCE NTER NTER LIPID [address] PANEL 8 [facility] MEDICALCE MEDICALCE NTER NTER ECG [address] ROUTINE 8 LOIS LOIS ECG W/LEAST MEDICALCE MEDICALCE 12 LDS NTER NTER TRCG ONLY W/O I&[place] [address] THYROID 8 [facility] LOIS STIMULATI NG MEDICALCE MEDICALCE HORMONE NTER NTER TSH BASIC [address] METABOLIC 8 [facility]IS LO[place] PANEL CALCIUM MEDICALCE MEDICALCE TOTAL NTER NTER AMB A0427 [facility] SERVICE 8 FIRE FIRE ALS DEPT DEPT EMERGENCY TRANSPORT LEVEL 1 RADEX 99039 RADIOLOGY DUARTE, HAND 8 ZAC MINIMUM 3 ASSOCIATE VIEWS S PSC GROUND A0425 [facility] MILEAGE 8 FIRE FIRE PER DEPT DEPT STATUTE MILE ECG 44744 ST ZACK, ROUTINE 8 LOIS LAROY ECG MED CTR W/LEAST 12 LDS I&R ONLY RHYTHM 41617 ST ZACK, ECG 1-3 8 LOIS LAROY LEADS MED CTR INTERPRET ATION & REPRT ON SYRINGE A4206 [facility] WITH 8 PHARMACY PHARMACY NEEDLE #6119 #6119 STERILE 1 CC OR LESS EACH BLD GLU A4253 [facility] TEST/REAG 8 PHARMACY PHARMACY T STRIPS #6119 #6119 HOME BLD GLU 50 Encounters Encounter Start End Date Code Location Performer Type Date EMERGENCY 89387 KYLE FELICIANO, 7 7 PHYSICIAN [facility] S, [facility] T VISIT MODERATE SEVERITY EMERGENCY 68161 [facility]A 7 7 [facility] VISIT LOW/MODER SEVERITY HOSPITAL GRACIELA - 7 7 [facility] OUTPATIEN [facility] GRACIELA - 7 7 [facility] OUTPATIEN [facility] T EMERGENCY 91422 KYLE DENNEY 6 6 PHYSICIAN MELVA [facility] S, [facility] T VISIT MODERATE SEVERITY OFFICE 46969 [facility] 6 6 PHYSICIAN MOHAN T VISIT S GROUP 25 MINUTES EMERGENCY 97720 KYLE PRITCHETT DEPT 6 6 PHYSICIAN Ronal [facility] SE[facility] THREAT [facility] GRACIELA - 6 6 [facility] INPATIENT INC OFFICE 85123 [facility] 5 5 EMILIANO EMILIANO T VISIT 15 MINUTES OFFICE 03976 [facility] 5 5 EMILIANO EMILIANO T NEW 30 MINUTES OFFICE 61831 [facility] OUTPATIEN 5 5 LTH T NEW 20 ORTHOPAE MINUTES EMERGENCY 90843 HAROON GALDAMEZERJEE 5 5 EMERGENCY [facility] T VISIT PHYSICIAN HIGH/URGE S NT SEVERITY EMERGENCY 08266 ST 4 4 [facility]IS DEPARTMEN MED CTR T VISIT RENEWABLE ENERGY TRADER MODERATE SEVERITY HOSPITAL ST - 4 4 [facility]IS OUTPATIEN MED CTR T RENEWABLE ENERGY TRADER EMERGENCY 45789 [facility] DEPT 4 4 LOIS ANT VISIT MED CTR HIGH SEVERITY& THREAT FUNCJ EMERGENCY 42377 [facility] 4 4 LOIS ANT DEPARTMEN MED CTR T VISIT HIGH/URGE NT SEVERITY HOSPITAL ST - 4 4 LOIS OUTPATIEN MED CTR T RENEWABLE ENERGY TRADER EMERGENCY 30310 [facility] 4 4 LOIS RETA DEPARTMEN MED CTR T VISIT HIGH/URGE NT SEVERITY OFFICE 39184 [facility] OUTPATIEN 3 3 T VISIT 25 MINUTES EMERGENCY 32589 [facility] DEPT 3 3 LOIS GRE VISIT MED CTR HIGH SEVERITY& THREAT FUNCJ OFFICE 93759 [facility] OUT[facility] 3 3 POINT T VISIT FAMILY 25 CARE, IN MINUTES OFFICE 89334 [facility] OUTPATI[facility] 2 2 POINT T VISIT FAMILY 15 CARE, IN MINUTES EMERGENCY 73168 ST 2 2 LOIS DEPARTMEN T VISIT MEDICALCE MODERATE NTER SEVERITY [facility] - 2 2 LOIS OUTPATIEN T MEDICALCE NTER EMERGENCY 33647 [facility] 2 2 LOIS MAR VISIT MED CTR HIGH SEVERITY& THREAT FUN [facility] ST - 2 2 LOIS INPATIENT MEDICALCE NTER EMERGENCY 17379 [facility] DEPT 2 2 LOIS VISIT FAMILY HIGH PRACTICE SEVERITY& THREAT FUNCJ EMERGENCY 36239 [facility] 2 2 LOIS JANNET DEPARTMEN FAMILY T VISIT PRACTICE HIGH/URGE NT SEVERITY EMERGENCY 95204 ST 1 1 LOIS DEPARTMEN T VISIT MEDICALCE MODERATE NTER SEVERITY [facility] ST - 1 1 LOIS OUTPATIEN T MEDICALCE NTER EMERGENCY 20410 [facility] 1 1 LOISDAVID MCDUFFIE DEPARTMEN MED CTR T VISIT HIGH/URGE NT SEVERITY HOSPITAL ST - 1 1 LOIS OUTPATIEN T MEDICALCE NTER EMERGENCY 66589 [facility] 1 1 LOISDAVID JOHN DEPARTMEN MED CTR T VISIT HIGH/URGE NT SEVERITY EMERGENCY 77381 ST 1 1 LOIS DEPARTMEN T VISIT MEDICALCE MODERATE NTER SEVERITY [facility]PITAL ST - 1 1 LOIS OUTPATIEN T MEDICALCE NTER EMERGENCY 38186 [facility] 1 1 LOIS ACUÑA DEPARTMEN MED CTR T VISIT HIGH/URGE NT SEVERITY EMERGENCY 13695 [facility] 0 0 LOIS ANT DEPARTMEN MED CTR T VISIT HIGH/URGE NT SEVERITY EMERGENCY 88509 [facility] 0 0 LOIS STE DEPARTMEN MED CTR T VISIT MODERATE SEVERITY EMERGENCY 67137 [facility] 0 0 LOIS JUL DEPARTMEN T VISIT PHYSICIAN MODERATE S SEVERITY EMERGENCY 08901 [facility], 0 0 LOIS Briggs DEPARTMEN MED CTR T VISIT MODERATE SEVERITY EMERGENCY 78026 [facility], 0 0 LOIS KILLIAN DEPARTMEN MED CTR T VISIT HIGH/URGE NT SEVERITY EMERGENCY 14197 [facility], DEPT 0 0 AMANDA JONA Sampson VISIT PHYS HIGH [facility] SEVER[facility]& [place] THREAT FUNCJ EMERGENCY 64067 [facility], 0 0 LOIS Meléndez DEPARTMEN MED CTR T VISIT HIGH/URGE NT SEVERITY [facility] 92102 [facility], CONSULTAT 0 0 LOIS RODRIGUEZ/OBED PHYSICIAN PATIENT S 40 MIN EMERGENCY 73441 [facility], 0 0 LOIS DANG DEPARTMEN MED CTR T VISIT MODERATE SEVERITY EMERGENCY 50660 [facility] 0 0 ROBB ABREU DEPARTMEN MED CTR T VISIT HIGH/URGE NT SEVERITY HOSPITAL ST - 0 0 LOIS OUTPATIEN T MEDICALCE NTER EMERGENCY 02916 0 0 LOIS DEPARTMEN T VISIT MEDICALCE MODERATE NTER SEVERITY [facility]OSPITAL ST - 0 0 LOIS OUTPATIEN T MEDICALCE NTER EMERGENCY 11075 [facility], 0 0 LOIS Anderson DEPARTMEN MED CTR T VISIT HIGH/URGE NT SEVERITY EMERGENCY 94881 [facility], 0 0 LOIS VICTOR DEPARTMEN MED CTR T VISIT MODERATE SEVERITY EMERGENCY 78395 [facility], DEPT 0 0 LOIS KILLIAN VISIT MED CTR HIGH SEVERITY& THREAT [facility] - 0 0 LOIS OUTPATIEN T MEDICALCE NT HOSPITAL ST - 9 9 LOIS OUTPATIEN T MEDICALCE NTER EMERGENCY [address]98 [facility] 9 9 [facility] T VISIT HIGH/URGE NT SEVERITY EMERGENCY 42092 [facility], 9 9 LOIS Sampson [facility] T VISIT HIGH/URGE NT SEVERITY EMERGENCY 74921 [facility], 9 9 LOIS Quarles [facility] T VISIT HIGH/URGE NT SEVERITY EMERGENCY 43484 [facility] 9 9 SHAHID ABREU [facility] MED CTR D T VISIT HIGH/URGE NT SEVERITY OFFICE 64640 [facility] WELLS, OUTPATIEN 9 9 CHRISTINE M CHRISTINE M T VISIT 15 MINUTES OFFICE 51688 [facility], WELLS, OUTPATIEN 9 9 CHRISTINE M CHRISTINE M T VISIT [address] [facility], 8 8 LOIS Quarles [facility] MED CTR T VISIT HIGH/URGE NT SEVERITY OFFICE 12515 [facility], WELLS, OUTPATIEN 8 8 CHRISTINE M CHRISTINE M T VISIT 15 MINUTES OFFICE 35906 [facility], WELLS, OUTPATIEN 8 8 CHRISTINE M CHRISTINE M T VISIT 15 MINUTES EMERGENCY 65411 [facility], DEPT 8 8 LOIS Quarles VISIT MED CTR HIGH SEVERITY& THREAT FUNCJ OFFICE 88122 [facility], WELLS, OUTPATIEN 8 8 CHRISTINE M CHRISTINE M T VISIT [address] [facility], DEPT 8 8 LOIS FRANK VISIT MED CTR HIGH SEVERITY& THREAT FUNCJ EMERGENCY [address]6313 [facility], 8 8 LOIS JESSICA [facility] MED CTR T VISIT HIGH/URGE NT SEVERITY EMERGENCY 64492 [facility], 8 8 LOIS KILLIAN [facility] MED CTR T VISIT HIGH/URGE NT SEVERITY HOSPITAL ST - 8 8 LOIS OUTPATIEN T MEDICALCE NTER EMERGENCY 48873 ST 8 8 LOIS DEPARTMEN T VISIT MEDICALCE MODERATE NTER SEVERITY OFFICE 30081 PATIENT SNEDEGAR, OUTPATIEN 8 8 FIRST SPARKLE T VISIT PHYS 15 MINUTES OFFICE 03668 [facility] 8 8 CHRISTINE M CHRISTINE M T VISIT 15 MINUTES EMERGENCY 40598 [facility] 8 8 LOIS HOPKINS DEPARTMEN MED CTR T VISIT HIGH/URGE NT SEVERITY OFFICE 86992 [facility] OUTPATIEN 8 8 CHRISTINE M CHRISTINE M T VISIT [address] - 8 8 LOIS OUTPATIEN T MEDICALCE NTER [facility] ST - 8 8 LOIS OUTPATIEN T MEDICALCE NTER OFFICE 47963 PATIENT SNEDEGAR, CONSULTAT 8 8 FIRST SPARKLE ION PHYS NEW/ESTAB PATIENT 60 MIN OFFICE 75158 [facility] OUT[facility] 8 8 CHRISTINE M CHRISTINE M T VISIT [address] - 8 8 LOIS OUTPATIEN T MEDICALCE NTER OFFICE 43571 [facility] 8 8 CHRISTINE M CHRISTINE M T VISIT [address] - 8 8 LOIS OUTPATIEN T MEDICALCE NTER EMERGENCY 26344 [facility] LOIS ROD VISIT MED CTR HIGH SEVERITY& THREAT FUNCJ OFFICE 48372 [facility] OUT[facility] 8 8 CHRISTINE M CHRISTINE M T NEW [address] [facility], 8 8 LOIS NICOLAS [facility] CTR T VISIT MODERATE SEVERITY OFFICE 69096 [facility] 8 8 MEDICAL ANGELA P T VISIT GROUP 15 MINUTES OFFICE 80641 [facility] 8 8 MEDICAL LUNA B T VISIT GROUP 10 MINUTES OFFICE 72902 [facility] 8 8 MEDICAL MIYA T VISIT GROUP 15 MINUTES
--- OUTSIDE RECORDS SUMMARY | 2016-09-13 18:21 | External Medical Summary Rpt ---
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 PHYSICIAN E COMPL S SPEC&COLR D INITIAL 13365 [facility] 4 LOIS THO CONSULT NEW/ESTAB PHYSICIAN [place] [address] [place] [address] RADIOLOGY CARE COORDINATOR/BRAI 4 BRA N W/O ASSOCIATE CONTRAST S OF [facility] MATERIAL INJECTION J2060 ST ST 4 LOISDAVID ABREU LORAZEPAM MED CTR MED CTR 2 MG 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 ST 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 ST AMBULANCE A0429 [facility] 4 FIRE FIRE BLS DEPT DEPT EMERGENCY TRANSPORT AMB A0427 [facility] SERVICE 4 FIRE FIRE ALS DEPT DEPT EMERGENCY TRANSPORT LEVEL [address] HEYDI BAR ROUTINE 4 LOIS ECG MED CTR W/LEAST 12 LDS I&[place] [address] RADIOLOGY GARCIA BYR ANGIOGRAP 4 HY CHEST ASSOCIATE W/CONTRAS S OF NOTH T/NONCONT RAST RADIOLOGI 29348 RADIOLOGY SCHMITTER C EXAM 4 LUNA CHEST 2 ASSOCIATE VIEWS S OF NOTH FRONTAL&L ATERAL GROUND A0425 [facility] MILEA 4 FIRE FIRE PER DEPT DEPT STATUTE MILE GROUND A0425 [facility] MILEA 4 FIRE FIRE PER DEPT DEPT STATUTE MILE AMBULANCE A0429 [facility] SERVICE 4 FIRE FIRE BLS DEPT DEPT EMERGENCY TRANSPORT ECG [address] ROUTINE 4 LOIS LOIS ECG MED CTR MED CTR W/LEAST 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 ST 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 ST 12 LDS TRCG ONLY W/O I&R ECG 31733 ST KEENE FORTINO ROUTINE 4 LOIS ECG MED CTR W/LEAST 12 LDS I&R ONLY GROUND A0425 [facility] 4 FIRE FIRE PER DEPT DEPT STATUTE MILE RADIOLOGI 94102 RADIOLOGY BRANDSER C EXAM 4 KIRAN KNEE ASSOCIATE COMPLETE S OF NOTH 4/MORE VIEWS AMB A0427 [facility] SERVICE 4 FIRE FIRE ALS DEPT DEPT EMERGENCY TRANSPORT LEVEL 1 RADIOLOGI 64745 RADIOLOGY BRANDSER C 4 KIRAN EXAMINATI ASSOCIATE ON CHEST S OF NOTH [place] FRONTAL AMB A0427 [facility] SERVICE 4 FIRE FIRE ALS DEPT DEPT EMERGENCY TRANSPORT LEVEL 1 GROUND A0425 [facility] 4 FIRE FIRE PER DEPT DEPT STATUTE MILE SBSQ 06914 [facility] 4 LUNA LUNA CARE/DAY 15 MINUTES INITIAL 37001 [facility] INPATIENT 4 DERIK DERIK CONSULT NEW/ESTAB PT 55 MIN ECG 62921 HEY[facility] BAR HEYDI BAR ROUTINE 4 ECG W/LEAST 12 LDS I&R ONLY GROUND A0425 [facility] 3 FIRE FIRE PER DEPT DEPT STATUTE MILE AMB A0427 [facility] SERVICE 3 FIRE FIRE ALS DEPT DEPT EMERGENCY TRANSPORT LEVEL 1 ECG 32763 RADHA ARL RADHA ARL ROUTINE 3 ECG W/LEAST 12 LDS W/I&[place] [address] [facility] THYROID 3 DIAGNOSTI DIAGNOSTI STIMULATI [place] [address] [facility] FREE 3 DIAGNOSTI DIAGNOSTI THYROXINE CS CS COMPREHEN 26983 [facility] SIVE 3 DIAGNOSTI DIAGNOSTI METABOLIC CS CS PANEL HEMOGLOBI 80687 [facility] N 3 DIAGNOSTI DIAGNOSTI GLYCOSYLA CS CS BELLA A1C LIPID 83202 [facility] PANEL 3 DIAGNOSTI DIAGNOSTI CS CS ECG 04592 [facility] CHR ROUTINE 3 ECG W/LEAST 12 LDS I&R ONLY RADEX 98075 [facility] SEA SPINE 3 LUMBOSACR AL 2/3 VIEWS RADEX 42030 [facility] SEA SPINE [address] [place] [address] [facility] SEA HEAD/BRAI 3 N W/O CONTRAST MATERIAL AMB A0427 [facility]ICE 3 FIRE FIRE ALS DEPT DEPT [place] [address] [facility] SEA CERVICAL 3 SPINE W/O CONTRAST MATERIAL GROUND A0425 [facility] MILEAGE 3 FIRE FIRE PER DEPT DEPT STATUTE MILE GROUND A0425 [facility] MILEAGE 3 FIRE FIRE PER DEPT DEPT STATUTE MILE ECG 44648 [facility] L[facility] CHR ROUTINE 3 ECG W/LEAST 12 LDS I&R ONLY AMB A0427 [facility] 3 FIRE FIRE ALS DEPT DEPT EMERGENCY TRANSPORT LEVEL 1 ALBUMIN 65802 [facility] ARL URINE 3 [facility] [address] [facility]ST FREE 3 DIAGNOSTI [place] [address] [facility] THYROID 3 DIAGNOSTI DIAGNOSTI STIMULATI CS CS NG HORMONE TSH LIPID 72397 [facility] PANEL 3 DIAGNOSTI DIAGNOSTI CS CS HEMOGLOBI 05237 [facility] N 3 DIAGNOSTI DIAGNOSTI GLYCOSYLA CS CS BELLA A1C COMPREHEN 56692 [facility] SIVE 3 DIAGNOSTI DIAGNOSTI METABOLIC CS CS PANEL RADIOLOGI 13429 WILDA Castillo 3 CYRUS CYRUS EXAMINATI [place] [address] [facility] THYROID 2 DIAGNOSTI DIAGNOSTI STIMULATI CS CS NG HORMONE TSH COMPREHEN 29471 [facility] SIVE 2 DIAGNOSTI DIAGNOSTI METABOLIC CS CS PANEL HEMOGLOBI 07962 [facility] N 2 DIAGNOSTI DIAGNOSTI GLYCOSYLA CS CS BELLA A1C LIPID 02639 [facility] PANEL 2 DIAGNOSTI DIAGNOSTI CS CS RADIOLOGI 89680 RADIOLOGY DARDINGER C EXAM 2 LUNA CHEST 2 ASSOCIATE VIEWS S OF NOTH FRONTAL&L ATERAL GROUND A0425 [facility] 2 FIRE FIRE PER DEPT DEPT STATUTE MILE AMB A0427 [facility] SERVICE 2 FIRE FIRE ALS DEPT DEPT EMERGENCY TRANSPORT LEVEL 1 AMB A0427 [facility] SERVICE 2 FIRE FIRE ALS DEPT DEPT EMERGENCY TRANSPORT LEVEL 1 GROUND A0425 [facility] 2 FIRE FIRE PER DEPT DEPT STATUTE MILE AMB A0422 [facility] OXYGEN&O2 2 FIRE FIRE SUPPLIES DEPT DEPT LIFE SUSTAININ G SITUATION GROUND A0425 [facility] 2 FIRE FIRE PER DEPT DEPT STATUTE MILE AMB A0427 [facility] SERVICE 2 FIRE FIRE ALS DEPT DEPT EMERGENCY TRANSPORT LEVEL 1 RADIOLOGI 01323 RADIOLOGY ROEBKER C 2 JAM EXAMINATI ASSOCIATE ON CHEST S OF NOTH [place] FRONTAL RADIOLOGI 25360 RADIOLOGY DOERGER C 2 KIR EXAMINATI ASSOCIATE ON CHEST S OF NOTH [place] FRONTAL AMB A0427 [facility] SERVICE 2 FIRE FIRE ALS DEPT DEPT EMERGENCY TRANSPORT LEVEL 1 GROUND A0425 [facility] 2 FIRE FIRE PER DEPT DEPT STATUTE MILE ECG 25424 CARMELO RHODES ROUTINE 2 RAL RAL ECG W/LEAST 12 LDS I&R ONLY SBSQ 04287 [facility] 2 CARE/DAY 25 MINUTES RADIOLOGI 70013 RADIOLOGY NEILS KIRAN C 2 EXAMINATI ASSOCIATE ON CHEST S OF NOTH [place] FRONTAL RADIOLOGI 52711 RADIOLOGY DARDINGER C 2 LUNA EXAMINATI ASSOCIATE ON CHEST S OF NOTH [place] FRONTAL SBSQ 38270 [facility] 2 HOSPITAL SYDNEE CARE/DAY MEDICAL 25 SPEC MINUTES RADIOLOGI 90601 RADIOLOGY DARDINGER C 2 LUNA EXAMINATI ASSOCIATE ON CHEST S OF NOTH [place] FRONTAL ECG 15185 GAYLE MAR GAYLE MAR ROUTINE 2 ECG W/LEAST 12 LDS I&R ONLY RADIOLOGI 71289 RADIOLOGY DUARTE C EXAM 2 BRA CHEST 2 ASSOCIATE VIEWS S OF NOTH FRONTAL&L ATERAL RADIOLOGI 16147 RADIOLOGY UNDERWOOD C 2 BRA EXAMINATI ASSOCIATE ON CHEST S OF NOT SING[place]IEW FRONTAL INITIAL 17384 [facility] INPATIENT 2 CONSULT NEW/ESTAB PT 80 MIN SBSQ [address] MAN CARE/DAY MEDICAL 35 SPEC MINUTES SBSQ [address] MAN CARE/DAY MEDICAL 35 SPEC MINUTES RADIOLOGI 97242 RADIOLOGY [facility] C 2 JAM EXAMINATI ASSOCIATE ON CHEST S OF NOT SING[place]IEW FRONTAL ECG 75427 [facility] LARA ROUTINE [address] TER ECG W/LEAST 12 LDS I&R ONLY CORONARY 65477 ULICNY ULICNY ARTERY 2 FORTINO FORTINO BYP W/VEIN & ARTERY GRAFT 3 VEIN ARTL 53849 INDEPENDE CRISPEN CATHJ/CAN 2 NT GIANA NULJ ANESTHESI MNTR/MAN OLOGIST SFUSION SPX PRQ ANES 60648 INDEPENDE CRISPEN DIRECT 2 NT GIANA CABG ANESTHESI W/PUMP OLOGIST OXYGENATO R RADIOLOGI 18770 RADIOLOGY [facility] C 2 JAM EXAMINATI ASSOCIATE ON CHEST S OF NOT S[place] FRONTAL INSERTION 42724 INDEPENDE CRISPEN FLOW 2 NT GIANA DIRECTED ANESTHESI CATHETER OLOGIST FOR MONITORIN G SBSQ [address] SYDNEE CARE/DAY MEDICAL 35 SPEC MINUTES SBSQ [address] CARE/DAY 25 PHYSICIAN MINUTES S CABG 70300 ULICNY ULICNY W/ARTERIA 2 FORTINO FORTINO L GRAFT TWO ARTERIAL GRAFTS (AORTO)[place] [address] RONARY 2 LOIS LOIS BYPASS THREE MEDICALCE MEDICALCE CORONARY NTER NTER ARTERIES SINGLE [address] INTERNAL 2 LOIS LOIS MAMMARY-C ORONARY MEDICALCE MEDICALCE ARTERY NTER NTER BYPASS INITIAL [address] SYDNEE CARE/DAY MEDICAL 70 SPEC MINUTES SBSQ 35971 [facility] 2 CARE/DAY 35 MINUTES SBSQ 45278 [facility] 2 CARE/DAY 35 MINUTES SBSQ 06305 [facility] 2 MAR MAR CARE/DAY 25 MINUTES SBSQ 66801 [facility] 2 MAR MAR CARE/DAY 25 MINUTES SBSQ 81849 [facility] 2 [place]AY CARE/DAY 25 MINUTES SBSQ 69227 [facility] 2 [place] CARE/DAY 25 MINUTES ECG 82898 [facility] ROUTINE 2 RAL RAL ECG W/LEAST 12 LDS I&R ONLY ECG 20371 HEEB CHR HEEB CHR ROUTINE 2 ECG W/LEAST 12 LDS I&R ONLY RADIOLOGI 80672 RADIOLOGY [facility]NG VAN C EXAM 2 CHEST 2 ASSOCIATE VIEWS S OF [facility] FRONTAL&L ATERAL ECHO 55093 [facility] TTHRC R-T 2 [place] 2D W/WOM-MOD E COMPL SPEC&COLR D CATH PLMT 44097 [facility] L HRT & 2 [place] ARTS W/NJX & ANGIO IMG S&I INITIAL 26278 [facility] 2 FORTINO FORTINO CARE/DAY [address] HEART 2 LOIS LOIS CARDIAC CATHETERI MEDICALCE MEDICALCE ZATION NTER NTER CORONARY [address] ARTERIOGR 2 LOIS LOIS APHY USING TWO MEDICALCE MEDICALCE NTER NTER CATHETERS ANGIOCARD [address] IOGRAPHY 2 LOIS LOIS OF LEFT HEART MEDICALCE MEDICALCE STRUCTURE NTER NTER S AMB A0427 [facility] SERVICE 2 FIRE FIRE ALS DEPT DEPT EMERGENCY TRANSPORT LEVEL 1 RADIOLOGI 64619 RADIOLOGY [facility] C 2 LUNA EXAMINATI ASSOCIATE ON CHEST S OF [facility] SINGLE VIEW FRONTAL ECG 26805 HEEB CHR HEEB CHR ROUTINE 2 ECG W/LEAST 12 LDS I&R ONLY GROUND A0425 [facility] 2 FIRE FIRE PER DEPT DEPT STATUTE MILE RADEX 09589 RADIOLOGY GARCIA BYR FOOT 2 COMPLETE ASSOCIATE MINIMUM 3 S OF NOTH VIEWS GROUND A0425 [facility] 2 FIRE FIRE PER DEPT DEPT STATUTE MILE REMOVAL 09977 LORI LORI FOREIGN 2 ANT ANT BODY FOOT SUBCUTANE OUS AMB A0427 [facility] SERVICE 2 FIRE FIRE ALS DEPT DEPT EMERGENCY TRANSPORT LEVEL 1 AMB A0427 [facility] 2 FIRE FIRE ALS DEPT DEPT EMERGENCY TRANSPORT LEVEL 1 GROUND A0425 [facility] 2 FIRE FIRE PER DEPT DEPT STATUTE MILE ECG 51207 [facility] H[facility] ROUTINE 2 RAL RAL ECG W/LEAST 12 LDS I&R ONLY ECG 10873 [facility] ROUTINE 2 RAL RAL ECG W/LEAST 12 LDS I&R ONLY GROUND A0425 [facility] 2 FIRE FIRE PER DEPT DEPT STATUTE MILE AMB A0427 [facility] SERVICE 2 FIRE FIRE ALS DEPT DEPT EMERGENCY TRANSPORT LEVEL 1 AMB A0427 [facility] SERVICE 1 FIRE FIRE ALS DEPT DEPT EMERGENCY TRANSPORT LEVEL 1 GROUND A0425 [facility] 1 FIRE FIRE PER DEPT DEPT STATUTE MILE SMPL 00868 [facility] RETA REPAIR 1 LOIS SCALP/NEC FAMILY K/AX/ROSITA PRACTICE T/TRUNK 2.6-7.5CM GROUND A0425 [facility] 1 FIRE FIRE PER DEPT DEPT STATUTE MILE AMB A0427 [facility] SERVICE 1 FIRE FIRE ALS DEPT DEPT EMERGENCY TRANSPORT LEVEL 1 AMBULANCE A0428 RURAL/MET RURAL/MET SERVICE 1 RO RO BLS AMBULANCE AMBULANCE NONEMERGE NCY TRANSPORT AMB A0427 [facility] SERVICE 1 FIRE FIRE ALS DEPT DEPT EMERGENCY TRANSPORT LEVEL 1 GROUND A0425 [facility] 1 FIRE FIRE PER DEPT DEPT STATUTE MILE ECG [address]708 [facility] ROUTINE 1 LOIS DEL ECG W/LEAST PHYSICIAN 12 LDS S I&R ONLY RADIOLOGI 14300 RADIOLOGY JOSE CRUZ C EXAM 1 TUS CHEST 2 ASSOCIATE VIEWS S PSC FRONTAL&[place] [address] RADIOLOGY JOSE CRUZ HEAD/BRAI 1 TUS N W/O ASSOCIATE CONTRAST S PSC MATERIAL GROUND A0425 [facility] 1 FIRE FIRE PER DEPT DEPT STATUTE MILE AMB A0427 [facility] SERVICE 1 FIRE FIRE ALS DEPT DEPT EMERGENCY TRANSPORT LEVEL 1 RADEX 49439 RADIOLOGY NEILS KIRAN ABDOMEN 1 1 ASSOCIATE ANTEROPOS S PSC TERIOR VIEW THERAPEUT [address] IC 1 LOIS LOIS PROPHYLAC TIC/DX MEDICALCE MEDICALCE INJECTION NTER NTER SUBQ/[place] [address] RADIOLOGY NEILS KIRAN ABDOMEN & 1 PELVIS ASSOCIATE W/O S PSC CONTRAST MATERIAL URNLS DIP [address] 1 LOIS LOIS STICK/TAB LET RGNT MEDICALCE MEDICALCE NON-AUTO NTER NTER W/O MICRSCP RADIOLOGI 81809 [facility] C EXAM 1 BRA CHEST 2 ASSOCIATE VIEWS S PSC FRONTAL&L ATERAL RADEX 61005 RADIOLOGY BRANDSER FOOT 1 KIRAN COMPLETE ASSOCIATE MINIMUM 3 S PSC VIEWS RADEX 29624 RADIOLOGY BRANDSER HAND 1 KIRAN MINIMUM 3 ASSOCIATE VIEWS S PSC GROUND A0425 [facility] 1 FIRE FIRE PER DEPT DEPT STATUTE MILE AMBULANCE A0429 [facility] SERVICE 1 FIRE FIRE BLS DEPT DEPT EMERGENCY TRANSPORT CRTCHS E0114 [facility] 1 TECHNOLOG TECHNOLOG OTH THAN IES INC IES INC WOOD PAIR PAD TIP&HNDGR IP GROUND A0425 [facility] 0 FIRE FIRE PER DEPT DEPT STATUTE MILE AMB A0427 [facility] SERVICE 0 FIRE FIRE ALS DEPT DEPT EMERGENCY TRANSPORT LEVEL 1 RADEX 18290 RADIOLOGY DARDINGER FOOT 0 LUNA COMPLETE ASSOCIATE MINIMUM 3 S PSC VIEWS RADIOLOGI 46384 RADIOLOGY DARDINGER C EXAM 0 LUNA CHEST 2 ASSOCIATE VIEWS S PSC FRONTAL&L ATERAL RADEX 94466 RADIOLOGY ROEBKER ELBOW 0 JAM COMPLETE ASSOCIATE MINIMUM 3 S PSC VIEWS NONEMERG A0120 LKLP LKLP TRNSPRT: 0 [facility] ACTION N MTN AREA/OTH SYS GROUND A0425 [facility] 0 FIRE FIRE PER DEPT DEPT STATUTE MILE AMB A0427 [facility] SERVICE 0 FIRE FIRE ALS DEPT DEPT EMERGENCY TRANSPORT LEVEL 1 RADEX 79128 RADIOLOGY MANDA HUMERUS 0 SRUTHI MINIMUM 2 ASSOCIATE VIEWS S PSC GROUND A0425 [facility] 0 FIRE FIRE PER DEPT DEPT STATUTE MILE AMBULANCE A0429 [facility] SERVICE 0 FIRE FIRE BLS DEPT DEPT EMERGENCY TRANSPORT RADEX 91760 RADIOLOGY MANDA SHOULDER 0 SRUTHI COMPLETE ASSOCIATE MINIMUM [address] PELVIS 75334 RADIOLOGY DUARTE 0 BRA W/CONTR[place] [address] RADIOLOGY [facility] ABDOMEN 0 BRA W/CONTRAS ASSOCIATE T S PSC MATERIAL LEVEL III 19227 [facility] SURG 0 LOIS PATHOLOGY MED CTR GROSS&MELVA ROSCOPIC EXAM ANES 75807 INDEPENDE JORDAN, INTRAPERI 0 NT GODWIN P TONEAL ANESTHESI UPPER OLOGIST ABDOMEN W/LAPS NOS LAPAROSCO 62136 [facility] SURG 0 LOIS PRUITT W CHOLECYST ECTOMY PHYSICIAN S NONEMERG A0120 LKLP LKLP TRNSPRT: 0 [facility] ACTION N MTN AREA/[place] [address] RADIOLOGY WILDA, ABDOMINAL 0 SHAHID R REAL ASSOCIATE TIME S PSC W/IMAGE LIMITED ECG 9[address]11 ST HULLER, ROUTINE 0 LOIS AG F ECG MED CTR W/LEAST 12 LDS I&R ONLY BLOOD [address] COUNT 0 LOIS LOIS COMPLETE AUTO&AUTO MEDICALCE MEDICALCE DIFRNTL NTER NTER WBC COMPREHEN [address] SIVE 0 LOIS LOIS METABOLIC PANEL MEDICALCE MEDICALCE NTER NTER COLLECTIO [address] N VENOUS 0 LOIS LOIS BLOOD VENIPUNCT MEDICALCE MEDICALCE URE NTER NTER URNLS DIP [address] 0 LOIS LOIS STICK/TAB LET RGNT MEDICALCE MEDICALCE NON-AUTO NTER NTER W/O MICRSCP ECG [address] ROUTINE 0 LOIS LOIS ECG W/LEAST MEDICALCE MEDICALCE 12 LDS NTER NTER TRCG ONLY W/O I&[place] [address] LIPASE 0 LOIS LOIS MEDICALCE MEDICALCE NTER NTER RADIOLOGI [address] C EXAM 0 LOIS LOIS CHEST 2 VIEWS MEDICALCE MEDICALCE FRONTAL&L NTER NTER ATERAL GROUND A0425 [facility] MILEAGE 0 FIRE FIRE PER DEPT DEPT STATUTE MILE AMB A0427 [facility] SERVICE 0 FIRE FIRE ALS DEPT DEPT EMERGENCY [place] L[place] [address] [place] [address] RADIOLOGY LEW, HEAD/BRAI 0 SHAHID G N W/O ASSOCIATE CONTRAST S PSC MATERIAL RADEX ABD 76662 RADIOLOGY FROYLAN, COMPL 9 AQT ABD ASSOCIATE LOIS W/S/E/D S PSC A VIEWS 1 [place] [address] [facility] THYROID 9 [facility] STIMULATI NG HORMONE TSH COMPREHEN 78340 [facility] SIVE 9 [facility] [place] [address] [facility] FREE 9 [facility] THYROXINE HEMOGLOBI 90538 [facility] N 9 [facility] GLYCOSYLA BELLA A1C GROUND A0425 [facility] 9 FIRE FIRE PER DEPT DEPT STATUTE MILE AMBULANCE A0429 [facility] SERVICE 9 FIRE FIRE BLS DEPT DEPT EMERGENCY TRANSPORT RADEX 96613 RADIOLOGY LEW, ELBOW 9 SHAHID G COMPLETE ASSOCIATE MINIMUM 3 S PSC VIEWS RADEX 60602 RADIOLOGY DUARTE, ANKLE 9 SAKINA L COMPLETE ASSOCIATE MINIMUM 3 S PSC VIEWS SBSQ 44557 [facility] 9 [facility] CARE/DAY 15 MINUTES SBSQ 09115 [facility] 9 [facility] M CARE/DAY 15 MINUTES SBSQ [address] M CARE/DAY 15 MINUTES SBSQ 40308 [facility] 9 [facility] M CARE/DAY 15 MINUTES SBSQ 67493 [facility] 9 [facility] M CARE/DAY 15 MINUTES SBSQ 38295 [facility] 9 [facility] M CARE/DAY 15 MINUTES SBSQ 98308 [facility] 9 [facility] M CARE/DAY 15 MINUTES INITIAL 96190 [facility], INPATIENT 9 CHRISTINE M CHRISTINE M CONSULT NEW/ESTAB PT [address] [facility], ROUTINE 9 LOIS AG F ECG MED CTR W/LEAST 12 LDS I&R ONLY RADEX 37917 RADIOLOGY MANDA, HAND 8 ZACKERY M MINIMUM 3 ASSOCIATE VIEWS S PSC GROUND A0425 [facility] 8 FIRE FIRE PER DEPT DEPT STATUTE MILE AMBULANCE A0429 [facility] 8 FIRE FIRE BLS [place] [address] RADIOLOGY MANDA, HEAD/BRAI 8 ZACKERY M N W/O ASSOCIATE CONTRAST S PSC MATERIAL RADEX 32484 RADIOLOGY DESTINY, SPINE 8 SONIA THORACIC ASSOCIATE H 3 VIEWS S PSC RADEX 29052 RADIOLOGY DESTINY, WRIST 8 SONIA COMPLETE ASSOCIATE H MINIMUM 3 S PSC VIEWS AMB A0427 [facility] 8 FIRE FIRE ALS DEPT DEPT EMERGENCY TRANSPORT LEVEL 1 GROUND A0425 [facility] 8 FIRE FIRE PER DEPT DEPT STATUTE MILE RADEX 54181 RADIOLOGY DESTINY, SPINE 8 SONIA LUMBOSACR ASSOCIATE H AL 2/3 S PSC VIEWS GROUND A0425 [facility] 8 FIRE FIRE PER DEPT DEPT STATUTE MILE AMBULANCE A0429 [facility] 8 FIRE FIRE BLS DEPT DEPT EMERGENCY TRANSPORT AMB A0427 [facility] 8 FIRE FIRE ALS DEPT DEPT EMERGENCY TRANSPORT LEVEL 1 GROUND A0425 [facility] 8 FIRE FIRE PER DEPT DEPT STATUTE MILE ECG [address] ST YECENIA, ROUTINE 8 LOIS FREITASA R ECG MED CTR W/LEAST 12 LDS I&R ONLY GROUND A0425 [facility] 8 FIRE FIRE PER DEPT DEPT STATUTE MILE AMBULANCE A0429 [facility] 8 FIRE FIRE BLS DEPT DEPT EMERGENCY TRANSPORT RADEX 12083 RADIOLOGY DUARTE, WRIST 8 ZAC COMPLETE ASSOCIATE MINIMUM 3 S PSC VIEWS RADEX [address] HAND 8 LOIS ABREU MINIMUM 3 VIEWS MEDICALCE MEDICALCE NTER NTER RADIOLOGI 98267 RADIOLOGY DUARTE, C EXAM 8 ZAC CHEST 2 ASSOCIATE VIEWS S PSC FRONTAL&L ATERAL GROUND A0425 [facility] 8 FIRE FIRE PER DEPT DEPT STATUTE MILE REPAIR 06832 ST DAMASO, INTERMEDI 8 LOIS HOPKINS ATE MED CTR F/E/E/N/L &/MUC 2.6-5.0 CM RADEX 04152 RADIOLOGY HURST, FACIAL 8 FERNIE R BONES ASSOCIATE COMPLETE S PSC MINIMUM 3 VIEWS AMBULANCE A0429 [facility] 8 FIRE FIRE BLS DEPT DEPT EMERGENCY TRANSPORT INJECTION 06308 ONEL PETIT 8 LOIS HOPKINS OTHER MED CTR PERIPHERA L NERVE/BRA [facility] 76666 [facility] ABDOMINAL 8 [facility] REAL TIME MEDICALCE MEDICALCE W/IMAGE NTER NTER LIMITED FLUORESCE 50785 [facility] NT 8 [facility] NONNFCT AGT ANTB MEDICALCE MEDICALCE TITER EA NTER NTER ANTIBODY ALPHA-1-A 87899 [facility] NTITRYPSI 8 [facility] N TOTAL MEDICALCE MEDICALCE NTER NTER BLOOD 24761 PATIENT SNEDEGAR, COUNT 8 FIRST SPARKLE COMPLETE PHYS AUTOMATED IRON 32611 PATIENT SNEDEGAR, BINDING 8 FIRST SPARKLE CAPACITY PHYS ALPHA-FET 33996 [facility] OPROTEIN 8 [facility] SERUM MEDICALCE MEDICALCE NTER NTER CERULOPLA 93836 [facility] SMIN 8 [facility] [place] [address] PATIENT SNEDEGAR, IRON 8 FIRST [facility] PHYS COMPREHEN 27929 PATIENT SNEDEGAR, SIVE 8 FIRST [facility] METABOLIC PHYS PANEL IADNA 99279 [facility] HEPATITIS 8 [place] LO[place] C QUANT & REVERSE MEDICALCE MEDICALCE NTER NTER TRANSCRIP TION ANTINUCLE 63052 [facility] AR 8 [facility] ANTIBODIE S EMIGDIO [place] [address] PATIENT SNEDEGAR, THYROID 8 FIRST SPARKLE STIMULAT[place] [address] PATIENT SNEDEGAR, FERRITIN 8 FIRST SPARKLE PHYS IMMUNOASS 83470 [facility] AY 8 [facility] ANALYTE QUAL/SEMI MEDICALCE MEDICALCE [place] [address] [facility] HEPATITIS 8 [facility] B SURFACE MEDICALCE MEDICALCE ANTIGEN NTER NTER NFCT AGNT [address] GENOTYP 8 LOIS LOIS NUCLEIC ACID MEDICALCE MEDICALCE HEPATITIS NTER NTER C VIRUS COLLECTIO [address] ST N VENOUS 8 LOIS LOIS BLOOD VENIPUNCT MEDICALCE MEDICALCE URE NTER NTER ACUTE [address] HEPATITIS 8 LOIS [place] PANEL [place] [address] FREE 8 LOIS [facility] THYROXINE MEDICALCE MEDICALCE NTER NTER URNLS DIP [address] 8 LOIS LOIS STICK/TAB LET RGNT MEDICALCE MEDICALCE AUTO W/O NTER NTER MICROSCOP Y COLLECTIO 95431 ST ST N VENOUS 8 LOIS LOIS BLOOD VENIPUNCT MEDICALCE MEDICALCE URE NTER NTER BLOOD [address] COUNT 8 LOIS LOIS COMPLETE AUTO&AUTO MEDICALCE MEDICALCE DIFRNTL NTER NTER WBC HEMOGLOBI [address] N 8 LOIS LOIS GLYCOSYLA BELLA A1C MEDICALCE MEDICALCE NTER NTER ECG [address] ST HULLER, ROUTINE 8 LOIS AG F ECG MED CTR W/LEAST 12 LDS I&R ONLY RADIOLOGI [address] C EXAM 8 LOIS LOIS CHEST 2 VIEWS MEDICALCE MEDICALCE FRONTAL&L NTER NTER ATERAL HEPATIC [address] FUNCTION 8 LOIS LOIS PANEL MEDICALCE MEDICALCE NTER NTER LIPID [address] PANEL 8 LOIS LOIS MEDICALCE MEDICALCE NTER NTER ECG [address] ROUTINE 8 LOIS LOIS ECG W/LEAST MEDICALCE MEDICALCE 12 LDS NTER NTER TRCG ONLY W/O I&[place] [address] THYROID 8 LOIS LOIS STIMULATI NG MEDICALCE MEDICALCE HORMONE NTER NTER TSH BASIC [address] METABOLIC 8 LOIS LOIS PANEL CALCIUM MEDICALCE MEDICALCE TOTAL NTER NTER AMB A0427 [facility] SERVICE 8 FIRE FIRE ALS DEPT DEPT EMERGENCY TRANSPORT LEVEL 1 RADEX 46505 RADIOLOGY DUARTE, HAND 8 ZAC MINIMUM 3 ASSOCIATE VIEWS S PSC GROUND A0425 [facility] MILEAGE 8 FIRE FIRE PER DEPT DEPT STATUTE MILE ECG [address]09 ST ZACK, ROUTINE 8 LOIS LAROY ECG MED CTR W/LEAST 12 LDS I&R ONLY RHYTHM 31955 ST ZACK, ECG 1-3 8 LOIS LAROY LEADS MED CTR INTERPRET ATION & REPRT ON SYRINGE A4206 [facility] WITH 8 PHARMACY PHARMACY NEEDLE #6119 #6119 STERILE 1 CC OR LESS EACH BLD GLU A4253 [facility] TEST/REAG 8 PHARMACY PHARMACY T STRIPS #6119 #[id number] HOME BLD GLU 50 Encounters Encounter Start End Date Code Location Performer Type Date EMERGENCY 09704 KYLE FELICIANO, 7 7 PHYSICIAN [facility] S, [facility] T VISIT MODERATE SEVERITY EMERGENCY 93710 GRACIELA 7 7 [facility] T VISIT LOW/MODER SEVERITY HOSPITAL GRACIELA - 7 7 [facility]PATIEN [facility] GRACIELA - 7 7 [facility] OUTPATIEN [facility] T EMERGENCY 33029 KYLE DENNEY 6 6 PHYSICIAN MELVA [facility] S, [facility] T VISIT MODERATE SEVERITY OFFICE 75246 [facility] 6 6 PHYSICIAN MOHAN T VISIT S GROUP 25 MINUTES EMERGENCY 69516 KYLE PRITCHETT DEPT 6 6 PHYSICIAN Ronal FRANCO VISIT [facility] HIGH SEVERITY& THREAT [facility] GRACIELA - 6 6 [facility] INPATIENT INC OFFICE 66153 [facility] 5 5 EMILIANO EMILIANO T VISIT 15 MINUTES OFFICE 73489 [facility] 5 5 EMILIANO EMILIANO T NEW 30 MINUTES OFFICE 80983 [facility] 5 5 LTH T NEW 20 ORTHOPAE MINUTES EMERGENCY 24103 HARO[facility] GALDAMEZERJEE 5 5 EMERGENCY [facility] T VISIT PHYSICIAN HIGH/URGE S NT SEVERITY EMERGENCY 53854 ST 4 4 LOIS DEPARTMEN 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 MODERATE SEVERITY HOSPITAL ST - 4 4 LOIS OUTPATIEN MED CTR T 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 EMERGENCY 55141 [facility] DEPT 4 4 LOIS ANT VISIT MED CTR HIGH SEVERITY& THREAT FUNCJ EMERGENCY 29184 [facility] 4 4 LOIS ANT DEPARTMEN MED CTR T VISIT HIGH/URGE NT SEVERITY [facility]PITAL ST - 4 4 LOIS OUTPATIEN MED CTR T 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 EMERGENCY 39152 [facility] 4 4 LOIS RETA DEPARTMEN MED CTR T VISIT HIGH/URGE NT SEVERITY OFFICE 26426 [facility] ARL RADHA ARL OUTPATIEN 3 3 T VISIT 25 MINUTES EMERGENCY 75961 [facility] DEPT 3 3 LOIS GRE VISIT MED CTR HIGH SEVERITY& THREAT FUNCJ OFFICE 39457 [facility] OUTPATIEN 3 3 POINT T VISIT FAMILY 25 CARE, IN MINUTES OFFICE 74875 [facility] OUTPATI[facility] 2 2 POINT T VISIT FAMILY 15 CARE, IN MINUTES EMERGENCY 61773 ST 2 2 LOIS DEPARTMEN T VISIT MEDICALCE MODERATE NTER SEVERITY [facility]OSPITAL ST - 2 2 LOIS OUTPATIEN T MEDICALCE NTER EMERGENCY 63428 [facility] DEPT 2 2 LOIS MAR VISIT MED CTR HIGH SEVERITY& THREAT [facility] - 2 2 LOIS INPATIENT MEDICALCE NTER EMERGENCY 94540 [facility] DEPT 2 2 LOIS VISIT FAMILY HIGH PRACTICE SEVERITY& THREAT FUNCJ EMERGENCY 59996 [facility] 2 2 LOIS JANNET DEPARTMEN FAMILY T VISIT PRACTICE HIGH/URGE NT SEVERITY EMERGENCY 61040 ST 1 1 LOIS DEPARTMEN T VISIT MEDICALCE MODERATE NTER SEVERITY [facility]OSPITAL ST - 1 1 LOIS OUTPATIEN T MEDICALCE NTER EMERGENCY 74113 [facility] 1 1 LOISDAVID MCDUFFIE DEPARTMEN MED CTR T VISIT HIGH/URGE NT SEVERITY HOSPITAL ST - 1 1 LOIS OUTPATIEN T MEDICALCE NTER EMERGENCY 48047 [facility] 1 1 LOISDAVID JOHN DEPARTMEN MED CTR T VISIT HIGH/URGE NT SEVERITY EMERGENCY 75820 ST 1 1 LOIS DEPARTMEN T VISIT MEDICALCE MODERATE NTER SEVERITY [facility]OSPITAL ST - 1 1 LOIS OUTPATIEN T MEDICALCE NTER EMERGENCY 49042 [facility] 1 1 LOIS ACUÑA DEPARTMEN MED CTR T VISIT HIGH/URGE NT SEVERITY EMERGENCY 65522 [facility] 0 0 LOIS ANT DEPARTMEN MED CTR T VISIT HIGH/URGE NT SEVERITY EMERGENCY 18884 ST BIB[facility] 0 0 LOIS STE DEPARTMEN MED CTR T VISIT MODERATE SEVERITY EMERGENCY 45005 ST [facility] 0 0 LOIS JUL DEPARTMEN T VISIT PHYSICIAN MODERATE S SEVERITY EMERGENCY 72202 [facility], 0 0 LOIS Briggs DEPARTMEN MED CTR T VISIT MODERATE SEVERITY EMERGENCY 71244 [facility], 0 0 LOIS KILLIAN DEPARTMEN MED CTR T VISIT HIGH/URGE NT SEVERITY EMERGENCY 78630 [facility], DEPT 0 0 AMANDA JONA Sampson VISIT PHYS HIGH [place] SEVERITY& [place] THREAT FUNCJ EMERGENCY 81681 [facility], 0 0 LOIS Meléndez DEPARTMEN MED CTR T VISIT HIGH/URGE NT SEVERITY [facility] 14245 [facility], CONSULT[facility] 0 0 LOIS RODRIGUEZ/OBED PHYSICIAN PATIENT S 40 MIN EMERGENCY 55880 [facility], 0 0 LOIS DANG DEPARTMEN MED CTR T VISIT MODERATE SEVERITY EMERGENCY 97579 [facility] 0 0 ROBB ABREU DEPARTMEN MED CTR T VISIT HIGH/URGE NT SEVERITY HOSPITAL ST - 0 0 LOIS OUTPATIEN T MEDICALCE NTER EMERGENCY 38576 0 0 LOIS DEPARTMEN T VISIT MEDICALCE MODERATE NTER SEVERITY HOSPITAL ST - 0 0 LOIS OUTPATIEN T MEDICALCE NTER EMERGENCY 15535 [facility], 0 0 LOIS Anderson DEPARTMEN MED CTR T VISIT HIGH/URGE NT SEVERITY EMERGENCY 31795 [facility], 0 0 LOIS VICTOR DEPARTMEN MED CTR T VISIT MODERATE SEVERITY EMERGENCY 59921 [facility], DEPT 0 0 LOIS KILLIAN VISIT MED CTR HIGH SEVERITY& THREAT [facility] - 0 0 LOIS OUTPATIEN T MEDICALCE NT HOSPITAL ST - 9 9 LOIS OUTPATIEN T MEDICALCE NTER EMERGENCY 15113 [facility] 9 9 [facility]B [facility] T VISIT HIGH/URGE NT SEVERITY EMERGENCY 34428 [facility], 9 9 LOIS Sampson [facility] T VISIT HIGH/URGE NT SEVERITY EMERGENCY 23663 [facility], 9 9 LOIS Quarles [facility] T VISIT HIGH/URGE NT SEVERITY EMERGENCY 73121 [facility] 9 9 SHAHID ABREU [facility] MED CTR D T VISIT HIGH/URGE NT SEVERITY OFFICE 37983 [facility], OUTPATIEN 9 9 CHRISTINE M CHRISTINE M T VISIT 15 MINUTES OFFICE 42898 [facility], WELLS, OUTPATIEN 9 9 CHRISTINE M CHRISTINE M T VISIT [address] [facility], 8 8 LOIS Quarles [facility] MED CTR T VISIT HIGH/URGE NT SEVERITY OFFICE 11114 [facility], WELLS, OUTPATIEN 8 8 CHRISTINE M CHRISTINE M T VISIT 15 MINUTES OFFICE 72103 [facility], WELLS, OUTPATIEN 8 8 CHRISTINE M CHRISTINE M T VISIT 15 MINUTES EMERGENCY 39115 [facility], DEPT 8 8 LOIS Quarles VISIT MED CTR HIGH SEVERITY& THREAT FUNCJ OFFICE 03157 WELLS, WELLS, OUTPATIEN 8 8 CHRISTINE M CHRISTINE M T VISIT [address] [facility], DEPT 8 8 LOIS FRANK VISIT MED CTR HIGH SEVERITY& THREAT FUNCJ EMERGENCY 42373 [facility] 8 8 LOIS JESSICA [facility] MED CTR T VISIT HIGH/URGE NT SEVERITY EMERGENCY 67588 ST [facility], 8 8 LOIS KILLIAN [facility] MED CTR T VISIT HIGH/URGE NT SEVERITY HOSPITAL ST - 8 8 LOIS OUTPATIEN T MEDICALCE NTER EMERGENCY 58926 ST 8 8 LOIS DEPARTMEN T VISIT MEDICALCE MODERATE NTER SEVERITY OFFICE 09547 PATIENT SNEDEGAR, OUTPATIEN 8 8 FIRST SPARKLE T VISIT PHYS 15 MINUTES OFFICE 66189 [facility] 8 8 CHRISTINE M CHRISTINE M T VISIT 15 MINUTES EMERGENCY 78136 [facility] 8 8 LOIS HOPKINS DEPARTMEN MED CTR T VISIT HIGH/URGE NT SEVERITY OFFICE 70282 [facility] OUTPATIEN 8 8 CHRISTINE M CHRISTINE M T VISIT [address] - 8 8 LOIS OUTPATIEN T MEDICALCE NTER [facility]PITAL ST - 8 8 LOIS OUTPATIEN T MEDICALCE NTER OFFICE 38884 PATIENT SNEDEGAR, CONSULTAT 8 8 FIRST SPARKLE ION PHYS NEW/ESTAB PATIENT 60 MIN OFFICE 27527 [facility] 8 8 CHRISTINE M CHRISTINE M T VISIT [address] - 8 8 LOIS OUTPATIEN T MEDICALCE NTER OFFICE 48092 [facility] 8 8 CHRISTINE M CHRISTINE M T VISIT [address] - 8 8 LOIS OUTPATIEN T MEDICALCE NTER [facility]ERGENCY 13353 [facility] LOIS ROD VISIT MED CTR HIGH SEVERITY& THREAT FUNCJ OFFICE 63197 [facility] OUT[facility]IEN 8 8 CHRISTINE M CHRISTINE M T NEW [address] [place], 8 8 LOIS NICOLAS [facility] CTR T VISIT MODERATE SEVERITY OFFICE 65936 [facility] 8 8 MEDICAL ANGELA P T VISIT GROUP 15 MINUTES OFFICE 27252 [facility] 8 8 MEDICAL LUNA B T VISIT GROUP 10 MINUTES OFFICE 60001 [facility] 8 8 MEDICAL MIYA T VISIT GROUP 15 MINUTES
--- OUTSIDE RECORDS SUMMARY | 2016-09-13 18:34 | External Medical Summary Rpt ---
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 -2 -[address] ti IN 03 2- 7- 00 SI ve CARTER 28 20 20 0 46 DE LI 41 16 17 98 N 1 54 PH SY AR R MA 1 CY ML OF 12 CY .7 NT MM HI X3 AN 0G A IN C CA 00 12 01 [...] OR 20 2- 7- 00 SI ve NE 76 20 20 45 DE N 01 16 17 25 HC 0 04 PH L AR 1, MA 00 CY 0 MG OF CY TA NT BL HI ET AN A IN C HM 62 12 [...] CY NT HI AN A IN C CY 00 07 07 0 15 5 CV 30 WO Ac CL 37 -2 -2 .0 S 94 NG ti OB 80 3- 4- 00 PH 81 ve EN 75 20 20 AR BR ZA 11 11 11 MA EN FL 0 CY DA IN # L E [...] 0 20 10 CV 30 MU Ac FL 09 -2 -2 .0 S 20 KH [...] 8- 1- 00 K' 10 AL ve FL 51 20 20 S 7 IL 90 [...] LG 43 LB ti AL 00 5- 4 RE 39 ER ve EX 12 20 20 EN 0 TS IN 20 09 10 # ON 2 50 07 AD 0 34 AM MG 6 D CA PS UL E LE 00 12 12 00 30 30 CV 26 WY Ac VO 37 -1 -3 .0 S 25 EN ti TH 81 7 PH 42 AN ve YR 80 20 20 AR DT OX 00 09 09 MA IN 1 CY JR E 25 #6 RO 11 BE MC 9 RT G TA BL ET GL 00 09 12 02 30 30 CV 25 WY Ac IP 59 -0 -3 .0 S 34 EN ti IZ 10 PH 04 AN ve ID 84 20 20 AR DT E 40 09 09 MA ER 1 CY JR 5 #6 RO MG 11 BE 9 RT TA BL ET CI 13 09 12 01 30 30 CV 25 WY Ac TA 66 -2 -3 .0 S 50 EN ti LO 80 2- 1- 00 PH 75 AN ve FL 01 20 20 AR DT AM 10 09 09 MA 5 CY JR HB R #6 RO 40 11 BE 9 RT MG TA BL ET TR 00 09 12 03 30 30 CV 25 WY Ac IC 07 -0 -3 .0 S 34 EN ti OR 46 1- - PH 56 AN ve 12 20 20 AR DT 14 39 09 09 MA 5 0 CY JR MG #6 RO TA 11 BE BL 9 RT ET AT 68 09 12 03 60 30 CV 25 WY Ac EN 38 -0 -3 .0 S 34 EN ti OL 20 1- PH 53 AN ve OL 02 20 20 AR DT 21 09 09 MA 25 0 CY JR MG #6 RO 11 BE TA 9 RT BL ET 00 09 12 03 60 [...] JR #6 RO 11 BE 9 RT AV 00 12 12 00 10 10 [...] 4- 1- 00 KS 56 DD ve FL 10 20 20 7 IN IL 10 09 09 PH 1 AR MO 10 MA ALBERT CY ME MG D TA BL ET BU 00 12 12 00 90 30 BL 65 ZI Ac SP 59 -1 -3 .0 AN 61 NE ti IR 10 4- 1- KS 56 DD ve ON 65 20 [...] 10 D 0 MG TA BL ET GA 00 12 12 [...] 2- 3- 00 PH 75 AN ve FL 01 20 20 AR DT AM 10 09 09 MA 5 CY JR HB R #6 RO 40 11 BE 9 RT MG TA BL ET 00 09 12 02 [...] 1- 3- 00 PH 54 AN ve FL 51 20 20 AR DT IL 30 [...] RT TA BL ET LE 00 05 10 04 [...] MO 29 ALBERT 91 ME ) D TR 50 09 09 00 30 30 WA 11 ZI Ac AZ 11 -1 -2 .0 LG 06 NE ti OD 10 7- 4- RE 93 DD ve ON 43 20 20 EN 7 IN E 30 09 09 S 50 2 (0 MO 29 ALBERT MG 91 ME ) D TA BL ET LI 68 09 09 00 30 30 WA 11 ZI Ac SI 18 -1 -2 .0 LG 06 NE ti NO 00 7- 4- 00 RE 93 DD ve FL 51 20 20 EN 6 IN IL [...] 9 RT TA BL ET LI 68 09 09 00 30 30 CV 25 WY Ac SI 18 -0 -1 .0 S 34 EN ti NO 00 1- 0- 00 PH 54 AN ve FL 51 20 20 AR DT IL 30 09 09 MA 5 3 CY JR MG #6 RO 11 BE TA 9 RT BL ET AT 68 09 09 00 [...] 4- 7- 00 PH 87 AN ve FL 01 20 20 AR DT AM 10 [...] 9 RT TA BL ET GL 00 07 08 00 30 [...] BL 9 RT ET LE 00 05 08 02 30 [...] 2- 0- 00 PH 96 AN ve FL 51 20 20 AR DT IL 30 08 09 MA 5 3 CY JR MG #6 RO 11 BE TA 9 RT BL ET CI 13 02 07 04 30 30 CV 23 WY Ac TA 66 -2 -1 .0 S 66 EN ti LO 80 4- 6- 00 PH 87 AN ve FL 01 20 20 AR DT AM 10 [...] BE BL 9 RT ET 00 02 07 04 60 30 [...] RT TA BL ET GL 00 12 07 05 30 [...] MC 9 RT G TA BL ET CI 13 02 06 03 30 30 CV 23 WY Ac TA 66 -2 -1 .0 S 66 EN ti LO 80 4- 8- 00 PH 87 AN ve FL 01 20 20 AR DT AM 10 [...] EM ZA 71 09 09 PH IL FL 0 AR Y IN MA L E [...] G 9 RT IN ALBERT LE R LE 00 05 06 00 30 30 CV 24 WY Ac VO 37 -2 -0 .0 S 45 EN ti TH 81 0- 4- 00 PH 52 AN ve YR 80 20 20 AR DT OX 00 09 09 MA IN 1 CY JR E 25 #6 RO 11 BE MC 9 RT G TA BL ET TR 00 12 06 03 [...] 2- 4- 00 PH 96 AN ve FL 51 20 20 AR DT IL 30 08 09 MA 5 3 CY JR MG #6 RO 11 BE TA 9 RT BL ET 00 02 06 03 60 30 CV 23 WY Ac 40 -0 -0 .0 S 49 EN ti 62 5- 4- 00 PH 75 AN ve 02 20 20 AR DT 21 09 09 MA 0 CY JR #6 RO 11 BE 9 RT 00 12 06 05 60 30 CV [...] JR #6 RO 11 BE 9 RT 59 05 05 00 8. 15 CV [...] 4- 1- 00 PH 87 AN ve FL 01 20 20 AR DT AM 10 [...] 2- 3- 00 PH 96 AN ve FL 51 20 20 AR DT IL 30 [...] 9 RT TA BL ET 00 12 04 04 60 [...] BE BL 9 RT ET 00 02 04 02 60 30 [...] 4- 9- 00 PH 87 AN ve FL 01 20 20 AR DT AM 10 [...] BE BL 9 RT ET 00 12 03 03 60 30 [...] 2- 6- 00 PH 96 AN ve FL 51 20 20 AR DT IL 30 08 09 MA 5 3 CY JR MG #6 RO 11 BE TA 9 RT BL ET 00 01 03 02 60 [...] 4- 2- 00 PH 87 AN ve FL 01 20 20 AR DT AM 10 09 09 MA 5 CY JR HB R #6 RO 40 11 BE 9 RT MG TA BL ET CL 00 01 02 00 30 30 CV 23 LI Ac ON 37 -3 -1 .0 S 44 RA ti ID 80 1- 2- 00 PH 89 ve IN 15 20 20 AR AU E 21 09 09 MA RO HC 0 CY RA L M 0. #6 1 11 MG 9 TA BL ET HY 00 01 02 00 14 14 CV [address] 18 -3 -1 .0 S 44 RA ti OX 50 1- 2- 00 PH 90 ve YZ 61 20 20 AR AU IN 50 09 09 MA RO E 1 CY RA PA M M #6 50 11 9 MG CA P GL 00 12 02 02 30 30 [...] 2- 2- 00 PH 96 AN ve FL 51 20 20 AR DT IL 30 08 09 MA 5 3 CY JR MG #6 RO 11 BE TA 9 RT BL ET ZE 66 12 02 02 30 30 CV 22 WY Ac TI 58 -0 -1 .0 S 93 EN ti A 20 1- 2- 00 PH 10 AN ve 10 41 20 20 AR DT 43 08 09 MA MG 1 CY JR TA #6 RO BL 11 BE ET 9 RT 00 12 02 02 60 [...] 1- 2- 00 PH 59 AN ve FL 01 20 20 AR DT AM 10 08 09 MA 5 CY JR HB R #6 RO 40 11 BE 9 RT MG TA BL ET CL 00 01 01 [...] G TA BL ET CL 00 01 01 00 42 14 CV 23 LI Ac ON 09 -0 -1 .0 S 19 RA ti AZ 30 2- 5- 00 PH 35 ve EP 83 20 20 AR AU AM 40 09 09 MA RO 2 1 CY RA M MG #6 11 TA 9 BL ET 00 12 01 01 60 [...] MG 9 TA BL ET AC 64 01 01 00 [...] 2- 5- 00 PH 96 AN ve FL 51 20 20 AR DT IL 30 08 09 MA 5 3 CY JR MG #6 RO 11 BE TA 9 RT BL ET GL 00 12 01 01 30 30 CV 22 WY Ac IP 59 -0 -1 .0 S 93 EN ti IZ 10 2- 5- 00 PH 95 AN ve ID 84 20 20 AR DT E 40 08 09 MA ER 1 CY JR 5 #6 RO MG 11 BE 9 RT TA BL ET 00 01 01 00 [...] 20 2- 5- 00 PH 34 ve NE 02 20 20 AR AU N 81 09 09 MA RO HC 0 CY RA L M 50 #6 0 11 MG 9 TA BL ET CR 00 01 01 [...] BL 11 BE ET 9 RT 00 12 01 00 15 15 CV [...] 9 CA PS UL E CL 00 12 12 00 42 14 CV 22 LI Ac ON 09 -0 -1 .0 S 97 RA ti AZ 30 5- 8- 00 PH 07 ve EP 83 20 20 AR AU AM 40 08 08 MA RO 2 1 CY RA M MG #6 11 TA 9 BL ET AM 00 12 12 00 14 7 [...] 11 BE 9 RT LI 68 12 12 00 30 30 CV 22 WY Ac SI 18 -0 -1 .0 S 93 EN ti NO 00 2 8 00 PH 96 AN ve FL 51 20 20 AR DT IL 30 08 08 MA 5 3 CY JR MG #6 RO 11 BE TA 9 RT BL ET TR 00 12 12 00 30 30 CV 22 WY Ac IC 07 -0 -1 .0 S 93 EN ti OR 46 2 8 PH 93 AN ve 12 20 20 AR DT 14 39 08 08 MA 5 0 CY JR MG #6 RO TA 11 BE BL 9 RT ET LO 00 11 12 00 20 [...] M #6 TA 11 BL 9 ET 00 11 12 00 15 7 [...] TA 9 BL ET CL 00 11 11 00 [...] #6 11 TA 9 BL ET 00 07 11 03 60 [...] 1- 7- 00 PH 59 AN ve FL 01 20 20 AR DT AM 10 [...] 5- 7- 00 PH 36 AN ve FL 51 20 20 AR DT IL 30 [...] BL 9 RT ET GL 00 09 11 01 30 30 CV 22 WY Ac IP 59 -2 -0 .0 S 34 EN ti IZ 10 5- 7- 00 PH 38 AN ve ID 84 20 20 AR DT E 40 08 08 MA ER 1 CY JR 5 #6 RO MG 11 BE 9 RT TA BL ET CL 00 10 10 00 21 14 CV 22 LI Ac ON 09 -1 -2 .0 S 52 RA ti AZ 30 6- 3- 00 PH 98 ve EP 83 20 20 AR AU AM 30 08 08 MA RO 1 1 CY RA M MG #6 11 TA 9 BL ET LI 00 06 10 01 30 30 [...] MG 9 TA BL ET CL 00 09 10 00 [...] -0 .0 LG 29 t ti 10 RE 76 Av ve 34 20 20 EN 8 ai 90 08 08 # la 5 bl 07 e 34 6 ZE 66 09 10 00 30 30 CV 22 WY Ac TI 58 -2 -0 .0 S 32 EN ti A 20 4 PH 72 AN ve 10 41 20 [...] -0 .0 S 70 EN ti 70 5 9 PH 96 AN ve 29 20 20 AR DT 30 08 08 MA 4 CY JR #6 RO 11 BE 9 RT LI 68 09 10 00 30 30 CV 22 WY Ac SI 18 -2 -0 .0 S 34 EN ti NO 00 PH 36 AN ve FL 51 20 20 AR DT IL 30 08 08 MA 5 3 CY JR MG #6 RO 11 BE TA 9 RT BL ET GL 00 09 10 00 30 30 CV 22 WY Ac IP 59 -2 -0 .0 S 34 EN ti IZ 10 5 PH 38 AN ve ID 84 20 [...] JR #6 RO 11 BE 9 RT FL 00 08 09 00 30 10 [...] LG 37 t ti 10 8- 1- RE 60 Av ve 34 20 20 EN 5 ai 90 08 08 S la 5 (0 bl 29 e 91 ) ME 68 08 09 00 12 30 CV 22 LI Ac TF 38 -2 -1 0. S 07 RA ti OR 20 7- 1- 00 PH 95 ve NE 02 20 20 0 AR AU N [...] 11 TA 9 BL ET AC 64 08 09 00 30 30 CV 22 LI Ac TO 76 -2 -1 .0 S 07 RA ti S 40 7- 1- 00 PH 93 ve 30 30 20 20 AR AU 11 08 08 MA RO MG 4 CY RA M TA #6 BL 11 ET 9 LE 00 08 09 00 30 30 CV 22 LI Ac VO 37 -2 -1 .0 S 07 RA ti TH 81 7- 1- 00 PH 94 ve YR 80 20 20 AR AU OX 50 08 08 MA RO IN 1 CY RA E M 75 #6 11 MC 9 G TA BL ET CL 00 05 08 02 90 30 CV 21 LI Ac ON 37 -3 -2 .0 S 35 RA ti ID 80 0- 8- 00 PH 67 ve IN 15 20 20 AR AU E 21 08 08 MA RO HC 0 CY RA L M 0. #6 1 11 MG 9 TA BL ET LI 68 07 08 01 30 30 CV 21 WY Ac SI 18 -1 -2 .0 S 71 EN ti NO 00 5- 8- 00 PH 24 AN ve FL 51 20 20 AR DT IL 30 [...] 9 RT TA BL ET 58 07 08 00 [...] S 02 EN ti 31 2- 8- PH 78 AN ve 77 20 20 AR DT 21 08 08 MA 0 CY JR #6 RO 11 BE 9 RT 00 07 08 01 60 30 CV [...] #6 11 TA 9 BL ET 00 07 08 00 60 [...] BE 9 RT LI 68 07 08 00 30 30 CV 21 WY Ac SI 18 -1 -0 .0 S 71 EN ti NO 00 5- 1- 00 PH 24 AN ve FL 51 20 20 AR DT IL 30 08 08 MA 5 3 CY JR MG #6 RO 11 BE TA 9 RT BL ET TR 00 07 08 00 [...] MG #6 11 TA 9 BL ET DI 00 05 07 01 90 30 CV 21 LI Ac CY 37 -3 -1 .0 S 35 RA ti CL 81 0- 7- 00 PH 65 ve OM 61 20 20 AR AU IN 00 08 08 MA RO E 1 CY RA 10 M #6 MG 11 9 CA PS UL E LO 00 07 07 00 10 2 [...] CY TH ON #6 Y 11 9 ME 68 05 07 01 12 31 CV 21 LI Ac TF 38 -3 -1 4. S 35 RA ti OR 20 0- 7- 00 PH 66 ve NE 02 20 20 0 AR AU N [...] G TA BL ET AC 64 05 07 01 30 30 CV 21 LI Ac TO 76 -3 -1 .0 S 35 RA ti S 40 0- 7- 00 PH 70 ve 30 30 20 20 AR AU 11 08 08 MA RO MG 4 CY RA M TA #6 BL 11 ET 9 CL 00 05 06 00 90 30 [...] 8 (0 bl 29 e 91 ) NA 68 06 06 00 20 10 WA 10 No Ac FL 46 -0 -1 .0 LG 22 t ti OX 20 3- 2- 00 RE 74 Av ve EN 19 20 20 EN 0 ai 00 08 08 S la 50 5 (0 bl 0 29 e MG 91 ) TA BL ET LE 00 05 06 [...] 20 0- 5- 00 PH 66 ve NE 02 20 20 0 AR AU N [...] la 1 AR bl MA e CY CL 00 04 04 00 90 30 [...] 0- 4- 00 KS 40 Av ve NE 02 20 20 0 9 ai N 81 08 08 PH la HC 0 AR bl L MA e 50 CY 0 MG TA BL ET LI 00 04 04 00 30 30 BL 65 No Ac SI 18 -1 -2 .0 AN 11 t ti NO 55 1- 4- 00 KS 41 Av ve FL 40 20 20 1 ai IL 00 08 08 PH la 5 1 AR bl MA e MG CY TA BL ET ME 68 11 04 02 12 30 CV 19 No Ac TF 38 -0 -1 0. S 63 t ti OR 20 1- 7- 00 PH 38 Av ve NE 02 20 20 0 AR ai N 81 07 08 MA la HC 0 CY bl L e 50 #6 0 11 MG 9 TA BL ET LE 00 03 04 00 30 30 CV 20 No Ac VO 37 -1 -1 .0 S 76 t ti TH 81 7- 7- 00 PH 91 Av ve YR 80 20 20 AR ai OX 50 08 08 MA la IN 1 CY bl E e 75 #6 11 MC 9 G TA BL ET CL 57 03 04 [...] e TA #6 BL 11 ET 9 00 01 03 00 90 30 CV 20 No Ac 59 -2 -2 .0 S 31 t ti 15 2- 5- 00 PH 64 Av ve 52 20 20 AR ai 30 08 08 MA la 1 CY bl e #6 11 9 CL 00 01 03 00 60 [...] 1- 5- 00 PH 38 Av ve NE 02 20 20 0 AR ai N [...] 30 CV 20 No Ac ON 09 1 -2 .0 S 25 t ti AZ 30 4- 5- 00 PH 09 Av ve EP 83 20 20 AR ai AM 30 08 08 MA la 1 1 CY bl e MG #6 11 TA 9 BL ET Procedures Procedure DOS Code Location Performer Comment AMB A0427 [facility]ICE 7 [facility]ANCE [facility] ALS SERVICE SERVICE EMERGENCY TRANSPORT LEVEL 1 GROUND A0425 [facility] MILEAGE 7 AMBULANCE AMBULANCE PER SERVICE SERVICE STATUTE MILE ECG 29913 [facility] GR[facility] ROUTINE 7 [facility] ECG INC INC W/LEAST 12 LDS TRCG ONLY W/O I&R DRUG TST [id number] COMBINED COMBINED PRESUMP;C 6 PHYSICIAN PHYSICIAN PBL BEING S LA S LA READ DC OPT OBV ONLY RADEX 69745 [place] [facility] ALL RIBS 6 MEDICAL UNILATERA IMAGING L 2 [place] [address] COMBINED COMBINED THYROID 6 PHYSICIAN PHYSICIAN STIMULATI S LA S LA NG HORMONE TSH COLLECTIO 91557 COMBINED COMBINED N VENOUS 6 PHYSICIAN PHYSICIAN BLOOD S LA S LA VENIPUNCT URE COMPREHEN 73242 COMBINED COMBINED SIVE 6 PHYSICIAN PHYSICIAN METABOLIC S LA S LA PANEL LIPID 19688 COMBINED COMBINED PANEL 6 PHYSICIAN PHYSICIAN S LA S LA HEMOGLOBI 73661 COMBINED COMBINED N 6 PHYSICIAN PHYSICIAN GLYCOSYLA S LA S LA BELLA A1C SBSQ 01830 [facility] 6 [facility] FACILITY CARE/DAY E/M STABLE 10 MIN LIPID 66643 COMBINED COMBINED PANEL 6 PHYSICIAN PHYSICIAN S LA S LA COMPREHEN 83052 COMBINED COMBINED SIVE 6 PHYSICIAN PHYSICIAN METABOLIC S LA S LA PANEL COLLECTIO 48874 COMBINED COMBINED N VENOUS 6 PHYSICIAN PHYSICIAN BLOOD S LA S LA VENIPUNCT URE HEMOGLOBI 63023 COMBINED COMBINED N 6 PHYSICIAN PHYSICIAN GLYCOSYLA S LA S LA BELLA A1C BLOOD 25820 COMBINED COMBINED COUNT 6 PHYSICIAN PHYSICIAN COMPLETE S LA S LA AUTO&[place] [address] COMBINED COMBINED THYROID 6 PHYSICIAN PHYSICIAN STIMULATI S LA S LA NG HORMONE TSH SBSQ 11702 [facility] NURSING 6 [facility] EM[facility]IAN[facility] FACILITY CARE/DAY E/M STABLE 10 MIN INITIAL 69307 [facility] N[facility] 6 [facility] FACILITY [facility]ARE/DAY [address] INTERNAL MANAGEMEN MED T 30 MIN/< CATH PLMT 54325 [facility] KELI L HRT & 6 PHYSICIAN MAT ARTS S GROUP W/NJX & ANGIO IMG S&I FLUORO [id number] [facility] MULTI 6 [facility] CORONARY INC INC ARTERIES LOW OSMOLAR CONT FLUORO LT [id number] GR[facility]IEL[facility] OWENS INTRL 6 [facility] MAMM INC INC BYPASS GRAFT LOW OSMLR CONT FLUOROSCO [id number] GRACIELA OWENS PY 6 [facility] MULTIPLE INC INC CABG LOW OSMOLAR CONTRAST MEASUREME [id number] GRACIELA OWENS NT 6 [facility] CARDIAC INC INC SAMPLING PRESS LT HEART PERQ FLUOROSCO [id number] GRACIELA OWENS PY LEFT 6 [facility] HEART LOW INC INC OSMOLAR CONTRAST CV STRS 31527 [facility] FALLUJI TST 6 PHYSICIAN SUBHASH XERS&/OR S GROUP RX CONT ECG W/O I&R SBSQ [address] CARE/DAY INTERNAL 25 MED MINUTES SBSQ [address] CARE/DAY INTERNAL 25 MED MINUTES DUPLEX 60529 [place] [facility] SCAN 6 MEDICAL JUVE EXTRACRAN IMAGING IAL ART ASS COMPL BI STUDY MYOCARDIA 63863 [place] [facility] ALL L SPECT 6 MEDICAL MULTIPLE IMAGING STUDIES ASS ECHO 14785 [facility] T[facility] R-T 6 MEDICAL 2D SERV W/WOM-MOD FOUNDATIO E COMPL N SPEC&COLR D ECG 01504 GRACIELA SOTELO JR ROUTINE 6 [facility] W/LEAST P 12 LDS I&R ONLY AMB A0427 [facility]ICE 6 AMBULANCE AMBULANCE ALS SERVICE SERVICE EMERGENCY TRANSPORT LEVEL 1 RADIOLOGI 24474 [place] [facility] ALL C 6 MEDICAL EXAMINATI IMAGING ON CHEST ASS [place] FRONTAL INITIAL 05139 [facility] 6 PHYSICIAN MAT CARE/DAY S GROUP 50 MINUTES GROUND A0425 [facility] MILEAGE 6 AMBULANCE AMBULANCE PER SERVICE SERVICE STATUTE MILE INITIAL 73391 [facility] FACILITY CARE/DAY 25 MINUTES DRUG TST G0477 COMBINED COMBINED PRESUMP;C 6 PHYSICIAN PHYSICIAN PBL BEING S LA S LA READ DC OPT OBV ONLY OPHTH 28780 SCIFRES SCIFRES MEDICAL 5 ANG ANG XM&EVAL COMPRE NEW PT 1/> VST WRIST L3908 [facility] HO[facility]IT[facility] HAND 5 LTH [facility] ORTHOSIS ORTHOPAE EXT CONTROL COCK-UP PREFAB RADEX 73277 [facility] HOBLIT[facility] WRIST 5 LTH [place] COMPLETE ORTHOPAE MINIMUM 3 VIEWS RADEX 43243 [facility] JAM WRIST 5 LTH COMPLETE ORTHOPAE MINIMUM 3 [place] [address] [facility] CARPAL 5 LTH SCAPHOID ORTHOPAE FRACTURE W/O MANJ CLTX DSTL 83179 [facility] PE[facility] JAM RADIAL 5 LTH FX/EPIPHY ORTHOPAE SL SEP W/O MANJ SHOULDER L3650 [facility] 5 TECHNOLOG TECHNOLOG FIG 8 IES INC IES INC ABDUCT RESTRAINE R PREFAB RADEX 75776 RADIOLOGY KLEIMEYER WRIST 5 ANJEL COMPLETE ASSOCIATE MINIMUM 3 S OF NOTH VIEWS ESOPHAGOG [address] ST ANUSIONWU ASTRODUOD 4 LOIS CHI ENOSCOPY [place] [address] RADIOLOGY DOERGER ABDOMINAL 4 KIR REAL ASSOCIATE TIME S OF NOTH W/IMAGE LIMITED ECHO [address] ST DREXEL HILL TTHRC R-T 4 LOIS MAR 2D W/WOM-MOD PHYSICIAN E COMPL S SPEC&COLR D INITIAL 19839 ST SCHUSSLER INPATIENT 4 LOIS THO CONSULT NEW/ESTAB PHYSICIAN PT 80 S MIN GROUND A0425 [facility] PER DEPT DEPT STATUTE MILE AMB A0427 [facility] SERVICE 4 FIRE FIRE ALS DEPT DEPT EMERGENCY TRANSPORT LEVEL 1 RADIOLOGI 20014 RADIOLOGY SCHMITTER C EXAM 4 LUNA CHEST 2 ASSOCIATE VIEWS S OF NOTH FRONTAL&L ATERAL ECG [address] ST [facility] BAR ROUTINE 4 LOIS ECG MED CTR W/LEAST 12 LDS I&[place] [address] RADIOLOGY WEBMETHODS ARCHITECT/BRAI 4 BRA N W/[place] [address] RADIOLOGY GARCIA BYR ANGIOGRAP 4 HY CHEST ASSOCIATE W/CONTRAS S OF NOTH T/NONCONT RAST AMBULANCE A0429 [facility] SERVICE 4 FIRE FIRE BLS DEPT DEPT EMERGENCY TRANSPORT INJECTION J2060 ST ST 4 LOIS LOIS [facility]AM MED CTR MED CTR [address] UROGYNEC[address]Y PHYSICIAN ST AMBULANCE A0429 [facility] SERVICE 4 FIRE FIRE BLS DEPT DEPT EMERGENCY TRANSPORT GROUND A0425 [facility] 4 FIRE FIRE PER DEPT DEPT STATUTE MI[place] ECG [address] ROUTINE 4 LOIS LOIS ECG MED CTR MED CTR W/LEAST UROGYNECOLOGY PHYSICIAN ST UROGYNECOLOGY PHYSICIAN ST 12 LDS TRCG ONLY W/O I&R ECG [address]172 ST YECENIA FORTINO ROUTINE 4 LOIS ECG MED CTR W/LEAST 12 LDS I&R ONLY RADIOLOGI 12356 RADIOLOGY BRANDSER C EXAM 4 KIRAN KNEE ASSOCIATE COMPLETE S OF NOTH 4/MORE VIEWS GROUND A0425 [facility] 4 FIRE FIRE PER DEPT DEPT STATUTE MILE AMB A0427 [facility] SERVICE 4 FIRE FIRE ALS DEPT DEPT EMERGENCY TRANSPORT LEVEL 1 RADIOLOGI 03980 RADIOLOGY JOYSER C 4 KIRAN EXAMINATI ASSOCIATE ON CHEST S OF NOTH SINGLE VIEW FRONTAL AMB A0427 [facility] SERVICE 4 FIRE FIRE ALS DEPT DEPT EMERGENCY TRANSPORT LEVEL 1 GROUND A0425 [facility] FIRE FIRE PER DEPT DEPT STATUTE MILE SBSQ 53244 [facility] 4 LUNA LUNA CARE/DAY 15 MINUTES INITIAL 28226 GUILLAUME [facility] INPATIENT 4 DERIK DERIK CONSULT NEW/ESTAB PT 55 MIN ECG 24596 HEYDI BAR HEYDI BAR ROUTINE 4 ECG W/LEAST 12 LDS I&R ONLY GROUND A0425 [facility] 3 FIRE FIRE PER DEPT DEPT STATUTE MILE AMB A0427 [facility] 3 FIRE FIRE ALS DEPT DEPT EMERGENCY TRANSPORT LEVEL 1 COMPREHEN 69886 [facility] SIVE 3 DIAGNOSTI DIAGNOSTI METABOLIC CS CS PANEL LIPID 09480 [facility] PANEL 3 DIAGNOSTI DIAGNOSTI CS CS HEMOGLOBI 97221 [facility]ST N 3 DIAGNOSTI DIAGNOSTI GLYCOSYLA CS CS BELLA A1C ECG 10276 RADHA ARL RADHA ARL ROUTINE 3 ECG W/LEAST 12 LDS W/I&[place] [address] [facility] THYROID 3 DIAGNOSTI DIAGNOSTI STIMULATI [place] [address] [facility] FREE 3 DIAGNOSTI DIAGNOSTI THYROXINE CS CS RADEX 41699 [facility] SEA SPINE 3 LUMBOSACR AL 2/3 VIEWS ECG 36348 [facility] CHR LOMAX CHR ROUTINE 3 ECG W/LEAST 12 LDS I&R ONLY RADEX 80359 [facility] SEA SPINE 3 THORACIC 3 VIEWS AMB A0427 [facility] SERVICE 3 FIRE FIRE ALS DEPT DEPT EMERGENCY TRANSPORT LEVEL 1 GROUND A0425 [facility] 3 FIRE FI[place] [address] [facility] CERVICAL 3 SPINE W/[place] [address] [facility] HEAD/BRAI 3 N W/O CONTRAST MATERIAL ECG 12219 MONIE CHR LOMAX CHR ROUTINE 3 ECG W/LEAST 12 LDS I&R ONLY GROUND A0425 [facility] 3 FIRE FIRE PER DEPT DEPT STATUTE MILE AMB A0427 [facility] SERVICE 3 FIRE FIRE ALS DEPT DEPT EMERGENCY TRANSPORT LEVEL 1 COMPREHEN 23075 [facility] SIVE 3 DIAGNOSTI DIAGNOSTI METABOLIC CS CS PANEL HEMOGLOBI 72391 [facility] N 3 DIAGNOSTI DIAGNOSTI GLYCOSYLA CS CS BELLA A1C LIPID 25856 [facility] PANEL 3 DIAGNOSTI DIAGNOSTI CS CS ALBUMIN 39974 [facility] URINE 3 [facility], [place] [address] [facility] THYROID 3 DIAGNOSTI DIAGNOSTI STIMULATI [place] [address] [facility] FREE 3 DIAGNOSTI DIAGNOSTI THYROXINE CS CS RADIOLOGI 81399 WILDA Castillo 3 CYRUS CYRUS EXAMINATI [place] [address] [facility] THYROID 2 DIAGNOSTI DIAGNOSTI STIMULATI CS CS NG HORMONE TSH LIPID 48274 [facility] PANEL 2 DIAGNOSTI DIAGNOSTI CS CS HEMOGLOBI 61253 [facility] N 2 DIAGNOSTI DIAGNOSTI GLYCOSYLA CS CS BELLA A1C COMPREHEN 15100 [facility] SIVE 2 DIAGNOSTI DIAGNOSTI METABOLIC CS CS PANEL RADIOLOGI 95112 RADIOLOGY DARNIAER C EXAM 2 LUNA CHEST 2 ASSOCIATE VIEWS S OF NOTH FRONTAL&L ATERAL GROUND A0425 [facility] 2 FIRE FIRE PER DEPT DEPT STATUTE MILE AMB A0427 [facility] SERVICE 2 FIRE FIRE ALS DEPT DEPT EMERGENCY TRANSPORT LEVEL 1 AMB A0427 [facility] SERVICE 2 FIRE FIRE ALS DEPT DEPT EMERGENCY TRANSPORT LEVEL 1 GROUND A0425 [facility] 2 FIRE FIRE PER DEPT DEPT STATUTE MILE AMB A0422 [facility] OXYGEN&O2 2 FIRE FIRE SUPPLIES DEPT DEPT LIFE SUSTAININ G SITUATION GROUND A0425 [facility] PER [facility]PT DEPT STATUTE MILE AMB A0427 [facility] SERVICE 2 FIRE FIRE ALS DEPT DEPT EMERGENCY TRANSPORT LEVEL [address] C 2 LOIS LOIS EXAMINATI ON CHEST MEDICALCE MEDICALCE SINGLE NTER NTER VIEW FRONTAL RADIOLOGI 00527 RADIOLOGY DOERGER C 2 KIR EXAMINATI ASSOCIATE ON CHEST S OF [place]H [place] FRONTAL GROUND A0425 [facility] 2 FIRE FIRE PER DEPT DEPT STATUTE MILE AMB A0427 [facility] SERVICE 2 FIRE FIRE ALS DEPT DEPT EMERGENCY TRANSPORT LEVEL 1 ECG 22207 CARMELO RHODES ROUTINE 2 RAL RAL ECG W/LEAST 12 LDS I&R ONLY RADIOLOGI 19821 RADIOLOGY NEILS KIRAN C 2 EXAMINATI ASSOCIATE ON CHEST S OF NOTH [place] FRONTAL SBSQ 75056 [facility] 2 CARE/DAY 25 MINUTES SBSQ [address] SYDNEE CARE/DAY MEDICAL 25 SPEC MINUTES RADIOLOGI 17073 RADIOLOGY DARDINGER C 2 LUNA EXAMINATI ASSOCIATE ON CHEST S OF [place]H [place] FRONTAL RADIOLOGI 55354 RADIOLOGY DARDINGER C 2 LUNA EXAMINATI ASSOCIATE ON CHEST S OF [place]H [place] FRONTAL ECG 80473 GAYLE MAR GAYLE MAR ROUTINE 2 ECG W/LEAST 12 LDS I&R ONLY RADIOLOGI 06846 RADIOLOGY DUARTE C EXAM 2 BRA CHEST 2 ASSOCIATE VIEWS S OF NOTH FRONTAL&L ATERAL INITIAL 38472 [facility] INPATIENT 2 CONSULT NEW/ESTAB PT 80 MIN SBSQ [address] MAN CARE/DAY MEDICAL 35 SPEC MINUTES RADIOLOGI 52307 RADIOLOGY DUARTE C 2 BRA EXAMINATI ASSOCIATE ON CHEST S OF [place]H [place] FRONTAL RADIOLOGI 18077 RADIOLOGY TOUSSAINT C 2 JAM EXAMINATI ASSOCIATE ON CHEST S OF [place]H [place] FRONTAL ECG 24057 MARCO LARA ROUTINE [address] ECG W/LEAST 12 LDS I&R ONLY SBSQ [address] MAN CARE/DAY MEDICAL 35 SPEC MINUTES SBSQ [address] SYDNEE CARE/DAY MEDICAL 35 SPEC MINUTES SBSQ 68007 [place] [address] [facility] CARE/DAY 25 PHYSICIAN MINUTES S CORONARY 40140 ULICNY ULICNY ARTERY 2 FORTINO FORTINO BYP W/VEIN & ARTERY GRAFT 3 VEIN ARTL 39827 INDEPENDE CRISPEN CATHJ/CAN 2 NT GIANA NULJ ANESTHESI MNTR/MAN OLOGIST SFUSION SPX PRQ ANES 09631 INDEPENDE CRISPEN DIRECT 2 NT GIANA CABG ANESTHESI W/PUMP OLOGIST OXYGENATO R RADIOLOGI 13611 RADIOLOGY [place] C 2 JAM EXAMINATI ASSOCIATE ON CHEST S OF NOTH SINGLE VIEW FRONTAL INSERTION 26416 INDEPENDE CRISPEN FLOW 2 NT GIANA DIRECTED ANESTHESI CATHETER OLOGIST FOR MONITORIN G CABG 03981 ULICNY ULICNY W/ARTERIA 2 FORTINO FORTINO L GRAFT TWO ARTERIAL GRAFTS (AORTO)[place] [address] RONARY 2 LOIS LOIS BYPASS THREE MEDICALCE MEDICALCE CORONARY NTER NTER ARTERIES SINGLE [address] INTERNAL 2 LOIS LOIS MAMMARY-C ORONARY MEDICALCE MEDICALCE ARTERY NTER NTER BYPASS INITIAL [address] SYDNEE CARE/DAY MEDICAL 70 SPEC MINUTES SBSQ 14032 [place] [address] CARE/DAY 35 MINUTES SBSQ 96561 [facility] 2 CARE/DAY 35 MINUTES SBSQ 12744 [place] [address] [place] CARE/DAY 25 MINUTES SBSQ 34184 [facility] 2 [place] CARE/DAY 25 MINUTES SBSQ 16514 [facility] 2 [place] CARE/DAY 25 MINUTES SBSQ 35563 [facility] 2 [place] CARE/DAY 25 MINUTES ECG 30801 CARMELO RHODES ROUTINE 2 RAL RAL ECG W/LEAST 12 LDS I&R ONLY ECG 01826 HEEB CHR HEEB CHR ROUTINE 2 ECG W/LEAST 12 LDS I&R ONLY ECHO 45350 [facility] TTHRC R-T 2 [place] 2D W/WOM-MOD E COMPL SPEC&COLR D CATH PLMT 90626 [facility] L HRT & 2 [place] ARTS W/NJX & ANGIO IMG S&I INITIAL 00344 [facility] COMPLEX 2 FORTION FORTINO CARE/DAY 70 MINUTES RADIOLOGI 84053 RADIOLOGY [facility] C EXAM 2 CHEST 2 ASSOCIATE VIEWS S OF [facility] FRONTAL&L ATERAL ANGIOCARD [address] IOGRAPHY 2 LOIS LOIS OF LEFT HEART MEDICALCE MEDICALCE STRUCTURE NTER NTER S LEFT [address] HEART 2 LOIS LOIS CARDIAC CATHETERI MEDICALCE MEDICALCE ZATION NTER NTER CORONARY [address] ARTERIOGR 2 LOIS LOIS APHY USING TWO MEDICALCE MEDICALCE NTER NTER CATHETERS GROUND A0425 [facility] MILEAGE 2 FIRE FIRE PER DEPT DEPT STATUTE MILE AMB A0427 [facility] SERVICE 2 FIRE FIRE ALS DEPT DEPT EMERGENCY TRANSPORT LEVEL 1 RADIOLOGI 66551 RADIOLOGY [facility] C 2 LUNA EXAMINATI ASSOCIATE ON CHEST S OF [facility] S[place] FRONTAL ECG 55126 HEEB CHR HEEB CHR ROUTINE 2 ECG W/LEAST 12 LDS I&R ONLY REMOVAL 54668 LORI LORI FOREIGN 2 ANT ANT BODY FOOT SUBCUTANE OUS AMB A0427 [facility] SERVICE 2 FIRE FIRE ALS DEPT DEPT EMERGENCY TRANSPORT LEVEL 1 GROUND A0425 [facility] 2 FIRE FIRE PER DEPT DEPT STATUTE MILE RADEX 11842 RADIOLOGY GARCIA BYR FOOT 2 COMPLETE ASSOCIATE MINIMUM 3 S OF NOTH VIEWS GROUND A0425 [facility] 2 FIRE FIRE PER DEPT DEPT STATUTE MILE AMB A0427 [facility] SERVICE 2 FIRE FIRE ALS DEPT DEPT EMERGENCY TRANSPORT LEVEL 1 ECG 22626 [facility] ROUTINE 2 RAL RAL ECG W/LEAST 12 LDS I&R ONLY ECG 18703 [facility] ROUTINE 2 RAL RAL ECG W/LEAST 12 LDS I&R ONLY GROUND A0425 [facility] 2 FIRE FIRE PER DEPT DEPT STATUTE MILE AMB A0427 [facility] SERVICE 2 FIRE FIRE ALS DEPT DEPT EMERGENCY TRANSPORT LEVEL 1 AMB A0427 [facility] SERVICE 1 FIRE FIRE ALS DEPT DEPT EMERGENCY TRANSPORT LEVEL 1 GROUND A0425 [facility] 1 FIRE FIRE PER DEPT DEPT STATUTE MILE SMPL [address] [facility] SOWER RETA REPAIR 1 LOIS SCALP/NEC FAMILY K/AX/ROSITA PRACTICE T/TRUNK 2.6-7.5CM GROUND A0425 [facility] 1 FIRE FIRE PER DEPT DEPT STATUTE MILE AMBULANCE A0428 RURAL/MET RURAL/MET SERVICE 1 RO RO BLS AMBULANCE AMBULANCE NONEMERGE NCY TRANSPORT AMB A0427 [facility] SERVICE 1 FIRE FIRE ALS DEPT DEPT EMERGENCY TRANSPORT LEVEL 1 GROUND A0425 [facility] 1 FIRE FIRE PER DEPT DEPT STATUTE MILE AMB A0427 [facility] SERVICE 1 FIRE FIRE ALS DEPT DEPT EMERGENCY TRANSPORT LEVEL [address] MELANY ROUTINE 1 LOIS DEL ECG W/LEAST PHYSICIAN 12 LDS S I&[place] [address] RADIOLOGY JOSE CRUZ HEAD/BRAI 1 TUS N W/O ASSOCIATE CONTRAST S PSC MATERIAL RADIOLOGI 43678 RADIOLOGY JOSE CRUZ C EXAM 1 TUS CHEST 2 ASSOCIATE VIEWS S PSC FRONTAL&[place] [address] RADIOLOGY NEILS KIRAN ABDOMEN & 1 PELVIS ASSOCIATE W/O S PSC CONTRAST MATERIAL RADEX 27525 RADIOLOGY NEILS KIRAN ABDOMEN 1 1 ASSOCIATE ANTEROPOS S PSC TERIOR VIEW THERAPEUT [address] IC 1 LOIS LOIS PROPHYLAC TIC/DX MEDICALCE MEDICALCE INJECTION NTER NTER SUBQ/IM AMB A0427 [facility] SERVICE 1 FIRE FIRE ALS DEPT DEPT EMERGENCY TRANSPORT LEVEL 1 GROUND A0425 [facility] PER DEPT DEPT STATUTE MILE URNLS DIP [address] 1 LOIS LOIS STICK/TAB LET RGNT MEDICALCE MEDICALCE NON-AUTO NTER NTER W/O MICRSCP RADIOLOGI 75312 RADIOLOGY [place] C EXAM 1 BRA CHEST 2 ASSOCIATE VIEWS S PSC FRONTAL&L ATERAL GROUND A0425 [facility]RE [facility]RE PER DEPT DEPT STATUTE MILE RADEX 86056 RADIOLOGY BRANDSER FOOT 1 KIRAN COMPLETE ASSOCIATE MINIMUM 3 S PSC VIEWS RADEX 30499 RADIOLOGY BRANDSER HAND 1 KIRAN MINIMUM 3 ASSOCIATE VIEWS S PSC CRTCHS E0114 [facility]VANC[facility] UNDARM 1 TECHNOLOG TECHNOLOG OTH THAN IES INC IES INC WOOD PAIR PAD TIP&HNDGR IP AMBULANCE A0429 [facility] SERVICE 1 FIRE FIRE BLS DEPT DEPT EMERGENCY TRANSPORT GROUND A0425 [facility] FIRE FIRE PER DEPT DEPT STATUTE MILE AMB A0427 [facility] SERVICE 0 FIRE FIRE ALS DEPT DEPT EMERGENCY TRANSPORT LEVEL 1 RADIOLOGI 10065 RADIOLOGY DUYEN C EXAM 0 LUNA CHEST 2 ASSOCIATE VIEWS S PSC FRONTAL&L ATERAL RADEX 05802 RADIOLOGY DARDINGER FOOT 0 LUNA COMPLETE ASSOCIATE MINIMUM 3 S PSC VIEWS RADEX 09891 RADIOLOGY ROEBKER ELBOW 0 JAM COMPLETE ASSOCIATE MINIMUM 3 S PSC VIEWS NONEMERG A0120 [facility] TRNSPRT: 0 [facility] N [facility] AREA/OTH SYS GROUND A0425 [facility] MILEAGE 0 FIRE FIRE PER DEPT DEPT STATUTE MILE AMB A0427 [facility] SERVICE 0 FIRE FIRE ALS DEPT DEPT EMERGENCY TRANSPORT LEVEL 1 RADEX 27434 RADIOLOGY MANDA SHOULDER 0 SRUTHI COMPLETE ASSOCIATE MINIMUM 2 S PSC VIEWS GROUND A0425 [facility] MILEAGE 0 FIRE FIRE PER DEPT DEPT STATUTE MILE RADEX 34928 RADIOLOGY MANDA HUMERUS 0 SRUTHI MINIMUM 2 ASSOCIATE VIEWS S PSC AMBULANCE A0429 [facility] SERVICE 0 FIRE FIRE BLS DEPT DEPT EMERGENCY TRANSPORT CT PELVIS 34257 RADIOLOGY DUARTE 0 BRA W/[place] [address] RADIOLOGY DUARTE ABDOMEN 0 BRA W/CONTRAS ASSOCIATE T S PSC MATERIAL LEVEL III 52018 [facility] SURG 0 LOIS PATHOLOGY MED CTR GROSS&MELVA ROSCOPIC EXAM ANES 60576 INDEPENDE JORDAN, INTRAPERI 0 NT GODWIN P TONEAL ANESTHESI UPPER OLOGIST ABDOMEN W/LAPS NOS LAPAROSCO 58671 [facility] SURG 0 LOIS PRUITT W CHOLECYST ECTOMY PHYSICIAN S NONEMERG A0120 [facility] TRNSPRT: 0 [facility] ACTION N [facility] AREA/[place] [address] [facility] [address] ELSIE ABDOMINAL 0 [facility] TIME W/IMAGE LIMITED ECG [address] [facility], ROUTINE 0 LOIS BONEPH F ECG MED CTR W/LEAST 12 LDS I&R ONLY URNLS DIP 53895 [facility] 0 LOIS ABREU STICK/TAB LET RGNT MEDICALCE MEDICALCE NON-AUTO NTER NTER W/O MICRSCP COLLECTIO [address] N [facility] BLOOD VENIPUNCT MEDICALCE MEDICALCE URE NTER NTER COMPREHEN [address] SIVE 0 LOIS LOIS METABOLIC PANEL [place] [address] LIPASE 0 LOIS LOIS MEDICALCE MEDICALCE NTER NTER ECG [address] [facility] 0 [facility] ECG W/LEAST MEDICALCE MEDICALCE 12 LDS NTER NTER TRCG ONLY W/O I&R BLOOD [address] [facility] COMPLETE AUTO&AUTO MEDICALCE MEDICALCE DIFRNTL NTER NTER WBC RADIOLOGI 40937 RADIOLOGY DOBERTOR, C EXAM 0 EULALIO M CHEST 2 ASSOCIATE VIEWS S PSC FRONTAL&L ATERAL AMB A0427 [facility] SERVICE 0 FIRE FIRE ALS DEPT DEPT EMERGENCY TRANSPORT LEVEL 1 GROUND A0425 [facility] 0 FIRE [place] [address] RADIOLOGY LEW, HEAD/BRAI 0 SHAHID G N W/O ASSOCIATE CONTRAST S [place] ABD 86240 RADIOLOGY FROYLAN, COMPL 9 AQT ABD ASSOCIATE LOIS W/S/E/D S PSC A VIEWS 1 [place] [address] [facility] FREE 9 [facility] [place] [address] [facility] THYROID 9 [facility] STIMULATI NG HORMONE TSH COMPREHEN 04697 [facility] SIVE 9 [facility] METABOLIC PANEL HEMOGLOBI 08873 [facility] N 9 [facility] A[facility] GROUND A0425 [facility]RE FIRE PER DEPT DEPT STATUTE MILE AMBULANCE A0429 [facility] SERVICE 9 FIRE FIRE BLS DEPT DEPT EMERGENCY TRANSPORT RADEX 46697 RADIOLOGY LEW, ELBOW 9 SHAHID G COMPLETE ASSOCIATE MINIMUM 3 S PSC VIEWS RADEX 07887 RADIOLOGY DUARTE, ANKLE 9 SAKINA L COMPLETE ASSOCIATE MINIMUM 3 S PSC VIEWS SBSQ 87759 [facility] 9 [facility] M CARE/DAY 15 MINUTES SBSQ 95786 [facility] [address] [facility] CARE/DAY 15 MINUTES SBSQ 83348 [facility] [address] [facility] CARE/DAY 15 MINUTES SBSQ 36709 [facility] [address] [facility] CARE/DAY 15 MINUTES SBSQ 52710 [facility] 9 [facility] CARE/DAY 15 MINUTES SBSQ 54983 [facility] 9 [facility] CARE/DAY 15 MINUTES SBSQ 94800 [facility] [address] [facility] CARE/DAY 15 MINUTES INITIAL 55688 [facility] INPATIENT 9 [facility] CONSULT NEW/ESTAB PT [address] HUER, ROUTINE 9 LOIS AG F ECG MED CTR W/LEAST 12 LDS I&R ONLY RADEX 91136 RADIOLOGY MANDA, HAND 8 ZACKERY M MINIMUM [address] [place] [address] RADIOLOGY MANDA, HEAD/BRAI 8 ZACKERY M N W/O ASSOCIATE CONTRAST S PSC MATERIAL GROUND A0425 [facility] 8 FIRE FIRE PER DEPT DEPT STATUTE MILE AMBULANCE A0429 [facility] 8 FIRE FIRE BLS DEPT DEPT EMERGENCY TRANSPORT GROUND A0425 [facility] 8 FIRE FIRE PER DEPT DEPT STATUTE MILE RADEX 01614 RADIOLOGY DESTINY, SPINE 8 SONIA THORACIC ASSOCIATE H 3 VIEWS S PSC AMB A0427 [facility] 8 FIRE FIRE ALS DEPT DEPT EMERGENCY TRANSPORT LEVEL 1 RADEX 52287 RADIOLOGY DESTINY, SPINE 8 SONIA LUMBOSACR ASSOCIATE H AL 2/3 S PSC VIEWS RADEX 34637 RADIOLOGY DESTINY, WRIST 8 SONIA COMPLETE ASSOCIATE H MINIMUM 3 S PSC VIEWS GROUND A0425 [facility] 8 FIRE FIRE PER DEPT DEPT STATUTE MILE AMBULANCE A0429 [facility] 8 FIRE FIRE BLS DEPT DEPT EMERGENCY TRANSPORT GROUND A0425 [facility] 8 FIRE FIRE PER DEPT DEPT STATUTE MILE AMB A0427 [facility] 8 FIRE FIRE ALS DEPT DEPT EMERGENCY TRANSPORT LEVEL [address] YECENIA, ROUTINE 8 LOIS CARLOS R ECG MED CTR W/LEAST 12 LDS I&R ONLY GROUND A0425 [facility] 8 FIRE FIRE PER DEPT DEPT STATUTE MILE AMBULANCE A0429 [facility] 8 FIRE FIRE BLS DEPT DEPT EMERGENCY TRANSPORT RADIOLOGI [address] C EXAM 8 LOIS LOIS CHEST 2 VIEWS MEDICALCE MEDICALCE FRONTAL&L NTER NTER ATERAL RADEX [address] WRIST 8 LOIS LOIS COMPLETE MINIMUM 3 MEDICALCE MEDICALCE VIEWS NTER NTER RADEX 79018 RADIOLOGY DUARTE, HAND 8 ZAC MINIMUM 3 ASSOCIATE VIEWS S PSC REPAIR 84774 ST DAMASO, INTERMEDI 8 LOISDAVID HOPKINS ATE MED CTR F/E/E/N/L &/MUC 2.6-5.0 CM RADEX 21214 RADIOLOGY HURST, FACIAL 8 FERNIE R BONES ASSOCIATE COMPLETE S PSC MINIMUM [address] DAMASO, ANES 8 LOIS KELLIE OTHER MED CTR PERIPHERA L NERVE/BRA NCH GROUND A0425 [facility] 8 FIRE FIRE PER DEPT DEPT STATUTE MILE AMBULANCE A0429 [facility] 8 FIRE FIRE BLS DEPT DEPT EMERGENCY TRANSPORT 82451 RADIOLOGY DUYEN ABDOMINAL 8 , SONAL REAL ASSOCIATE T TIME S PSC W/IMAGE LIMITED ALPHA-1-A 11954 [facility] NTITRYPSI 8 [facility] N TOTAL MEDICALCE MEDICALCE NTER NTER IRON 93742 PATIENT SNEDEGAR, BINDING 8 [facility] CAPACITY PHYS COMPREHEN 90834 PATIENT SNEDEGAR, SIVE 8 [facility] [place] [address] PATIENT SNEDEGAR, FERRITIN 8 [facility] PHYS IMMUNOASS 05934 [facility] AY 8 [facility] ANALYTE QUAL/SEMI MEDICALCE MEDICALCE QUAL NTER NTER MULTIPLE STEP BLOOD 84695 PATIENT SNEDEGAR, COUNT 8 [facility] COMPLETE PHYS AUTOMATED ALPHA-FET 90566 [facility] OPROTEIN 8 [facility] SERUM MEDICALCE MEDICALCE NTER NTER CERULOPLA 84876 [facility] SMIN 8 [facility] [place] [address] PATIENT SNEDEGAR, IRON 8 [place] [address] PATIENT SNEDEGAR, THYROID 8 FIRST SP[facility] STIMULATI PHYS NG HORMONE TSH IADNA 48495 [facility] HEPATITIS 8 [facility] C QUANT & REVERSE MEDICALCE MEDICALCE NTER NTER TRANSCRIP TION FLUORESCE 97096 [facility] NT 8 [facility] NONNFCT AGT ANTB MEDICALCE MEDICALCE [place] [address] [facility] HEPATITIS 8 [facility] B SURFACE MEDICALCE MEDICALCE ANTIGEN NTER NTER NFCT AGNT 89542 [facility] GENOTYP 8 [facility] NUCLEIC ACID MEDICALCE MEDICALCE HEPATITIS NTER NTER C VIRUS ANTINUCLE 76186 [facility] AR 8 [facility] ANTIBODIE S EMIGDIO MEDICALCE MEDICALCE NTER NTER COLLECTIO 82314 [facility] N VENOUS 8 [facility] BLOOD VENIPUNCT MEDICALCE MEDICALCE URE NTER NTER ACUTE 0[address] HEPATITIS 8 LOIS LOIS PANEL MEDICALCE MEDICALCE NTER NTER COLLECTIO [address] N VENOUS 8 LOIS [place]IS BLOOD VENIPUNCT MEDICALCE MEDICALCE URE NTER NTER ECG [address]26 ST HULLER, ROUTINE 8 LOIS AG F ECG MED CTR W/LEAST 12 LDS I&R ONLY BLOOD [address] COUNT 8 LOIS [place]IS COMPLETE AUTO&AUTO MEDICALCE MEDICALCE DIFRNTL NTER NTER WBC HEMOGLOBI [address] ST [address] N 8 LOIS LOIS GLYCOSYLA BELLA A1C MEDICALCE MEDICALCE NTER NTER LIPID [address] PANEL 8 LOIS LOIS MEDICALCE MEDICALCE NTER NTER HEPATIC [address] FUNCTION 8 LOIS LOIS PANEL [place] [address] THYROID 8 LOIS LOIS STIMULATI NG MEDICALCE MEDICALCE HORMONE NTER NTER TSH URNLS DIP [address] 8 LOIS LOIS STICK/TAB LET RGNT MEDICALCE MEDICALCE AUTO W/[place] [address] FREE 8 LOSI LOIS THYROXINE MEDICALCE MEDICALCE NTER NTER ECG [address] ROUTINE 8 LOIS LOIS ECG W/LEAST MEDICALCE MEDICALCE 12 LDS NTER NTER TRCG ONLY W/O I&R BASIC [address] METABOLIC 8 LOIS LOIS PANEL CALCIUM MEDICALCE MEDICALCE TOTAL NTER NTER RADIOLOGI 43454 RADIOLOGY LEW C EXAM 8 SHAHID G CHEST 2 ASSOCIATE VIEWS S PSC FRONTAL&L ATERAL AMB A0427 [facility] SERVICE 8 FIRE FIRE ALS DEPT DEPT EMERGENCY TRANSPORT LEVEL 1 GROUND A0425 [facility] MILEAGE 8 FIRE FIRE PER DEPT DEPT STATUTE MILE RADEX 27424 RADIOLOGY DUARTE, HAND 8 ZAC MINIMUM 3 ASSOCIATE VIEWS S PSC RHYTHM [address]4898 ST ZACK, ECG 1-3 8 LOIS LAROY LEADS MED CTR INTERPRET ATION & REPRT [place] ECG [address] [facility] ZACK, ROUTINE 8 LOIS LAROY ECG MED CTR W/LEAST 12 LDS I&R ONLY SYRINGE A4206 [facility] WITH 8 PHARMACY PHARMACY NEEDLE #6119 #[id number] STERILE 1 CC OR LESS EACH BLD GLU A4253 [facility] TEST/REAG 8 PHARMACY PHARMACY T STRIPS #6119 #[id number] HOME BLD GLU FRI-50 Encounters Encounter Start End Date Code Location Performer Type Date EMERGENCY 08744 KYLE FELICIANO 7 7 [facility] SE[facility] - 7 7 [facility] T EMERGENCY 44960 GRACIELA 7 7 [facility]NOTE 3] T VISIT LOW/MODER SEVERITY HOSPITAL GR[facility] - 7 7 [facility] OUT[facility]EN [facility] T EMERGENCY 93156 KYLE DENNEY 6 6 PHYSICIAN MELVA BELL [facility] VISIT MODERATE SEVERITY OFFICE [address] [facility] OUTPATIEN 6 6 PHYSICIAN MOHAN T VISIT S GROUP 25 MINUTES HOSPITAL GRACIELA - 6 6 [facility] INPATIENT INC EMERGENCY 84925 KYLE PRITCHETT DEPT 6 6 PHYSICIAN Ronal FRANCO VISIT S, PLLC HIGH SEVERITY& THREAT FUNCJ OFFICE 61963 [facility] OUTPATIEN 5 5 EMILIANO EMILIANO T VISIT 15 MINUTES OFFICE 38453 [facility] OUTPATIEN 5 5 EMILIANO EMILIANO T NEW 30 MINUTES OFFICE 38147 [facility] OUTPATIEN 5 5 LTH T NEW 20 ORTHOPAE MINUTES EMERGENCY 53334 [facility] 5 5 EMERGENCY [facility] T VISIT PHYSICIAN HIGH/URGE S NT SEVERITY [facility]OSPITAL ST - 4 4 LOIS OUTPATIEN MED CTR T UROGYNECOLOGY PHYSICIAN ST EMERGENCY [address]007 ST LORI DEPT 4 4 LOIS ANT VISIT MED CTR HIGH SEVERITY& THREAT FUNCJ EMERGENCY 64253 ST 4 4 LOIS DEPARTMEN MED CTR T VISIT UROGYNECOLOGY PHYSICIAN ST MODERATE SEVERITY EMERGENCY 94704 ST LORI 4 4 LOIS ANT DEPARTMEN MED CTR T VISIT HIGH/URGE NT SEVERITY HOSPITAL ST - 4 4 LOIS OUTPATIEN MED CTR T UROGYNECOLOGY PHYSICIAN ST [facility]ER[facility] 98[facility] LOIS RETA DEPARTMEN MED CTR T VISIT HIGH/URGE NT SEVERITY OFFICE 11207 [facility] OUTPATIEN 3 3 T VISIT [address] S[facility] DEPT 3 3 LOIS GRE VISIT MED CTR HIGH SEVERITY& THREAT FUNCJ OFFICE 37840 [facility] OUTPATIEN 3 3 POINT T VISIT FAMILY 25 CARE, IN MINUTES OFFICE 86599 [facility] OUTPATIEN 2 2 POINT T VISIT FAMILY 15 CARE, IN MINUTES EMERGENCY 75706 [facility] 2 2 LOIS RETA DEPARTMEN MED CTR T VISIT MODERATE SEVERITY HOSPITAL ST - 2 2 LOIS OUTPATIEN T MEDICALCE NTER EMERGENCY 48301 [facility] [place] DEPT 2 2 LOIS MAR VISIT MED CTR HIGH SEVERITY& THREAT [facility] ST - 2 2 LOIS INPATIENT MEDICALCE NTER EMERGENCY 73732 [facility] DE[facility] 2 2 LOIS VISIT FAMILY HIGH PRACTICE SEVERITY& THREAT FUNCJ EMERGENCY 91491 [facility] 2 LOIS JANNET DEPARTMEN FAMILY T VISIT PRACTICE HIGH/URGE NT SEVERITY [facility]OSPITAL ST - 1 1 LOIS [place] T MEDICALCE NTER EMERGENCY 42156 1 1 LOIS DEPARTMEN T VISIT MEDICALCE MODERATE NTER SEVERITY EMERGENCY 46686 [facility] 1 1 LOIS RETA DEPARTMEN MED CTR T VISIT HIGH/URGE NT SEVERITY HOSPITAL - 1 1 LOIS DUQUEEN T MEDICALCE NTER EMERGENCY 66324 [facility] 1 1 LOIS JOHN DEPARTMEN MED CTR T VISIT HIGH/URGE NT SEVERITY EMERGENCY 55245 [facility] 1 1 LOIS ACUÑA DEPARTMEN MED CTR T VISIT HIGH/URGE NT SEVERITY HOSPITAL - 1 1 LOIS DUQUEEN T MEDICALCE NTER EMERGENCY 79725 1 1 LOIS DEPARTMEN T VISIT MEDICALCE MODERATE NTER SEVERITY EMERGENCY 52772 [facility] 0 0 LOIS MORALES DEPARTMEN MED CTR T VISIT HIGH/URGE NT SEVERITY EMERGENCY 76552 [facility] 0 0 LOIS BRIDGES DEPARTMEN MED CTR T VISIT MODERATE SEVERITY EMERGENCY 88880 [facility] 0 0 LOIS ROMERO DEPARTMEN T VISIT PHYSICIAN MODERATE S SEVERITY EMERGENCY 29484 [facility], 0 0 LOIS Briggs DEPARTMEN MED CTR T VISIT MODERATE SEVERITY EMERGENCY 71984 [facility], 0 0 LOIS KILLIAN DEPARTMEN MED CTR T VISIT HIGH/URGE NT SEVERITY EMERGENCY 79925 [facility], DEPT 0 0 AMANDA JONA L VISIT PHYS HIGH [place] SE[place]& [place] THREAT FUNCJ EMERGENCY 67070 [facility], 0 0 LOIS Meléndez DEPARTMEN MED CTR T VISIT HIGH/URGE NT SEVERITY [facility] 13167 [facility] 0 0 LOIS RODRIGUEZ/OBED PHYSICIAN PATIENT S 40 MIN EMERGENCY 82674 [facility], 0 0 LOIS DANG DEPARTMEN MED CTR T VISIT MODERATE SEVERITY HOSPITAL ST - 0 0 LOIS DUVALPATIEN T MEDICALCE NTER EMERGENCY 52277 ST 0 0 LOIS DEPARTMEN T VISIT MEDICALCE HIGH/URGE NTER NT SEVERITY EMERGENCY 21646 [facility], 0 0 LOIS Anderson DEPARTMEN MED CTR T VISIT HIGH/URGE NT SEVERITY HOSPITAL ST - 0 0 LOIS DUVALPATIEN T MEDICALCE NTER EMERGENCY [address]2696 ST 0 0 LOIS DEPARTMEN T VISIT MEDICALCE MODERATE NTER SEVERITY EMERGENCY 29306 [facility], 0 0 LOIS VICTOR DEPARTMEN MED CTR T VISIT MODERATE SEVERITY EMERGENCY 86308 [facility], DEPT 0 0 LOIS KILLIAN VISIT MED CTR HIGH SEVERITY& THREAT FUN [facility] - 0 0 LOIS OUTPATIEN T MEDICALCE NTER HOS[facility] - 9 9 LOIS DUVALPATIEN T MEDICALCE NTER EMERGENCY 03007 [email or web address] 9 9 ROBB ABREU DEPARTMEN MED CTR T VISIT HIGH/URGE NT SEVERITY EMERGENCY 95600 [facility], 9 9 LOIS Sampson DEPARTMEN MED CTR T VISIT HIGH/URGE NT SEVERITY EMERGENCY 66601 [facility], 9 9 LOIS [facility] HIGH/URGE NT SEVERITY EMERGENCY 10391 [facility] 9 9 SHAHID ABREU [facility] MED CTR D T VISIT HIGH/URGE NT SEVERITY OFFICE 42327 [facility] WELLS, OUTPATIEN 9 9 CHRISTINE M CHRISTINE M T VISIT 15 MINUTES OFFICE 15258 WE[facility]S, WELLS, OUTPATIEN 9 9 CHRISTINE M CHRISTINE M T VISIT 25 MINUTES EMERGENCY 89298 [facility], 8 8 LOIS [facility] T VISIT HIGH/URGE NT SEVERITY OFFICE 98869 [facility], WELLS, OUTPATIEN 8 8 CHRISTINE M CHRISTINE M T VISIT 15 MINUTES OFFICE 21364 WELLS, WELLS, OUTPATIEN 8 8 CHRISTINE M CHRISTINE M T VISIT 15 MINUTES EMERGENCY 96149 [facility], DEPT 8 8 LOIS Quarles VISIT MED CTR HIGH SEVERITY& THREAT FUNCJ OFFICE 68631 WELLS, WELLS, OUTPATIEN 8 8 CHRISTINE M CHRISTINE M T VISIT 15 MINUTES EMERGENCY 04442 [facility], DEPT 8 8 LOIS FRANK VISIT MED CTR HIGH SEVERITY& THREAT FUNCJ EMERGENCY 52257 [facility], 8 8 LOIS JESSICA [facility] MED CTR T VISIT HIGH/URGE NT SEVERITY EMERGENCY 34246 [facility], 8 8 LOIS [facility]ILL[facility] T VISIT HIGH/URGE NT SEVERITY EMERGENCY 60015 ST 8 8 LOIS [facility] T VISIT MEDICALCE MODERATE NTER SEVERITY [facility]OSPITAL ST - 8 8 LOIS [place] T MEDICALCE NTER OFFICE 55763 PATIENT AMAN RUBI 8 8 FIRST SPARKLE T VISIT PHYS 15 MINUTES OFFICE 75245 [facility] OUTPATIEN 8 8 CHRISTINE M CHRISTINE M T VISIT [address] [place], 8 8 LOIS HOPKINS [facility] MED CTR T VISIT HIGH/URGE NT SEVERITY OFFICE 23398 [facility] OUTPATIEN 8 8 CHRISTINE M CHRISTINE M T VISIT [address] - 8 8 LOIS OUTPATIEN T MEDICALCE NTER [facility] ST - 8 8 LOIS OUTPATIEN T MEDICALCE NTER OFFICE 05226 PATIENT SNEDEGAR, CONSULTAT 8 8 FIRST SPARKLE ION PHYS NEW/ESTAB PATIENT 60 MIN OFFICE 32221 [facility] OUTPATIEN 8 8 CHRISTINE M CHRISTINE M T VISIT [address] - 8 8 LOIS OUTPATIEN T MEDICALCE NTER OFFICE 98023 [facility] OUT[facility] 8 8 CHRISTINE M CHRISTINE M T VISIT [address] - 8 8 LOIS OUTPATIEN T MEDICALCE NTER EMERGENCY 82448 [facility] 8 8 LOIS ROD VISIT MED CTR HIGH SEVERITY& THREAT FUNCJ OFFICE 90017 [facility] OUTPATIEN 8 8 CHRISTINE M CHRISTINE M T NEW [address] [place], 8 8 LOIS NICOLAS [facility] MED CTR T VISIT MODERATE SEVERITY OFFICE 00816 AMAN JACKSON 8 8 MEDICAL ANGELA P T VISIT GROUP 15 MINUTES OFFICE 01074 [facility] AM[facility] [place] 8 8 MEDICAL LUNA B T VISIT GROUP 10 MINUTES OFFICE 65458 [facility] AM[facility] SCOTT 8 8 MEDICAL MIYA T VISIT GROUP 15 MINUTES
--- OUTSIDE RECORDS SUMMARY | 2016-09-13 18:34 | External Medical Summary Rpt ---
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 [address] STOCK CHECKER ST AMBULANCE A0429 [facility] SERVICE 4 FIRE FIRE BLS DEPT DEPT EMERGENCY TRANSPORT GROUND A0425 [facility]RE FIRE PER DEPT DEPT STATUTE [place] ECG [address] ROUTINE 4 LOIS LOIS ECG MED CTR MED CTR W/LEAST STOCK CHECKER ST STOCK CHECKER ST 12 LDS TRCG ONLY W/O I&R ECG [address] ST YECENIA FORTINO ROUTINE 4 LOIS ECG MED CTR W/LEAST 12 LDS I&R ONLY RADIOLOGI 30272 RADIOLOGY BRANDSER C EXAM 4 KIRAN KNEE ASSOCIATE COMPLETE S OF NOTH 4/MORE VIEWS GROUND A0425 [facility] FIRE FIRE PER DEPT DEPT STATUTE MILE AMB A0427 [facility] SERVICE 4 FIRE FIRE ALS DEPT DEPT EMERGENCY TRANSPORT LEVEL 1 RADIOLOGI 29091 RADIOLOGY JOYSER C 4 KIRAN EXAMINATI ASSOCIATE ON CHEST S OF NOTH [place] FRONTAL AMB A0427 [facility] SERVICE 4 FIRE FIRE ALS DEPT DEPT EMERGENCY TRANSPORT LEVEL 1 GROUND A0425 [facility]RE FIRE PER DEPT DEPT STATUTE MILE SBSQ 00290 [facility] 4 LUNA LUNA CARE/DAY 15 MINUTES INITIAL 49551 [facility]LL[facility] [place] INPATIENT 4 DERIK DERIK CONSULT NEW/ESTAB PT 55 MIN ECG 46425 HEYDI BAR HEYDI BAR ROUTINE 4 ECG W/LEAST 12 LDS I&R ONLY GROUND A0425 [facility] 3 FIRE FIRE PER DEPT DEPT STATUTE MILE AMB A0427 [facility] 3 FIRE FIRE ALS DEPT DEPT EMERGENCY TRANSPORT LEVEL 1 COMPREHEN 97857 [facility] SIVE 3 DIAGNOSTI DIAGNOSTI METABOLIC CS CS PANEL LIPID 81866 [facility] PANEL 3 DIAGNOSTI DIAGNOSTI CS CS HEMOGLOBI 88453 [facility] N 3 DIAGNOSTI DIAGNOSTI GLYCOSYLA CS CS BELLA A1C ECG 47764 RADHA ARL RADHA ARL ROUTINE 3 ECG W/LEAST 12 LDS W/I&[place] [address] [facility] THYROID 3 DIAGNOSTI DIAGNOSTI STIMULATI [place] [address] [facility] FREE 3 DIAGNOSTI DIAGNOSTI THYROXINE CS CS RADEX 40197 [facility] SEA SPINE 3 LUMBOSACR AL 2/3 VIEWS ECG 50925 LOMAX CHR LOMAX CHR ROUTINE 3 ECG W/LEAST 12 LDS I&R ONLY RADEX 98443 [facility] SEA SPINE 3 THORACIC 3 VIEWS AMB A0427 [facility] SERVICE 3 FIRE FIRE ALS DEPT DEPT EMERGENCY TRANSPORT LEVEL [address] [facility] 3 FIRE [place] [address] [place] [facility] CERVICAL 3 SPINE W/[place] [address] [facility] [place] [facility] HEAD/BRAI 3 N W/O CONTRAST MATERIAL ECG 33248 MONIE CHR LOMAX CHR ROUTINE 3 ECG W/LEAST 12 LDS I&R ONLY GROUND A0425 [facility] 3 FIRE FIRE PER DEPT DEPT STATUTE MILE AMB A0427 [facility] SERVICE 3 FIRE FIRE ALS DEPT DEPT EMERGENCY TRANSPORT LEVEL 1 COMPREHEN 24132 [facility] SIVE 3 DIAGNOSTI DIAGNOSTI METABOLIC CS CS PANEL HEMOGLOBI 43822 [facility] N 3 DIAGNOSTI DIAGNOSTI GLYCOSYLA CS CS BELLA A1C LIPID 38654 [facility] PANEL 3 DIAGNOSTI DIAGNOSTI CS CS ALBUMIN 67529 [facility] URINE 3 [facility], [place] [address] [facility] THYROID 3 DIAGNOSTI DIAGNOSTI STIMULATI [place] [address] [facility] FREE 3 DIAGNOSTI DIAGNOSTI THYROXINE CS CS RADIOLOGI 56325 WILDA Castillo 3 CYRUS CYRUS EXAMINATI [place] [address] [facility] THYROID 2 DIAGNOSTI DIAGNOSTI STIMULATI CS CS NG HORMONE TSH LIPID 26217 [facility] PANEL 2 DIAGNOSTI DIAGNOSTI CS CS HEMOGLOBI 60063 [facility] N 2 DIAGNOSTI DIAGNOSTI GLYCOSYLA CS CS BELLA A1C COMPREHEN 15505 [facility] QUEST SIVE 2 DIAGNOSTI DIAGNOSTI METABOLIC CS CS PANEL RADIOLOGI 29144 RADIOLOGY DARNIAER C EXAM 2 LUNA CHEST 2 ASSOCIATE VIEWS S OF NOTH FRONTAL&L ATERAL GROUND A0425 [facility] 2 FIRE FIRE PER DEPT DEPT STATUTE MILE AMB A0427 [facility] SERVICE 2 FIRE FIRE ALS DEPT DEPT EMERGENCY TRANSPORT LEVEL 1 AMB A0427 [facility] SERVICE 2 FIRE FIRE ALS DEPT DEPT EMERGENCY TRANSPORT LEVEL [address] [facility] 2 FIRE FIRE PER DEPT DEPT STATUTE MILE AMB A0422 [facility] OXYGEN&O2 2 FIRE FIRE SUPPLIES DEPT DEPT LIFE SUSTAININ G SITUATION GROUND A0425 [facility] FIRE PER DEPT DEPT STATUTE MILE AMB A0427 [facility] SERVICE 2 FIRE FIRE ALS DEPT DEPT EMERGENCY TRANSPORT LEVEL [address] C 2 LOIS LOIS EXAMINATI ON CHEST MEDICALCE MEDICALCE SINGLE NTER NTER VIEW FRONTAL RADIOLOGI 80629 RADIOLOGY DOERGER C 2 KIR EXAMINATI ASSOCIATE ON CHEST S OF NOTH [place] FRONTAL GROUND A0425 [facility] 2 FIRE FIRE PER DEPT DEPT STATUTE MILE AMB A0427 [facility] SERVICE 2 FIRE FIRE ALS DEPT DEPT EMERGENCY TRANSPORT LEVEL 1 ECG 09848 CARMELO RHODES ROUTINE 2 RAL RAL ECG W/LEAST 12 LDS I&R ONLY RADIOLOGI 48842 RADIOLOGY NEILS KIRAN C 2 EXAMINATI ASSOCIATE ON CHEST S OF NOTH [place] SBSQ 66991 [facility] 2 CARE/DAY 25 MINUTES SBSQ [address] SYDNEE CARE/DAY MEDICAL 25 SPEC MINUTES RADIOLOGI 90003 RADIOLOGY DARDINGER C 2 LUNA EXAMINATI ASSOCIATE ON CHEST S OF NOTH [place] RADIOLOGI 57514 RADIOLOGY DARDINGER C 2 LUNA EXAMINATI ASSOCIATE ON CHEST S OF NOTH [place] ECG 48767 GAYLE MAR GAYLE MAR ROUTINE 2 ECG W/LEAST 12 LDS I&R ONLY RADIOLOGI 31392 RADIOLOGY DUARTE C EXAM 2 BRA CHEST 2 ASSOCIATE VIEWS S OF NOTH FRONTAL&L ATERAL INITIAL 35897 [facility] INPATIENT 2 CONSULT NEW/ESTAB PT 80 MIN SBSQ [address] MAN CARE/DAY MEDICAL 35 SPEC MINUTES RADIOLOGI 48722 RADIOLOGY DUARTE C 2 BRA EXAMINATI ASSOCIATE ON CHEST S OF NOTH [place] RADIOLOGI 11201 RADIOLOGY [place] C 2 JAM EXAMINATI ASSOCIATE ON CHEST S OF NOTH [place] FRONTAL ECG 49537 MARCO LARA ROUTINE 2 TER TER ECG W/LEAST 12 LDS I&R ONLY SBSQ [address] MAN CARE/DAY MEDICAL 35 SPEC MINUTES SBSQ [address] SYDNEE CARE/DAY MEDICAL 35 SPEC MINUTES SBSQ 66225 [place] [address] LOIS LL REG CARE/DAY 25 PHYSICIAN MINUTES S CORONARY 53962 ULICNY ULICNY ARTERY 2 FORTINO FORTINO BYP W/VEIN & ARTERY GRAFT 3 VEIN ARTL 65105 INDEPENDE CRISPEN CATHJ/CAN 2 NT GIANA NULJ ANESTHESI MNTR/MAN OLOGIST SFUSION SPX PRQ ANES 91396 INDEPENDE CRISPEN DIRECT 2 NT GIANA CABG ANESTHESI W/PUMP OLOGIST OXYGENATO R RADIOLOGI 49342 RADIOLOGY [place] C 2 JAM EXAMINATI ASSOCIATE ON CHEST S OF NOTH [place]ONTAL INSERTION 50213 INDEPENDE CRISPEN FLOW 2 NT GIANA DIRECTED ANESTHESI CATHETER OLOGIST FOR MONITORIN G CABG 12632 ULICNY ULICNY W/ARTERIA 2 FORTINO FORTINO L GRAFT TWO ARTERIAL GRAFTS (AORTO)[place] [address] RONARY 2 LOIS LOIS BYPASS THREE MEDICALCE MEDICALCE CORONARY NTER NTER ARTERIES SINGLE [address] INTERNAL 2 LOIS LOIS MAMMARY-C ORONARY MEDICALCE MEDICALCE ARTERY NTER NTER BYPASS INITIAL [address] SYDNEE CARE/DAY MEDICAL 70 SPEC MINUTES SBSQ 74581 [place] [address] CARE/DAY 35 MINUTES SBSQ 82932 [facility] 2 CARE/DAY 35 MINUTES SBSQ 86122 [place] [address] [place] CARE/DAY 25 MINUTES SBSQ 36833 [facility] 2 [place] CARE/DAY 25 MINUTES SBSQ 08949 [facility] 2 [place] CARE/DAY 25 MINUTES SBSQ 46258 [facility] 2 [place] CARE/DAY 25 MINUTES ECG 44504 CARMELO RHODES ROUTINE 2 RAL RAL ECG W/LEAST 12 LDS I&R ONLY ECG 39037 HEEB CHR HEEB CHR ROUTINE 2 ECG W/LEAST 12 LDS I&R ONLY ECHO 69458 [facility] TTHRC R-T 2 [place] 2D W/WOM-MOD E COMPL SPEC&COLR D CATH PLMT 72993 [facility] L HRT & 2 [place] ARTS W/NJX & ANGIO IMG S&I INITIAL 76741 [facility] 2 FORTINO FORTINO CARE/DAY 70 MINUTES RADIOLOGI 16541 RADIOLOGY [facility] C EXAM 2 CHEST 2 ASSOCIATE VIEWS S OF [facility] FRONTAL&L ATERAL ANGIOCARD [address] IOGRAPHY 2 LOIS LOIS OF LEFT HEART MEDICALCE MEDICALCE STRUCTURE NTER NTER S LEFT [address] HEART 2 LOIS LOIS CARDIAC CATHETERI MEDICALCE MEDICALCE ZATION NTER NTER CORONARY [address] ARTERIOGR 2 LOIS LOIS APHY USING TWO MEDICALCE MEDICALCE NTER NTER CATHETERS GROUND A0425 [facility] MILEAGE 2 FIRE FIRE PER DEPT DEPT STATUTE MILE AMB A0427 [facility] SERVICE 2 FIRE FIRE ALS DEPT DEPT EMERGENCY TRANSPORT LEVEL 1 RADIOLOGI 38520 RADIOLOGY [facility] C 2 LUNA EXAMINATI ASSOCIATE ON CHEST S OF [facility] SINGLE VIEW FRONTAL ECG 85729 HEEB CHR HEEB CHR ROUTINE 2 ECG W/LEAST 12 LDS I&R ONLY REMOVAL 96155 LORI LORI FOREIGN 2 ANT ANT BODY FOOT SUBCUTANE OUS AMB A0427 [facility] SERVICE 2 FIRE FIRE ALS DEPT DEPT EMERGENCY TRANSPORT LEVEL [address] [facility] 2 FIRE FIRE PER DEPT DEPT STATUTE MILE RADEX 77250 RADIOLOGY GARCIA BYR FOOT 2 COMPLETE ASSOCIATE MINIMUM 3 S OF NOTH VIEWS GROUND A0425 [facility] 2 FIRE FIRE PER DEPT DEPT STATUTE MILE AMB A0427 [facility] SERVICE 2 FIRE FIRE ALS DEPT DEPT EMERGENCY TRANSPORT LEVEL 1 ECG 72981 HULLER HULLER ROUTINE 2 RAL RAL ECG W/LEAST 12 LDS I&R ONLY ECG 55745 [facility]ULL[facility] HULLER ROUTINE 2 RAL RAL ECG W/LEAST 12 LDS I&R ONLY GROUND A0425 [facility] 2 FIRE FIRE PER DEPT DEPT STATUTE MILE AMB A0427 [facility] SERVICE 2 FIRE FIRE ALS DEPT DEPT EMERGENCY TRANSPORT LEVEL 1 AMB A0427 [facility] SERVICE 1 FIRE FIRE ALS DEPT DEPT EMERGENCY TRANSPORT LEVEL [address] [facility] 1 FIRE FIRE PER DEPT DEPT STATUTE [place] SMPL [address] [facility] RETA REPAIR 1 LOIS SCALP/NEC FAMILY K/AX/ROSITA PRACTICE T/TRUNK 2.6-7.5CM GROUND A0425 [facility] 1 FIRE FIRE PER DEPT DEPT STATUTE MILE AMBULANCE A0428 RURAL/MET RURAL/MET SERVICE 1 RO RO BLS AMBULANCE AMBULANCE NONEMERGE NCY TRANSPORT AMB A0427 [facility] SERVICE 1 FIRE FIRE ALS DEPT DEPT EMERGENCY TRANSPORT LEVEL [address] [facility] 1 FIRE FIRE PER DEPT DEPT STATUTE MILE AMB A0427 [facility] SERVICE 1 FIRE FIRE ALS DEPT DEPT EMERGENCY TRANSPORT LEVEL [address] MELANY ROUTINE 1 LOIS DEL ECG W/LEAST PHYSICIAN 12 LDS S I&[place] [address] RADIOLOGY JOSE CRUZ HEAD/BRAI 1 TUS N W/O ASSOCIATE CONTRAST S PSC MATERIAL RADIOLOGI 87558 RADIOLOGY JOSE CRUZ C EXAM 1 TUS CHEST 2 ASSOCIATE VIEWS S PSC FRONTAL&[place] [address] RADIOLOGY NEILS KIRAN ABDOMEN & 1 PELVIS ASSOCIATE W/O S PSC CONTRAST MATERIAL RADEX 19984 RADIOLOGY NEILS KIRAN ABDOMEN 1 1 ASSOCIATE ANTEROPOS S PSC TERIOR VIEW THERAPEUT [address] IC 1 LOIS LOIS PROPHYLAC TIC/DX MEDICALCE MEDICALCE INJECTION NTER NTER SUBQ/IM AMB A0427 [facility] SERVICE 1 FIRE FIRE ALS DEPT DEPT EMERGENCY TRANSPORT LEVEL 1 GROUND A0425 [facility]RE PER DEPT DEPT STATUTE MILE URNLS DIP [address] 1 LOIS LOIS STICK/TAB LET RGNT MEDICALCE MEDICALCE NON-AUTO NTER NTER W/O MICRSCP RADIOLOGI 26953 RADIOLOGY PATHFORK C EXAM 1 BRA CHEST 2 ASSOCIATE VIEWS S PSC FRONTAL&L ATERAL GROUND A0425 [facility]RE FIRE PER DEPT DEPT STATUTE MILE RADEX 21785 RADIOLOGY BRANDSER FOOT 1 KIRAN COMPLETE ASSOCIATE MINIMUM 3 S PSC VIEWS RADEX 65421 RADIOLOGY BRANDSER HAND 1 KIRAN MINIMUM 3 ASSOCIATE VIEWS S PSC CRTCHS E0114 [facility] UNDARM 1 TECHNOLOG TECHNOLOG OTH THAN IES INC IES INC WOOD PAIR PAD TIP&HNDGR IP AMBULANCE A0429 [facility] SERVICE 1 FIRE FIRE BLS DEPT DEPT EMERGENCY TRANSPORT GROUND A0425 [facility] FIRE FIRE PER DEPT DEPT STATUTE MILE AMB A0427 [facility] SERVICE 0 FIRE FIRE ALS DEPT DEPT EMERGENCY TRANSPORT LEVEL 1 RADIOLOGI 90970 RADIOLOGY DUYEN C EXAM 0 LUNA CHEST 2 ASSOCIATE VIEWS S PSC FRONTAL&L ATERAL RADEX 48356 RADIOLOGY DARDINGER FOOT 0 LUNA COMPLETE ASSOCIATE MINIMUM 3 S PSC VIEWS RADEX 81374 RADIOLOGY ROEBKER ELBOW 0 JAM COMPLETE ASSOCIATE MINIMUM 3 S PSC VIEWS NONEMERG A0120 [facility] [address] TRNSPRT: 0 [facility] ACTION N [facility] AREA/OTH SYS GROUND A0425 [facility] MILEAGE 0 FIRE FIRE PER DEPT DEPT STATUTE MILE AMB A0427 [facility] SERVICE 0 FIRE FIRE ALS DEPT DEPT EMERGENCY TRANSPORT LEVEL 1 RADEX 80362 RADIOLOGY MANDA SHOULDER 0 SRUTHI COMPLETE ASSOCIATE MINIMUM 2 S PSC VIEWS GROUND A0425 [facility] MILEAGE 0 FIRE FIRE PER DEPT DEPT STATUTE MILE RADEX 61568 RADIOLOGY MANDA HUMERUS 0 SRUTHI MINIMUM 2 ASSOCIATE VIEWS S PSC AMBULANCE A0429 [facility] SERVICE 0 FIRE FIRE BLS DEPT DEPT EMERGENCY TRANSPORT CT PELVIS 57384 RADIOLOGY DUARTE 0 BRA W/[place] [address] RADIOLOGY DUARTE ABDOMEN 0 BRA W/CONTRAS ASSOCIATE T S PSC MATERIAL LEVEL III 65549 [facility] SURG 0 LOIS PATHOLOGY MED CTR GROSS&MELVA ROSCOPIC EXAM ANES 31936 INDEPENDE JORDAN, INTRAPERI 0 NT GODWIN P TONEAL ANESTHESI UPPER OLOGIST ABDOMEN W/LAPS NOS LAPAROSCO 46697 [facility] SURG 0 LOIS PRUITT W CHOLECYST ECTOMY PHYSICIAN S NONEMERG A0120 [facility] [address] TRNSPRT: 0 [facility] AREA/[place] [address] [facility] [address] [place] ABDOMINAL 0 [facility] TIME W/IMAGE LIMITED ECG [address]97 [facility], ROUTINE 0 LOIS BONEPH F ECG MED CTR W/LEAST 12 LDS I&R ONLY URNLS DIP 55955 [facility] 0 LOIS ABREU STICK/TAB LET RGNT MEDICALCE MEDICALCE NON-AUTO NTER NTER W/O MICRSCP COLLECTIO [address] N VENOUS 0 [facility] BLOOD VENIPUNCT MEDICALCE MEDICALCE URE NTER NTER COMPREHEN [address] SIVE 0 LOIS LOIS METABOLIC PANEL [place] [address] LIPASE 0 LOIS LOIS MEDICALCE MEDICALCE NTER NTER ECG [address] [facility] 0 [facility] W/LEAST MEDICALCE MEDICALCE 12 LDS NTER NTER TRCG ONLY W/O I&R BLOOD [address] COUNT 0 [facility] COMPLETE AUTO&AUTO MEDICALCE MEDICALCE DIFRNTL NTER NTER WBC RADIOLOGI 82338 RADIOLOGY DOBERTOR, C EXAM 0 EULALIO M CHEST 2 ASSOCIATE VIEWS S PSC FRONTAL&L ATERAL AMB A0427 [facility] SERVICE 0 FIRE FIRE ALS DEPT DEPT EMERGENCY TRANSPORT LEVEL [address] [facility] 0 FIRE [place] [address] RADIOLOGY LEW, HEAD/BRAI 0 SHAHID G N W/O ASSOCIATE CONTRAST S PSC MATERIAL RADEX ABD 05826 RADIOLOGY FROYLAN, COMPL 9 AQT ABD ASSOCIATE LOIS W/S/E/D S PSC A VIEWS 1 [place] [address] [facility] FREE 9 [facility] [place] [address] [facility] THYROID 9 [facility] STIMULATI NG HORMONE TSH COMPREHEN 58247 [facility] SIVE 9 [facility] METABOLIC PANEL HEMOGLOBI 24633 [facility] N 9 [facility] GLYCOSYLA BELLA A1C GROUND A0425 [facility] FIRE FIRE PER DEPT DEPT STATUTE MILE AMBULANCE A0429 [facility] SERVICE 9 FIRE FIRE BLS DEPT DEPT EMERGENCY TRANSPORT RADEX 10498 RADIOLOGY LEW, ELBOW 9 SHAHID G COMPLETE ASSOCIATE MINIMUM 3 S PSC VIEWS RADEX 31653 RADIOLOGY DUARTE, ANKLE 9 SAKINA L COMPLETE ASSOCIATE MINIMUM 3 S PSC VIEWS SBSQ 37349 [facility] 9 [facility] M CARE/DAY 15 MINUTES SBSQ 91568 [facility] 9 [facility] CARE/DAY 15 MINUTES SBSQ 53072 [facility] 9 [facility] CARE/DAY 15 MINUTES SBSQ 72046 [facility] 9 [facility] CARE/DAY 15 MINUTES SBSQ 93743 [facility] 9 [facility] CARE/DAY 15 MINUTES SBSQ 68841 [facility] 9 [facility] CARE/DAY 15 MINUTES SBSQ 07892 [facility] 9 [facility] CARE/DAY 15 MINUTES INITIAL 12864 [facility] INPATIENT 9 [facility] CONSULT NEW/ESTAB PT [address] [facility], ROUTINE 9 LOIS AG F ECG MED CTR W/LEAST 12 LDS I&R ONLY RADEX 12518 RADIOLOGY MANDA, HAND 8 ZACKERY M MINIMUM [address] [place] [address] RADIOLOGY MANDA, HEAD/BRAI 8 ZACKERY M N W/O ASSOCIATE CONTRAST S PSC MATERIAL GROUND A0425 [facility] 8 FIRE FIRE PER DEPT DEPT STATUTE MILE AMBULANCE A0429 [facility] 8 FIRE FIRE BLS DEPT DEPT EMERGENCY TRANSPORT GROUND A0425 [facility] 8 FIRE FIRE PER DEPT DEPT STATUTE MILE RADEX 95024 RADIOLOGY DESTINY, SPINE 8 SONIA THORACIC ASSOCIATE H 3 VIEWS S PSC AMB A0427 [facility] 8 FIRE FIRE ALS DEPT DEPT EMERGENCY TRANSPORT LEVEL 1 RADEX 60089 RADIOLOGY DESTINY, SPINE 8 SONIA LUMBOSACR ASSOCIATE H AL 2/3 S PSC VIEWS RADEX 93961 RADIOLOGY DESTINY, WRIST 8 SONIA COMPLETE ASSOCIATE H MINIMUM 3 S PSC VIEWS GROUND A0425 [facility] 8 FIRE FIRE PER DEPT DEPT STATUTE MILE AMBULANCE A0429 [facility] 8 FIRE FIRE BLS DEPT DEPT EMERGENCY TRANSPORT GROUND A0425 [facility] 8 FIRE FIRE PER DEPT DEPT STATUTE MILE AMB A0427 [facility] 8 FIRE FIRE ALS DEPT DEPT EMERGENCY TRANSPORT LEVEL [address] YECENIA, ROUTINE 8 LOIS CARLOS R ECG MED CTR W/LEAST 12 LDS I&R ONLY GROUND A0425 [facility] 8 FIRE FIRE PER DEPT DEPT STATUTE MILE AMBULANCE A0429 [facility] 8 FIRE FIRE BLS DEPT DEPT EMERGENCY TRANSPORT RADIOLOGI [address] C EXAM 8 LOIS LOIS CHEST 2 VIEWS MEDICALCE MEDICALCE FRONTAL&L NTER NTER ATERAL RADEX [address] WRIST 8 LOIS LOIS COMPLETE MINIMUM 3 MEDICALCE MEDICALCE VIEWS NTER NTER RADEX 09989 RADIOLOGY DUARTE, HAND 8 ZAC MINIMUM 3 ASSOCIATE VIEWS S PSC REPAIR 25946 ST [facility], INTERMEDI 8 [facility] F/E/E/N/L &/MUC 2.6-5.0 CM RADEX 87938 RADIOLOGY HURST, FACIAL 8 FERNIE R BONES ASSOCIATE COMPLETE S PSC MINIMUM [address] [facility], ANES 8 LOIS KELLIE OTHER MED CTR PERIPHERA L NERVE/BRA NCH GROUND A0425 [facility] 8 FIRE FIRE PER DEPT DEPT STATUTE MILE AMBULANCE A0429 [facility] 8 FIRE FIRE BLS DEPT DEPT EMERGENCY TRANSPORT 41834 RADIOLOGY DUYEN ABDOMINAL 8 , SONAL REAL ASSOCIATE T TIME S PSC W/IMAGE LIMITED ALPHA-1-A 64627 [facility] NTITRYPSI 8 [facility] N TOTAL MEDICALCE MEDICALCE NTER NTER IRON 87505 PATIENT SNEDEGAR, BINDING 8 [facility] CAPACITY PHYS COMPREHEN 43322 PATIENT SNEDEGAR, SIVE 8 [facility] [place] [address] PATIENT SNEDEGAR, FERRITIN 8 [facility] PHYS IMMUNOASS 90966 [facility] AY 8 [facility] ANALYTE QUAL/SEMI MEDICALCE MEDICALCE QUAL NTER NTER MULTIPLE STEP BLOOD 54005 PATIENT SNEDEGAR, COUNT 8 FIRST [facility] COMPLETE PHYS AUTOMATED ALPHA-FET 95674 [facility] OPROTEIN 8 [facility] SERUM MEDICALCE MEDICALCE NTER NTER CERULOPLA 95895 [facility] SMIN 8 [facility] [place] [address] PATIENT SNEDEGAR, IRON 8 [place] [address] PATIENT SNEDEGAR, THYROID 8 FIRST [facility] STIMULATI PHYS NG HORMONE TSH IADNA 57388 [facility] HEPATITIS 8 [facility] C QUANT & REVERSE MEDICALCE MEDICALCE NTER NTER TRANSCRIP TION FLUORESCE 15096 [facility] NT 8 [facility] NONNFCT AGT ANTB MEDICALCE MEDICALCE [place] [address] [facility] HEPATITIS 8 [facility] B SURFACE MEDICALCE MEDICALCE ANTIGEN NTER NTER NFCT AGNT 95150 [facility] GENOTYP 8 [facility] NUCLEIC ACID MEDICALCE MEDICALCE HEPATITIS NTER NTER C VIRUS ANTINUCLE 76232 [facility] AR 8 [facility] ANTIBODIE S EMIGDIO MEDICALCE MEDICALCE NTER NTER COLLECTIO 94962 [facility] N VENOUS 8 [facility] BLOOD VENIPUNCT MEDICALCE MEDICALCE URE NTER NTER ACUTE [address] HEPATITIS 8 [facility] PANEL MEDICALCE MEDICALCE NTER NTER COLLECTIO [address] N VENOUS 8 LOIS LOIS BLOOD VENIPUNCT MEDICALCE MEDICALCE URE NTER NTER ECG [address] ST HULLER, ROUTINE 8 LOIS AG F ECG MED CTR W/LEAST 12 LDS I&R ONLY BLOOD [address] COUNT 8 [facility] COMPLETE AUTO&AUTO MEDICALCE MEDICALCE DIFRNTL NTER NTER WBC HEMOGLOBI [address] N 8 LOIS LOIS GLYCOSYLA BELLA A1C MEDICALCE MEDICALCE NTER NTER LIPID [address] PANEL 8 [facility] LO[facility] MEDICALCE MEDICALCE NTER NTER HEPATIC [address] FUNCTION 8 [facility] PANEL [place] [address] THYROID 8 LOIS LOIS STIMULATI NG MEDICALCE MEDICALCE HORMONE NTER NTER TSH URNLS DIP [address] 8 LOIS LOIS STICK/TAB LET RGNT MEDICALCE MEDICALCE AUTO W/[place] [address] FREE 8 [facility] THYROXINE MEDICALCE MEDICALCE NTER NTER ECG [address] ROUTINE 8 LOIS LO[facility] ECG W/LEAST MEDICALCE MEDICALCE 12 LDS NTER NTER TRCG ONLY W/O I&R BASIC [address] METABOLIC 8 LOIS LOIS PANEL CALCIUM MEDICALCE MEDICALCE TOTAL NTER NTER RADIOLOGI 12453 RADIOLOGY LEW C EXAM 8 SHAHID G CHEST 2 ASSOCIATE VIEWS S PSC FRONTAL&L ATERAL AMB A0427 [facility] SERVICE 8 FIRE FIRE ALS DEPT DEPT EMERGENCY TRANSPORT LEVEL 1 GROUND A0425 [facility] MILEAGE 8 FIRE FIRE PER DEPT DEPT STATUTE MILE RADEX 45755 RADIOLOGY DUAR[facility], HAND 8 ZAC MINIMUM 3 ASSOCIATE VIEWS S PSC RHYTHM 13323 ST ZACK, ECG 1-3 8 [facility] INTERPRET ATION & REPRT ON ECG [address] ZACK, ROUTINE 8 LOIS LAROY ECG MED CTR W/LEAST 12 LDS I&R ONLY SYRINGE [id number] [facility] WITH 8 PHARMACY PHARMACY NEEDLE #6119 #6119 STERILE 1 CC OR LESS EACH BLD GLU [id number] [facility] TEST/REAG 8 PHARMACY PHARMACY T STRIPS #6119 #6119 HOME BLD GLU FRI-50 Encounters Encounter Start End Date Code Location Performer Type Date EMERGENCY 86588 KYLE FELICIANO 7 [facility] VIS[facility] MODERATE SEVERITY [facility] - 7 7 [facility] T EMERGENCY 79995 [facility] T VISIT LOW/MODER SEVERITY [facility]OSPITAL [facility] - 7 7 [facility] OUTPATIEN [facility] T EMERGENCY 22686 KYLE DENNEY 6 6 PHYSICIAN [facility] T VISIT MODERATE SEVERITY OFFICE 84731 [facility] OUT[facility] 6 6 PHYSICIAN MOHAN T VISIT S GROUP 25 MINUTES HOSPITAL [facility] - 6 6 [facility] IN[facility] EMERGENCY 74539 KYLE PRITCHETT DEPT 6 6 PHYSICIAN Ronal FRANCO VISIT S, PLLC HIGH SEVERITY& THREAT FUNCJ OFFICE 02020 [facility] OUT[facility] 5 5 EMILIANO EMILIANO T VISIT 15 MINUTES OFFICE 72417 [facility] 5 5 EMILIANO EMILIANO T NEW 30 MINUTES OFFICE 75114 [facility] OUTPATIEN 5 5 LTH T NEW 20 ORTHOPAE MINUTES EMERGENCY 00179 [facility] 5 5 [facility]Y [facility] T VISIT PHYSICIAN HIGH/URGE S NT SEVERITY [facility] - 4 4 [facility] OUTPATIEN MED CTR T STOCK CHECKER ST EMERGENCY [address] [facility] DEPT 4 4 LOIS ANT VISIT MED CTR HIGH SEVERITY& THREAT FUNCJ EMERGENCY 46791 ST 4 4 [facility] DEPARTMEN MED CTR T VISIT STOCK CHECKER ST MODERATE SEVERITY EMERGENCY 89576 ST [facility] 4 4 [facility] ANT DEPARTMEN MED CTR T VISIT HIGH/URGE NT SEVERITY [facility]OSPITAL ST - 4 4 [facility] OUTPATIEN MED CTR T [facility]ERG[facility]Y [facility] RETA DE[facility] CTR T VISIT HIGH/URGE NT SEVERITY OFFICE 54923 [facility] RADHA ARL OUTPATIEN 3 3 T VISIT [address] [facility] DEPT 3 3 LOIS GRE VISIT MED CTR HIGH SEVERITY& THREAT FUNCJ OFFICE 11202 [facility] ARL OUTPATIEN 3 3 POINT T VISIT FAMILY 25 CARE, IN MINUTES OFFICE 84350 [facility] OUTPATIEN 2 2 POINT T VISIT FAMILY 15 CARE, IN MINUTES EMERGENCY 33365 [facility] 2 2 LOIS RETA DEPARTMEN MED CTR T VISIT MODERATE SEVERITY HOSPITAL ST - 2 2 LOIS OUTPATIEN T MEDICALCE NTER EMERGENCY 84158 [facility] 2 2 LOIS MAR VISIT MED CTR HIGH SEVERITY& THREAT FUNCJ [facility]PITAL ST - 2 2 LOIS INPATIENT MEDICALCE NTER EMERGENCY 88908 [facility] DEPT 2 2 LOIS VISIT FAMILY HIGH PRACTICE SEVERITY& THREAT FUNCJ EMERGENCY 49372 [facility] 2 2 LOIS JANNET DEPARTMEN FAMILY T VISIT PRACTICE HIGH/URGE NT SEVERITY [facility]OSPITAL ST - 1 1 LOIS [place] T MEDICALCE NTER EMERGENCY 39200 1 1 LOIS DEPARTMEN T VISIT MEDICALCE MODERATE NTER SEVERITY EMERGENCY 14249 [facility] 1 1 LOIS RETA DEPARTMEN MED CTR T VISIT HIGH/URGE NT SEVERITY HOSPITAL - 1 1 LOIS DUQUEEN T MEDICALCE NTER EMERGENCY 88214 [facility] 1 1 LOIS JOHN DEPARTMEN MED CTR T VISIT HIGH/URGE NT SEVERITY EMERGENCY 41648 [facility] 1 1 LOIS ACUÑA DEPARTMEN MED CTR T VISIT HIGH/URGE NT SEVERITY HOSPITAL - 1 1 LOIS DUQUEEN T MEDICALCE NTER EMERGENCY 62777 1 1 LOIS DEPARTMEN T VISIT MEDICALCE MODERATE NTER SEVERITY EMERGENCY 63502 [facility] 0 0 LOIS MORALES DEPARTMEN MED CTR T VISIT HIGH/URGE NT SEVERITY EMERGENCY 95674 [facility] 0 0 LOIS BRIDGES DEPARTMEN MED CTR T VISIT MODERATE SEVERITY EMERGENCY 81939 [facility] 0 0 LOIS ROMERO DEPARTMEN T VISIT PHYSICIAN MODERATE S SEVERITY EMERGENCY 63302 [facility], 0 0 LOIS Briggs DEPARTMEN MED CTR T VISIT MODERATE SEVERITY EMERGENCY 71925 [facility], 0 0 LOIS KILLIAN DEPARTMEN MED CTR T VISIT HIGH/URGE NT SEVERITY EMERGENCY 22291 [facility], DEPT 0 0 AMANDA JONA L VISIT PHYS HIGH [facility] SE[facility] [place] THREAT FUNCJ EMERGENCY 58296 [facility], 0 0 LOIS Meléndez DEPARTMEN MED CTR T VISIT HIGH/URGE NT SEVERITY [facility] 07274 [facility] 0 0 LOIS RODRIGUEZ/OBED PHYSICIAN PATIENT S 40 MIN EMERGENCY 89810 [facility], 0 0 LOIS DANG DEPARTMEN MED CTR T VISIT MODERATE SEVERITY HOSPITAL ST - 0 0 LOIS DUVALPATIEN T MEDICALCE NTER EMERGENCY 15723 ST 0 0 LOIS DEPARTMEN T VISIT MEDICALCE HIGH/URGE NTER NT SEVERITY EMERGENCY 22248 [facility], 0 0 LOIS Anderson DEPARTMEN MED CTR T VISIT HIGH/URGE NT SEVERITY HOSPITAL ST - 0 0 LOIS DUVALPATIEN T MEDICALCE NTER EMERGENCY [address]44[address] ST 0 0 LOIS DEPARTMEN T VISIT MEDICALCE MODERATE NTER SEVERITY EMERGENCY 98839 [facility], 0 0 LOIS VICTOR DEPARTMEN MED CTR T VISIT MODERATE SEVERITY EMERGENCY 72282 [facility], DEPT 0 0 LOIS KILLIAN VISIT MED CTR HIGH SEVERITY& THREAT [facility] - 0 0 LOIS OUTPATIEN T MEDICALCE NTER [facility] ST - 9 9 LOIS DUVALPATIEN T MEDICALCE NTER EMERGENCY 48936 [facility] 9 9 ROBB ABREU DEPARTMEN MED CTR T VISIT HIGH/URGE NT SEVERITY EMERGENCY 96941 [facility], 9 9 LOIS Sampson DEPARTMEN MED CTR T VISIT HIGH/URGE NT SEVERITY EMERGENCY 45756 [facility], 9 9 [facility] T VISIT HIGH/URGE NT SEVERITY EMERGENCY 65458 [facility] 9 9 SHAHID ABREU [facility] MED CTR D T VISIT HIGH/URGE NT SEVERITY OFFICE 22400 [facility], [facility] 9 9 CHRISTINE M CHRISTINE M T VISIT 15 MINUTES OFFICE 02758 [facility], OUTPATIEN 9 9 CHRISTINE M CHRISTINE M T VISIT 25 MINUTES EMERGENCY 08642 [facility], 8 8 [facility] T VISIT HIGH/URGE NT SEVERITY OFFICE 16047 [facility], OUTPATIEN 8 8 CHRISTINE M CHRISTINE M T VISIT 15 MINUTES OFFICE 23684 [facility], OUTPATIEN 8 8 CHRISTINE M CHRISTINE M T VISIT 15 MINUTES EMERGENCY 79443 [facility], DEPT 8 8 LOIS Quarles VISIT MED CTR HIGH SEVERITY& THREAT FUNCJ OFFICE 38729 [facility], OUTPATIEN 8 8 CHRISTINE M CHRISTINE M T VISIT 15 MINUTES EMERGENCY 55458 [facility] 8 8 LOIS FRANK VISIT MED CTR HIGH SEVERITY& THREAT FUNCJ EMERGENCY 63424 [facility], 8 8 LOIS JESSICA [facility] MED CTR T VISIT HIGH/URGE NT SEVERITY EMERGENCY [address] [facility], 8 8 [facility] T VISIT HIGH/URGE NT SEVERITY EMERGENCY 58489 ST 8 8 LOIS [facility] T VISIT MEDICALCE MODERATE NTER SEVERITY HOSPITAL ST - 8 8 LOIS NE[place] T MEDICALCE NTER OFFICE 37907 PATIENT AMAN RUBI 8 8 FIRST SPARKLE T VISIT PHYS 15 MINUTES OFFICE 21297 [facility] 8 8 CHRISTINE M CHRISTINE M T VISIT [address] [place], 8 8 LOIS HOPKINS [facility] MED CTR T VISIT HIGH/URGE NT SEVERITY OFFICE 86408 [facility] 8 8 CHRISTINE M CHRISTINE M T VISIT [address] - 8 8 LOIS OUTPATIEN T MEDICALCE NTER [facility] ST - 8 8 LOIS OUTPATIEN T MEDICALCE NTER OFFICE 46427 PATIENT SNEDEGAR, CONSULTAT 8 8 FIRST SPARKLE ION PHYS NEW/ESTAB PATIENT 60 MIN OFFICE 15798 [facility] 8 8 CHRISTINE M CHRISTINE M T VISIT [address] - 8 8 LOIS OUTPATIEN T MEDICALCE NTER OFFICE 71102 [facility] 8 8 CHRISTINE M CHRISTINE M T VISIT [address] - 8 8 LOIS OUTPATIEN T MEDICALCE NTER EMERGENCY 24165 [facility] 8 LOIS ROD VISIT MED CTR HIGH SEVERITY& THREAT FUNCJ OFFICE 61072 [facility] OUTPATIEN 8 8 CHRISTINE M CHRISTINE M T NEW [address] [place], 8 8 LOIS NICOLAS [facility] MED CTR T VISIT MODERATE SEVERITY OFFICE 51108 AMAN JACKSON 8 8 MEDICAL ANGELA P T VISIT GROUP 15 MINUTES OFFICE 89495 [facility] 8 8 MEDICAL LUNA B T VISIT GROUP 10 MINUTES OFFICE 51850 [facility] 8 8 MEDICAL MIYA T VISIT GROUP 15 MINUTES
--- OUTSIDE RECORDS SUMMARY | 2016-09-13 18:38 | External Medical Summary Rpt ---
Demographics Preferred Language Tajik Marital Status Unknown Jewish Affiliation Unknown Race Unknown Ethnic Group Unknown Author Author , ISAAC GRAY Address Unknown Phone Immunization Unable to retrieve immunization data due to connection failure with Immunization Registry. Please try again later.
--- OUTSIDE RECORDS SUMMARY | 2016-09-13 18:38 | External Medical Summary Rpt ---
Demographics Preferred Language Mongolian Marital Status Unknown Mandaeism Affiliation Unknown Race Unknown Ethnic Group Unknown Author Author , ISAAC GRAY Address Unknown Phone Immunization Unable to retrieve immunization data due to connection failure with Immunization Registry. Please try again later.
== END 2016-09-10 23:16 | disposition home or self-care (01) ==
LOC: ER 19:50
PROVIDERS: Emergency Medicine
DX: E11.65 Type 2 diabetes mellitus with hyperglycemia (principal); Z79.4 Long term (current) use of insulin; F41.8 Other specified anxiety disorders; K21.9 Gastro-esophageal reflux disease without esophagitis

== ENCOUNTER → 2016-10-15 | Outpatient (CLI) | payer MEDICAID ==
[2016-10-15 19:45] LABS: AMPHETAMINES/METAMPHETAMINES NEGATIVE ng/mL (<1000)
[2016-10-15 19:59] LABS: BUN 19 mg/dL (7-18)
[2016-10-15 20:09] LABS: GFR (ESTIMATED) 62 ML/MIN (>60)
[2016-10-20 20:35] LABS: Hepatitis C Genotype 3 (.)
== END ==
LOC: LAB 16:31
PROVIDERS: Emergency Medicine
DX: E11.9 Type 2 diabetes mellitus without complications (principal); B17.10 Acute hepatitis C without hepatic coma; Z79.899 Other long term (current) drug therapy

== ENCOUNTER → 2016-11-01 | Outpatient (CLI) | payer MEDICAID ==
[2016-11-01 19:03] LABS: AMPHETAMINES/METAMPHETAMINES NEGATIVE ng/mL (<1000)
== END ==
LOC: LAB 15:35
PROVIDERS: Emergency Medicine
DX: Z79.899 Other long term (current) drug therapy (principal)

== ENCOUNTER → 2016-11-29 | Outpatient (CLI) | payer MEDICAID ==
[2016-11-29 15:55] LABS: AMPHETAMINES/METAMPHETAMINES NEGATIVE ng/mL (<1000)
== END ==
LOC: LAB 15:15
PROVIDERS: Emergency Medicine
DX: Z79.899 Other long term (current) drug therapy (principal)

== ENCOUNTER → 2016-12-27 | Outpatient (CLI) | payer MEDICAID ==
[2016-12-27 15:45] LABS: AMPHETAMINES/METAMPHETAMINES NEGATIVE ng/mL (<1000)
[2016-12-27 19:21] LABS: BUN 21 mg/dL (7-18)
[2016-12-27 19:22] LABS: GFR (ESTIMATED) 77 ML/MIN (>60)
== END ==
LOC: LAB 15:23
PROVIDERS: Emergency Medicine
DX: E11.9 Type 2 diabetes mellitus without complications (principal); E03.9 Hypothyroidism, unspecified; Z79.899 Other long term (current) drug therapy